=== PATIENT | female | born 2005 | race Caucasian/White ===

== ENCOUNTER 2023-04-29 09:56 | Outpatient (OUT) | payer OTHER, SELFPAY ==
[2023-04-29 10:33] LABS: Basophils Percent Auto 0.4 % (0.2-2.0); Eosinophils Absolute Auto 0.2 10^3/uL (0.0-0.7); Eosinophils Percent Auto 2.9 % (0.9-7.0); Hematocrit 38.7 % (36.0-48.0); Hemoglobin 13.2 g/dL (12.0-16.0); Immature Granulocytes Abs Auto 0.03 10^3/uL (0.00-0.03); Immature Granulocytes Pct Auto 0.4 % (0.0-0.5); Lymphocytes Absolute Auto 2.4 10^3/uL (1.2-3.8); Lymphocytes Percent Auto 31.1 % (20.5-60.0); Mean Corpuscular HGB Conc 34.1 g/dL (29.9-35.2); Mean Corpuscular Hemoglobin 29.7 pg (26.7-34.0); Mean Corpuscular Volume 87.2 fL (81.0-99.0); Mean Platelet Volume 10.8 fL (9.5-13.5); Monocytes Absolute Auto 0.5 10^3/uL (0.3-0.8); Monocytes Percent Auto 6.9 % (1.7-12.0); Neutrophils Absolute Auto 4.5 10^3/uL (1.4-6.5); Neutrophils Percent Auto 58.3 % (43.0-75.0); Platelet Count 257 10^3/uL (150-450); Red Blood Count 4.44 10^6/uL (4.20-5.40); Red Cell Distribution Width 12.6 % (11.0-15.0); White Blood Count 7.6 10^3/uL (4.0-11.0)
[2023-04-29 10:44] LABS: Estimated Average Glucose 103 mg/dL; Glycohemoglobin A1C 5.2 % (4.5-6.2)
[2023-04-29 11:00] LABS: Alanine Aminotransferase 27 U/L (14-59); Aspartate Amino Transferase 18 U/L (15-37)
[2023-04-29 11:23] LABS: Free T4 0.67 ng/dL (0.78-1.34)
[2023-04-29 11:32] LABS: Alanine Aminotransferase 29 U/L (14-59); Albumin Globulin Ratio 0.9; Alkaline Phosphatase 106 U/L (46-116); Anion Gap 9.5; Aspartate Amino Transferase 20 U/L (15-37); BUN Creatinine Ratio 10.3; Bilirubin Total 0.4 mg/dL (0.2-1.0); Calcium 9.3 mg/dL (8.5-10.1); Carbon Dioxide 28.4 mmol/L (21.0-32.0); Chloride 101 mmol/L (98-107); Chol HDL Ratio 5.3; Cholesterol 269 mg/dL (104-227); Estimated GFR (African America >60 (>=60); Estimated GFR (Non-African Ame >60 (>=60); Free T3 2.95 pg/mL (2.91-4.70); Globulin 4.5 g/dL; Glucose 91 mg/dL (74-106); HDL Cholesterol 51 mg/dL (29-69); Potassium 3.9 mmol/L (3.5-5.1); Sodium 135 mmol/L (136-145); Thyroid Stimulating Hormone 1.358 uIU/mL (0.516-4.130); Total Protein 8.5 g/dL (6.4-8.2); Triglycerides 195 mg/dL (53-208)
== END 2023-04-29 09:57 | disposition home or self-care (01) ==
LOC: LAB 09:59
PROVIDERS: PCP Family Medicine
DX: R53.83 Other fatigue (principal); Z79.899 Other long term (current) drug therapy
CPT/HCPCS: 36415; 80053; 80061; 82306; 83036; 84439; 84443; 84450; 84460; 84481; 85025

== ENCOUNTER 2024-04-05 08:25 | Outpatient (OUT) | payer OTHER, SELFPAY ==
--- OUTSIDE RECORDS SUMMARY | 2024-04-05 08:34 | XMS_ITS | CCD ---
Author Organization [facility] Care Team Providers Care Editor Book Name Role Phone Luis Carlos DIOP Attending Unavailable FURLONG, DR JONATHAN Sanchez Primary Care Unavailable JAVON, CARLOS Attending Unavailable JAVON, CARLOS Admitting Unavailable JAVON, CARLOS Attending Unavailable JAVON, CARLOS Admitting Unavailable ZIEBER, DR RILEY Balderrama Consulting Unavailable FURLONG, DR JONATHAN Sanchez Primary Care Unavailable JAVON, CARLOS Consulting Unavailable FURLONG, DR JONATHAN Sanchez Primary Care Unavailable MISC, DR YEE Consulting Unavailable MISC, DR YEE Attending Unavailable MISC, DR YEE Admitting Unavailable MORGAN ZHANG Attending Unavailable HANG Soliman, MORGAN Admitting Unavailable FURLONG, DR JONATHAN Sanchez Primary Care Unavailable MORGAN ZHANG Consulting Unavailable Brooke Castelan Unavailable MOISE Castelan Attending Provider Brooke Castelan Attending Unavailable Brooke Castelan Admitting Unavailable Furlong, Jonathan Primary Care Unavailable Javon ADVERTISING INTERN-TOP CARRIER, Carlos L Primary Care Provider JAVON, CARLOS L Attending Unavailable JAVON, CARLOS L Referring Unavailable JAVON, CARLOS L Primary Care Unavailable RICK MATTHEWS Attending Unavailable JAVON, CARLOS L Referring Unavailable JAVON, CARLOS L Primary Care Unavailable JAVON, CARLOS L Referring Unavailable JAVON, CARLOS L Primary Care Unavailable RICK MATTHEWS Referring Unavailable JAVON, CARLOS L Primary Care Unavailable Medications Current Medications Medication Drug Class(es) Dates Sig (Normalized) Sig (Original) [id number] 200 actuat albuterol 0.09 mg/actuat metered dose inhaler (4 sources) beta2-Adrenergic Agonist Start: 07-18-2022 take 2 puff(s) by inhalation every six hours as needed for wheezing albuterol (PROVENTIL HFA;VENTOLIN HFA) 90 mcg/actuation inhaler Indications: Mild intermittent asthma without complication INHALE 2 PUFFS EVERY 6 HOURS NEEDED FOR WHEEZING 8.5 g 1 07/18/2022 Active ProAir HFA Activ e amphetamine aspartate 1.25 mg / amphetamine sulfate 1.25 mg / dextroamphetamine saccharate 1.25 mg / dextroamphetamine sulfate 1.25 mg oral tablet (2 sources) Central Nervous System Stimulant take 1 tablet by mouth every twelve hours Adderall 5 MG 1 tablet Orally Twice a day Active Budesonide / formoterol (2 sources) Corticosteroid, beta2-Adrenergic Agonist Symbicort Active busPIRone hydrochloride 15 mg oral tablet (5 sources) Start: take 1 tablet by mouth once daily busPIRone (BUSPAR) 15 mg tablet take 1 tablet by mouth once daily 0 05/24/2023 Active End: 06-18-2023 take 2 tablets by mouth once daily busPIRone (BUSPAR) 7.5 mg tablet Take 2 tablets (15 mg total) by mouth nightly. 0 06/18/2023 Discontinued (Therapy completed) [facility] busPIRone HCl 15 MG 1 tablet Orally Twice a day Active cariprazine 4.5 mg oral capsule (5 sources) Atypical Antipsychotic Start: 05-24-2023 take 1 capsule by mouth once daily VRAYLAR 4.5 mg capsule take 1 capsule by mouth once daily 0 05/24/2023 Active Start: 07-22-2022 End: 06-18-2023 take 1 capsule by mouth once daily VRAYLAR 3 mg capsule Take by mouth daily. 0 07/22/2022 06/18/2023 Discontinued (Therapy completed) take 1 capsule by mo [facility] every twenty-four hours Vraylar 1.5 MG 1 capsule Orally Once a day Active cholecalciferol 0.05 mg oral tablet (2 sources) Vitamin D take 1 tablet by mouth in the morning cholecalciferol, vitamin D3, 2,000 units tablet Take 1 tablet (2,000 Units total) by mouth in the morning. 0 Active hydrOXYzine hydrochloride 25 mg oral tablet (2 sources) Antihistamine Start: 023 take 4 tablets by mouth once daily as needed for anxiety hydrOXYzine (ATARAX) 25 mg tablet Take 4 tablets (100 mg total) by mouth nightly as needed for anxiety. 0 09/09/2022 Active ibuprofen 800 mg oral tablet (2 sources) Nonsteroidal Anti-inflammatory Drug Start: take 1 tablet by mouth every eight hours as needed for pain ibuprofen (MOTRIN) 800 mg tablet Take 1 tablet (800 mg total) by mouth every 8 (eight) hours as needed for pain. 30 tablet 0 02/18/2023 Active bx rating 24 hr methylphenidate hydrochloride 27 mg extended release oral tablet (2 sources) Central Nervous System Stimulant Start: take 1 tablet by mouth once daily in the morning methylphenidate HCl (CONCERTA) 27 mg CR tablet take 1 tablet by mouth every morning 0 05/24/2023 Active montelukast 10 mg oral tablet (6 sources) Leukotriene Receptor Antagonist Start: take 1 tablet by mouth once daily montelukast (SINGULAIR) 10 mg tablet Indications: Unspecified asthma, uncomplicated TAKE 1 TABLET BY MOUTH EVERY DAY 90 tablet 3 02/17/2023 Active Singulair Active ondansetron 4 mg disintegrating oral tablet (4 sources) Serotonin-3 Receptor Antagonist Start: 06-18-2023 take 1 tablet by mouth every eight hours as needed for nausea and vomiting ondansetron ODT (ZOFRAN ODT) 4 mg disintegrating tablet Dissolve 1 tablet (4 mg total) on tongue every 8 (eight) hours as needed for nausea or vomiting. 20 tablet 1 06/18/2023 Active Start: 05-12-2023 take 1 tablet by toney three times daily as needed for nausea Zofran 4 MG 1 tablet Orally tid prn ODT, prn nausea Apr, Active prazosin 1 mg oral capsule (2 sources) alpha-Adrenergic Joanna take 1 capsule by mouth once daily prazosin (MINIPRESS) 1 mg capsule Take 1 capsule (1 mg total) by mouth nightly. 0 Active propranolol hydrochloride 20 mg oral tablet (4 sources) beta-Adrenergic Joanna Start: 06-11-20 23 propranoloL (INDERAL) 20 mg tablet take 5 mL by mouth once daily Pr opranolol HCl 20 MG/5ML 5 mL Orally Once a day Active sertraline 25 mg oral tablet (5 sources) Serotonin Reuptake Inhibitor Start: 03-22-2023 End: 09-13-2023 take 1 tablet by mouth in the morning sertraline (ZOLOFT) 25 mg tablet TAKE 1 TABLET (25 MG TOTAL) BY MOUTH IN THE MORNING 90 tablet 1 09/13/2023 Active sulfamethoxazole 800 mg / trimethoprim 160 mg oral tablet (2 sources) Dihydrofolate Reductase Inhibitor Antibacterial, Sulfonamide Antimicrobial Start: 05-12-2023 take 1 tablet by mouth every twelve hours Bactrim DS 800-160 MG 1 tablet Orally Twice a day for 5 days Apr, Active traZODone hydrochloride 50 mg oral tablet (4 sources) Serotonin Reuptake Inhibitor Start: 05-21-2023 take 1-3 tablets by mouth at bedtime traZODone (DESYREL) 50 mg tablet take 1 to 3 tablets by mouth at bedtime if needed 0 05/21/2023 Active take 1 tablet by mouth once ravindra y traZODone (DESYREL) 100 mg tablet Take 1 tablet (100 mg total) by mouth nightly. 0 Active Problems Active Problems Problem Classification Problem Date Documented Date Episodic/Chronic Allergic reactions (1 source) Allergic contact dermatitis due to plants, except food; Translations: [Allergic contact dermatitis due to plants, except food] Onset: 11-25-2023 Episodic Anxiety disorders (2 sources) Anxiety; Translations: [Anxiety disorder, unspecified] Onset: 05-28-2022 05-28-2022 Chronic Asthma (2 sources) Mild intermittent asthma; Translations: [Mild intermittent asthma, uncomplicated] Onset: 05-28-2022 05-28-2022 Chronic Attention-deficit, conduct, and disruptive behavior disorders (2 sources) Attention deficit hyperactivity disorder; Translations: [Attention-deficit hyperactivity disorder, unspecified type] Onset: 02-18-2023 02-18-2023 Chronic Deficiency and other anemia (2 sources) Iron deficiency anemia due to blood loss; Translations: [Iron deficiency anemia secondary to blood loss (chronic)] Onset: 05-28-2022 05-28-2022 Chronic Genitourinary symptoms and ill-defined conditions (3 sources) Dysuria; Translations: [Dysuria] Onset: 05-12-2023 Episodic Malaise and fatigue (4 sources) Other fatigue; Translations: [OTHER FATIGUE] Onset: 08-25-2022 Episodic Mood disorders (6 sources) Recurrent major depressive episodes; Translations: [Major depressive disorder, recurrent, unspecified] Onset: 05-28-2022 05-28-2022 Chronic Nonmalignant breast conditions (1 source) Galactorrhea not associated with childbirth; Translations: [Galactorrhea not associated with childbirth] Onset: 11-25-2023 Episodic Nutritional deficiencies (2 sources) Vitamin D deficiency; Translations: [Vitamin D deficiency, unspecified] Onset: 05-28-2022 05-28-2022 Chronic Personality disorders (2 sources) Borderline personality disorder; Translations: [Borderline personality disorder] Onset: 02-18-2023 02-18-2023 Chronic Residual codes; unclassified (1 source) High risk heterosexual behavior; Translations: [High risk heterosexual behavior] 06-18-2023 Episodic Unclassified (1 source) Galactorrhea Onset: 11-25-2023 Urinary tract infections (2 sources) Acute cystitis with hematuria Episodic Past or Other Problems Problem Classification Problem Date Documented Da te Episodic/Chronic Contraceptive and procreative management (3 sources) Patient encounter status; Translations: [Encounter for surveillance of implantable subdermal contraceptive] Onset: 05-28-2022 06-18-2023 Episodic E Codes: Cut/pierceb (1 source) Contact with knife, initial encounter; Translations: [CONTACT WITH KNIFE INITIAL ENC] Onset: 12-11-2021 Episodic Mood disorders (2 sources) Mood disorders Onset: 06-18-2023 06-18-2023 Nausea and vomiting (4 sources) Nausea with vomiting, unspecified; Translations: [Nausea and vomiting] Onset: 06-18-2023 Episodic Open wounds of extremities (4 sources) Laceration without foreign body of left thumb without damage to nail, initial encounter; Translations: [LAC NO FB LT THUMB NO DMG NAIL INIT] Onset: 12-10-2021 Episodic Other non-traumatic joint disorders (6 sources) Pain in right knee; Translations: [Pain in joint, lower leg] Onset: 10-08-2021 Episodic Other skin disorders (2 sources) Acne vulgaris; Translations: [Acne vulgaris] Onset: 05-28-2022 05-28-2022 Episodic Residual codes; unclassified (2 sources) High risk heterosexual behavior; Translations: [High risk heterosexual behavior] Onset: 06-18-2023 Episodic Unclassified (2 sources) Contact with and (suspected) exposure to covid-19 Z20.822 Results Test Name Value Interpretation Reference Range Facility BASIC METABOLIC PANLon 11-24 Anion gap [Moles/Vol] 8 mmol/L Normal 5-15 [facility] Comment on above: Performed By: #### B EARL THYR, 284-3 #### [facility] ([id number]) [address], [address] [place] [address] Calcium [Mass/Vol] 9.9 mg/dL Normal 8.5-10.5 [facility] Comment on above: Performed By: #### B EARL THYR, 284-3 #### [facility] ([id number]) [address], [address] [place] [address] Chloride [Moles/Vol] 104 mmol/L Normal 98-109 [facility] Comment on above: Performed By: #### B EARL THYR, 284-3 #### [facility] ([id number]) [address], [address] [place] [address] CO2 [Moles/Vol] 27 mmol/L Normal 22-32 [facility] Comment on above: Performed By: #### Demetri ELLIOTT THYR, 284-3 #### [facility] ([id number]) [address], [address] [place] [address] Creatinine [Mass/Vol] 0.75 mg/dL Normal 0.40-1.00 [facility] Comment on above: Result Comment: METH OD TRACEABLE TO IDMS STANDARD Performed By: #### B EARL THYR, 284-3 #### [facility] ([id number]) [address], [facility] [address] [place] [address] eGFR (CKD-EPI) NON-RACE DEPENDENT >90 Normal >59 [facility] Comment on above: Result Comment: Reported eGFR is based on the CKD-EPI 2020 equation that does not use a race coefficient. Performed By: #### B EARL THYR, 2842-3 #### [facility] ([id number]) [address], [address] [place] [address] Glucose [Mass/Vol] 95 mg/dL Normal 65-99 [facility] Comment on above: Performed By: #### B MP, THYR, 284-3 #### [facility] ([id number]) [address], [address] [place] [address] Potassium [Moles/Vol] 4.1 mmol/L Normal 3.5-5.0 [facility] Comment on above: Performed By: #### B EARL, THYR, 2841-3 #### [facility] ([id number]) [address], [address] [place] [address] Sodium [Moles/Vol] 139 mmol/L Normal 134-146 [facility] Comment on above: Performed By: #### B EARL, THYR, 2841-3 #### [facility] ([id number]) [address], [address] [place] [address] Urea nitrogen [Mass/Vol] 6 mg/dL Normal 5-23 [facility] Comment on above: Performed By: #### B EARL, THYR, 2841-3 #### [facility] ([id number]) [address], [address] [place] [address] Prolactin [Mass/Vol]on 11-24 PROLACTIN 25.4 ng/mL Normal 3.3-26.7 [facility] Comment on above: Performed By: #### B MP, THYR, 2841-3 #### [facility] ([id number]) [address], [address] [place] [address] THYROID PROFILEon 11-25-2023 Free T4 [Mass/Vol] 0.72 ng/dL Normal 0.61-1.60 [facility] Comment on above: Performed By: #### B EARL, THYR, 2841-3 #### [facility] ([id number]) [address], [address] [place] [address] TSH 1.37 uIU/mL Normal 0.49-4.67 [facility] Comment on above: Performed By: #### B MP, THYR, 2842-3 #### [facility] ([id number]) [address], [address] [place] [address] CHLAMYDIA/GC PCR, Uon 2022 CHLAMYDIA/GC PCR, U SPECIMEN SOURCE URINE CHLAMYDIA DNA(PCR) Negative (qualifier value) Chlamydia trachomatis not detected by nucleic acid amplification. This does not exclude the possibility of infection because results are dependent on adequate specimen collection. GONORRHOEAE DNA(PCR) Negative (qualifier value) Neisseria gonorrhoeae not detected by nucleic acid amplification. This does not exclude the possibility of infection because results are dependent on adequate specimen collection. Normal [facility] Comment on above: Performed By: #### C #### [facility] ([id number]) [address], [address] [place] [address] POCT , urineon 05-22 Beta HCG ( test) Ql (U) Negative [facility] Internal Card Room Manager Check Completed and Passed Yes [facility] Interpretation and review of laboratory results Normal [facility] TRICHOMONAS PCRon 06-18-2023 TRICHOMONAS PCR SPECIMEN SOURCE CLEAN CATCH MIDSTREAM URINE TRICHOMONAS PCR Not detected (qualifier value) Trichomonas vaginalis not detected NOTE Assay methodology is nucleic acid amplification by real-time PCR for detection of Trichomonas vaginalis DNA performed on [employer] GeneXpert Instrument System. Normal [facility] Comment on above: Performed By: #### T RKPCR #### [facility] ([id number]) [address], [address] [place] [address] COVID + FLU Quick Testingon 05-12-2023 SARS-CoV-2 (COVID-19) RNA CRISTAL+probe Ql (Unsp spec) Negative [employer] Other COVID + FLU Quick Testing Negative [employer] Other Urinalysis - AUTOMATEDon Appearance (U) cloudy [facility] Other Bilirubin Ql (U) Negative [employer] Other Color (U) dark yellow [employer] Other Glucose Ql (U) Negative [facility] Other Hemoglobin Ql (U) small [employer] Other Ketones Ql (U) Negative [facility] Other Leukocyte esterase Test strip Ql (U) trace [employer] Other Nitrite Ql (U) Negative [facility] Other pH (U) 6.5 [pH] [employer] Other Protein Ql (U) 100 [facility] Other Specific gravity (U) [Rel density] 1.030 [facility] Other Urobilinogen (U) [Mass/Vol] 1.0 mg/dL [employer] Other Urinalysis - AUTOMATED [facility] Other Urine Cultureon 05-12-2023 Bacteria identified Cx Nom (U) Reason for Exam Dysuria Urine ORGANISM: Escherichia coli (O:ESCCOL) [place] Count >100,000 Aerobic JACIEL Charge ([id number]) ------ SUSCEPTIBILITY ----- ORGANISM: O:ESCCOL ANTIBIOTIC INTERPRETATION JACIEL Amikacin S <16 Amoxacillin/K Clavulanate S <8 Ampicillin R >16 Ampicillin/Sulbacta m I 1616/8 Aztreonam S <4 Cefazolin S <2 Cefepime S <2 Ceftazidime S <1 Ceftazidime/Avibact am S <4 Ceftolozane/Tazobac escobar S <2 Ceftriaxone S <1 Cefuroxime S <4 Ciprofloxacin S <0.25 Ertapenem S <0.5 Gentamicin S <2 Levofloxacin S <0.5 Meropenem S <1 Meropenem/Vaborbact am S <2 Nitrofurantoin S <32 Piperacillin/Tazoba ctam S <8 Tetracycline S <4 Tigecycline S <2 Tobramycin S <2 Trimethoprim/Sulfam ethoxazole S <0.5 S = SUSCEPTIBLE I = INTERMEDIATE R = RESISTANT BLANK = DATA NOT AVAILABLE, OR DRUG NOT ADVISABLE OR TESTED R* = RESISTANCE DUE TO EXTENDED SPECTRUM BETA-LACTAMASES ESBL = EXTENDED SPECTRUM BETA-LACTAMASE TFG = THYMIDINE-DEPENDENT STRAIN MAURISIO = BETA-LACTAMASE POSITIVE IB = INDUCIBLE BETA-LACTAMASE. APPEARS IN PLACE OF 'S' WITH SPECIES KNOWN TO POSSESS INDUCIBLE BETA-LACTAMASES. POTENTIALLY THEY MAY BECOME RESISTANT TO ALL B-LACTAM DRUGS. PERFORMED BY: [place] [address] PATHOLOGIST BEHAVIORAL INSTRUCTOR MATTHEW CHAIDEZ M.D. [facility] Comment on above: Performed By: #### C UU #### [address] Urine Culture >100,000 [facility] Other Urine Culture <16 Susceptible [facility] Other Urine Culture <8/4 Susceptible [facility] Other Urine Culture >16 Resistant [facility] Other Urine Culture <4 Susceptible [facility] Other Urine Culture <2 Susceptible [facility] Other Urine Culture <1 Susceptible [facility] Other Urine Culture <0.25 Susceptible [facility] Other Urine Culture <0.5 Susceptible [facility] Other Urine Culture <32 Susceptible [facility] Other Urine Culture <0.5/9.5 Susceptible [facility] Other CBC AUTO DIFFon 08-25-2022 BASO # 0.0 103/ul Normal 0.0-0.1 [facility] Comment on above: Performed By: #### C BC #### [facility] [address] [place] [address] Dr. Oneal Capps Basophils/100 WBC (Bld) 0.4 % Normal 0.2-2.0 [facility] Comment on above: Performed By: #### C BC #### [facility] [address] [place] [address] Dr. Oneal Capps EO # 0.2 103/ul Normal 0.0-0.7 [facility] Comment on above: Performed By: #### C BC #### [facility] [address] [place] [address] Dr. Oneal Capps Eosinophils/100 WBC (Bld) 2.2 % Normal 0.9-7.0 [facility] Comment on above: Performed By: #### C BC #### [facility] [address] [place] [address] Dr. Oneal Capps Erythrocyte distribution width (RBC) [Ratio] 12.5 % Normal 11.0-15.0 [facility] Comment on above: Performed By: #### C BC #### [facility] [address] [place] [address] Dr. Oneal Capps Hematocrit (Bld) [Volume fraction] 37.1 % Normal 36.0-48.0 [facility] Comment on above: Performed By: #### C BC #### [facility] [address] [place] [address] Dr. Oneal Capps Hemoglobin (Bld) [Mass/Vol] 12.5 g/dL Normal 12.0-16.0 [facility] Comment on above: Performed By: #### C BC #### [facility] [address] [place] [address] Dr. Oneal Capps IG # 0.05 10e3/ul Critically high 0.00-0.[address] [facility] Comment on above: Performed By: #### C BC #### [facility] [address] [place] [address] Dr. Oneal Capps IG % 0.5 % Normal 0.0-0.5 [facility] Comment on above: Performed By: #### C BC #### [facility] [address] [place] [address] Dr. Oneal Capps LYMPH # 1.6 103/ul Normal 1.2-3.8 [facility] Comment on above: Performed By: #### C BC #### [facility] [address] [place] [address] Dr. Oneal Capps Lymphocytes/100 WBC (Bld) 16.9 % Critically low 20.5-60.0 [facility] Comment on above: Performed By: #### C BC #### [facility] [address] [place] [address] Dr. Oneal Capps MANUAL DIFF REQ NO Normal [facility] Comment on above: Performed By: #### C BC #### [facility] [address] [place] [address] Dr. Oneal Capps MCH (RBC) [Entitic mass] 29.8 pg Normal 26.7-34.0 [facility] Comment on above: Performed By: #### C BC #### [facility] [address] [place] [address] Dr. Oneal Capps MCHC (RBC) [Mass/Vol] 33.7 g/dL Normal 29.9-35.2 [facility] Comment on above: Performed By: #### C BC #### [facility] [address] [place] [address] Dr. Oneal Capps MCV (RBC) [Entitic vol] 88.5 fL Normal 81.0-99.0 [facility] Comment on above: Performed By: #### C BC #### [facility] [address] [place] [address] Dr. Oneal Capps MONO # 0.7 103/ul Normal 0.3-0.8 [facility] Comment on above: Performed By: #### C BC #### [facility] [address] [address] [address] Oneal Capps Monocytes/100 WBC (Bld) 6.9 % Normal 1.7-12.0 [facility] Comment on above: Performed By: #### C BC #### [facility] [address] [address] [address] Oneal Capps NEUT # 6.9 103/ul Critically high 1.4-6.5 [facility] Comment on above: Performed By: #### C BC #### [facility] [address] [address] [address] Oneal Capps Neutrophils/100 WBC (Bld) 73.1 % Normal 43.0-75.0 [facility] Comment on above: Performed By: #### C BC #### [facility] [address] [address] [address] Oneal Capps Platelet mean volume (Bld) [Entitic vol] 10.8 fL Normal 9.5-13.5 [facility] Comment on above: Performed By: #### C BC #### [facility] [address] [address] [address] Oneal Capps PLT 234 103/ul Normal 150-450 [facility] Comment on above: Performed By: #### C BC #### [facility] [address] [address] [address] Oneal Capps RBC 4.19 106/ul Critically low 4.20-5.40 [facility] Comment on above: Performed By: #### C BC #### [facility] [address] [address] [address] Oneal Capps WBC 9.4 103/ul Normal 4.0-11.[address] [facility] Comment on above: Performed By: #### C BC #### [facility] [address] [address] [address] Oneal Capps FERRITINon 08-25-2022 Ferritin [Mass/Vol] 62.0 ng/mL Normal 6.2-137.0 [facility] Comment on above: Performed By: #### V ITAD, FT4, FETIBC, FERR, VITB12 #### [facility] [address] [place] [address] Dr. Oneal Capps FREE T3on 08-25-2022 FREE T3 2.98 pg/mlL Normal 2.91-4.70 [facility] Comment on above: Performed By: #### V ITAD, FT4, FETIBC, FERR, VITB12 #### [facility] [address] [place] [address] Dr. Oneal Capps FREE T4on 08-25-2022 Free T4 [Mass/Vol] 0.63 ng/dL Critically low 0.78-1.34 [facility] Comment on above: Performed By: #### V ITAD, FT4, FETIBC, FERR, VITB12 #### [facility] [address] [place] [address] Dr. Oneal Capps GLYCOHEMOGLOBIN A1Con 2022 ADA RECOMMENDATION SEE BELOW Normal [facility] Comment on above: Result Comment: ADA RECOMMENDED LIMIT 4.0 - 6.0 ADA THERAPEUTIC TARGET < 7.0 ACTION SUGGESTED > 7.0 Performed By: #### A 1C #### [facility] [address] [place] [address] Dr. Oneal Capps Glucose [Mass/Vol] 111 mg/dL Normal [facility] Comment on above: Performed By: #### A 1C #### [facility] [address] [place] [address] Dr. Oneal Capps HbA1c (Bld) [Mass fraction] 5.5 % Normal 4.5-6.2 [facility] Comment on above: Performed By: #### A 1C #### [facility] [address] [place] [address] Dr. Oneal Capps IRON AND TIBCon 08-25-2022 % SATURATION 31.6 % Normal [facility] Comment on above: Performed By: #### V ITAD, FT4, FETIBC, FERR, VITB12 #### [facility] [address] [place] [address] Dr. Oneal Capps Iron [Mass/Vol] 109.0 ug/dL Normal 50.0-170.0 [facility] Comment on above: Performed By: #### V ITAD, FT4, FETIBC, FERR, VITB12 #### [facility] [address] [place] [address] Dr. Oneal Capps TIBC DIRECT 345.0 ug/dL Normal 250.0-450.0 [facility] Comment on above: Performed By: #### V ITAD, FT4, FETIBC, FERR, VITB12 #### [facility] [address] [place] [address] [address] Oneal Capps LIPID PROFILEon 08-25-2022 CHOL-HDL RATIO NORM SEE BELOW Normal [facility] Comment on above: Result Comment: 3.3 - 4.4 LOW RISK 4.4 - 7.1 AVERAGE RISK 7.1 - 11.0 MODERATE RISK >11.0 HIGH RISK Performed By: #### L IPID, TSH, FT3, CMP #### [facility] [address] [place] [address] [address] Oneal Capps Cholesterol [Mass/Vol] 251 mg/dL Critically high 104-227 [facility] Comment on above: Performed By: #### L IPID, TSH, FT3, CMP #### [facility] [address] [place] [address] [address] Oneal Capps Cholesterol in HDL [Mass/Vol] 64 mg/dL Normal 29-69 [facility] Comment on above: Performed By: #### L IPID, TSH, FT3, CMP #### [facility] [address] [place] [address] [address] Oneal Capps Cholesterol in LDL [Mass/Vol] 169.4 mg/dL Critically high 46.0-140.0 [facility] Comment on above: Performed By: #### L IPID, TSH, FT3, CMP #### [facility] [address] [place] [address] Dr. Oneal Capps Cholesterol.total/Ch olesterol in HDL [Mass ratio] 3.9 {ratio} Normal [facility] Comment on above: Performed By: #### L IPID, TSH, FT3, CMP #### [facility] [address] [place] [address] [address] Oneal Capps HDL NORMAL > or = 60 mg/dl - LOW CARDIOVASCULAR RISK <40 mg/dl - HIGH CARDIOVASCULAR RISK Normal [facility] Comment on above: Performed By: #### L IPID, TSH, FT3, CMP #### [facility] [address] [place] [address] [address] Oneal Capps LDL CALC NORMAL SEE BELOW Normal [facility] Comment on above: Result Comment: <100 mg/dl OPTIMAL 100 - 129 mg/dl NEAR OR ABOVE OPTIMAL 130 - 159 mg/dl BORDERLINE HIGH 160 - 189 mg/dl HIGH >190 mg/dl VERY HIGH Performed By: #### L IPID, TSH, FT3, CMP #### [facility] [address] [place] [address] [address] Oneal Capps Triglyceride [Mass/Vol] 88 mg/dL Normal 53-208 [facility] Comment on above: Performed By: #### L IPID, TSH, FT3, CMP #### [facility] [address] [place] [address] [address] Oneal Capps VLDL CALC 17.6 mg/dL Normal [facility] Comment on above: Performed By: #### L IPID, TSH, FT3, CMP #### [facility] [address] [place] [address] [address] Oneal Capps PROF 14(COMP METB)on 023 Albumin [Mass/Vol] 3.9 g/dL Normal 3.4-5.0 [facility] Comment on above: Performed By: #### L IPID, TSH, FT3, CMP #### [facility] [address] [place] [address] [address] Oneal Capps Albumin/Globulin [Mass ratio] 1.0 {ratio} Normal [facility] Comment on above: Performed By: #### L IPID, TSH, FT3, CMP #### [facility] [address] [place] [address] [address] Oneal Capps ALP [Catalytic activity/Vol] 96 U/L Normal 46-116 [facility] Comment on above: Performed By: #### L IPID, TSH, FT3, CMP #### [facility] [address] [place] [address] Dr. Oneal Capps ALT [Catalytic activity/Vol] 30 U/L Normal 14-59 [facility] Comment on above: Performed By: #### L IPID, TSH, FT3, CMP #### [facility] [address] [place] [address] Dr. Oneal Capps Anion gap [Moles/Vol] 11.2 mmol/L Normal [facility] Comment on above: Performed By: #### L IPID, TSH, FT3, CMP #### [facility] [address] [place] [address] Dr. Oneal Capps AST [Catalytic activity/Vol] 26 U/L Normal 15-37 [facility] Comment on above: Performed By: #### L IPID, TSH, FT3, CMP #### [facility] [address] [place] [address] Dr. Oneal Capps Bilirubin [Mass/Vol] 0.6 mg/dL Normal 0.2-1.0 [facility] Comment on above: Performed By: #### L IPID, TSH, FT3, CMP #### [facility] [address] [place] [address] Dr. Oneal Capps Calcium [Mass/Vol] 9.0 mg/dL Normal 8.5-10.1 [facility] Comment on above: Performed By: #### L IPID, TSH, FT3, CMP #### [facility] [address] [place] [address] Dr. Oneal Capps Chloride [Moles/Vol] 103 mmol/L Normal 98-107 [facility] Comment on above: Performed By: #### L IPID, TSH, FT3, CMP #### [facility] [address] [place] [address] Dr. Oneal Capps CO2 [Moles/Vol] 29.0 mmol/L Normal 21.0-32.0 [facility] Comment on above: Performed By: #### L IPID, TSH, FT3, CMP #### [facility] [address] [place] [address] [address] Onela Capps Creatinine [Mass/Vol] 0.56 mg/dL Normal 0.55-1.02 [facility] Comment on above: Performed By: #### L IPID, TSH, FT3, CMP #### [facility] [address] [place] [address] Dr. Oneal Capps EGFR-AF JORDANIAN >60 Normal >=60 [facility] Comment on above: Performed By: #### L IPID, TSH, FT3, CMP #### [facility] [address] [place] [address] Dr. Oneal Capps EGFR-NON AF JORDANIAN >60 Normal >=60 [facility] Comment on above: Performed By: #### L IPID, TSH, FT3, CMP #### [facility] [address] [place] [address] Dr. Oneal Capps Globulin (S) [Mass/Vol] 4.0 g/dL Normal [facility] Comment on above: Performed By: #### L IPID, TSH, FT3, CMP #### [facility] [address] [place] [address] Dr. Oneal Capps Glucose [Mass/Vol] 93 mg/dL Normal 74-106 [facility] Comment on above: Performed By: #### L IPID, TSH, FT3, CMP #### [facility] [address] [place] [address] Dr. Oneal Capps Potassium [Moles/Vol] 4.2 mmol/L Normal 3.5-5.[address] [facility] Comment on above: Performed By: #### L IPID, TSH, FT3, CMP #### [facility] [address] [place] [address] Dr. Oneal Capps Protein [Mass/Vol] 7.9 g/dL Normal 6.4-8.2 [facility] Comment on above: Performed By: #### L IPID, TSH, FT3, CMP #### [facility] [address] [place] [address] Dr. Oneal Capps Sodium [Moles/Vol] 139 mmol/L Normal 136-145 [facility] Comment on above: Performed By: #### L IPID, TSH, FT3, CMP #### [facility] [address] [place] [address] [address] Oneal Capps Urea nitrogen [Mass/Vol] 7.0 mg/dL Normal 6.4-19.3 [facility] Comment on above: Performed By: #### L IPID, TSH, FT3, CMP #### [facility] [address] [place] [address] Dr. Oneal Capps Urea nitrogen/Creatinine [Mass ratio] 12.5 mg/mg Normal [facility] Comment on above: Performed By: #### L IPID, TSH, FT3, CMP #### [facility] [address] [place] [address] Dr. Oneal Capps TSHon 08-25-2022 TSH 2.032 uIU/mL Normal 0.516-4.130 [facility] Comment on above: Performed By: #### V ITAD, FT4, FETIBC, FERR, VITB12 #### [facility] [address] [place] [address] Dr. Oneal Capps VITAMIN B12on 08-25-2022 Cobalamin (Vitamin B12) [Mass/Vol] 620.0 pg/mL Normal 193.0-986.0 [facility] Comment on above: Performed By: #### V ITAD, FT4, FETIBC, FERR, VITB12 #### [facility] [address] [place] [address] Dr. Oneal Capps VITAMIN D 25 OHon 08-25-2022 VIT D 25-OH 47.8 ng/mL Normal [facility] Comment on above: Performed By: #### V ITAD, FT4, FETIBC, FERR, VITB12 #### [facility] [address] [place] [address] Dr. Oneal Capps VIT D RANGES SEE BELOW Normal [facility] Comment on above: Result Comment: <20 ng/mL Vit D deficient 20 - <30 ng/mL Vit D insufficient 30 - 100 ng/mL Vit D sufficient >100 ng/mL Potential Toxicity Performed By: #### V ITAD, FT4, FETIBC, FERR, VITB12 #### [facility] [address] [place] [address] [address] Oneal Capps [place] 04-28-2022 Consent [id number]:127 Normal [facility] Registrationon 04-28-2022 Registration [id number]:127 Normal [facility] IRON, TIBC AND FERRITIN PANE Red 02-11-2022 % SATURATION 32 % (calc) Normal 15-45 [facility] Comment on above: Order Comment: FASTI NG:NO FASTING: NO Performed By: #### 5 [id number], [id number] #### [facility] [address], [address] [place] [address] Gate Supervisor: Alberto Davis MD Ferritin [Mass/Vol] 39 ng/mL Normal 6-67 [facility] Comment on above: Order Comment: FASTI NG:NO FASTING: NO Performed By: #### 5 616, [id number] #### [facility] [place] [address] Gate Supervisor: Alberto Davis MD IRON BINDING CAPACITY 346 mcg/dL (calc) Normal 271-448 [facility] Comment on above: Order Comment: FASTI NG:NO FASTING: NO Performed By: #### 5 616, [id number] #### [facility] [place] [address] Gate Supervisor: Alberto Davis MD IRON, TOTAL 112 mcg/dL Normal 27-164 [facility] Comment on above: Order Comment: FASTI NG:NO FASTING: NO Performed By: #### 5 616, [id number] #### [facility] [place] [address] Gate Supervisor: Alberto Davis MD VITAMIN D,25-OH,TOTAL,IAon 0 02-11-2022 VITAMIN D,25-OH,TOTAL,IA 42 ng/mL Normal 30-100 [facility] Comment on above: Result Comment: Ariadne min D Status 25-OH Vitamin D: Deficiency: <20 ng/mL Insufficiency: 20 - 29 ng/mL Optimal: > or = 30 ng/mL For 25-OH Vitamin D testing on patients on D2-supplementation and patients for whom quantitation of D2 and D3 fractions is required, the QuestAssureD(TM) 25-OH VIT D, (D2,D3), LC/MS/MS is recommended: order code 14022 (patients >2yrs). See Note 1 Note 1 For additional information, please refer to http://[email or web address]/[email or web address] (This link is being provided for informational/ educational purposes only.) Performed By: #### 5 616, [id number] #### [facility] [place] [address] Gate Supervisor: Alberto Davis MD IRON, TIBC AND FERRITIN [facility] 05-23-2021 % SATURATION 7 % (calc) Low 15-45 [facility] Comment on above: Performed By: #### 5 616 #### [facility] [place] [address] Gate Supervisor: Alberto Davis MD Ferritin [Mass/Vol] 5 ng/mL Low 6-67 [facility] Comment on above: Performed By: #### 5 616 #### [facility] [place] [address] Gate Supervisor: Alberto Davis MD IRON BINDING CAPACITY 501 mcg/dL (calc) High 271-448 [facility] Comment on above: Performed By: #### 5 616 #### [facility] [place] [address] Gate Supervisor: Alberto Davis MD IRON, TOTAL 36 mcg/dL Normal 27-164 [facility] Comment on above: Performed By: #### 5 616 #### [facility] [place] [address] Gate Supervisor: Alberto Davis MD Vital Signs Date Time Vital Sign Value Performing Clinician Facility 06-18-2023 12:03-0500 Body height 165.1 cm Carlos Alejandro APRN-TOP CARRIER Work Phone: [facility] 06-18-2023 12:03-0500 Body mass index (BMI) [Ratio] 29.95 kg/m2 Carlos Alejandro ADVERTISING INTERN-[employer] CAR[employer] Work Phone: [facility] 06-18-2023 12:03-0500 Body temperature 98.29 [degF] Carlos Alejandro ADVERTISING INTERN-TOP CARRIER [facility] 06-18-2023 12:03-0500 Body weight 81.65 kg Carlos Alejandro ADVERTISING INTERN-TOP CARRIER [facility] 06-18-2023 12:03-0500 Diastolic blood pressure 85 mm[Hg] Carlos Alejandro ADVERTISING INTERN-TOP CARRIER Work Phone: [facility] 06-18-2023 12:03-0500 Heart rate 72 /min Carlos Alejandro ADVERTISING INTERN-TOP CAR[employer]ER [facility] 06-18-2023 12:03-0500 SaO2% (BldA) [Mass fraction] 98 % Carlos Alejandro ADVERTISING INTERN-TOP CAR[employer]ER [facility] 06-18-2023 12:03-0500 Systolic blood pressure 121 mm[Hg] Carlos Alejandro ADVERTISING INTERN-TOP CARRIER Work Phone: [employer] 05-12-2023 15:30-0500 Body height 165.1 cm Brooke Castelan Other [facility] Other 05-12-2023 15:30-0500 Body mass index (BMI) [Ratio] 30.95 kg/m2 Brooke Castelan Other [facility] Other 05-12-2023 15:30-0500 Body temperature 98.3 [degF] Brooke Annelise Other [facility] Other 05-12-2023 15:30-0500 Body weight 84.37 kg Brooke Goelmond Other [facility] Other 05-12-2023 15:30-0500 Respiratory rate 19 /min Brooke Annelise Other [facility] Other 05-12-2023 15:30-0500 SaO2% (BldA) [Mass fraction] 98 % Brooke Annelise Other [facility] Other Encounters Encounter Date Encounter Type Care Provider Facility Start: 11-25-2023 End: 11-25-2023 ambulatory [facility] Start: 11-25-2023 End: 11-25-2023 ambulatory [facility] Start: 09-13-2023 Refill Carlos [facility] ADVERTISING INTERN-TOP CARRIER Work Phone: [facility] Start: 06-18-2023 End: 06-18-2023 ambulatory [facility] Start: 06-18-2023 End: 06-18-2023 Office outpatient visit 15 minutes Carlos Javon ADVERTISING INTERN-TOP CARRIER Work Phone: [facility] Comment on above: Non-intractable vomi ting with nausea (Primary Dx); High risk heterosexual behavior; Implantable subdermal contraceptive surveillance Start: 06-18-2023 End: 06-18-2023 ambulatory [facility] Start: 05-12-2023 End: 05-12-2023 Departed [employer] COORDINATOR-C Brooke Castelan Work Phone: [facility] [place] Work Phone: Start: 05-12-2023 End: 05-12-2023 ambulatory Brooke Castelan [facility] Work Phone: Start: 05-12-2023 Office outpatient ne w 20 minutes Brooke Annelise [facility] Start: 08-25-2022 End: 08-26-[address] JONATHAN CAMARGO Facility:[facility] Start: 04-28-2022 End: 04-29-2022 ambulatory Luis Carlos PETACA Facility:[facility] Start: 03-06-[address] JONATHAN CAMARGO Fac ility:[facility] Start: 12-10-2021 End: 12-10-2021 ambulatory MORGAN MAURICIO . Facility:[facility] Start: 10-08-2021 End: 10-09-2021 ambulatory CARLOS ALEJANDRO Facility: Procedures Date Procedure Procedure Detail Performing Clinician Start: 06-18-2023 Urine test visual color cmprsn meths Carlos Alejandro ADVERTISING INTERN-TOP CARRIER Work Phone: Start: 06-18-2023 Adult depression screening assessment Carlos Duganuch ADVERTISING INTERN-TOP CARRIER Work Phone: Start: 05-12-2023 Piperacillin/tazobactam Brooke Castelan Other Plan of Treatment Date Care Activity Detail Author Start: 02-04-2026 DTaP,Tdap and Td Vaccines (7 - Td or Tdap) DTaP,Tdap and Td Vaccines (7 - Td or Tdap) [facility] Start: 06-18-2024 Adult BMI Screening Adult BMI Screen ing [facility] Start: 06-18-2024 Depression Screening Depression Scre ening [facility] Start: 06-18-2024 Screening for Chlamy wander trachomatis Chlamydia Screening [facility] Start: 06-18-2024 Tobacco Screening Tobacco Screening [facility] Start: 02-20-2024 Adult BMI Follow Up Plan Adult BMI Follow Up Plan [facility] Comment on above: Postponed from 08/07 (Not Indicated) Start: 05-12-2023 Bacteria identified in Urine by Culture [facility] Start: 02-19-2023 Influenza vaccination Influenza Vacc ine [facility] Start: 02-17-2004 Screening for Chlamy wander trachomatis Chlamydia Screening [facility] End: 06-17-2024 Chlamydia/GC by PCR urine Chlamydia/GC by PCR urine Microbiology Routine High risk heterosexual behavior 1 Occurrences starting 06/18/2023 until 06/17/2024 [facility] Work Phone: Comment on above: 1 Occurrences starti ng 06/18/2023 until 06/17/2024 End: 06-17-2024 Trichomonas by PCR Trichomonas by PCR Microbiology Routine High risk heterosexual behavior 1 Occurrences starting 06/18/2023 until 06/17/2024 [facility] Comment on above: 1 Occurrences starti ng 06/18/2023 until 06/17/2024 Immunizations Immunization Date Immunization Notes Care Provider Cliff cervantes 06-01-2021 meningococcal oligosaccharide (groups A, C, Y and W-135) diphtheria toxoid conjugate vaccine (MCV4O) [facility] Work Phone: [facility] 01-25-2018 Human Papillomavirus 9-valent vaccine [facility] Work Phone: [facility] 10-22-2016 hepatitis A vaccine, pediatric/adolescent dosage, 2 dose schedule [facility] Work Phone: [facility] 10-22-2016 Human Papillomavirus 9-valent vaccine [facility] Work Phone: [facility] 02-05-2016 meningococcal oligosaccharide (groups A, C, Y and W-135) diphtheria toxoid conjugate vaccine (MCV4O) [facility] Work Phone: [facility] 02-05-2016 tetanus toxoid, redu lydia diphtheria toxoid, and acellular pertussis vaccine, adsorbed [facility] Work Phone: [facility] 01-13-2008 diphtheria, tetanus toxoids and acellular pertussis vaccine [facility] Work Phone: [facility] 01-13-2008 measles, mumps and rubella virus vaccine Carlos Alejandro [facility] Work Phone: [facility] 01-13-2008 poliovirus vaccine, inactivated Carlos Alejandro [facility] Work Phone: [facility] 01-13-2008 varicella virus vaccine Carlota Alejandro [facility] Work Phone: [facility] 03-18-2005 diphtheria, tetanus toxoids and acellular pertussis vaccine Carlos Alejandro [facility] Work Phone: [facility] 03-18-2005 pneumococcal conjuga te vaccine, 7 valent Carlos Alejandro [facility] Work Phone: [facility] 03-18-2005 varicella virus vaccine Carlota Alejandro [facility] Work Phone: [facility] 08-22-2004 haemophilus influenz ae type b vaccine, PRP-T conjugate Carlos Alejandro [facility] Work Phone: [facility] 08-22-2004 measles, mumps and rubella virus vaccine Carlos Alejandro [facility] Work Phone: [facility] 02-27-2004 DTaP-hepatitis B and poliovirus vaccine Carlos Alejandro [facility] Work Phone: [facility] 02-27-2004 haemophilus influenz ae type b vaccine, PRP-T conjugate Carlos Alejandro [facility] Work Phone: [facility] 02-27-2004 pneumococcal conjuga te vaccine, 7 valent Carlos Alejandro [facility] Work Phone: [facility] 2003 DTaP-hepatitis B and poliovirus vaccine Carlos Alejandro [facility] Work Phone: [facility] 2003 haemophilus influenz ae type b vaccine, PRP-T conjugate [facility] 2003 pneumococcal conjuga te vaccine, 7 valent Carlos Alejandro [employer]ISING [employer] Work Phone: [facility] 2003 DTaP-hepatitis B and poliovirus vaccine Carlos Alejandro ADVERTISING [employer] Work Phone: [facility] 2003 haemophilus influenz ae type b vaccine, PRP-T conjugate Carlos Javon ADVERTISING [employer] [facility] Work Phone: [facility] 2003 pneumococcal conjuga te vaccine, 7 valent Carlos Alejandro ADVERTISING [employer] [facility] Work Phone: [facility] 2003 hepatitis B vaccine, pediatric or pediatric/adolescent dosage Carlos Alejandro ADVERTISING [employer] [facility] Work Phone: [facility] Payers Date Payer Category Payer Unknown [employer] [facility] [id number] 2022-[facility] [phone] [address] [address] [place] [address] [id number] 2003 Unknown [id number] 2003 Unknown [id number] 2003 Unknown [id number] 2003 Unknown [id number] 2003 Unknown [id number] 2003 Unknown [id number] 1975 Unknown [id number] 1975 Unknown [id number] 1959 Self-pay 1959 Unknown [id number] 1959 Unknown [id number] Unknown [id number] Social History Date Type Detail Facility Unknown if ever smoked [facility] Work Phone: Start: 11-30-2018 End: 06-18-2023 Sex Assigned At [facility] [employer] Other Start: 2005 Sex Assigned At Female [facility] Start: 05-28-2022 Tobacco smoking status NHIS Never smoked tobacco [facility] Start: 05-28-2022 Tobacco use and exposure Smokeless tobacco non-user [facility] Start: 06-18-2023 Alcohol intake Lifetime non-drinker (finding) [facility] Start: 11-30-2018 End: 06-18-[address] [facility] Adolescent depressio n screening assessment 22 [facility] Start: 10-22-2022 Gender identity Identifies as female gender (finding) [facility] Start: 10-22-2022 Sexual orientation Heterosexual (finding) [facility] History of Present illness Narrative 06-18-2023 Carlos Alejandro APRN-TOP CARRIER - 06/18/2023 12:10 PM EST Note Date & Type Note Facility 06-18-2023 History of Present illness Narrative [address] [place] [id number] Patient: Mouna Manuel Date of : 2005 Encounter Date: 06/18/2023 History of Present Illness: The patient is a 17 y.o. female, an established patient, and is here for Chief Complaint Patient presents with Nausea In waves x3 weeks . HPI Patient was put on Concerta per her psychiatric provider in early May due to poor focus and ADHD symptoms. Patient states that the symptoms have improved but she has started to have some nausea daily after taking and if she does not take Zofran which she got 1 month ago at urgent Care, she will vomit. She is also using some sea bands which helped mildly with the symptoms as well. Her last menstrual period was June 07 which was very light as she is on Nexplanon and is not due for removal. She was last sexually active unprotected yesterday and the day before and most days this week and last week. She took a test 3 weeks ago which was negative at home. Problem List Items Addressed This Visit None Visit Diagnoses Non-intractable vomiting with nausea - Primary High risk heterosexual behavior Relevant Orders POCT , urine Chlamydia/GC by PCR urine Implantable subdermal contraceptive surveillance Past Medical, Family, and Social History Update: The following portions of the patient's history were reviewed and updated as appropriate: allergies, current medications, past family history, past medical history, past social history, past surgical history and problem list. Past Medical History: Diagnosis Date ADHD (attention deficit hyperactivity disorder) Anxiety Asthma Back pain Depression Eating disorder Migraine Recurrent UTI Past Surgical History: Procedure Laterality Date WISDOM TOOTH EXTRACTION Current Outpatient Medications Medication Sig Dispense Refill albuterol (PROVENTIL HFA;VENTOLIN HFA) 90 mcg/actuation inhaler INHALE 2 PUFFS EVERY 6 HOURS NEEDED FOR WHEEZING 8.5 g 1 busPIRone (BUSPAR) 15 mg tablet take 1 tablet by mouth once daily cholecalciferol, vitamin D3, 2,000 units tablet Take 1 tablet (2,000 Units total) by mouth in the morning. hydrOXYzine (ATARAX) 25 mg tablet Take 4 tablets (100 mg total) by mouth nightly as needed for anxiety. ibuprofen (MOTRIN) 800 mg tablet Take 1 tablet (800 mg total) by mouth every 8 (eight) hours as needed for pain. 30 tablet 0 methylphenidate HCl (CONCERTA) 27 mg CR tablet take 1 tablet by mouth every morning montelukast (SINGULAIR) 10 mg tablet TAKE 1 TABLET BY MOUTH EVERY DAY 90 tablet 3 prazosin (MINIPRESS) 1 mg capsule Take 1 capsule (1 mg total) by mouth nightly. propranoloL (INDERAL) 20 mg tablet sertraline (ZOLOFT) 25 mg tablet TAKE 1 TABLET (25 MG TOTAL) BY MOUTH IN THE MORNING 90 tablet 1 traZODone (DESYREL) 50 mg tablet take 1 to 3 tablets by mouth at bedtime if needed VRAYLAR 4.5 mg capsule take 1 capsule by mouth once daily ondansetron ODT (ZOFRAN ODT) 4 mg disintegrating tablet Dissolve 1 tablet (4 mg total) on tongue every 8 (eight) hours as needed for nausea or vomiting. 20 tablet 1 traZODone (DESYREL) 100 mg tablet Take 1 tablet (100 mg total) by mouth nightly. (Patient not taking: Reported on 06/18/2023) No current facility-administered medications for this visit. (All medications reviewed and updated by provider since last office visit or hospitalization) Allergies: Patient has no known allergies. Tobacco History: Social History Tobacco Use Smoking Status Never Smokeless Tobacco Never (If patient a smoker, smoking cessation counseling offered) Social History: Social History Substance and Sexual Activity Alcohol Use Never Review of Systems: Review of Systems Constitutional: Negative for fatigue, fever and unexpected weight change. Respiratory: Negative. Cardiovascular: Negative. Gastrointestinal: Positive for constipation, diarrhea, nausea and vomiting. Neurological: Negative. Psychiatric/Behavioral: Positive for decreased concentration and dysphoric mood. Negative for self-injury and sleep disturbance. The patient is nervous/anxious. Physical Exam: BP 121/85 (BP Site: Left Arm, BP Postition: Sitting) Pulse 72 Temp 36.8 C (98.3 F) (Oral) Ht 165.1 cm (5' 5 ) Wt 81.6 kg (180 lb) SpO2 98% BMI 29.95 kg/m Physical Exam Vitals reviewed. Constitutional: Appearance: Normal appearance. HENT: Head: Normocephalic and atraumatic. Mouth/Throat: Mouth: Mucous membranes are moist. Eyes: Pupils: Pupils are equal, round, and reactive to light. Cardiovascular: Rate and Rhythm: Normal rate and regular rhythm. Heart sounds: Normal heart sounds. Pulmonary: Effort: Pulmonary effort is normal. Breath sounds: Normal breath sounds. Abdominal: General: Bowel sounds are normal. Palpations: Abdomen is soft. Tenderness: There is no abdominal tenderness. Skin: General: Skin is warm. Capillary Refill: Capillary refill takes less than 2 seconds. Neurological: General: No focal deficit present. Mental Status: She is alert and oriented to person, place, and time. Psychiatric: Mood and Affect: Mood normal. Behavior: Behavior normal. Thought Content: Thought content normal. Judgment: Judgment normal. Assessment and Plan: Mouna was seen today for nausea. Diagnoses and all orders for this visit: Non-intractable vomiting with nausea High risk heterosexual behavior - POCT , urine - Chlamydia/GC by PCR urine; Future - Cancel: Trichomonas by PCR; Future Implantable subdermal contraceptive surveillance Other orders - ondansetron ODT (ZOFRAN ODT) 4 mg disintegrating tablet; Dissolve 1 tablet (4 mg total) on tongue every 8 (eight) hours as needed for nausea or vomiting. Follow-up: Nausea and vomiting are likely side effect of new medication she started Concerta. This is helping with her focus and concentration so she will speak to her psychiatric provider at next appointment next week to see if she can lower this dose or possibly change administration to help with the nausea symptoms. She is unlikely as she had her last menstrual period June 07 but she is having unprotected sex and despite implant will check urine hCG. She has not been screened for STIs since new sexual partner 1 year ago so will do this as well today. Unfortunately we are out of Trichomonas tubes in the office but we will get gonorrhea chlamydia. Her implant for contraception was palpated today in office. She should follow-up as stated with her psychiatric provider and with us for her wellness when it is due. MA attempted to to send the trich sample in urine cup. TI GONG APRN-CNP 06/18/23 1317 documented in this encounter [facility] Evaluation note 05-12-2023 Note Date & Type Note Facility 05-12-2023 Evaluation note Encounter Date Diagnosis Assessment Notes Apr, Contact with and (suspected) exposure to covid-19 (ICD-10 - Z20.822) Apr, Acute cystitis with hematuria (ICD-10 - N30.01) Acute cystitis home care material was printed Drink plenty fluids, get plenty of rest. Take the Bactrim as prescribed until gone. Follow-up with your family physician if no improvement in 2 to 3 days. Take Tylenol or Motrin as needed for aches pains or fevers Apr, Dysuria (ICD-10 - R30.0) Apr, Nausea and vomiting in adult (ICD-10 - R11.2) [facility] Other Clinical Note 10-08-2021 Note Date & Type Note Facility 10-08-2021 Note PROCEDURE: XR KNEE R T 3V HISTORY: Pain in right knee , chronic anterior knee pain COMPARISON: None. FINDINGS: BONES:No fracture, acute abnormality, or significant arthropathy. SOFT TISSUES:No visible soft tissue swelling. EFFUSION:None visible. OTHER: Negative. IMPRESSION: 1. Normal examination. Electronically authenticated by: RILEY SCHUSTER Date: 2021-10-08 16:[address] [facility] Evaluation note Note Date & Type Note Facility Evaluation note No assessment information [facility] Work Phone: Evaluation note Note Date & Type Note Facility Evaluation note Diagnosis Non-intractable vomiting with nausea- Primary High risk heterosexual behavior Implantable subdermal contraceptive surveillance Surveillance of previously prescribed implantable subdermal contraceptive documented in this encounter [facility] History general Narrative - Reported Note Date & Type Note Facility History general Narrative - Reported Type Medical History Uncomplicated asthma , unspecified asthma severity Medical History ADHD Medical History Depression Medical History Anxiety [facility] Other Instructions Attachments Note Date & Type Note Facility Instructions The following attachments cannot be sent through Care Everywhere.Nausea and Vomiting, Adult ED (Croatian)documented in this encounter [facility] Instructions Note Date & Type Note Facility Instructions Not on filedocumented in this en counter [facility] Summary Purpose Family History No Family History Records FoundNo Family History Records FoundNo Family History Records FoundNo Family History Records FoundNo Family History Records FoundNo Family History Records Found Advance Directives No Advanced Directives Records Found Advance Directive Response Recorded Date/ Time Advance Directives No July 28, 2018 3:28pm Chief Complaint and Reason for Visit Chief Complaint Dysuria Additional Source Comments INFORMATION SOURCE (unrecogn ized section and content) DATE CREATED AUTHOR 02/14/2022 [facility] DATE CREATED AUTHOR AUTHOR'S ORGANIZ ATION 04/29/2022 [facility] DATE CREATED AUTHOR AUTHOR'S ORGANIZ ATION 08/29/2022 [facility] DATE CREATED AUTHOR AUTHOR'S ORGANIZ ATION 05/17/2023 [facility] DATE CREATED AUTHOR AUTHOR'S ORGANIZ ATION 11/26/2023 [facility] DATE CREATED AUTHOR AUTHOR'S RAYSHAWN ALAN 11/27/2023 [facility] REASON FOR VISIT (unrecogniz ed section and content) Reason Comments Nausea In waves x3 weeks Reason Comments Med Refill Care Teams (unrecognized sec tion and content) Team Status: Inactive Member Role Status Dates Brooke Castelan , ENVIRONMENTAL SYSTEMS COORDINATOR-C Attending Provider Active Editor Book Relationship Specialty Start Date End Date Carlos Alejandro, ADVERTISING INTERN-TOP CARRIER [address] [place] [address] PCP - General Internal Medicine 02/18/23 Editor Book Relationship Specialty Start Date End Date Carlos Alejandro APRN-TOMASZ [address] [place] [address] PCP - General Internal Medicine 02/18/23 Goals (unrecognized section and content) Goals may be documented in a n alternate section FOR RECORDS PERTAINING TO PATIENTS WHO ARE OR HAVE BEEN ENROLLED IN A CHEMICAL DEPENDENCY/SUBSTANCEABUSE PROGRAM, SOME INFORMATION MAY BE OMITTED. This clinical summary was aggregated from multiple sources. Caution should be exercised in using it in the provision of clinical care. This summary normalizes information from multiple sources, and as a consequence, information in this document may materially change the coding, format and clinical context of patient data. In addition, data may be omitted in some cases. CLINICAL DECISIONS SHOULD BE BASED ON THE PRIMARY CLINICAL RECORDS. [facility] [employer] provides no warranty or guarantee of the accuracy or completeness of information in this document.
[2024-04-05 08:58] LABS: Basophils Percent Auto 0.5 % (0.2-2.0); Eosinophils Absolute Auto 0.2 10^3/uL (0.0-0.7); Eosinophils Percent Auto 2.3 % (0.9-7.0); Hematocrit 38.1 % (36.0-48.0); Hemoglobin 13.1 g/dL (12.0-16.0); Immature Granulocytes Abs Auto 0.05 10^3/uL (0.00-0.03); Immature Granulocytes Pct Auto 0.6 % (0.0-0.5); Lymphocytes Absolute Auto 2.2 10^3/uL (1.2-3.8); Lymphocytes Percent Auto 26.5 % (20.5-60.0); Mean Corpuscular HGB Conc 34.4 g/dL (29.9-35.2); Mean Corpuscular Hemoglobin 30.5 pg (26.7-34.0); Mean Corpuscular Volume 88.6 fL (81.0-99.0); Mean Platelet Volume 11.2 fL (9.5-13.5); Monocytes Absolute Auto 0.6 10^3/uL (0.3-0.8); Monocytes Percent Auto 6.8 % (1.7-12.0); Neutrophils Absolute Auto 5.2 10^3/uL (1.4-6.5); Neutrophils Percent Auto 63.3 % (43.0-75.0); Platelet Count 226 10^3/uL (150-450); Red Cell Distribution Width 12.3 % (11.0-15.0); White Blood Count 8.2 10^3/uL (4.0-11.0)
[2024-04-05 09:01] LABS: Estimated Average Glucose 105 mg/dL; Glycohemoglobin A1C 5.3 % (4.5-6.2)
[2024-04-05 09:33] LABS: Percent Iron Saturation 23.5 %
[2024-04-05 09:39] LABS: Alanine Aminotransferase 29 U/L (14-59); Anion Gap 14.6; Aspartate Amino Transferase 24 U/L (15-37); BUN Creatinine Ratio 4.9; Calcium 9.2 mg/dL (8.5-10.1); Carbon Dioxide 26.3 mmol/L (21.0-32.0); Chloride 103 mmol/L (98-107); Chol HDL Ratio 4.6; Cholesterol 229 mg/dL (<=200); Estimated GFR (African America >60 (>=60 mL/min/1.73m^2); Estimated GFR (Non-African Ame >60 (>=60 mL/min/1.73m^2); Glucose 102 mg/dL (74-106); HDL Cholesterol 50 mg/dL (40-60); Potassium 3.9 mmol/L (3.5-5.1); Sodium 140 mmol/L (136-145); Thyroid Stimulating Hormone 1.572 uIU/mL (0.358-3.740); Triglycerides 247 mg/dL (<=150); VLDL CHOLESTEROL 49.4 mg/dL
[2024-04-05 10:23] LABS: Free T4 0.67 ng/dL (0.76-1.46)
[2024-04-06 05:08] LABS: Vitamin B12 437 pg/mL (232-1245)
== END 2024-04-05 08:26 | disposition home or self-care (01) ==
PROVIDERS: PCP Family Medicine
DX: R53.83 Other fatigue (principal); Z79.899 Other long term (current) drug therapy
CPT/HCPCS: 36415; 80048; 80061; 82306; 82607; 82728; 83036; 83540; 83550; 84439; 84443; 84450; 84460; 85025

== ENCOUNTER 2024-04-26 09:44 | Outpatient (OUT) | payer OTHER, SELFPAY ==
[2024-04-26 10:01] LABS: Basophils Percent Auto 0.4 % (0.2-2.0); Eosinophils Absolute Auto 0.2 10^3/uL (0.0-0.7); Eosinophils Percent Auto 2.8 % (0.9-7.0); Hematocrit 37.6 % (36.0-48.0); Hemoglobin 12.8 g/dL (12.0-16.0); Immature Granulocytes Abs Auto 0.02 10^3/uL (0.00-0.03); Immature Granulocytes Pct Auto 0.3 % (0.0-0.5); Lymphocytes Absolute Auto 2.4 10^3/uL (1.2-3.8); Lymphocytes Percent Auto 32.9 % (20.5-60.0); Mean Corpuscular Hemoglobin 30.5 pg (26.7-34.0); Mean Corpuscular Volume 89.5 fL (81.0-99.0); Monocytes Absolute Auto 0.6 10^3/uL (0.3-0.8); Monocytes Percent Auto 8.5 % (1.7-12.0); Neutrophils Percent Auto 55.1 % (43.0-75.0); Platelet Count 239 10^3/uL (150-450); Red Cell Distribution Width 12.5 % (11.0-15.0); White Blood Count 7.2 10^3/uL (4.0-11.0)
[2024-04-27 08:15] LABS: Lithium (Eskalith(R)), Serum 0.2 mmol/L (0.5-1.2)
== END 2024-04-26 09:45 | disposition home or self-care (01) ==
LOC: LAB 09:45
PROVIDERS: PCP Family Medicine
DX: R53.83 Other fatigue (principal); Z79.899 Other long term (current) drug therapy
CPT/HCPCS: 36415; 80178; 85025

== ENCOUNTER 2024-04-26 13:28 | Emergency (ER) | payer OTHER, SELFPAY ==
[2024-04-26 13:33] VITALS: BP 127/82; PULSE 81; TEMP 36.6; O2SAT 98; BMI 28.3
--- NOTE | 2024-04-26 13:47 | CT_ITS ---
The [address] [address] Patient Name: ZEKE MANUEL MRN: [id number] date: 2005 Sex: F Assigned Patient Location: ER Current Patient Location: ER Accession/Order Number: [id number] Exam Date: 04/26/2024 14:08 Report Date: 04/26/2024 14:49 At the request of: THERESA RAINES Procedure: CT lumbar spine wo con PROCEDURE: CT lumbar spine wo con COMPARISON: None. HISTORY: low back pain, sciatica TECHNIQUE: Axial, Coronal, and Sagittal CT images obtained without IV contrast. Dose reduction techniques were achieved by using automated exposure control and/or adjustment of mA and/or kV according to patient size and/or use of iterative reconstruction technique. FINDINGS: PARASPINAL AREA: Normal with no visible mass. DISCS: Disc space narrowing with left lateral and foraminal disc herniation of the protrusion type measuring 2.2 cm at the base axial image 68 and extending posteriorly up to 4.7 mm, sagittal image #18. No central or foraminal stenosis BONES: Normal alignment with no acute fracture or spondylolisthesis. No significant degenerative change OTHER: Negative. CT/CT lumbar spine wo con IMPRESSION: Moderate sized disc herniation at L5-S1. Consider MRI for further characterization Electronically authenticated by: GIACOMO DUNCAN Date: 04/26/2024 14:49
--- NOTE | 2024-04-26 13:48 | ED_ITS ---
HPI HPI - Back Pain/Injury General Chief Complaint: Back Pain/Injury Stated Complaint: HIP PAIN Time Seen by Provider: 04/26/24 13:32 Source: patient Mode of arrival: walk-in Limitations: no limitations History of Present Illness HPI Narrative: Patient is a 18-year-old female who presents to the emergency department for pain in the right low back, right posterior hip radiating into the right leg. She states she has had similar symptoms in the past but they were never this severe. She states she had no pain last night when she went to bed and today on waking had significant pain. She states that she has occasional numbness and tingling to the right leg but is able to ambulate. She has no concern for . No medications taken prior to arrival. She denies any urinary symp toms. Related Data Previous Rx's ?Medication ?Instructions ?Recorded hydrocodone 5 mg-acetaminophen 325 1 tab PO Q6H PRN pain 3 days #12 04/26/24 mg tablet tabs methocarbamol 750 mg tablet 750 mg PO TID PRN pain #20 tabs 04/26/24 methylprednisolone 4 mg tablets in See Rx Instructions .Route 04/26/24 a dose pack (Medrol (Adolph)) .COMPLEX #21 ea Allergies Allergy/AdvReac Type Severity Reaction Status Date / Time No Known Drug Allergies Allergy Verified 04/26/24 13:39 Opioid HPI Opioid Management Most Recent Opioid Data: Last Pain Scale 4 04/26/24 14:01 04/26/24 Last MAR Pain Assessment 04/26/24 14:01 Review of Systems ROS Constitutional Denies: fever or chills Ears, nose, mouth, and throat Denies: throat pain or nasal congestion Respiratory Denies: shortness of breath Gastrointestinal Denies: nausea or vomiting Musculoskeletal Denies: back pain Integumentary/Breast Denies: rash Neurological Reports: numbness in extremities; Denies: weakness in extremities Hematologic/Lymphatic Denies: easy bruising or easy bleeding PFSH PFSH Social History Little interest or pleasure in doing things: not at all Feeling down, depressed, or hopeless: not at all Exam Narrative Exam Narrative: Gen.: Awake, alert, in no distress Head: Normocephalic, atraumatic ENT: Moist mucous membranes Respiratory: No respiratory distress Back: No bony point tenderness of the T-spine or L-spine with diffuse tenderness of the paraspinal muscles of the right lumbar spine and right posterior hip. No obvious deformity or step-off. Extremities: Moves extremities equally, no injuries noted; normal dorsiflexion and plantarflexion of the lower extremities with no decrease in sensation to the medial thighs. Normal hip flexion bilaterally Psych: Normal mood and affect Neuro: No focal neuro deficit Skin: Warm, dry, intact Constitutional Vital Signs, click to edit/add: Last Vital Signs Temp 98 F 04/26/24 13:33 Pulse 81 04/26/24 13:33 Resp 20 04/26/24 13:33 BP 127/82 04/26/24 13:33 Pulse Ox 98 04/26/24 13:33 O2 Del Method Room Air 04/26/24 13:33 Course Vital Signs Vital signs: Vital Signs Temperature 98 F 04/26/24 13:33 Pulse Rate 81 04/26/24 13:33 Respiratory Rate 20 04/26/24 13:33 Blood Pressure 127/82 04/26/24 13:33 Pulse Oximetry 98 04/26/24 13:33 Oxygen Delivery Method Room Air 04/26/24 13:33 Temperature 98 F 04/26/24 13:33 Pulse Rate 81 04/26/24 13:33 Respiratory Rate 20 04/26/24 13:33 Blood Pressure 127/82 04/26/24 13:33 Pulse Oximetry 98 04/26/24 13:33 Oxygen Delivery Method Room Air 04/26/24 13:33 MDM - Back Pain/Injury MDM Narrative Medical decision making narrative: Patient medicated for pain in the ER, CT of the lumbar spine shows an L5/S1 disc herniation. Patient referred to spinal surgery for MRI and further evaluation and treatment. She is stable at time of discharge with no focal neurodeficits. Short course of analgesics, muscle relaxants and NSAIDs given for home. Rest, ice, gentle stretching. Follow-up with PCP and return to the ER if symptoms change or worsen. SUPERVISED APC VISIT, PHYSICIAN ATTESTATION: Based on the medical record the care appears appropriate. ? Medical Records Attestation: I reviewed the patient's medical records. Imaging Data ct lumbar spine: Attestation: I have reviewed the pertinent imaging results. Radiologist's impression: ITS Impressions Lumbar Spine CT 04/26/24 13:47 IMPRESSION: Moderate sized disc herniation at L5-S1. Consider MRI for further characterization Electronically authenticated by: GIACOMO DUNCAN Date: 04/26/2024 14:49 Discharge Plan Discharge Stand Alone Forms: Portal Instructions Chief Complaint: Back Pain/Injury Clinical Impression: Lumbar radiculopathy, Sciatica, Lumbar disc herniation Patient Disposition: Home, Self-Care Time of Disposition Decision: 14:53 Condition: Good Prescriptions / Home Meds: New hydrocodone-acetaminophen 5-325 mg tablet 1 tab PO Q6H PRN (Reason: pain) 3 Days Qty: 12 0RF Rx Instructions: DX: M54.5 methylprednisolone [Medrol (Adolph)] 4 mg tablets,dose pack See Rx Instructions .ROUTE .COMPLEX Qty: 21 0RF Rx Instructions: Taper as directed methocarbamol 750 mg tablet 750 mg PO TID PRN (Reason: pain) Qty: 20 0RF Print Language: Estonian Instructions: Sciatica (ED) Referrals: BARB CAMARGO [Primary Care Provider] - 1 week Cherie Garcia MD [Physician] - As soon as possible
[2024-04-26] MEDS: HYDROCODONE/ACET 5-325 MG TABLET 1 TAB PO (14:01)
[2024-04-26] MEDS: KETOROLAC TROMETHAMINE 60 MG/2 ML VIAL IM (14:01)
[2024-04-26] MEDS: ORPHENADRINE 60 MG/ 2 ML VIAL IM (14:02)
== END 2024-04-26 15:14 | disposition home or self-care (01) ==
PROVIDERS: Emergency Provider Emergency Medicine; PCP Family Medicine
DX: R53.83 Other fatigue (principal); Z79.899 Other long term (current) drug therapy; M51.16 Intervertebral disc disorders with radiculopathy, lumbar region
CPT/HCPCS: 36415; 72131; 80178; 85025; 96372; 99285; J1885; J2360

== ENCOUNTER 2024-05-05 10:16 | Outpatient (OUT) | payer OTHER, SELFPAY ==
--- NOTE | 2024-05-05 | XR_ITS ---
The [address] [address] Patient Name: ZEKE MANUEL MRN: [id number] date: 2005 Sex: F Assigned Patient Location: Current Patient Location: Accession/Order Number: [id number] Exam Date: 05/05/2024 10:18 Report Date: 05/09/2024 11:46 At the request of: ELIAZAR ORELLANA Procedure: XR lumbar spine min 4V EXAMINATION: XR lumbar spine min 4V HISTORY: LUMBAR SPINE PAIN COMPARISON: No relevant comparison available. FINDINGS: BONES: Minimal left convex curvature of lumbar spine. No fracture, spondylolisthesis, bone lesion. No change in alignment during flexion and extension. No significant facet arthropathy. DISC SPACES: Minimal narrowing L5-S1. PARASPINOUS: Negative. No paraspinous abnormality is seen. OTHER: Negative. XR/XR lumbar spine min 4V IMPRESSION: 1. Suspect slight narrowing of the L5-S1 disc space; developmental versus degenerative. 2. Minimal levocurvature of lumbar spine; positioning versus muscle spasm. Electronically authenticated by: RILEY SCHUSTER Date: 05/09/2024 11:46
--- OUTSIDE RECORDS SUMMARY | 2024-05-05 10:40 | XMS_ITS | CCD ---
Author Organization [facility]iniSy[facility] Care Team Providers Care Lump Roller Name Role Phone Luis Carlos DIOP Attending [...] Primary Care Unavailable MORGAN ZHANG Consulting Unavailable Annelise, Brooke Unavailable MOISE Castelan Attending Provider [phone] Brooke Castelan Attending Unavailable Brooke Castelan Admitting Unavailable FurlongJonathan Primary Care Unavailable Javon SEMI TRUCK DRIVER-BAG LOADER MACHINE OPERATOR, Carlos L Primary Care Provider JAVON, CARLOS L Referring Unavailable JAVON, CARLOS L Primary Care Unavailable RICK MATTHEWS Referring Unavailable JAVON, CARLOS L Primary Care Unavailable JAVON, CARLOS L Attending Unavailable JAVON, CARLOS L Referring Unavailable JAVON, CARLOS L Primary Care Unavailable RICK MATTHEWS Attending Unavailable JAVON, CARLOS L Referring Unavailable JAVON, CARLOS L Primary Care Unavailable JAVON, CARLOS L Attending Unavailable JAVON, CARLOS L Referring Unavailable JAVON, CARLOS L Primary Care Unavailable Medications Current Medications Medication Drug Class(es) Dates Sig (Normalized) Sig (Original) [id number] 200 actuat albuterol 0.09 mg/actuat metered dose inhaler (6 sources) beta2-Adrenergic Agonist Start: 07-18-2022 take 2 [...] 1 tablet Orally Twice a day Active Apple Cider Vinegar (2 sources) take 450 mg by mouth in the morning APPLE CIDER VINEGAR ORAL Take 450 mg by mouth in the morning. Active Budesonide / formoterol (2 sources) Corticosteroid, beta2-Adrenergic Agonist Symbicort Active busPIRone hydrochloride 15 mg oral tablet (7 sources) Start: take 1 tablet by mouth at bedtime busPIRone (BUSPAR) 15 mg tablet Take 1 tablet (15 mg total) by mouth in the morning and at bedtime. 05/24/2023 Active End: 06-18-2023 take 2 tablets by mouth once daily busPIRone (BUSPAR) 7.5 mg tablet Take 2 tablets (15 mg total) by mouth nightly. 0 06/18/2023 Discontinued (Therapy completed) take 1 tablet by toney th every twelve hours busPIRone HCl 15 MG 1 tablet Orally Twice a day Active cholecalciferol 0.05 mg oral tablet (4 sources) Vitamin D take 1 tablet by mouth in the morning cholecalciferol, vitamin D3, 2,000 units tablet Take 1 tablet (2,000 Units total) by mouth in the morning. Active cranberry preparation 500 mg oral capsule (2 sources) Non-Standardized Food Allergenic Extract, Non-Standardized Plant Allergenic Extract take 1 capsule by mouth in the morning cranberry 500 mg capsule Take 500 mg by mouth in the morning. Active cyclobenzaprine hydrochloride 10 mg oral tablet (2 sources) Muscle Relaxant Start: take 1 tablet by mouth once daily as needed for muscle spasms cyclobenzaprine (FLEXERIL) 10 mg tablet Take 1 tablet (10 mg total) by mouth nightly as needed for muscle spasms. 30 tablet 1 04/28/2024 Active hydrOXYzine hydrochloride 25 mg oral tablet (4 sources) Antihistamine Start: hydrOXYzine (ATARAX) 25 mg tablet Take 4 tablets (100 mg total) by mouth as needed for anxiety. 09/09/2022 Active ibuprofen 800 mg oral tablet (4 sources) Nonsteroidal Anti-inflammatory Drug Start: 024 take 1 tablet by mouth every eight hours as needed for pain ibuprofen (MOTRIN) 800 mg tablet Take 1 tablet (800 mg total) by mouth every 8 (eight) hours as needed for pain. 60 tablet 1 04/28/2024 Active Start: 02-18-2023 take 1 tablet by toney th every eight hours as needed for pain ibuprofen (MOTRIN) 800 mg tablet Take 1 tablet (800 mg total) by mouth every 8 (eight) hours as needed for pain. 30 tablet 0 02/18/2023 Active lithium carbonate 300 mg oral capsule (2 sources) take 1 capsule by mouth in the morning lithium carbonate 300 mg capsule Take 1 capsule (300 mg total) by mouth in the morning. Active bx rating 24 hr methylphenidate hydrochloride 27 mg extended release oral tablet (4 sources) Central Nervous System Stimulant Start: 05-24-20 take 1 tablet by mouth once daily in the morning methylphenidate HCl (CONCERTA) 27 mg CR tablet take 1 tablet by mouth every morning 0 05/24/2023 Active take 1 capsule by mo uth once daily in the morning methylphenidate LA (RITALIN LA) 30 MG 24 hr capsule Take 1 capsule (30 mg total) by mouth every morning. Active montelukast 10 mg oral tablet (8 sources) Leukotriene Receptor Antagonist Start: 02-07-2024 take 1 tablet by mouth once daily montelukast (SINGULAIR) 10 mg tablet Indications: Unspecified asthma, uncomplicated take 1 tablet by mouth every day 90 tablet 3 02/07/2024 Active Start: 02-17-2023 take 1 tablet by toney th once daily montelukast (SINGULAIR) 10 mg tablet [...] Start: 05-12-2023 take 1 tablet by toney th three times daily as needed for nausea Zofran 4 MG 1 tablet Orally tid prn ODT, prn nausea Apr, Active prazosin 1 mg oral capsule (4 sources) alpha-Adrenergic Joanna take 2 capsules by mouth once daily prazosin (MINIPRESS) 1 mg capsule Take 2 capsules (2 mg total) by mouth nightly. Active take 1 capsule by mouth once amira ly prazosin (MINIPRESS) 1 mg capsule Take 1 capsule (1 mg total) by mouth nightly. 0 Active sertraline 25 mg oral tablet (7 sources) Serotonin Reuptake Inhibitor Start: 03-22-2023 End: [...] Active traZODone hydrochloride 50 mg oral tablet (6 sources) Serotonin Reuptake Inhibitor Start: 05-21-2023 take 1 tablet by mouth three times daily traZODone (DESYREL) 50 mg tablet Take 1 tablet (50 mg total) by mouth 3 (three) times a day. 05/21/2023 Active take 1 tablet by mouth once ravindra y traZODone (DESYREL) 100 mg tablet Take 1 tablet (100 mg total) by mouth nightly. 0 Active Completed/Discontinued Medications Medication Drug Class(es) Dates Sig (Normalized) Sig (Original) cariprazine 4.5 mg oral capsule (6 sources) Atypical Antipsychotic Start: 05-24-2023 End: 04-28-2024 take 1 capsule by mouth in the morning VRAYLAR 4.5 mg capsule Take 1 capsule (4.5 mg total) by mouth in the morning. 05/24/2023 04/28/2024 Discontinued (Therapy completed) Start: 07-22-2022 End: 06-18-2023 take 1 capsule by mouth once daily VRAYLAR 3 mg capsule Take by mouth daily. 0 07/22/2022 06/18/2023 Discontinued (Therapy completed) take 1 capsule by [facility] every twenty-four hours Vraylar 1.5 MG 1 capsule Orally Once a day Active propranolol hydrochloride 20 mg oral tablet (5 sources) beta-Adrenergic Joanna Start: 06-11-2023 End: 04-28-2024 take 1 tablet by mouth at bedtime propranoloL (INDERAL) 20 mg tablet Take 1 tablet (20 mg total) by mouth in the morning and at bedtime. 06/11/2023 04/28/2024 Discontinued (Therapy completed) take 5 mL by mouth once daily Pr opranolol HCl 20 MG/5ML 5 mL Orally Once a day Active Problems Active Problems Problem Classification Problem Date Documented Date Episodic/Chronic Anxiety disorders (4 sources) Anxiety; Translations: [Anxiety disorder, unspecified] Onset: 05-28-2022 05-28-2022 Chronic Asthma (4 sources) Mild intermittent asthma; Translations: [Mild intermittent asthma, uncomplicated] Onset: 05-28-2022 05-28-2022 Chronic Attention-deficit, conduct, and disruptive behavior disorders (4 sources) Attention deficit hyperactivity disorder; Translations: [Attention-deficit hyperactivity disorder, unspecified type] Onset: 02-18-2023 02-18-2023 Chronic Deficiency and other anemia (4 sources) Iron deficiency anemia due to blood loss; Translations: [Iron deficiency anemia secondary to blood loss (chronic)] Onset: 05-28-2022 05-28-2022 Chronic Genitourinary symptoms and ill-defined conditions (3 sources) Dysuria; Translations: [Dysuria] Onset: 05-12-2023 Episodic Malaise and fatigue (4 sources) Other fatigue; Translations: [OTHER FATIGUE] Onset: 08-25-2022 Episodic Mood disorders (10 sources) Recurrent major depressive episodes; Translations: [Major depressive disorder, recurrent, unspecified] Onset: 05-28-2022 05-28-2022 Chronic Nutritional deficiencies (4 sources) Vitamin D deficiency; Translations: [Vitamin D deficiency, unspecified] Onset: 05-28-2022 05-28-2022 Chronic Personality disorders (4 sources) Borderline personality disorder; Translations: [Borderline personality disorder] Onset: 02-18-2023 02-18-2023 Chronic Residual codes; unclassified (1 source) High risk heterosexual behavior; Translations: [High risk heterosexual behavior] 06-18-2023 Episodic Spondylosis; intervertebral disc disorders; other back problems (3 sources) Other intervertebral disc displacement, lumbosacral region; Translations: [Displacement of lumbar intervertebral disc without myelopathy] Onset: 04-28-2024 05-01-2024 Chronic Unclassified (1 source) Galactorrhea Onset: 11-25-2023 Unclassified (1 source) Herniation of intervertebral disc between L5 and S1 05-01-2024 Urinary tract infections (2 sources) Acute cystitis with hematuria Episodic Past or Other Problems Problem Classification Problem Date Documented Da te Episodic/Chronic Allergic reactions (1 source) Allergic contact dermatitis due to plants, except food; Translations: [Allergic contact dermatitis due to plants, except food] Onset: 11-25-2023 Episodic Contraceptive and procreative management (5 sources) Patient encounter status; Translations: [Encounter for surveillance of implantable subdermal contraceptive] Onset: 05-28-2022 06-18-2023 Episodic E Codes: Cut/pierceb (1 source) Contact with knife, initial encounter; Translations: [CONTACT WITH KNIFE INITIAL ENC] Onset: 12-11-2021 Episodic Mood disorders (4 sources) Mood disorders Onset: 06-18-2023 Resolved: 04-28-2024 06-18-2023 Nausea and vomiting (4 sources) Nausea with vomiting, unspecified; Translations: [Nausea and vomiting] Onset: 06-18-2023 Episodic Nonmalignant breast conditions (1 source) Galactorrhea not associated with childbirth; Translations: [Galactorrhea not associated with childbirth] Onset: 11-25-2023 Episodic Open wounds of extremities (4 sources) Laceration without foreign body of left thumb without damage to nail, initial encounter; Translations: [LAC NO FB LT THUMB NO DMG NAIL INIT] Onset: 12-10-2021 Episodic Other non-traumatic joint disorders (8 sources) Pain in right knee; Translations: [Pain in joint, lower leg] Onset: 10-08-2021 Episodic Other skin disorders (4 sources) Acne vulgaris; Translations: [Acne vulgaris] Onset: 05-28-2022 05-28-2022 Episodic Residual codes; unclassified (2 sources) High risk heterosexual behavior; Translations: [High risk heterosexual behavior] Onset: 06-18-2023 Episodic Unclassified (2 sources) Contact with and (suspected) exposure to covid-19 Z20.822 Results Test Name Value Interpretation Reference Range Facility BASIC METABOLIC PANLon 11-24 Anion gap [Moles/Vol] 8 mmol/L Normal 5-15 [facility] Comment on above: Performed By: #### B EARL, THYR, 2842-3 #### [facility] ([id number]) [address], [address] [place] [address] Calcium [Mass/Vol] 9.9 mg/dL Normal 8.5-10.5 [facility] Comment on above: Performed By: #### Demetri MP, THYR, 2842-3 #### [facility] ([id number]) [address], [address] [place] [address] Chloride [Moles/Vol] 104 mmol/L Normal 98-109 [facility] Comment on above: Performed By: #### B MP, THYR, 2842-3 #### [facility] ([id number]) [address], [address] [place] [address] CO2 [Moles/Vol] 27 mmol/L Normal 22-32 [facility] Comment on above: Performed By: #### B MP, THYR, 2842-3 #### [facility] ([id number]) [address], [address] [place] [address] Creatinine [Mass/Vol] 0.75 mg/dL Normal 0.40-1.00 [facility] Comment on above: Result Comment: METH OD TRACEABLE TO IDMS STANDARD Performed By: #### B EARL, THYR, 2842-3 #### [facility] ([id number]) [address], [address] [place] [address] eGFR (CKD-EPI) NON-RACE DEPENDENT >90 Normal >[address] [facility] Comment on above: Result Comment: Reported eGFR is based on the CKD-EPI 2020 equation that does not use a race coefficient. Performed By: #### B EARL, THYR, 2842-3 #### [facility] ([id number]) [address], [address] [place] [address] Glucose [Mass/Vol] 95 mg/dL Normal 65-99 [facility] Comment on above: Performed By: #### B EARL, THYR, 2842-3 #### [facility] ([id number]) [address], [facility] [address] [place] [address] Potassium [Moles/Vol] 4.1 mmol/L Normal 3.5-5.0 [facility] Comment on above: Performed By: #### Demetri ELLIOTT, THYR, 284-3 #### [facility] ([id number]) [address], [facility] [address] [place] [address] Sodium [Moles/Vol] 139 mmol/L Normal 134-146 [facility] Comment on above: Performed By: #### Demetri ELLIOTT, THYR, 284-3 #### [facility] ([id number]) [address], [address] [place] [address] Urea nitrogen [Mass/Vol] 6 mg/dL Normal 5-23 [facility] Comment on above: Performed By: #### B MP, THYR, 2842-3 #### [facility] ([id number]) [address] [address] [place] [address] Prolactin [Mass/Vol]on 11-24 PROLACTIN 25.4 ng/mL Normal 3.3-26.7 [facility] Comment on above: Performed By: #### Demetri ELLIOTT, THYR, 2842-3 #### [facility] ([id number]) [address], [address] [place] [address] THYROID PROFILEon 11-25-2023 Free T4 [Mass/Vol] 0.72 ng/dL Normal 0.61-1.60 [facility] Comment on above: Performed By: #### B MP, THYR, 2842-3 #### [facility] ([id number]) [address], [address] [place] [address] TSH 1.37 uIU/mL Normal 0.49-4.[address] [facility] Comment on above: Performed By: #### B MP, THYR, 2842-3 #### [facility] ([id number]) [address], [address] [address] CHLAMYDIA/GC PCR, Uon 2022 CHLAMYDIA/GC PCR, U [...] are dependent on adequate specimen collection. Normal [facility] Comment on above: Performed By: #### C #### [facility] ([id number]) [address], [address] [address] POCT , urineon 05-22 Beta HCG ( test) Ql (U) Negative [facility] Internal Forging Press Lever Tender Check Completed and Passed Yes [facility] Interpretation and review of laboratory results Normal [facility] TRICHOMONAS PCRon 06-18-2023 TRICHOMONAS PCR SPECIMEN SOURCE CLEAN CATCH MIDSTREAM URINE TRICHOMONAS PCR Not detected (qualifier value) Trichomonas vaginalis not detected NOTE Assay methodology is nucleic acid amplification by real-time PCR for detection of Trichomonas vaginalis DNA performed on [employer] Instrument System. Normal [facility] Comment on above: Performed By: #### T RKPCR #### [facility] ([id number]) [address] [facility], [address] [place] [address] COVID + FLU Quick Testingon 05-12-2023 SARS-CoV-2 (COVID-19) RNA CRISTAL+probe Ql (Unsp spec) Negative [employer] Other COVID + FLU Quick Testing Negative [employer] Other Urinalysis - AUTOMATEDon Appearance (U) cloudy [employer] Other Bilirubin Ql (U) Negative [employer] Other Color (U) dark yellow [employer] Other Glucose Ql (U) Negative [employer] Other Hemoglobin Ql (U) small [employer] Other Ketones Ql (U) Negative [employer] Other Leukocyte esterase Test strip Ql (U) trace [employer] Other Nitrite Ql (U) Negative [employer] Other pH (U) 6.5 [pH] [employer] Other Protein Ql (U) 100 [employer] Other Specific gravity (U) [Rel density] 1.030 [employer] Other Urobilinogen (U) [Mass/Vol] 1.0 mg/dL [employer] Other Urinalysis - AUTOMATED [employer] Other Urine Cultureon 05-12-2023 Bacteria identified Cx Nom (U) Reason for Exam Dysuria Urine ORGANISM: Escherichia coli (O:ESCCOL) Nelson Count >100,000 Aerobic JACIEL Charge (NMIC56) ------ [...] RESISTANT TO ALL B-LACTAM DRUGS. PERFORMED BY: [place] [address] PATHOLOGIST INDUSTRIAL MAINTENANCE REPAIRER HELPER MATTHEW CHAIDEZ M.D. [facility] Comment on above: Performed By: #### C UU #### [address] Urine Culture >100,000 [employer] Other Urine Culture <16 Susceptible [employer] Other Urine Culture <8/4 Susceptible [employer] Other Urine Culture >16 Resistant [employer] Other Urine Culture <4 Susceptible [employer] Other Urine Culture <2 Susceptible [employer] Other Urine Culture <1 Susceptible [employer] Other Urine Culture <0.25 Susceptible [employer] Other Urine Culture <0.5 Susceptible [employer] Other Urine Culture <32 Susceptible [employer] Other Urine Culture <0.5/9.5 Susceptible [employer] Other CBC AUTO DIFFon 08-25-2022 BASO # 0.0 103/ul Normal 0.0-0.1 [facility] Comment on above: Performed By: #### C BC #### [facility] [address] [place] [address] Dr. Oneal Capps Basophils/100 WBC (Bld) 0.4 % Normal 0.2-2.0 [facility] Comment on above: Performed By: #### C BC #### [facility] [address] [place] [address] Dr. Oneal Capps EO # 0.2 103/ul Normal 0.0-0.7 [facility] Comment on above: Performed By: #### C BC #### [facility] [address] [place] [address] Dr. Oneal Capps Eosinophils/100 WBC (Bld) 2.2 % Normal 0.9-7.0 [facility] Comment on above: Performed By: #### C BC #### [facility] [address] [place] [address] Dr. Oneal Capps Erythrocyte distribution width (RBC) [Ratio] 12.5 % Normal 11.0-15.0 [facility] Comment on above: Performed By: #### C BC #### [facility] [address] [place] [address] Dr. Oneal Capps Hematocrit (Bld) [Volume fraction] 37.1 % Normal 36.0-48.0 [facility] Comment on above: Performed By: #### C BC #### [facility] [address] [place] [address] Dr. Oneal Capps Hemoglobin (Bld) [Mass/Vol] 12.5 g/dL Normal 12.0-16.0 [facility] Comment on above: Performed By: #### C BC #### [facility] [address] [place] [address] Dr. Oneal Capps IG # 0.05 10e3/ul Critically high 0.00-0.03 [facility] Comment on above: Performed By: #### C BC #### [facility] [address] [place] [address] Dr. Oneal Capps IG % 0.5 % Normal 0.0-0.5 [facility] Comment on above: Performed By: #### C BC #### [facility] [address] [place] [address] Dr. Oneal Capps LYMPH # 1.6 103/ul Normal 1.2-3.8 [facility] Comment on above: Performed By: #### C BC #### [facility] [address] [place] [address] Dr. Oneal Capps Lymphocytes/100 WBC (Bld) 16.9 % Critically low 20.5-60.0 [facility] Comment on above: Performed By: #### C BC #### [facility] [address] [place] [address] Dr. Oneal Capps MANUAL DIFF REQ NO Normal [facility] Comment on above: Performed By: #### C BC #### [facility] [address] [place] [address] Dr. Oneal Capps MCH (RBC) [Entitic mass] 29.8 pg Normal 26.7-34.0 [facility] Comment on above: Performed By: #### C BC #### [facility] [address] [place] [address] Dr. Oneal Capps MCHC (RBC) [Mass/Vol] 33.7 g/dL Normal 29.9-35.2 [facility] Comment on above: Performed By: #### C BC #### [facility] [address] [place] [address] Dr. Oneal Capps MCV (RBC) [Entitic vol] 88.5 fL Normal 81.0-99.0 [facility] Comment on above: Performed By: #### C BC #### [facility] [address] [place] [address] Dr. Oneal Capps MONO # 0.7 103/ul Normal 0.3-0.8 [facility] Comment on above: Performed By: #### C BC #### [facility] [address] [place] [address] Dr. Oneal Capps Monocytes/100 WBC (Bld) 6.9 % Normal 1.7-12.0 [facility] Comment on above: Performed By: #### C BC #### [facility] [address] [place] [address] Dr. Oneal Capps NEUT # 6.9 103/ul Critically high 1.4-6.5 [facility] Comment on above: Performed By: #### C BC #### [facility] [address] [place] [address] Dr. Oneal Capps Neutrophils/100 WBC (Bld) 73.1 % Normal 43.0-75.0 [facility] Comment on above: Performed By: #### C BC #### [facility] [address] [place] [address] Dr. Oneal Capps Platelet mean volume (Bld) [Entitic vol] 10.8 fL Normal 9.5-13.5 [facility] Comment on above: Performed By: #### C BC #### [facility] [address] [place] [address] Dr. Oneal Capps PLT 234 103/ul Normal 150-450 [facility] Comment on above: Performed By: #### C BC #### [facility] [address] [place] [address] Dr. Oneal Capps RBC 4.19 106/ul Critically low 4.20-5.40 [facility] Comment on above: Performed By: #### C BC #### [facility] [address] [place] [address] Dr. Oneal Capps WBC 9.4 103/ul Normal 4.0-11.0 [facility] Comment on above: Performed By: #### C BC #### [facility] [address] [place] [address] Dr. Oneal Capps FERRITINon 08-25-2022 Ferritin [Mass/Vol] 62.0 ng/mL Normal 6.2-137.0 [facility] Comment on above: Performed By: #### V ITAD, FT4, FETIBC, FERR, VITB12 #### [facility] [address] [place] [address] Dr. Oneal Capps FREE T3on 08-25-2022 FREE T3 2.98 pg/mlL Normal 2.91-4.70 [facility] Comment on above: Performed By: #### V ITAD, FT4, FETIBC, FERR, VITB12 #### [facility] [address] [place] [address] Dr. Oneal Capps FREE T4on 08-25-2022 Free T4 [Mass/Vol] 0.63 ng/dL Critically low 0.78-1.34 [facility] Comment on above: Performed By: #### V ITAD, FT4, FETIBC, FERR, VITB12 #### [facility] [address] [place] [address] Dr. Oneal Capps GLYCOHEMOGLOBIN A1Con 2022 ADA RECOMMENDATION SEE BELOW Normal [facility] Comment on above: Result Comment: ADA RECOMMENDED LIMIT 4.0 - 6.0 ADA THERAPEUTIC TARGET < 7.0 ACTION SUGGESTED > 7.0 Performed By: #### A 1C #### [facility] [address] [place] [address] Dr. Oneal Capps Glucose [Mass/Vol] 111 mg/dL Normal [facility] Comment on above: Performed By: #### A 1C #### [facility] [address] [place] [address] Dr. Oneal Capps HbA1c (Bld) [Mass fraction] 5.5 % Normal 4.5-6.2 [facility] Comment on above: Performed By: #### A 1C #### [facility] [address] [address] [address] Oneal Capps IRON AND TIBCon 08-25-2022 % SATURATION 31.6 % Normal [facility] Comment on above: Performed By: #### V ITAD, FT4, FETIBC, FERR, VITB12 #### [facility] [address] [address] [address] Oneal Capps Iron [Mass/Vol] 109.0 ug/dL Normal 50.0-170.0 [facility] Comment on above: Performed By: #### V ITAD, FT4, FETIBC, FERR, VITB12 #### [facility] [address] [address] [address] Oneal Capps TIBC DIRECT 345.0 ug/dL Normal 250.0-450.0 [facility] Comment on above: Performed By: #### V ITAD, FT4, FETIBC, FERR, VITB12 #### [facility] [address] [address] [address] Oneal Capps LIPID PROFILEon 08-25-2022 CHOL-HDL RATIO NORM SEE BELOW Normal [facility] Comment on above: Result Comment: 3.3 - 4.4 LOW RISK 4.4 - 7.1 AVERAGE RISK 7.1 - 11.0 MODERATE RISK >11.0 HIGH RISK Performed By: #### L IPID, TSH, FT3, CMP #### [facility] [address] [address] [address] Oneal Capps Cholesterol [Mass/Vol] 251 mg/dL Critically high 104-227 [facility] Comment on above: Performed By: #### L IPID, TSH, FT3, CMP #### [facility] [address] [address] [address] Oneal Capps Cholesterol in HDL [Mass/Vol] 64 mg/dL Normal 29-69 [facility] Comment on above: Performed By: #### L IPID, TSH, FT3, CMP #### [facility] [address] [address] [address] Oneal Capps Cholesterol in LDL [Mass/Vol] 169.4 mg/dL Critically high 46.0-140.0 [facility] Comment on above: Performed By: #### L IPID, TSH, FT3, CMP #### [facility] [address] [place] [address] Dr. Oneal Capps Cholesterol.total/Ch olesterol in HDL [Mass ratio] 3.9 {ratio} Normal [facility] Comment on above: Performed By: #### L IPID, TSH, FT3, CMP #### [facility] [address] [address] [address] Oneal Capps HDL NORMAL > or = 60 mg/dl - LOW CARDIOVASCULAR RISK <40 mg/dl - HIGH CARDIOVASCULAR RISK Normal [facility] Comment on above: Performed By: #### L IPID, TSH, FT3, CMP #### [facility] [address] [place] [address] Dr. Oneal Capps LDL CALC NORMAL SEE BELOW Normal [facility] Comment on above: Result Comment: <100 mg/dl OPTIMAL 100 - 129 mg/dl NEAR OR ABOVE OPTIMAL 130 - 159 mg/dl BORDERLINE HIGH 160 - 189 mg/dl HIGH >190 mg/dl VERY HIGH Performed By: #### L IPID, TSH, FT3, CMP #### [facility] [address] [place] [address] Dr. Oneal Capps Triglyceride [Mass/Vol] 88 mg/dL Normal 53-208 [facility] Comment on above: Performed By: #### L IPID, TSH, FT3, CMP #### [facility] [address] [place] [address] Dr. Oneal Capps VLDL CALC 17.6 mg/dL Normal [facility] Comment on above: Performed By: #### L IPID, TSH, FT3, CMP #### [facility] [address] [address] [address] Oneal Capps PROF 14(COMP METB)on 023 Albumin [Mass/Vol] 3.9 g/dL Normal 3.4-5.0 [facility] Comment on above: Performed By: #### L IPID, TSH, FT3, CMP #### [facility] [address] [place], [place] [id number] Dr. Oneal Capps Albumin/Globulin [Mass ratio] 1.0 {ratio} Normal [facility] Comment on above: Performed By: #### L IPID, TSH, FT3, CMP #### [facility] [address] [place] [address] Dr. Oneal Capps ALP [Catalytic activity/Vol] 96 U/L Normal 46-116 [facility] Comment on above: Performed By: #### L IPID, TSH, FT3, CMP #### [facility] [address] [place] [address] Dr. Oneal Capps ALT [Catalytic activity/Vol] 30 U/L Normal 14-59 [facility] Comment on above: Performed By: #### L IPID, TSH, FT3, CMP #### [facility] [address] [place] [address] Dr. Oneal Capps Anion gap [Moles/Vol] 11.2 mmol/L Normal [facility] Comment on above: Performed By: #### L IPID, TSH, FT3, CMP #### [facility] [address] [place] [address] Dr. Oneal Capps AST [Catalytic activity/Vol] 26 U/L Normal 15-37 [facility] Comment on above: Performed By: #### L IPID, TSH, FT3, CMP #### [facility] [address] [place] [address] Dr. Oneal Capps Bilirubin [Mass/Vol] 0.6 mg/dL Normal 0.2-1.0 [facility] Comment on above: Performed By: #### L IPID, TSH, FT3, CMP #### [facility] [address] [place] [address] Dr. Oneal Capps Calcium [Mass/Vol] 9.0 mg/dL Normal 8.5-10.1 [facility] Comment on above: Performed By: #### L IPID, TSH, FT3, CMP #### [facility] [address] [place] [address] Dr. Oneal Capps Chloride [Moles/Vol] 103 mmol/L Normal 98-107 [facility] Comment on above: Performed By: #### L IPID, TSH, FT3, CMP #### [facility] [address] [address] [address] Oneal Capps CO2 [Moles/Vol] 29.0 mmol/L Normal 21.0-32.0 [facility] Comment on above: Performed By: #### L IPID, TSH, FT3, CMP #### [facility] [address] [place] [address] Dr. Oneal Capps Creatinine [Mass/Vol] 0.56 mg/dL Normal 0.55-1.02 [facility] Comment on above: Performed By: #### L IPID, TSH, FT3, CMP #### [facility] [address] [place] [address] Dr. Oneal Capps EGFR-AF SLOVAK >60 Normal >=60 [facility] Comment on above: Performed By: #### L IPID, TSH, FT3, CMP #### [facility] [address] [place] [address] Dr. Oneal Capps EGFR-NON AF [place]OVAK >60 Normal >=60 [facility] Comment on above: Performed By: #### L IPID, TSH, FT3, CMP #### [facility] [address] [place] [address] Dr. Oneal Capps Globulin (S) [Mass/Vol] 4.0 g/dL Normal [facility] Comment on above: Performed By: #### L IPID, TSH, FT3, CMP #### [facility] [address] [place] [address] Dr. Oneal Capps Glucose [Mass/Vol] 93 mg/dL Normal 74-106 [facility] Comment on above: Performed By: #### L IPID, TSH, FT3, CMP #### [facility] [address] [place] [address] Dr. Oneal Capps Potassium [Moles/Vol] 4.2 mmol/L Normal 3.5-5.1 [facility] Comment on above: Performed By: #### L IPID, TSH, FT3, CMP #### [facility] [address] [place] [address] Dr. Oneal Capps Protein [Mass/Vol] 7.9 g/dL Normal 6.4-8.2 [facility] Comment on above: Performed By: #### L IPID, TSH, FT3, CMP #### [facility] [address] [place] [address] Dr. Oneal Capps Sodium [Moles/Vol] 139 mmol/L Normal 136-145 [facility] Comment on above: Performed By: #### L IPID, TSH, FT3, CMP #### [facility] [address] [place] [address] Dr. Oneal Capps Urea nitrogen [Mass/Vol] 7.0 mg/dL Normal 6.4-19.3 [facility] Comment on above: Performed By: #### L IPID, TSH, FT3, CMP #### [facility] [address] [place] [address] Dr. Oneal Capps Urea nitrogen/Creatinine [Mass ratio] 12.5 mg/mg Normal [facility] Comment on above: Performed By: #### L IPID, TSH, FT3, CMP #### [facility] [address] [place] [address] Dr. Oneal Capps TSHon 08-25-2022 TSH 2.032 uIU/mL Normal 0.516-4.130 [facility] Comment on above: Performed By: #### V ITAD, FT4, FETIBC, FERR, VITB12 #### [facility] [address] [place] [address] Dr. Oneal Capps VITAMIN B12on 08-25-2022 Cobalamin (Vitamin B12) [Mass/Vol] 620.0 pg/mL Normal 193.0-986.0 [facility] Comment on above: Performed By: #### V ITAD, FT4, FETIBC, FERR, VITB12 #### [facility] [address] [place] [address] Dr. Oneal Capps VITAMIN D 25 OHon 08-25-2022 VIT D 25-OH 47.8 ng/mL Normal [facility] Comment on above: Performed By: #### V ITAD, FT4, FETIBC, FERR, VITB12 #### [facility] [address] [place], [place] [address] Dr. Oneal Capps VIT D RANGES SEE BELOW Normal [facility] Comment on above: Result Comment: <20 ng/mL Vit D deficient 20 - <30 ng/mL Vit D insufficient 30 - 100 ng/mL Vit D sufficient >100 ng/mL Potential Toxicity Performed By: #### V ITAD, FT4, FETIBC, FERR, VITB12 #### [facility] [address] [place], [place] [address] Dr. Oenal Capps [place] 04-28-2022 Consent [id number]:127 Normal [facility] Registrationon 04-28-2022 Registration [id number]:127 Normal [facility] IRON, TIBC AND FERRITIN PANE [facility] 02-11-2022 % SATURATION 32 % (calc) Normal 15-45 [facility] Comment on above: Order Comment: FASTI NG:NO FASTING: NO Performed By: #### 5 [id number], [id number] #### [facility] [address], [address] [place] [address] Laser/Electro Optics Technician: Alberto Davis MD Ferritin [Mass/Vol] 39 ng/mL Normal 6-67 [facility] Comment on above: Order Comment: FASTI NG:NO FASTING: NO Performed By: #### 5 336, [id number] #### [facility] [address], [address] [place], [place] [id number] Laser/Electro Optics Technician: Alberto Davis MD IRON BINDING CAPACITY 346 mcg/dL (calc) Normal 271-448 [facility] Comment on above: Order Comment: FASTI NG:NO FASTING: NO Performed By: #### 5 116, [id number] #### [facility] [address], [address] [place] [id number] Laser/Electro Optics Technician: Alberto Davis MD IRON, TOTAL 112 mcg/dL Normal 27-164 [facility] Comment on above: Order Comment: FASTI NG:NO FASTING: NO Performed By: #### 5 616, 84735 #### [facility] [address] [address] Laser/Electro Optics Technician: Alberto Davis MD VITAMIN D,25-OH,TOTAL,IAon 0 8 VITAMIN D,25-OH,TOTAL,IA 42 ng/mL Normal 30-100 [facility] [...] D, (D2,D3), LC/MS/MS is recommended: order code [id number] (patients >2yrs). See Note 1 Note 1 For additional information, please refer to [email or web address].[email or web address] [email or web address]/BEV641 (This link is being provided for informational/ educational purposes only.) Performed By: #### 5 616, [id number] #### [facility] [address] [address] Laser/Electro Optics Technician: Alberto Davis MD IRON, TIBC AND FERRITIN MADIHA [facility] 05-23-2021 % SATURATION 7 % (calc) Low 15-45 [facility] Comment on above: Performed By: #### 5 616 #### [facility] [address] [address] Laser/Electro Optics Technician: Alberto Davis MD Ferritin [Mass/Vol] 5 ng/mL Low 6-67 [facility] Comment on above: Performed By: #### 5 616 #### [facility] [address] [address] Laser/Electro Optics Technician: Alberto Davis MD IRON BINDING CAPACITY 501 mcg/dL (calc) High 271-448 [facility] Comment on above: Performed By: #### 5 616 #### [facility] [address] [place] [address] Rd, [address] [place] [address] Laser/Electro Optics Technician: Alberto Davis MD IRON, TOTAL 36 mcg/dL Normal 27-164 [facility] Comment on above: Performed By: #### 5 616 #### [facility] [address] [place] [address], [address] [place] [address] Laser/Electro Optics Technician: Alberto Davis MD Vital Signs Date Time Vital Sign Value Performing Clinician Facility 04-28-2024 12:02-0500 Body mass index (BMI) [Ratio] 31.42 kg/m2 Carlos Alejandro SEMI TRUCK DRIVER-BAG LOADER MACHINE OPERATOR Work Phone: [facility] 04-28-2024 12:02-0500 Body temperature 98.1 [degF] Carlos Javon SEMI TRUCK DRIVER-BAG LOADER MACHINE OPERATOR Work Phone: [facility] 04-28-2024 12:02-0500 Body weight 85.64 kg Carlos Alejandro SEMI TRUCK DRIVER-BAG LOADER MACHINE OPERATOR Work Phone: [facility] 04-28-2024 12:02-0500 Diastolic blood pressure 72 mm[Hg] Carlos Javon SEMI TRUCK DRIVER-BAG LOADER MACHINE OPERATOR Work Phone: [facility] 04-28-2024 12:02-0500 Heart rate 86 /min Carlos Javon SEMI TRUCK DRIVER-BAG LOADER MACHINE OPERATOR Work Phone: [facility] 04-28-2024 12:02-0500 SaO2% (BldA) [Mass fraction] 97 % Carlos Alejandro SEMI TRUCK DRIVER-BAG LOADER MACHINE OPERATOR Work Phone: [facility] 04-28-2024 12:02-0500 Systolic blood pressure 112 mm[Hg] Carlos Javon SEMI TRUCK DRIVER-BAG LOADER MACHINE OPERATOR Work Phone: [facility] 06-18-2023 12:03-0500 Body height 165.1 cm Carlos Alejandro SEMI TRUCK DRIVER-BAG LOADER MACHINE OPERATOR Work Phone: [facility] 06-18-2023 12:03-0500 Body mass index (BMI) [Ratio] 29.95 kg/m2 Carlosghulam Alejandro SEMI TRUCK DRIVER-BAG LOADER MACHINE OPERATOR Work Phone: [employer] 06-18-2023 12:03-0500 Body temperature 98.29 [degF] Carlos Alejandro APRN-BAG LOADER MACHINE OPERATOR Work Phone: [employer] 06-18-2023 12:03-0500 Body weight 81.65 kg Carlos Alejandro APRN-BAG LOADER MACHINE OPERATOR Work Phone: [facility] 06-18-2023 12:03-0500 Diastolic blood pressure 85 mm[Hg] Carlos Alejandro APRN-BAG LOADER MACHINE OPERATOR Work Phone: [facility] 06-18-2023 12:03-0500 Heart rate 72 /min Carlos Alejandro APRN-BAG LOADER MACHINE OPERATOR Work Phone: [facility] 06-18-2023 12:03-0500 SaO2% (BldA) [Mass fraction] 98 % Carlos Alejandro APRN-BAG LOADER MACHINE OPERATOR Work Phone: [facility] 06-18-2023 12:03-0500 Systolic blood pressure 121 mm[Hg] Carlos Alejandro APRN-BAG LOADER MACHINE OPERATOR Work Phone: [facility] 05-12-2023 15:30-0500 Body height 165.1 cm Brooke Castelan Other [employer] Other 05-12-2023 15:30-0500 Body mass index (BMI) [Ratio] 30.95 kg/m2 Brooke Castelan Other [employer] Other 05-12-2023 15:30-0500 Body temperature 98.3 [degF] Brooke Castelan Other [employer] Other 05-12-2023 15:30-0500 Body weight 84.37 kg Brooke Castelan Other [employer] Other 05-12-2023 15:30-0500 Respiratory rate 19 /min Brooke Castelan Other [employer] Other 05-12-2023 15:30-0500 SaO2% (BldA) [Mass fraction] 98 % Brooke Castelan Other [employer] Other Encounters Encounter Date Encounter Type Care Provider Facility Start: 05-01-2024 End: 05-01-2024 Orders Only Carlos L Javon SEMI TRUCK DRIVER-BAG LOADER MACHINE OPERATOR [facility] Comment on above: 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) Start: 04-28-2024 End: 04-28-2024 Office outpatient visit 15 minutes Carlos L Javon SEMI TRUCK DRIVER-BAG LOADER MACHINE OPERATOR Work Phone: [facility] Comment on above: 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) Start: 04-28-2024 End: 04-28-2024 ambulatory [facility] acute hospital [facility] Start: 11-25-2023 End: 11-25-2023 ambulatory [facility] Start: 11-25-2023 End: 11-25-2023 ambulatory [facility] Start: 09-13-2023 Refill Carlos L Javon SEMI TRUCK DRIVER-BAG LOADER MACHINE OPERATOR Work Phone: [facility] Start: 06-18-2023 End: 06-18-2023 ambulatory [facility] Start: 06-18-2023 End: 06-18-2023 Office outpatient visit 15 minutes Carlos L Javon SEMI TRUCK DRIVER-BAG LOADER MACHINE OPERATOR Work Phone: [facility] Comment on above: Non-intractable vomi ting with nausea (Primary Dx); High risk heterosexual behavior; Implantable subdermal contraceptive surveillance Start: 06-18-2023 End: 06-18-2023 ambulatory General acute hospital [facility] Start: 05-12-2023 End: 05-12-2023 Departed Referred PRESS TENDER-C Brooke Castelan Work Phone: [facility] [place] Work Phone: Start: 05-12-2023 End: 05-12-2023 ambulatory Brooke Castelan [facility] Work Phone: Start: 05-12-2023 Office outpatient ne w 20 minutes Brooke Castelan [facility] Start: 08-25-2022 End: 08-26-[address] JONATHAN CAMARGO Facility:[facility] Start: 04-28-2022 End: 04-29-2022 ambulatory Luis Carlos PONY Facility:[facility] Start: 03-06-[address] JONATHAN CAMARGO Fac ility:[facility] Start: 12-10-2021 End: 12-10-2021 ambulatory MORGAN MAURICIO . Facility:[facility] Start: 10-08-2021 End: 10-09-2021 ambulatory CARLOS ALEJANDRO Facility: Procedures Date Procedure Procedure Detail Performing Clinician Start: 04-28-2024 Follow-up visit Follow-up CARLOS ALEJANDRO Start: 04-28-2024 Adult depression screening assessment Carlos Alejandro SEMI TRUCK DRIVER-BAG LOADER MACHINE OPERATOR Work Phone: Start: 06-18-2023 Urine test visual color cmprsn meths Carlos Alejandro SEMI TRUCK DRIVER-BAG LOADER MACHINE OPERATOR Work Phone: Start: 06-18-2023 Adult depression screening assessment Carlos Alejandro SEMI TRUCK DRIVER-BAG LOADER MACHINE OPERATOR Work Phone: Start: 05-12-2023 Piperacillin/tazobactam Brooke Castelan Other Plan of Treatment Date Care Activity Detail Author Start: 02-04-2026 DTaP,Tdap and Td Vaccines (7 - Td or Tdap) DTaP,Tdap and Td Vaccines (7 - Td or Tdap) [facility] Start: 04-28-2025 Adult BMI Screening Adult BMI Screen ing [facility] Start: 04-28-2025 Depression Screening Depression Scre ening [facility] Start: 11-24-2024 Tobacco Screening Tobacco Screening [facility] Start: 06-18-2024 Adult BMI Screening Adult BMI Screen ing [facility] Start: 06-18-2024 Depression Screening Depression Scre ing [facility] Start: 06-18-2024 Screening for Chlamy wander trachomatis Chlamydia Screening [facility] Start: 06-18-2024 Tobacco Screening Tobacco Screening [facility] Start: 02-20-2024 Adult BMI Follow Up Plan Adult BMI Follow Up Plan [facility] Comment on above: Postponed from 08/07 (Not Indicated) Start: 02-20-2024 Influenza vaccination Influenza Vacc [facility] Start: 05-12-2023 Bacteria identified in Urine by Culture [facility] Start: 02-19-2023 Influenza vaccination Influenza Vacc ine [facility] Start: 2021 Adult BMI Follow Up Plan Adult BMI Follow Up Plan [facility] Start: 2003 Screening for Chlamy wander trachomatis Chlamydia Screening [facility] End: 06-17-2024 Chlamydia/GC by PCR urine Chlamydia/GC by PCR urine Microbiology Routine High risk heterosexual behavior 1 Occurrences starting 06/18/2023 until 06/17/2024 [facility] Work Phone: Comment on above: 1 Occurrences starti ng 06/18/2023 until 06/17/2024 End: 06-17-2024 Trichomonas by PCR Trichomonas by PCR Microbiology Routine High risk heterosexual behavior 1 Occurrences starting 06/18/2023 until 06/17/2024 [facility] Comment on above: 1 Occurrences starti ng 06/18/2023 until 06/17/2024 Immunizations Immunization Date Immunization Notes Care Provider Fa [facility] 06-01-2021 meningococcal oligosaccharide (groups A, C, Y and W-135) diphtheria toxoid conjugate vaccine (MCV4O) Carlos Alejandro APRN-BAG LOADER MACHINE OPERATOR Work Phone: [facility] 01-25-2018 Human Papillomavirus 9-valent vaccine Carlos Alejandro APRN-BAG LOADER MACHINE OPERATOR Work Phone: [facility] 10-22-2016 hepatitis A vaccine, pediatric/adolescent dosage, 2 dose schedule Carlos Javon [facility] Work Phone: [facility] 10-22-2016 Human Papillomavirus 9-valent vaccine Carlos Alejandro [facility] Work Phone: [facility] 02-05-2016 meningococcal oligosaccharide (groups A, C, Y and W-135) diphtheria toxoid conjugate vaccine (MCV4O) Carlos Alejandro [facility] Work Phone: [facility] 02-05-2016 tetanus toxoid, redu lydia diphtheria toxoid, and acellular pertussis vaccine, adsorbed [facility] Work [facility]: [facility] 01-13-2008 diphtheria, tetanus toxoids and acellular pertussis vaccine Carlos Javon [facility] Work Phone: [facility] 01-13-2008 measles, mumps and rubella virus vaccine [facility] Work Phone: [facility] 01-13-2008 poliovirus vaccine, inactivated [facility] Work Phone: [facility] 01-13-2008 varicella virus vaccine Carlota Alejandro [facility] Work Phone: [facility] 03-18-2005 diphtheria, tetanus toxoids and acellular pertussis vaccine [facility] Work Phone: [facility] 03-18-2005 pneumococcal conjuga te vaccine, 7 valent [facility] Work [facility]: [facility] 03-18-2005 varicella virus vaccine Carolta Alejandro [facility] Work Phone: [facility] 08-22-2004 haemophilus influenz ae type b vaccine, PRP-T conjugate Carlos Alejandro [facility] Work Phone: [facility] 08-22-2004 measles, mumps and rubella virus vaccine [facility] Work Phone: [facility] 02-27-2004 DTaP-hepatitis B and poliovirus vaccine Carlos Alejandro [employer] Work Phone: [facility] 02-27-2004 haemophilus influenz ae type b vaccine, PRP-T conjugate Carlos Alejandro [facility] Work Phone: [facility] 02-27-2004 pneumococcal conjuga te vaccine, 7 valent Carlos Alejandro [employer] Work Phone: [facility] 2003 DTaP-hepatitis B and poliovirus vaccine Carlos Alejandro [facility] Work Phone: [facility] 2003 haemophilus influenz ae type b vaccine, PRP-T conjugate Carlos Alejandro [facility] Work Phone: [facility] 2003 pneumococcal conjuga te vaccine, 7 valent Carlos Alejandro [facility] Work Phone[facility] 2003 DTaP-hepatitis B and poliovirus vaccine Carlos Alejandro [facility] Work Phone: [facility] 2003 haemophilus influenz ae type b vaccine, PRP-T conjugate Carlos Alejandro [facility] Work Phone: [facility] 2003 pneumococcal conjuga te vaccine, 7 valent Carlos Alejandro [facility] Work Phone: [facility] 2003 hepatitis B vaccine, pediatric or pediatric/adolescent dosage Carlos Alejandro [facility] Work Phone: [facility] Payers Date Payer Category Payer Managed Care Other (unspecified) [employer] [id number] 2022 Unknown [employer] [facility] [id number] 2022-Present [phone] [address] [address] [place] [address] [id number] 2003 Unknown [id number]. 593 2003 Unknown [id number] [id number]. 593 2003 Unknown [id number] [id number]. 1286 2003 Unknown [id number] [id number]. 1286 2003 Unknown [id number] [id number]. 1286 2003 Unknown [id number] [id number]. 1286 2003 Unknown [id number] [id number]. 1286 1975 Unknown [id number] [id number]. 593 1975 Unknown [id number] [id number]. 593 1959 Self-pay 1959 Unknown [id number] 1961 Unknown [id number] Unknown [id number] Social History Date Type Detail Facility Unknown if ever smoked [facility] Work Phone: Start: 06-18-2023 End: 04-28-2024 Sex Assigned At [facility] [employer] Other Start: 2005 Sex Assigned At Female [facility] Start: 05-28-2022 Tobacco smoking status NHIS Never smoked tobacco [facility] Start: 05-28-2022 Tobacco use and exposure Smokeless tobacco non-user [facility] Start: 06-18-2023 End: 11-25-2023 Alcohol intake Lifetime non-drinker (finding) [facility] Start: 06-18-2023 End: 04-28-2024 History of Social function [facility] Adolescent depressio n screening assessment 22 [facility] Start: 10-22-2022 Gender identity Identifies as female gender (finding) [facility] Start: 10-22-2022 Sexual orientation Heterosexual (finding) [facility] How hard is it for y ou to pay for the very basics like food, housing, medical care, and heating Hard [facility] Start: 01-24-2015 Sex Female (finding) [facility] Clinical Notes 10-08-2021 to 04-28-2024 TI Gong - 04/28/2024 11:40 AM TI Montes De Oca - 06/18/2023 12:10 PM EST Note Date & Type Note Facility 04-28-2024 History of Present illness Narrative [address] [place] [address] Patient: Mouna Castillo Date of : 2005 Encounter Date: 04/28/2024 History of Present Illness: The patient is a 18 y.o. female, an established patient, and is here for Chief Complaint Patient presents with Follow-up . HPI Patient is here for an ER follow-up. She was in the ER at the [facility] on April 26, 2024 for lower back pain as she woke up that morning with right-sided low back pain that radiated to her right buttocks and right lateral leg. A CT of her lumbar was done in the ER that showed L5/S1 disc herniation and patient was given muscle relaxants, NSAIDs, RI CE, steroids and a referral to a spine security management specialist in [place]. Today patient states the pain is much improved and she has not finished her steroid pack at in the muscle relaxant does help improve her pain. Currently she is working multiple jobs at [employer], a [employer] and she has to dog walking jobs. She denies any trauma at these jobs that would have caused this pain and she can not identify a single episode or lifting or fall that would have led to this pain in her back. She has had back pain in the past but this is a more severe episode. She denies any weakness or numbness or tingling to the extremity. She denies loss of bladder or bowel control. Problem List Items Addressed This Visit None Visit Diagnoses Herniation of intervertebral disc between L5 and S1 - Primary Past Medical, Family, and Social History Update: [...] HOURS NEEDED FOR WHEEZING 8.5 g 1 APPLE CIDER VINEGAR ORAL Take 450 mg by mouth in the morning. busPIRone (BUSPAR) 15 mg tablet Take 1 tablet (15 mg total) by mouth in the morning and at bedtime. cholecalciferol, vitamin D3, 2,000 units tablet Take 1 tablet (2,000 Units total) by mouth in the morning. cranberry 500 mg capsule Take 500 mg by mouth in the morning. hydrOXYzine (ATARAX) 25 mg tablet Take 4 tablets (100 mg total) by mouth as needed for anxiety. methylphenidate LA (RITALIN LA) 30 MG 24 hr capsule Take 1 capsule (30 mg total) by mouth every morning. montelukast (SINGULAIR) 10 mg tablet take 1 tablet by mouth every day 90 tablet 3 prazosin (MINIPRESS) 1 mg capsule Take 2 capsules (2 mg total) by mouth nightly. sertraline (ZOLOFT) 25 mg tablet TAKE 1 TABLET (25 MG TOTAL) BY MOUTH IN THE MORNING 90 tablet 1 traZODone (DESYREL) 50 mg tablet Take 1 tablet (50 mg total) by mouth 3 (three) times a day. cyclobenzaprine (FLEXERIL) 10 mg tablet Take 1 tablet (10 mg total) by mouth nightly as needed for muscle spasms. 30 tablet 1 ibuprofen (MOTRIN) 800 mg tablet Take 1 tablet (800 mg total) by mouth every 8 (eight) hours as needed for pain. 60 tablet 1 lithium carbonate 300 mg capsule Take 1 capsule (300 mg total) by mouth in the morning. No current facility-administered medications for this visit. [...] Review of Systems: Review of Systems Constitutional: Negative. Respiratory: Negative. Cardiovascular: Negative. Gastrointestinal: Negative. Genitourinary: Negative. Musculoskeletal: Positive for back pain, gait problem and myalgias. Negative for arthralgias, joint swelling, neck pain and neck stiffness. Psychiatric/Behavioral: Positive for agitation, decreased concentration and dysphoric mood. Negative for self-injury, sleep disturbance and suicidal ideas. The patient is nervous/anxious. Physical Exam: BP 112/72 (BP Site: Right Arm, BP Postition: Sitting, BP CUFF SIZE: M (9-13 inches)) Pulse 86 Temp 36.7 C (98.1 F) (Oral) Wt 85.6 kg (188 lb 12.8 oz) SpO2 97% BMI 31.42 kg/m Physical Exam Vitals reviewed. Constitutional: Appearance: She is obese. HENT: Head: Normocephalic and atraumatic. Musculoskeletal: Lumbar back: Tenderness (L5/S1 transverse spine and right gluteus medius) present. No bony tenderness. Decreased range of motion (Flexion causes pain). Positive right straight leg raise test. Negative left straight leg raise test. Right lower leg: No edema. Left lower leg: No edema. Skin: General: Skin is warm. Capillary Refill: Capillary refill takes less than 2 seconds. Neurological: General: No focal deficit present. Mental Status: She is alert and oriented to person, place, and time. Sensory: Sensory deficit (Right lateral lower extremity pinprick sensation is dulled versus left) present. Motor: No weakness. Gait: Gait abnormal (Stiff, slow antalgic gait). Deep Tendon Reflexes: Reflex Scores: Patellar reflexes are 0 on the right side and 2+ on the left side. Achilles reflexes are 0 on the right side and 2+ on the left side. Psychiatric: Mood and Affect: Mood normal. Behavior: Behavior normal. Assessment and Plan: Mouna was seen today for follow-up. Diagnoses and all orders for this visit: Herniation of intervertebral disc between L5 and S1 Other orders - cyclobenzaprine (FLEXERIL) 10 mg tablet; Take 1 tablet (10 mg total) by mouth nightly as needed for muscle spasms. - ibuprofen (MOTRIN) 800 mg tablet; Take 1 tablet (800 mg total) by mouth every 8 (eight) hours as needed for pain. Follow-up: Continue with muscle relaxant, finished steroids from ER, and continue NSAIDs as above with food. She may also obtain lidocaine patches from the pharmacy and use heat. Patient should avoid lifting more than 10 lb and it was recommended that she do no intense pulling or pushing activity or high impact activity at least until she sees the orthopedic talent specialist. She was offered physical therapy and pain management to help control the pain as well but she defer these. Surgeon may want MRI but as patient has not undergone physical therapy would be best ordered by specialist. Patient should return for wellness when due. TI GONG APRN-CNP 05/01/24 1500 documented in this encounter [facility] 06-18-2023 History of Present illness Narrative [address] [place] [address] Patient: Mouna Castillo Date of : 2005 Encounter Date: 06/18/2023 [...] APRN-CNP 06/18/23 1317 documented in this encounter [facility] [employer] 05-12-2023 Evaluation note Encounter Date Diagnosis Assessment [...] and vomiting in adult (ICD-10 - R11.2) [employer] Other 04-20-2022 NotePROCEDURE: XR KNEE RT 3V HISTORY: Pain in right knee , chronic anterior knee pain COMPARISON: None. FINDINGS: BONES:No fracture, acute abnormality, or significant arthropathy. SOFT TISSUES:No visible soft tissue swelling. EFFUSION:None visible. OTHER: Negative. IMPRESSION: 1. Normal examination. Electronically authenticated by: RILEY SCHUSTER Date: 2021-10-08 16:51[facility] noteNo assessment information availableL[facility] Work Phone: Evaluation note* Diagnosis Non-intractable vomiting with nausea- Primary High risk heterosexual behavior Implantable subdermal contraceptive surveillance Surveillance of previously prescribed implantable subdermal contraceptive [facility] Diagnosis Herniation of intervertebral disc between L5 and S1- Primary [facility] Diagnosis Herniation of intervertebral disc between L5 and S1- Primary [facility] SystemHistory general Narrative - Reported* Type Description Date Medical History Uncomplicated asthma, unspecifie d asthma severity Medical History ADHD Medical History Depression Medical History Anxiety [employer] Other Instructions* Attachments The following attachments cannot be sent through Care Everywhere. * Nausea and Vomiting, Adult ED (Belarusian) documented in this encounterProU[facility] [employer] SystemInstructionsNot on file documented in this encounterProFirelands Regional Medical CenterGame Blisters SystemInstructionsNot on file documented in this encounterProFirelands Regional Medical CenterGame Blisters SystemInstructionsNot on file documented in this encounterProFirelands Regional Medical CenterGame Blisters System Summary Purpose Family History No Family History Records FoundNo Family History Records FoundNo Family History Records FoundNo Family History Records FoundNo Family History Records FoundNo Family History Records Found Advance Directives Advance Directive Response Recorded Date/ Time Advance Directives No July 28, 2018 3:28pm Chief Complaint and Reason for Visit Chief Complaint Dysuria Additional Source Comments INFORMATION SOURCE (unrecogn ized section and content) DATE CREATED AUTHOR 02/14/2022 [facility] DATE CREATED AUTHOR AUTHOR'S ORGANIZ ATION 04/29/2022 Wong Hart [facility] DATE CREATED AUTHOR AUTHOR'S ORGANIZ ATION 08/29/2022 [facility] DATE CREATED AUTHOR AUTHOR'S ORGANIZ ATION 05/17/2023 [facility] DATE CREATED AUTHOR AUTHOR'S ORGANIZ ATION 11/27/2023 [facility] DATE CREATED AUTHOR AUTHOR'S ORGANIZ ATION 04/30/2024 [facility] REASON FOR VISIT (unrecogniz ed section and content) Reason Comments Nausea In waves x3 weeks Reason Comments Med Refill Reason Comments Follow-up Care Teams (unrecognized sec tion and content) Team Status: Inactive Member Role Status Dates Brooke Castelan PRESS TENDER-C Attending Provider Active Lump Roller Relationship Specialty Start Date End Date Carlos Alejandro SEMI TRUCK DRIVER-BAG LOADER MACHINE OPERATOR [address] [place] [address] PCP - General Internal Medicine 02/18/23 Lump Roller Relationship Specialty Start Date End Date Carlos Alejandro SEMI TRUCK DRIVER-BAG LOADER MACHINE OPERATOR [address] [place] [address] PCP - General Internal Medicine 02/18/23 Lump Roller Relationship Specialty Start Date End Date Carlos Alejandro SEMI TRUCK DRIVER-BAG LOADER MACHINE OPERATOR [address] [place] [address] PCP - General Internal Medicine 02/18/23 Lump Roller Relationship Specialty Start Date End Date Carlos Alejandro SEMI TRUCK DRIVER-BAG LOADER MACHINE OPERATOR [address] [place] [address] PCP - General Internal Medicine 02/18/23 Goals [...] BE BASED ON THE PRIMARY CLINICAL RECORDS. [facility] CenterMusicplayr [facility]. provides no warranty or guarantee of the accuracy or completeness of information in this document.
== END 2024-05-05 10:17 | disposition home or self-care (01) ==
LOC: EC 10:16
PROVIDERS: PCP Family Medicine; Visit Provider Orthopaedic Surgery Orthopaedic Surgery of the Spine
DX: M54.50 Low back pain, unspecified (principal)
CPT/HCPCS: 72110

== ENCOUNTER 2024-05-09 13:37 | Outpatient (OUT) | payer OTHER, SELFPAY ==
--- NOTE | 2024-05-09 | CONS_ITS ---
CONSULTATION DATE: 05/09/2024 TO: [facility] CHIEF COMPLAINT: Includes severe bilateral lower back pain, right leg pain. HISTORY OF PRESENT ILLNESS: Review of systems, past medical/surgical history were obtained and documented on the health questionnaire and is available upon request. She is a 18-year-old female, reports having had two day history of having lower back pain. It occurred gradually, increased progressively to its current state, where she is now complaining of 3-7/10 pain in her lower back, right lower extremity. She had a severe flare approximately on April 26, prompting her to go to the emergency room for evaluation, where a CAT scan was performed and revealed an L5-S1 disc protrusion, more off to the left side. Nevertheless, she describes the pain as severe, aching in character, increased with activities such as prolonged standing, prolonged sitting. She feels most comfortable in the semi-recumbent position, as well as with application of ice. She denies any change in bowel and bladder habits and reports she has been having some tingling and numbness as well as weakness of the lower extremity on the right side. CURRENT MEDICATION: Include Argyle which she was given 12 pills in the emergency room. She is also on methylphenidate for ADHD, Zoloft, Robaxin which she reports is helping her. She takes 75 mg daily and was given a Medrol Dosepak on 04/26/2024, which offered only marginal relief. Her JOSSELINE on today?s visit is 28%. EXAMINATION: Notable for patient having mild hypoesthesia along the right L5-S1 dermatome, very mildly to the right EHL. Straight leg raise is positive at approximately 45 degrees. She had no signs consistent with myelopathy. She had significant myofascial spasm and dysfunction with myalgia of the erector spinae muscle, occurring bilaterally. IMPRESSION: Our impression is patient has pain secondary to L5-S1 displaced disc, resulting in a right L5, possible S1 radiculopathy. RECOMMENDATIONS: I recommend she consider changing Robaxin to 750 mg b.i.d. I have started her on Zonegran 50 mg, 1-2 pills at h.s. Will titrate this according. I have her to consider aquatic therapy, and a bilateral L5-S1 transforaminal epidural steroid injection, and we have also given her a script for Narcan to be available. I have gone over the details of the procedure with the patient. All her questions were answered. She agrees to proceed with the outlined plan. As part of providing excellent, safe, comprehensive care, the following was completed at our patient's visit: 1. A medication reconciliation and review to ensure accurate knowledge of current/active medications, including asking our patients to inform us about any [id number] medications or herbal remedies/nutritional supplements/alternative remedies. 2. A review to specifically ensure our patients have had annual screening for: elevated body mass index (BMI, see intake chart for exact total), tobacco use, screening for depression, and screening for unhealthy alcohol use. When screening is concerning, patients are provided with education and the specific recommendation to discuss the concerning health issue and treatment options with their primary care provider. CORNELIO
== END 2024-05-09 13:38 | disposition home or self-care (01) ==
LOC: PM 13:37
PROVIDERS: PCP Family Medicine; Visit Provider Anesthesiology Pain Medicine
DX: M51.17 Intervertebral disc disorders with radiculopathy, lumbosacral region (principal)
CPT/HCPCS: G0463

== ENCOUNTER 2024-05-10 12:33 | Outpatient (RCR) | payer OTHER, SELFPAY | END 2024-06-07 07:35 | disposition home or self-care (01) | LOC: PT 12:33 | PROVIDERS: PCP Family Medicine; Visit Provider Anesthesiology Pain Medicine | DX: M51.26 Other intervertebral disc displacement, lumbar region (principal) | CPT/HCPCS: 97110; 97113; 97161 ==

== ENCOUNTER 2024-05-22 07:02 | Day surgery (SDC) | payer OTHER, SELFPAY ==
--- OUTSIDE RECORDS SUMMARY | 2024-05-22 07:05 | XMS_ITS | CCD ---
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 [facility] [place] [address] Print And Pattern Designer: Alberto Davis MD Ferritin [Mass/Vol] 5 ng/mL Low 6-67 [facility] Comment on above: Performed By: #### 5 616 #### [facility] [place] [address] Print And Pattern Designer: Alberto Davis MD IRON BINDING CAPACITY 501 mcg/dL (calc) High 271-448 [facility] Comment on above: Performed By: #### 5 616 #### [facility] [place] [address] [place] [address] Rd, [address] [place] [address] Print And Pattern Designer: Alberto Davis MD IRON, TOTAL 36 mcg/dL Normal 27-164 [facility] Comment on above: Performed By: #### 5 616 #### [facility] [address] [place] [address], [address] [place] [address] Print And Pattern Designer: Alberto Davis MD Vital Signs Date Time Vital Sign Value Performing Clinician Facility 04-28-2024 12:02-0500 Body mass index (BMI) [Ratio] 31.42 kg/m2 Carlos Alejandro AIR SEALING TECHNICIAN-BILINGUAL STUDENT TUTOR Work Phone: [facility] 04-28-2024 12:02-0500 Body temperature 98.1 [degF] Carlos Javon AIR SEALING TECHNICIAN-BILINGUAL STUDENT TUTOR Work Phone: [facility] 04-28-2024 12:02-0500 Body weight 85.64 kg Carlos Alejandro AIR SEALING TECHNICIAN-BILINGUAL STUDENT TUTOR Work Phone: [facility] 04-28-2024 12:02-0500 Diastolic blood pressure 72 mm[Hg] Carlos Javon AIR SEALING TECHNICIAN-BILINGUAL STUDENT TUTOR Work Phone: [facility] 04-28-2024 12:02-0500 Heart rate 86 /min Carlos Javon AIR SEALING TECHNICIAN-BILINGUAL STUDENT TUTOR Work Phone: [facility] 04-28-2024 12:02-0500 SaO2% (BldA) [Mass fraction] 97 % Carlos Alejandro AIR SEALING TECHNICIAN-BILINGUAL STUDENT TUTOR Work Phone: [facility] 04-28-2024 12:02-0500 Systolic blood pressure 112 mm[Hg] Carlos Javon AIR SEALING TECHNICIAN-BILINGUAL STUDENT TUTOR Work Phone: [facility] 06-18-2023 12:03-0500 Body height 165.1 cm Carlos Alejandro AIR SEALING TECHNICIAN-BILINGUAL STUDENT TUTOR Work Phone: [facility] 06-18-2023 12:03-0500 Body mass index (BMI) [Ratio] 29.95 kg/m2 Carlosghulam Alejandro AIR SEALING TECHNICIAN-BILINGUAL STUDENT TUTOR Work Phone: [employer] 06-18-2023 12:03-0500 Body temperature 98.29 [degF] Carlos Alejandro APRN-BILINGUAL STUDENT TUTOR Work Phone: [facility] 06-18-2023 12:03-0500 Body weight 81.65 kg Carlos Alejandro APRN-BILINGUAL STUDENT TUTOR Work Phone: [facility] 06-18-2023 12:03-0500 Diastolic blood pressure 85 mm[Hg] Carlos Alejandro APRN-BILINGUAL STUDENT TUTOR Work Phone: [facility] 06-18-2023 12:03-0500 Heart rate 72 /min Carlos Alejandro APRN-BILINGUAL STUDENT TUTOR Work Phone: [facility] 06-18-2023 12:03-0500 SaO2% (BldA) [Mass fraction] 98 % Carlos Alejandro APRN-BILINGUAL STUDENT TUTOR Work Phone: [facility] 06-18-2023 12:03-0500 Systolic blood pressure 121 mm[Hg] Carlos Alejandro APRN-BILINGUAL STUDENT TUTOR Work Phone: [facility] 05-12-2023 15:30-0500 Body height 165.1 cm Brooke Castelan Other [employer] Other 05-12-2023 15:30-0500 Body mass index (BMI) [Ratio] 30.95 kg/m2 Brooke Castelan Other [employer] Other 05-12-2023 15:30-0500 Body temperature 98.3 [degF] Brooke Castelan Other [employer] Other 05-12-2023 15:30-0500 Body weight 84.37 kg Brooke Castelan Other [employer] Other 05-12-2023 15:30-0500 Respiratory rate 19 /min Brooke Castelan Other [employer] Other 05-12-2023 15:30-0500 SaO2% (BldA) [Mass fraction] 98 % Brooke Castelan Other [employer] Other Encounters Encounter Date Encounter Type Care Provider Facility Start: 05-12-2024 End: 05-12-2024 Orders Only Carlos L Javon AIR SEALING TECHNICIAN-BILINGUAL STUDENT TUTOR Work Phone: [facility] Start: 05-01-2024 End: 05-01-2024 Orders Only Carlos L Javon AIR SEALING TECHNICIAN-BILINGUAL STUDENT TUTOR Work Phone: [facility] Comment on above: 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) Start: 04-28-2024 End: 04-28-2024 Office outpatient visit 15 minutes Carlos L Javon AIR SEALING TECHNICIAN-BILINGUAL STUDENT TUTOR Work Phone: [facility] Comment on above: 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) Start: 04-28-2024 End: 04-28-2024 ambulatory [facility] Start: 11-25-2023 End: 11-25-2023 ambulatory [facility] Start: 11-25-2023 End: 11-25-[address] [facility] Start: 09-13-2023 Refill Carlos L Javon AIR SEALING TECHNICIAN-BILINGUAL STUDENT TUTOR Work Phone: [facility] Start: 06-18-2023 End: 06-18-2023 ambulatory [facility] Start: 06-18-2023 End: 06-18-2023 Office outpatient visit 15 minutes Carlos L Javon AIR SEALING TECHNICIAN-BILINGUAL STUDENT TUTOR Work Phone: [facility] Comment on above: Non-intractable vomi ting with nausea (Primary Dx); High risk heterosexual behavior; Implantable subdermal contraceptive surveillance Start: 06-18-2023 End: 06-18-2023 ambulatory CARLOS ALEJANDRO [facility] Start: 05-12-2023 End: 05-12-2023 Departed Referred MOISE Castelan Work Phone: [facility] [place] Work Phone: Start: 05-12-2023 End: 05-12-2023 ambulatory Brooke Castelan [facility] Work Phone: Start: 05-12-2023 Office outpatient ne w 20 minutes Brooke Castelan [facility] [place] Start: 08-25-2022 End: 08-26-[address] JONATHAN CAMARGO Facility: Start: 04-28-2022 End: 04-29-2022 ambulatory [facility] Facility:[facility] Start: 03-06-[address] JONATHAN CAMARGO Fac ility:[facility] Start: 12-10-2021 End: 12-10-2021 ambulatory MORGAN MAURICIO . Facility: Start: 10-08-2021 End: 10-09-2021 ambulatory CARLOS ALEJANDRO Facility: Procedures Date Procedure Procedure Detail Performing Clinician Start: 04-28-2024 Follow-up visit Follow-up CARLOS ALEJANDRO Start: 04-28-2024 Adult depression screening assessment Carlos Alejandro AIR SEALING TECHNICIAN-BILINGUAL STUDENT TUTOR Work Phone: Start: 06-18-2023 Urine test visual color cmprsn meths Carlosghulam Alejandro AIR SEALING TECHNICIAN-BILINGUAL STUDENT TUTOR Work Phone: Start: 06-18-2023 Adult depression screening assessment Carlos Javon AIR SEALING TECHNICIAN-BILINGUAL STUDENT TUTOR Work Phone: Start: 05-12-2023 Piperacillin/tazobactam Brooke Castelan Other Plan of Treatment Date Care Activity Detail Author Start: 02-04-2026 DTaP,Tdap and Td Vaccines (7 - Td or Tdap) DTaP,Tdap and Td Vaccines (7 - Td or Tdap) [facility] Start: 04-28-2025 Adult BMI Screening Adult BMI Screen ing [facility] Start: 04-28-2025 Depression Screening Depression Scre ening [facility] Start: 11-24-2024 Tobacco Screening Tobacco Screening [facility] Start: 06-18-2024 Adult BMI Screening Adult BMI Screen ing [facility] Start: 06-18-2024 Depression Screening Depression Scre ening [facility] Start: 06-18-2024 Screening for Chlamy wander trachomatis Chlamydia Screening [facility] Start: 06-18-2024 Tobacco Screening Tobacco Screening [facility] Start: 02-20-2024 Adult BMI Follow Up Plan Adult BMI Follow Up Plan [facility] Comment on above: Postponed from 08/07 (Not Indicated) Start: 02-20-2024 Influenza vaccination Influenza Vacc ine [facility] Start: 05-12-2023 Bacteria identified in Urine by Culture [facility] Start: 02-19-2023 Influenza vaccination Influenza Vacc ine [facility] Start: 2021 Adult BMI Follow Up Plan Adult BMI Follow Up Plan [facility] Start: 2003 Screening for Chlamy wander trachomatis Chlamydia Screening [facility] End: 06-17-2024 Chlamydia/GC by PCR urine Chlamydia/GC by PCR urine Microbiology Routine High risk heterosexual behavior 1 Occurrences starting 06/18/2023 until 06/17/2024 [facility] Work Phone: Comment on above: 1 Occurrences starti ng 06/18/2023 until 06/17/2024 End: 06-17-2024 Trichomonas by PCR Trichomonas by PCR Microbiology Routine High risk heterosexual behavior 1 Occurrences starting 06/18/2023 until 06/17/2024 [facility] Comment on above: 1 Occurrences starti ng 06/18/2023 until 06/17/2024 Immunizations Immunization Date Immunization Notes Care Provider Cliff cervantes 06-01-2021 meningococcal oligosaccharide (groups A, C, Y and W-135) diphtheria toxoid conjugate vaccine (MCV4O) Carlos LUKE Work Phone: [facility] 01-25-2018 Human Papillomavirus 9-valent vaccine Carlos [facility] Work Phone: [facility] 10-22-2016 hepatitis A vaccine, pediatric/adolescent dosage, 2 dose schedule Carlosghulam Alejandro [facility] Work Phone: [facility] 10-22-2016 Human Papillomavirus 9-valent vaccine [facility] Work Phone: [facility] 02-05-2016 meningococcal oligosaccharide (groups A, C, Y and W-135) diphtheria toxoid conjugate vaccine (MCV4O) [facility] Work Phone: [facility] 02-05-2016 tetanus toxoid, redu lydia diphtheria toxoid, and acellular pertussis vaccine, adsorbed [facility] 01-13-2008 diphtheria, tetanus toxoids and acellular pertussis vaccine [facility] Work Phone: [facility] 01-13-2008 measles, mumps and rubella virus vaccine [facility] Work Phone: [facility] 01-13-2008 poliovirus vaccine, inactivated [facility] Work Phone: [facility] 01-13-2008 varicella virus vaccine Carlota friedman [facility] Work Phone: [facility] 03-18-2005 diphtheria, tetanus toxoids and acellular pertussis vaccine Carlos [facility] Work Phone: [facility] 03-18-2005 pneumococcal conjuga te vaccine, 7 valent [facility] Work Phone: [facility] 03-18-2005 varicella virus vaccine Carlota friedman [facility] Work Phone: [facility] 08-22-2004 haemophilus influenz ae type b vaccine, PRP-T conjugate Carlos Alejandro [facility] Work Phone: [facility] 08-22-2004 measles, mumps and rubella virus vaccine Carlos Alejandro [facility] Work Phone: [facility] 02-27-2004 DTaP-hepatitis B and poliovirus vaccine Carlos Alejandro [facility] Work Phone: [facility] 02-27-2004 haemophilus influenz ae type b vaccine, PRP-T conjugate Carlos Alejandro [facility] Work Phone: [facility] 02-27-2004 pneumococcal conjuga te vaccine, 7 valent Carlos Alejandro [facility] Work Phone: [facility] 2003 DTaP-hepatitis B and poliovirus vaccine Carlosghulam Alejandro [facility] Work Phone: [facility] 2003 haemophilus influenz ae type b vaccine, PRP-T conjugate Carlos Alejandro [facility] Work Phone: [facility] 2003 pneumococcal conjuga te vaccine, 7 valent Carlos Alejandro [facility] Work Phone: [facility] 2003 DTaP-hepatitis B and poliovirus vaccine Carlos Alejandro [facility] Work Phone: [facility] 2003 haemophilus influenz ae type b vaccine, PRP-T conjugate Carlos Alejandro [facility] Work Phone: [facility] 2003 pneumococcal conjuga te vaccine, 7 valent Carlos Alejandro [facility] Work Phone: [facility] 2003 hepatitis B vaccine, pediatric or pediatric/adolescent dosage Carlos Alejandro [facility] Work Phone: [facility] Payers Date Payer Category Payer Managed Care Other (unspecified) [employer] [place] [id number] 2022 Unknown [employer] [facility] [id number] 2022-Present [phone] [address] [address] [place] [id number] 2003 Unknown [id number] 2003 Unknown [id number] 593 2003 Unknown [id number] 1286 2003 Unknown [id number] 1286 2003 Unknown [id number] 128 2003 Unknown [id number] 1286 2003 Unknown [id number] 1286 1975 Unknown [id number]. 593 1975 Unknown [id number] 593 1959 Self-pay 1959 Unknown [id number] 1959 Unknown [id number] Unknown [id number] Social History Date Type Detail Facility Unknown if ever smoked [facility] Work Phone: Start: 06-18-2023 End: 04-28-2024 Sex Assigned At [facility] [employer] Other Start: 2005 Sex Assigned At Female [facility] Start: 05-28-2022 Tobacco smoking status NHIS Never smoked tobacco [facility] Start: 05-28-2022 Tobacco use and exposure Smokeless tobacco non-user [facility] Start: 06-18-2023 End: 11-25-2023 Alcohol intake Lifetime non-drinker (finding) [facility] Start: 06-18-2023 End: 04-28-2024 History of Social function [facility] Adolescent depressio n screening assessment 22 [facility] Start: 10-22-2022 Gender identity Identifies as female gender (finding) [facility] Start: 10-22-2022 Sexual orientation Heterosexual (finding) [facility] How hard is it for y ou to pay for the very basics like food, housing, medical care, and heating Hard [facility] Start: 01-24-2015 Sex Female (finding) [facility] tem Clinical Notes 10-08-2021 to 04-28-2024 TI Gong - 04/28/2024 11:40 AM TI Montes De Oca - 06/18/2023 12:10 PM EST Note Date & Type Note Facility 04-28-2024 History of Present [place] [address] Patient: Mouna Castillo Date of : 2005 Encounter Date: 04/28/2024 History of Present Illness: The patient is a 18 y.o. female, an established patient, and is here for Chief Complaint Patient presents with Follow-up . HPI Patient is here for an ER follow-up. She was in the ER at the [facility] on April 26, 2024 for lower back pain as she woke up that morning with right-sided low back pain that radiated to her right buttocks and right lateral leg. A CT of her lumbar was done in the ER that showed L5/S1 disc herniation and patient was given muscle relaxants, NSAIDs, RI CE, steroids and a referral to a spine orthopedic technician in [place]. Today patient states the pain is much improved and she has not finished her steroid pack at in the muscle relaxant does help improve her pain. 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 [...] at least until she sees the orthopedic development specialist. She was offered physical therapy and pain management to help control the pain as well but she defer these. Surgeon may want MRI but as patient has not undergone physical therapy would be best ordered by specialist. Patient should return for wellness when due. TI GONG APRN-CNP 05/01/24 1500 documented in this encounter [facility] 06-18-2023 History of Present illness Narrative [address] [facility] [address] Patient: Mouna Castillo Date of : 2005 [...] for her wellness when it is due. CHELA attempted to to send the trich sample in urine cup. TI GONG APRN-CNP 06/18/23 1317 documented in this encounter [facility] 05-12-2023 Evaluation note Encounter Date Diagnosis Assessment [...] and vomiting in adult (ICD-10 - R11.2) [employer] Other 04-20-2022 NotePROCEDURE: XR KNEE RT 3V HISTORY: Pain in right knee , chronic anterior knee pain COMPARISON: None. FINDINGS: BONES:No fracture, acute abnormality, or significant arthropathy. SOFT TISSUES:No visible soft tissue swelling. EFFUSION:None visible. OTHER: Negative. IMPRESSION: 1. Normal examination. Electronically authenticated by: RILEY SCHUSTER Date: 2021-10-08 16:51Evaluation noteNo assessment information availableCleveland Clinic Foundation Work Phone: Evaluation note* Diagnosis Non-intractable vomiting with nausea- Primary High risk heterosexual behavior Implantable subdermal contraceptive surveillance Surveillance of previously prescribed implantable subdermal contraceptive documented in this encounter [facility]* Diagnosis Herniation of intervertebral disc between L5 and S1- Primary documented in this encounter [facility]* Diagnosis Herniation of intervertebral disc between L5 and S1- Primary documented in this encounter [facility] SystemHistory general Narrative - Reported* Type Description Date Medical History Uncomplicated asthma, unspecifie d asthma severity Medical History ADHD Medical History Depression Medical History Anxiety [employer] Other Instructions* Attachments The following attachments cannot be sent through Care Everywhere. * Nausea and Vomiting, Adult ED (Swedish) documented in this encounterProC[facility] HospitalPursuit [facility] SystemInstructionsNot on file documented in this encounterProCleveland Clinic Mary[facility] HospitalNexSteppe SystemInstructionsNot on file documented in this encounterProCleveland Clinic Marymount HospitalNexSteppe SystemInstructionsNot on file documented in this encounterProCleveland Clinic Mary[facility] HospitalNexSteppe SystemInstructionsNot on file documented in this encounterProCleveland Clinic Mary[facility] HospitalNexSteppe System Summary Purpose Family History No Family [...] CREATED AUTHOR AUTHOR'S ORGANIZ ATION 04/29/2022 Wong Jamarcus [facility] DATE CREATED AUTHOR AUTHOR'S ORGANIZ ATION 08/29/2022 [facility] [place] [facility] DATE CREATED AUTHOR AUTHOR'S ORGANIZ ATION 05/17/2023 [facility] DATE CREATED AUTHOR AUTHOR'S ORGANIZ ATION 11/27/2023 [facility] DATE CREATED AUTHOR AUTHOR'S ORGANIZ ATION 04/30/2024 [facility] REASON FOR VISIT (unrecogniz ed section and content) Reason Comments Nausea In waves x3 weeks Reason Comments Med Refill Reason Comments Follow-up Care Teams (unrecognized sec tion and content) Team Status: Inactive Member Role Status Dates Brooke Castelan , MANAGER WINTER-C Attending Provider Active Senior Support Analyst Relationship Specialty Start Date End Date Carlos Alejandro AIR SEALING TECHNICIAN-BILINGUAL STUDENT TUTOR [address] [place] [address] PCP - General Internal Medicine 02/18/23 Senior Support Analyst Relationship Specialty Start Date End Date Carlos Alejandro AIR SEALING TECHNICIAN-BILINGUAL STUDENT TUTOR [address] [place] [address] PCP - General Internal Medicine 02/18/23 Senior Support Analyst Relationship Specialty Start Date End Date Carlos Alejandro AIR SEALING TECHNICIAN-BILINGUAL STUDENT TUTOR [address] [place] [address] PCP - General Internal Medicine 02/18/23 Senior Support Analyst Relationship Specialty Start Date End Date Carlos Alejandro AIR SEALING TECHNICIAN-BILINGUAL STUDENT TUTOR [address] [place] [address] PCP - General Internal Medicine 02/18/23 Senior Support Analyst Relationship Specialty Start Date End Date Carlos Alejandro APRN-TOMASZ [address] [place] [address] PCP - General Internal Medicine 02/18/23 Goals [...] BE BASED ON THE PRIMARY CLINICAL RECORDS. [employer] provides no warranty or guarantee of the accuracy or completeness of information in this document.
[2024-05-22 07:29] LABS: HCG Qualitative NEGATIVE (NEGATIVE); Internal Control Within Normal Limits
[2024-05-22 08:08] VITALS: BP 123/80; PULSE 78; TEMP 36.7; O2SAT 100
[2024-05-22 08:29] VITALS: BP 112/70; PULSE 70; O2SAT 99
[2024-05-22] MEDS: 0.9 % SODIUM CHLORIDE 10 ML SYRINGE - SALINE FLUSH INJ (08:29)
[2024-05-22] MEDS: TRIAMCINOLONE ACETONIDE 40 MG/ML VIAL 80 MG INJ (08:30)
[2024-05-22] MEDS: BUPIVACAINE HCL 0.25% PF 25 MG/10 ML VIAL INJ (08:30)
[2024-05-22] MEDS: IOHEXOL 240 MG/ML - 10 ML VIAL 24 MG INJ (08:30)
[2024-05-22] MEDS: LIDOCAINE HCL 2% 400 MG/20 ML MDV 3 ML INJ (08:30)
[2024-05-22 08:31] VITALS: BP 114/68; PULSE 73; O2SAT 98
--- NOTE | 2024-05-22 08:32 | W.PM.PROCNOT ---
Date of procedure: 05/22/24 Pre-op diagnosis: Pain due to lumbar stenosis with neurogenic claudication Post-op diagnosis: same as pre-op Procedure: Procedure: Bilateral L5-S1 transforaminal epidural steroid injection Medications: Bupivacaine 0.25% 2cc, lidocaine 2% 1cc, kenalog 80mg The patient was seen and examined in the preoperative holding area.? Informed consent was obtained and placed on the chart.? Patient was brought to the medical procedure unit and placed in the prone position where a timeout was completed verifying the correct patient, procedure site, position, and planned special equipment using sterile aseptic technique.? Under direct fluoroscopic visualization a 25-gauge Quincke tipped spinal needle was advanced at level left L5-S1 to the designated neural foramen where contrast dye was injected to show adequate spread.? There was no evidence of vascular or adverse uptake.? Epidural spread was appreciated.? The above-mentioned injectate was then placed in a 1.5 mL aliquot preceded by negative aspiration.? The needle was removed. The same procedure, at the same level, was completed on the opposite side. ? Patient was taken to the postprocedural recovery area and monitored for an appropriate length of time before found suitable for discharge in the accompaniment of a responsible adult. Anesthesia: Local Surgeon: Ava Dinero Pathology: none sent Condition: stable Disposition: no change
== END 2024-05-22 08:36 | disposition home or self-care (01) ==
LOC: SURGOUT 07:02
PROVIDERS: PCP Family Medicine; Visit Provider Anesthesiology
DX: M48.062 Spinal stenosis, lumbar region with neurogenic claudication (principal)
CPT/HCPCS: 36415; 64483; 84703; J0665; J3301; Q9966

== ENCOUNTER 2024-05-24 08:42 | Outpatient (OUT) | payer OTHER, SELFPAY ==
--- NOTE | 2024-05-24 08:45 | MR_ITS ---
[address] [address] Patient Name: ZEKE MANUEL MRN: [id number] date: 2005 Sex: F Assigned Patient Location: MRI Current Patient Location: MRI Accession/Order Number: [id number] Exam Date: 05/24/2024 08:50 Report Date: 05/24/2024 13:28 At the request of: ELIAZAR ORELLANA Procedure: MR lumbar spine wo con EXAMINATION: MR lumbar spine wo con HISTORY: Lumbar Pain COMPARISON: No relevant comparison available. TECHNIQUE: A variety of imaging planes and parameters were utilized for visualization of suspected pathology. FINDINGS: For the purposes of numbering, sagittal T2 image # 9 extends from the T11 vertebral body superiorly to the S2 level inferiorly. PARASPINAL AREA: Normal with no visible mass. BONES: Normal alignment of the lumbar vertebral bodies with no acute fracture or spondylolisthesis. No bone edema CORD/CAUDA EQUINA: Normal caliber, contour, and signal intensity. DISC LEVELS: 12-L1: No significant disc/facet abnormality, spinal stenosis, or foraminal stenosis. L1-L2: No significant disc/facet abnormality, spinal stenosis, or foraminal stenosis. L2-L3: No significant disc/facet abnormality, spinal stenosis, or foraminal stenosis. L3-L4: No significant disc/facet abnormality, spinal stenosis, or foraminal stenosis. L4-L5: No significant disc/facet abnormality, spinal stenosis, or foraminal stenosis. L5-S1: Disc desiccation. Left paracentral and preforaminal disc herniation of the protrusion type extending posteriorly up to 5 mm partially effacing the nerve. No central canal or foraminal stenosis MR/MR lumbar spine wo con IMPRESSION: Left paracentral and preforaminal foraminal L5-S1 disc herniation partially effacing the nerve Electronically authenticated by: GIACOMO DUNCAN Date: 05/24/2024 13:28
== END 2024-05-24 08:43 | disposition home or self-care (01) ==
LOC: MRI 08:42
PROVIDERS: PCP Family Medicine; Visit Provider Orthopaedic Surgery Orthopaedic Surgery of the Spine
DX: M54.50 Low back pain, unspecified (principal); M51.27 Other intervertebral disc displacement, lumbosacral region
CPT/HCPCS: 72148

== ENCOUNTER 2024-05-31 08:53 | Outpatient (OUT) | payer OTHER, SELFPAY ==
--- OUTSIDE RECORDS SUMMARY | 2024-05-31 08:59 | XMS_ITS | CCD ---
Author Organization [facility] Providers Care Clock And Watch Hands Painter Name Role Phone Luis Carlos DIOP Attending [...] Annelise, Brooke Unavailable MOISE Castelan Attending Provider [phone] Brooke Castelan Attending Unavailable Brooke Castelan Admitting Unavailable Furlong, Jonathan Primary Care Unavailable Javon CAN STRIPER-RESIDENT ASSISTANT, Carlos L Primary Care Provider JAVON, CARLOS [...] Unavailable JAVON, CARLOS L Primary Care Unavailable Bar OBRIEN, Ava Thurman Attending Unavailable Medications Current Medications Medication Drug Class(es) Dates Sig (Normalized) Sig (Original) [id number] 200 actuat albuterol 0.09 mg/actuat metered dose [...] 15 mg oral tablet (8 sources) Start: 3 take 1 tablet by mouth at bedtime [...] mg oral tablet (5 sources) Antihistamine Start: 023 hydrOXYzine (ATARAX) 25 mg tablet Take 4 [...] 05/24/2023 Active take 1 capsule by [facility] once daily in the morning methylphenidate [place] [...] Discontinued (Therapy completed) take 1 capsule by [facility] every twenty-four hours Vraylar 1.5 MG 1 [...] Anion gap [Moles/Vol] 8 mmol/L Normal 5-15 [facility] Comment on above: Performed By: #### B EARL THYR, 2842-3 #### [facility] ([id number]) [address], [address] [place] [address] Calcium [Mass/Vol] 9.9 mg/dL Normal 8.5-10.5 [facility] Comment on above: Performed By: #### Demetri ELLIOTT, THYR, 2842-3 #### [facility] ([id number]) [address], [address] [place] [address] Chloride [Moles/Vol] 104 mmol/L Normal 98-109 [facility] Comment on above: Performed By: #### Demetri ELLIOTT, THYR, 2842-3 #### [facility] ([id number]) [address], [address] [place] [address] CO2 [Moles/Vol] 27 mmol/L Normal 22-32 [facility] Comment on above: Performed By: #### Demetri ELLIOTT, THYR, 2842-3 #### [facility] ([id number]) [address], [address] [place] [address] Creatinine [Mass/Vol] 0.75 mg/dL Normal 0.40-1.00 [facility] Comment on above: Result Comment: METH OD TRACEABLE TO IDMS STANDARD Performed By: #### Demetri ELLIOTT, THYR, 2842-3 #### [facility] ([id number]) [address] [place] [address] eGFR (CKD-EPI) NON-RACE DEPENDENT >90 Normal >59 [facility] Comment on above: Result Comment: Reported eGFR is based on the CKD-EPI 2020 equation that does not use a race coefficient. Performed By: #### B EARL, THYR, 2842-3 #### [facility] ([id number]) [address], [address] [place] [address] Glucose [Mass/Vol] 95 mg/dL Normal 65-99 [facility] Comment on above: Performed By: #### B EARL, THYR, 284-3 #### [facility] ([id number]) [address], [address] [place] [address] Potassium [Moles/Vol] 4.1 mmol/L Normal 3.5-5.0 [facility] Comment on above: Performed By: #### B MP, THYR, 284-3 #### [facility] ([id number]) [address], [address] [place] [address] Sodium [Moles/Vol] 139 mmol/L Normal 134-146 [facility] Comment on above: Performed By: #### B EARL, THYR, 284-3 #### [facility] ([id number]) [address], [address] [place] [address] Urea nitrogen [Mass/Vol] 6 mg/dL Normal 5-23 [facility] Comment on above: Performed By: #### B MP, THYR, 284-3 #### [facility] ([id number]) [address], [address] [place] [address] Prolactin [Mass/Vol]on 11-24 PROLACTIN 25.4 ng/mL Normal 3.3-26.7 [facility] Comment on above: Performed By: #### B MP, THYR, 284-3 #### [facility] ([id number]) [address], [address] [place] [address] THYROID PROFILEon 11-25-2023 Free T4 [Mass/Vol] 0.72 ng/dL Normal 0.61-1.60 [facility] Comment on above: Performed By: #### B MP, THYR, 2842-3 #### [facility] ([id number]) [address] [place] [address] TSH 1.37 uIU/mL Normal 0.49-4.67 [facility] Comment on above: Performed By: #### B MP, THYR, 2842-3 #### [facility] ([id number]) [address], [address] [address] CHLAMYDIA/GC PCR, Uon 2022 CHLAMYDIA/GC PCR, U [...] are dependent on adequate specimen collection. Normal [facility] Comment on above: Performed By: #### C #### [facility] ([id number]) [address], [address] [place] [address] POCT , urineon - Beta HCG ( test) Ql (U) Negative [facility] Internal Polymerization Oven Operator Check Completed and Passed Yes [facility] System Interpretation and review of laboratory results Normal [facility] TRICHOMONAS PCRon 06-18-2023 TRICHOMONAS PCR SPECIMEN SOURCE CLEAN CATCH MIDSTREAM URINE TRICHOMONAS PCR Not detected (qualifier value) Trichomonas vaginalis not detected NOTE Assay methodology is nucleic acid amplification by real-time PCR for detection of Trichomonas vaginalis DNA performed on [employer] System. Normal [facility] Comment on above: Performed By: #### T RKPCR #### [facility] ([id number]) [address], [address] [place] [address] COVID + FLU Quick Testingon 05-12-2023 SARS-CoV-2 (COVID-19) RNA CRISTAL+probe Ql (Unsp spec) Negative [facility] Other COVID + FLU Quick Testing Negative [facility] Other Urinalysis - AUTOMATEDon Appearance (U) cloudy [facility] Other Bilirubin Ql (U) Negative [facility] Other Color (U) dark yellow [facility] Other Glucose Ql (U) Negative [facility] Other Hemoglobin Ql (U) small [employer] Other Ketones Ql (U) Negative [facility] Other Leukocyte esterase Test strip Ql (U) trace [facility] Other Nitrite Ql (U) Negative [facility] Other pH (U) 6.5 [pH] [facility] Other Protein Ql (U) 100 [facility] Other Specific gravity (U) [Rel density] 1.030 [facility] Other Urobilinogen (U) [Mass/Vol] 1.0 mg/dL [facility] Other Urinalysis - AUTOMATED [facility] Other Urine Cultureon 05-12-2023 Bacteria identified Cx Nom (U) Reason for Exam Dysuria Urine ORGANISM: Escherichia coli (O:ESCCOL) [place] Count >100,000 Aerobic JACIEL Charge (NMIC56) ------ [...] RESISTANT TO ALL B-LACTAM DRUGS. PERFORMED BY: [place] [address] PATHOLOGIST ANAESTHESIOLOGIST MATTHEW CHAIDEZ M.D. [facility] Comment on above: Performed By: #### C UU #### [facility] [address] [place] [address] Urine Culture >100,000 [facility] Other Urine Culture <16 Susceptible [facility] Other Urine Culture <8/4 Susceptible [facility] Other Urine Culture >16 Resistant [facility] Other Urine Culture <4 Susceptible [facility] Other Urine Culture <2 Susceptible [facility] Other Urine Culture <1 Susceptible [facility] Other Urine Culture <0.25 Susceptible [facility] Other Urine Culture <0.5 Susceptible [facility] Other Urine Culture <32 Susceptible [employer] Other Urine Culture <0.5/9.5 Susceptible [facility] Other CBC AUTO DIFFon 08-25-2022 BASO # 0.0 103/ul Normal 0.0-0.1 [facility] Comment on above: Performed By: #### C BC #### [facility] [address] [place] [address] Dr. Oneal Capps Basophils/100 WBC (Bld) 0.4 % Normal 0.2-2.0 [facility] Comment on above: Performed By: #### C BC #### [facility] [address] [place] [address] Dr. Oneal Capps EO # 0.2 103/ul Normal 0.0-0.7 [facility] Comment on above: Performed By: #### C BC #### [facility] [address] [place] [address] Dr. Oneal Capps Eosinophils/100 WBC (Bld) 2.2 % Normal 0.9-7.0 [facility] Comment on above: Performed By: #### C BC #### [facility] [address] [place] [address] Dr. Oneal Capps Erythrocyte distribution width (RBC) [Ratio] 12.5 % Normal 11.0-15.0 [facility] Comment on above: Performed By: #### C BC #### [facility] [address] [place] [address] Dr. Oneal Capps Hematocrit (Bld) [Volume fraction] 37.1 % Normal 36.0-48.0 [facility] Comment on above: Performed By: #### C BC #### [facility] [address] [address] [address] Oneal Capps Hemoglobin (Bld) [Mass/Vol] 12.5 g/dL Normal 12.0-16.0 [facility] Comment on above: Performed By: #### C BC #### [facility] [address] [address] [address] Oneal Capps IG # 0.05 10e3/ul Critically high 0.00-0.03 [facility] Comment on above: Performed By: #### C BC #### [facility] [address] [address] [address] Oneal Capps IG % 0.5 % Normal 0.0-0.5 [facility] Comment on above: Performed By: #### C BC #### [facility] [address] [place] [address] Dr. Oneal Capps LYMPH # 1.6 103/ul Normal 1.2-3.8 [facility] Comment on above: Performed By: #### C BC #### [facility] [address] [place] [address] Dr. Oneal Capps Lymphocytes/100 WBC (Bld) 16.9 % Critically low 20.5-60.0 [facility] Comment on above: Performed By: #### C BC #### [facility] [address] [place] [address] Dr. Oneal Capps MANUAL DIFF REQ NO Normal [facility] Comment on above: Performed By: #### C BC #### [facility] [address] [place] [address] Dr. Oneal Capps MCH (RBC) [Entitic mass] 29.8 pg Normal 26.7-34.0 [facility] Comment on above: Performed By: #### C BC #### [facility] [address] [place] [address] Dr. Oneal Capps MCHC (RBC) [Mass/Vol] 33.7 g/dL Normal 29.9-35.2 [facility] Comment on above: Performed By: #### C BC #### [facility] [address] [address] [address] Oneal Capps MCV (RBC) [Entitic vol] 88.5 fL Normal 81.0-99.0 [facility] Comment on above: Performed By: #### C BC #### [facility] [address] [address] [address] Oneal Capps MONO # 0.7 103/ul Normal 0.3-0.8 [facility] Comment on above: Performed By: #### C BC #### [facility] [address] [place] [address] Dr. Oneal Capps Monocytes/100 WBC (Bld) 6.9 % Normal 1.7-12.0 [facility] Comment on above: Performed By: #### C BC #### [facility] [address] [place] [address] Dr. Oneal Capps NEUT # 6.9 103/ul Critically high 1.4-6.5 [facility] Comment on above: Performed By: #### C BC #### [facility] [address] [place] [address] Dr. Oneal Capps Neutrophils/100 WBC (Bld) 73.1 % Normal 43.0-75.0 [facility] Comment on above: Performed By: #### C BC #### [facility] [address] [place] [address] Dr. Oneal Capps Platelet mean volume (Bld) [Entitic vol] 10.8 fL Normal 9.5-13.5 [facility] Comment on above: Performed By: #### C BC #### [facility] [address] [place] [address] Dr. Oneal Capps PLT 234 103/ul Normal 150-450 [facility] Comment on above: Performed By: #### C BC #### [facility] [address] [place] [address] Dr. Oneal Capps RBC 4.19 106/ul Critically low 4.20-5.40 [facility] Comment on above: Performed By: #### C BC #### [facility] [address] [place] [address] Dr. Oneal Capps WBC 9.4 103/ul Normal 4.0-11.0 [facility] Comment on above: Performed By: #### C BC #### [facility] [address] [place] [address] Dr. Oneal Capps FERRITINon 08-25-2022 Ferritin [Mass/Vol] 62.0 ng/mL Normal 6.2-137.0 [facility] Comment on above: Performed By: #### V ITAD, FT4, FETIBC, FERR, VITB12 #### [facility] [address] [place] [address] Dr. Oneal Capps FREE T3on 08-25-2022 FREE T3 2.98 pg/mlL Normal 2.91-4.70 [facility] Comment on above: Performed By: #### V ITAD, FT4, FETIBC, FERR, VITB12 #### [facility] [address] [place] [address] Dr. Oneal Capps FREE T4on 08-25-2022 Free T4 [Mass/Vol] 0.63 ng/dL Critically low 0.78-1.34 [facility] Comment on above: Performed By: #### V ITAD, FT4, FETIBC, FERR, VITB12 #### [facility] [address] [place] [address] Dr. Oneal Capps GLYCOHEMOGLOBIN A1Con 2022 ADA RECOMMENDATION SEE BELOW Normal [facility] Comment on above: Result Comment: ADA RECOMMENDED LIMIT 4.0 - 6.0 ADA THERAPEUTIC TARGET < 7.0 ACTION SUGGESTED > 7.0 Performed By: #### A 1C #### [facility] [address] [place] [address] Dr. Oneal Capps Glucose [Mass/Vol] 111 mg/dL Normal [facility] Comment on above: Performed By: #### A 1C #### [facility] [address] [place] [address] Dr. Oneal Capps HbA1c (Bld) [Mass fraction] 5.5 % Normal 4.5-6.2 [facility] Comment on above: Performed By: #### A 1C #### [facility] [address] [address] [address] Oneal Capps IRON AND TIBCon 08-25-2022 % SATURATION 31.6 % Normal [facility] Comment on above: Performed By: #### V ITAD, FT4, FETIBC, FERR, VITB12 #### [facility] [address] [address] [address] Oneal Capps Iron [Mass/Vol] 109.0 ug/dL Normal 50.0-170.0 [facility] Comment on above: Performed By: #### V ITAD, FT4, FETIBC, FERR, VITB12 #### [facility] [address] [address] [address] Oneal Capps TIBC DIRECT 345.0 ug/dL Normal 250.0-450.0 [facility] Comment on above: Performed By: #### V ITAD, FT4, FETIBC, FERR, VITB12 #### [facility] [address] [address] [address] Oneal Capps LIPID PROFILEon 08-25-2022 CHOL-HDL RATIO NORM SEE BELOW Normal [facility] Comment on above: Result Comment: 3.3 - 4.4 LOW RISK 4.4 - 7.1 AVERAGE RISK 7.1 - 11.0 MODERATE RISK >11.0 HIGH RISK Performed By: #### L IPID, TSH, FT3, CMP #### [facility] [address] [address] [address] Oneal Capps Cholesterol [Mass/Vol] 251 mg/dL Critically high 104-227 [facility] Comment on above: Performed By: #### L IPID, TSH, FT3, CMP #### [facility] [address] [address] [address] Oneal Capps Cholesterol in HDL [Mass/Vol] 64 mg/dL Normal 29-69 [facility] Comment on above: Performed By: #### L IPID, TSH, FT3, CMP #### [facility] [address] [address] [address] Oneal Capps Cholesterol in LDL [Mass/Vol] 169.4 mg/dL Critically high 46.0-140.0 [facility] Comment on above: Performed By: #### L IPID, TSH, FT3, CMP #### [facility] [address] [address] [address] Oneal Capps Cholesterol.total/Ch olesterol in HDL [Mass ratio] 3.9 {ratio} Normal [facility] Comment on above: Performed By: #### L IPID, TSH, FT3, CMP #### [facility] [address] [address] [address] Oneal Capps HDL NORMAL > or = 60 mg/dl - LOW CARDIOVASCULAR RISK <40 mg/dl - HIGH CARDIOVASCULAR RISK Normal [facility] Comment on above: Performed By: #### L IPID, TSH, FT3, CMP #### [facility] [address] [address] [address] Oneal Capps LDL CALC NORMAL SEE BELOW Normal [facility] Comment on above: Result Comment: <100 mg/dl OPTIMAL 100 - 129 mg/dl NEAR OR ABOVE OPTIMAL 130 - 159 mg/dl BORDERLINE HIGH 160 - 189 mg/dl HIGH >190 mg/dl VERY HIGH Performed By: #### L IPID, TSH, FT3, CMP #### [facility] [address] [address] [address] Oneal Capps Triglyceride [Mass/Vol] 88 mg/dL Normal 53-208 [facility] Comment on above: Performed By: #### L IPID, TSH, FT3, CMP #### [facility] [address] [address] [address] Oneal Capps VLDL CALC 17.6 mg/dL Normal [facility] Comment on above: Performed By: #### L IPID, TSH, FT3, CMP #### [facility] [address] [address] [address] Oneal Capps PROF 14(COMP METB)on 023 Albumin [Mass/Vol] 3.9 g/dL Normal 3.4-5.0 [facility] Comment on above: Performed By: #### L IPID, TSH, FT3, CMP #### [facility] [address] [place] [address] Dr. Oneal Capps Albumin/Globulin [Mass ratio] 1.0 {ratio} Normal [facility] Comment on above: Performed By: #### L IPID, TSH, FT3, CMP #### [facility] [address] [address] [address] Oneal Capps ALP [Catalytic activity/Vol] 96 U/L Normal 46-116 [facility] Comment on above: Performed By: #### L IPID, TSH, FT3, CMP #### [facility] [address] [address] [address] Oneal Capps ALT [Catalytic activity/Vol] 30 U/L Normal 14-59 [facility] Comment on above: Performed By: #### L IPID, TSH, FT3, CMP #### [facility] [address] [place] [address] Dr. Oneal Capps Anion gap [Moles/Vol] 11.2 mmol/L Normal [facility] Comment on above: Performed By: #### L IPID, TSH, FT3, CMP #### [facility] [address] [place] [address] Dr. Oneal Capps AST [Catalytic activity/Vol] 26 U/L Normal 15-37 [facility] Comment on above: Performed By: #### L IPID, TSH, FT3, CMP #### [facility] [address] [place] [address] Dr. Oneal Capps Bilirubin [Mass/Vol] 0.6 mg/dL Normal 0.2-1.0 [facility] Comment on above: Performed By: #### L IPID, TSH, FT3, CMP #### [facility] [address] [place] [address] Dr. Oneal Capps Calcium [Mass/Vol] 9.0 mg/dL Normal 8.5-10.1 [facility] Comment on above: Performed By: #### L IPID, TSH, FT3, CMP #### [facility] [address] [place] [address] Dr. Oneal Capps Chloride [Moles/Vol] 103 mmol/L Normal 98-107 [facility] Comment on above: Performed By: #### L IPID, TSH, FT3, CMP #### [facility] [address] [address] [address] Oneal Capps CO2 [Moles/Vol] 29.0 mmol/L Normal 21.0-32.0 [facility] Comment on above: Performed By: #### L IPID, TSH, FT3, CMP #### [facility] [address] [address] [address] Oneal Capps Creatinine [Mass/Vol] 0.56 mg/dL Normal 0.55-1.02 [facility] Comment on above: Performed By: #### L IPID, TSH, FT3, CMP #### [facility] [address] [place] [address] Dr. Oneal Capps EGFR-AF QATARI >60 Normal >=60 [facility] Comment on above: Performed By: #### L IPID, TSH, FT3, CMP #### [facility] [address] [place] [address] Dr. Oneal Capps EGFR-NON AF QATARI >60 Normal >=60 [facility] Comment on above: Performed By: #### L IPID, TSH, FT3, CMP #### [facility] [address] [place] [address] Dr. Oneal Capps Globulin (S) [Mass/Vol] 4.0 g/dL Normal [facility] Comment on above: Performed By: #### L IPID, TSH, FT3, CMP #### [facility] [address] [place] [address] Dr. Oneal Capps Glucose [Mass/Vol] 93 mg/dL Normal 74-106 [facility] Comment on above: Performed By: #### L IPID, TSH, FT3, CMP #### [facility] [address] [place] [address] Dr. Oneal Capps Potassium [Moles/Vol] 4.2 mmol/L Normal 3.5-5.1 [facility] Comment on above: Performed By: #### L IPID, TSH, FT3, CMP #### [facility] [address] [place] [address] Dr. Oneal Capps Protein [Mass/Vol] 7.9 g/dL Normal 6.4-8.2 [facility] Comment on above: Performed By: #### L IPID, TSH, FT3, CMP #### [facility] [address] [place] [address] Dr. Oneal Capps Sodium [Moles/Vol] 139 mmol/L Normal 136-145 [facility] Comment on above: Performed By: #### L IPID, TSH, FT3, CMP #### [facility] [address] [place] [address] Dr. Oneal Capps Urea nitrogen [Mass/Vol] 7.0 mg/dL Normal 6.4-19.3 [facility] Comment on above: Performed By: #### L IPID, TSH, FT3, CMP #### [facility] [address] [place] [address] Dr. Oneal Capps Urea nitrogen/Creatinine [Mass ratio] 12.5 mg/mg Normal [facility] Comment on above: Performed By: #### L IPID, TSH, FT3, CMP #### [facility] [address] [place] [address] Dr. Oneal Capps TSHon 08-25-2022 TSH 2.032 uIU/mL Normal 0.516-4.130 The [facility] Comment on above: Performed By: #### V ITAD, FT4, FETIBC, FERR, VITB12 #### [facility] [address] [place] [address] Dr. Oneal Capps VITAMIN B12on 08-25-2022 Cobalamin (Vitamin B12) [Mass/Vol] 620.0 pg/mL Normal 193.0-986.0 [facility] Comment on above: Performed By: #### V ITAD, FT4, FETIBC, FERR, VITB12 #### [facility] [address] [place] [address] Dr. Oneal Capps VITAMIN D 25 OHon 08-25-2022 VIT D 25-OH 47.8 ng/mL Normal [facility] Comment on above: Performed By: #### V ITAD, FT4, FETIBC, FERR, VITB12 #### [facility] [address] [place] [address] [address] Oneal Capps VIT D RANGES SEE BELOW Normal [facility] Comment on above: Result Comment: <20 ng/mL Vit D deficient 20 - <30 ng/mL Vit D insufficient 30 - 100 ng/mL Vit D sufficient >100 ng/mL Potential Toxicity Performed By: #### V ITAD, FT4, FETIBC, FERR, VITB12 #### [facility] [address] [place], [place] [address] Dr. Oneal Capps Consenton 04-28-2022 Consent [id number]#1.00CD:[address] [facility] Registrationon 04-28-2022 Registration [id number]#1.00CD:[address] [facility] IRON, TIBC AND FERRITIN PANE Red 02-11-2022 % SATURATION 32 % (calc) Normal 15-45 [facility] Comment on above: Order Comment: FASTI NG:NO FASTING: NO Performed By: #### 5 196, [address] #### [facility] [address], [address] [place] [address] [employer] Director: Alberto Davis MD Ferritin [Mass/Vol] 39 ng/mL Normal 6-67 [facility] Diagnostics Comment on above: Order Comment: FASTI NG:NO FASTING: NO Performed By: #### [id number], [id number] #### [facility] [address] [place] [address], [address] [place] [address] Community Service Organization Director: Alberto Davis MD IRON BINDING CAPACITY 346 mcg/dL (calc) Normal 271-448 [facility] Comment on above: Order Comment: FASTI NG:NO FASTING: NO Performed By: #### 5 [id number], [id number] #### [facility] [address], [address] [place] [address] Community Service Organization Director: Alberto Davis MD IRON, TOTAL 112 mcg/dL Normal 27-164 [facility] Comment on above: Order Comment: FASTI NG:NO FASTING: NO Performed By: #### 5 [id number], [id number] #### [facility] [place] [address] Community Service Organization Director: Alberto Davis MD VITAMIN D,25-OH,TOTAL,IAon 0 8- VITAMIN D,25-OH,TOTAL,IA 42 ng/mL Normal 30-100 [facility] [...] D, (D2,D3), LC/MS/MS is recommended: order code 53629 (patients >2yrs). See Note 1 Note 1 For additional information, please refer to [email or web address]/faq/XFO511 (This link is being provided for informational/ educational purposes only.) Performed By: #### 5 [id number], [id number] #### [facility] [place] [address] Community Service Organization Director: Alberto Davis MD IRON, TIBC AND [facility]ERRITIN [facility] % SATURATION 7 % (calc) Low 15-45 [facility] Comment on above: Performed By: #### 5 616 #### [facility] [place] [address] Community Service Organization Director: Alberto Davis MD Ferritin [Mass/Vol] 5 ng/mL Low 6-67 [facility] Comment on above: Performed By: #### 5 616 #### [facility] [place] [address] Community Service Organization Director: Alberto Davis MD IRON BINDING CAPACITY 501 mcg/dL (calc) High 271-448 [facility] Comment on above: Performed By: #### 5 616 #### [facility] [address] [facility], [address] [place] [address] Community Service Organization Director: Alberto Davis MD IRON, TOTAL 36 mcg/dL Normal 27-164 [facility] Comment on above: Performed By: #### 5 616 #### [facility] [address] [facility], [address] [place] [address] Community Service Organization Director: Alberto Davis MD Vital Signs Date Time Vital Sign Value Performing Clinician Facility 04-28-2024 12:02-0500 Body mass index (BMI) [Ratio] 31.42 kg/m2 Carlosnguyễn Alejandro CAN STRIPER-RESIDENT ASSISTANT Work Phone: [facility] [employer] [facility] 04-28-2024 12:02-0500 Body temperature 98.1 [degF] Carlos Javon CAN STRIPER-RESIDENT ASSISTANT Work Phone: [facility] 04-28-2024 12:02-0500 Body weight 85.64 kg Carlos Alejandro CAN STRIPER-RESIDENT ASSISTANT Work Phone: [facility] 04-28-2024 12:02-0500 Diastolic blood pressure 72 mm[Hg] Carlos Alejandro CAN STRIPER-RESIDENT ASSISTANT Work Phone: [facility] 04-28-2024 12:02-0500 Heart rate 86 /min Carlos Javon CAN STRIPER-RESIDENT ASSISTANT Work Phone: [facility] 04-28-2024 12:02-0500 SaO2% (BldA) [Mass fraction] 97 % Carlosnguyễn Alejandro CAN STRIPER-RESIDENT ASSISTANT Work Phone: [facility] 04-28-2024 12:02-0500 Systolic blood pressure 112 mm[Hg] Carlosnguyễn Alejandro CAN STRIPER-RESIDENT ASSISTANT Work Phone: [facility] 06-18-2023 12:03-0500 Body height 165.1 cm Carlosnguyễn Alejandro CAN STRIPER-RESIDENT ASSISTANT Work Phone: [facility] [employer] [facility] 06-18-2023 12:03-0500 Body mass index (BMI) [Ratio] 29.95 kg/m2 Carlos LUKE Work Phone: [employer] 06-18-2023 12:03-0500 Body temperature 98.29 [degF] Carlos Alejandro APRN-RESIDENT ASSISTANT Work Phone: [facility] 06-18-2023 12:03-0500 Body weight 81.65 kg Carlos Alejandro APRN-RESIDENT ASSISTANT Work Phone: [facility] 06-18-2023 12:03-0500 Diastolic blood pressure 85 mm[Hg] Carlos Alejandro APRN-RESIDENT ASSISTANT Work Phone: [facility] 06-18-2023 12:03-0500 Heart rate 72 /min Carlos Alejandro APRN-RESIDENT ASSISTANT Work Phone: [facility] 06-18-2023 12:03-0500 SaO2% (BldA) [Mass fraction] 98 % Carlos Alejandro APRN-RESIDENT ASSISTANT Work Phone: [facility] 06-18-2023 12:03-0500 Systolic blood pressure 121 mm[Hg] Carlos Alejandro APRN-TOMASZ Work Phone: [employer] 05-12-2023 15:30-0500 Body height 165.1 cm Brooke Castelan Other [facility] Other 05-12-2023 15:30-0500 Body mass index (BMI) [Ratio] 30.95 kg/m2 Brooke Castelan Other [facility] Other 05-12-2023 15:30-0500 Body temperature 98.3 [degF] Brooke Annelise Other [facility] Other 05-12-2023 15:30-0500 Body weight 84.37 kg Brooke Castelan Other [facility] Other 05-12-2023 15:30-0500 Respiratory rate 19 /min Brooke Goelmond Other [facility] Other 05-12-2023 15:30-0500 SaO2% (BldA) [Mass fraction] 98 % Brooke Castelan Other [facility] Other Encounters Encounter Date Encounter Type Care Provider Facility Start: 05-22-2024 End: 05-22-2024 ambulatory Ava Dinero MD Facility:[facility] Start: 05-12-2024 End: 05-12-2024 Orders Only Carlos L Javon CAN STRIPER-RESIDENT ASSISTANT Work Phone: [facility] Start: 05-01-2024 End: 05-01-2024 Orders Only Carlos L Javon CAN STRIPER-RESIDENT ASSISTANT Work Phone: [facility] Comment on above: 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) Start: 04-28-2024 End: 04-28-2024 Office outpatient visit 15 minutes Carlos L Javon CAN STRIPER-RESIDENT ASSISTANT Work Phone: [facility] Comment on above: 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) Start: 04-28-2024 End: 04-28-2024 ambulatory [facility] Start: 11-25-2023 End: 11-25-2023 ambulatory [facility] Start: 11-25-2023 End: 11-25-2023 ambulatory [facility] Start: 09-13-2023 Refill Carlos L Javon CAN STRIPER-RESIDENT ASSISTANT [facility] Start: 06-18-2023 End: 06-18-2023 ambulatory [facility] Start: 06-18-2023 End: 06-18-2023 Office outpatient visit 15 minutes Carlos Alejandro CAN STRIPER-RESIDENT ASSISTANT Work Phone: [facility] Comment on above: Non-intractable vomi ting with nausea (Primary Dx); High risk heterosexual behavior; Implantable subdermal contraceptive surveillance Start: 06-18-2023 End: 06-18-2023 ambulatory CARLOS ALEJANDRO [facility] Start: 05-12-2023 End: 05-12-[address] CONDUCTOR-C Brooke Castelan Work Phone: [facility] [place] Work Phone: Start: 05-12-2023 End: 05-12-2023 ambulatory Brooke Castelan [facility] Work Phone: Start: 05-12-2023 Office outpatient ne w 20 minutes Brooke Castelan [facility] Start: 08-25-2022 End: 08-26-[address] JONATHAN CAMARGO Facility:[facility] Start: 04-28-2022 End: 04-29-2022 ambulatory [facility] Facility:[facility] Start: 03-06-[address] JONATHAN CAMARGO Fac ility:[facility] Start: 12-10-2021 End: 12-10-2021 ambulatory MORGAN MAURICIO . Facility:[facility] Start: 10-08-2021 End: 10-09-2021 ambulatory CARLOSNGUYỄN ALEJANDRO Facility: Procedures Date Procedure Procedure Detail Performing Clinician Start: 04-28-2024 Follow-up visit Follow-up CARLOS ALEJANDRO Start: 04-28-2024 Adult depression screening assessment Carlos Alejandro CAN STRIPER-RESIDENT ASSISTANT Work Phone: Start: 06-18-2023 Urine test visual color cmprsn meths Carlos Alejandro CAN STRIPER-RESIDENT ASSISTANT Work Phone: Start: 06-18-2023 Adult depression screening assessment Carlos Alejandro CAN STRIPER-RESIDENT ASSISTANT Work Phone: Start: 05-12-2023 Piperacillin/tazobactam Brooke Castelan Other Plan of Treatment Date Care Activity Detail Author Start: 02-04-2026 DTaP,Tdap and Td Vaccines (7 - Td or Tdap) DTaP,Tdap and Td Vaccines (7 - Td or Tdap) [facility] Start: 04-28-2025 Adult BMI Screening Adult BMI Screen ing [facility] Start: 04-28-2025 Depression Screening Depression Scre [facility] Start: 11-24-2024 Tobacco Screening Tobacco Screening [facility] Start: 06-18-2024 Adult BMI Screening Adult BMI Screen ing [facility] Start: 06-18-2024 Depression Screening Depression Scre [facility] Start: 06-18-2024 Screening for Chlamy wander trachomatis Chlamydia Screening [facility] Start: 06-18-2024 Tobacco Screening Tobacco Screening [facility] Start: 02-20-2024 Adult BMI Follow Up Plan Adult BMI Follow Up Plan [facility] Comment on above: Postponed from 08/07 (Not Indicated) Start: 02-20-2024 Influenza vaccination Influenza Vacc [facility] Start: 05-12-2023 Bacteria identified in Urine by Culture [facility] Start: 02-19-2023 Influenza vaccination Influenza Vacc [facility] Start: 2021 Adult BMI Follow Up Plan Adult BMI Follow Up Plan [facility] Start: 2003 Screening for Chlamy wander trachomatis Chlamydia Screening [facility] End: 06-17-2024 Chlamydia/GC by PCR urine Chlamydia/GC by PCR urine Microbiology Routine High risk heterosexual behavior 1 Occurrences starting 06/18/2023 until 06/17/2024 [facility] [employer] Work Phone: Comment on above: 1 Occurrences starti ng 06/18/2023 until 06/17/2024 End: 06-17-2024 Trichomonas by PCR Trichomonas by PCR Microbiology Routine High risk heterosexual behavior 1 Occurrences starting 06/18/2023 until 06/17/2024 [facility] Comment on above: 1 Occurrences starti ng 06/18/2023 until 06/17/2024 Immunizations Immunization Date Immunization Notes Care Provider Cliff cervantes 06-01-2021 meningococcal oligosaccharide (groups A, C, Y and W-135) diphtheria toxoid conjugate vaccine (MCV4O) [facility]: [facility] 01-25-2018 Human Papillomavirus 9-valent vaccine Carlos Alejandro [facility] Work Phone: [facility] 10-22-2016 hepatitis A vaccine, pediatric/adolescent dosage, 2 dose schedule Carlos Alejandro [facility] Work Phone: [facility] 10-22-2016 Human Papillomavirus 9-valent vaccine Carlos [facility] Work Phone: [facility] 02-05-2016 meningococcal oligosaccharide (groups A, C, Y and W-135) diphtheria toxoid conjugate vaccine (MCV4O) Carlos [facility] Work Phone: [facility] 02-05-2016 tetanus toxoid, redu lydia diphtheria toxoid, and acellular pertussis vaccine, adsorbed Carlos [facility] Work Phone: [facility] 01-13-2008 diphtheria, tetanus toxoids and acellular pertussis vaccine [facility] Work Phone: [facility] 01-13-2008 measles, mumps and rubella virus vaccine Carlos [facility] Work Phone: [facility] 01-13-2008 poliovirus vaccine, inactivated Carlos [facility] Work Phone: [facility] 01-13-2008 varicella virus vaccine Carlota Alejandro [facility] Work Phone: [facility] 03-18-2005 diphtheria, tetanus toxoids and acellular pertussis vaccine Carlos Alejandro [facility] Work Phone: [facility] 03-18-2005 pneumococcal conjuga te vaccine, 7 valent Carlos [facility] Work Phone: [facility] 03-18-2005 varicella virus vaccine Carlota Alejandro [facility] Work Phone: [facility] 08-22-2004 haemophilus influenz ae type b vaccine, PRP-T conjugate Carlos Alejandro [facility] Work Phone: [facility] 08-22-2004 measles, mumps and rubella virus vaccine Carlos Alejandro [facility] Work Phone: [facility] 02-27-2004 DTaP-hepatitis B and poliovirus vaccine Carlos Alejandro [facility] Work Phone: [facility] 02-27-2004 haemophilus influenz ae type b vaccine, PRP-T conjugate Carlos Alejandro [facility] Work Phone: [facility] 02-27-2004 pneumococcal conjuga te vaccine, 7 valent Carlos Alejandro [facility] Work Phone: [facility] 2003 DTaP-hepatitis B and poliovirus vaccine Carlos Alejandro [facility] Work Phone: [facility] 2003 haemophilus influenz ae type b vaccine, PRP-T conjugate Carlos Alejandro [facility] Work Phone: [facility] 2003 pneumococcal conjuga te vaccine, 7 valent Carlos Alejandro [facility] Work Phone: [facility] 2003 DTaP-hepatitis B and poliovirus vaccine Carlos Alejandro [facility] Work Phone: [facility] 2003 haemophilus influenz ae type b vaccine, PRP-T conjugate Carlos Alejandro [facility] Work Phone: [facility] 2003 pneumococcal conjuga te vaccine, 7 valent Carlos Alejandro [facility] Work Phone: [facility] 2003 hepatitis B vaccine, pediatric or pediatric/adolescent dosage Carlos Alejandro [facility] Work Phone: [facility] Payers Date Payer Category Payer Managed Care Other (unspecified) [employer] [id number] 2022 Unknown [id number] 2003 Unknown [id number] 593 2003 Unknown [id number]. 593 2003 Unknown [id number]. 1286 2003 Unknown [id number]. 1286 2003 Unknown [id number]. 1286 2003 Unknown [id number]. 1286 2003 Unknown [id number]. 1286 2003 Unknown [id number] [id number]. 196 1975 Unknown [id number] [id number]. 593 1975 Unknown [id number] [id number]. 593 1959 Self-pay 1959 Unknown [id number] 1959 Unknown [id number] Unknown [id number] 531 Social History Date Type Detail Facility Unknown if ever smoked [facility] Work Phone: Start: 06-18-2023 End: 04-28-2024 Sex Assigned At [facility] Other Start: 2005 Sex Assigned At Female [facility] Start: 05-28-2022 Tobacco smoking status NHIS Never smoked tobacco [facility] Start: 05-28-2022 Tobacco use and exposure Smokeless tobacco non-user [facility] Start: 06-18-2023 End: 11-25-2023 Alcohol intake Lifetime non-drinker (finding) [facility] Start: 06-18-2023 End: 04-28-2024 History of Social function [facility] Adolescent depressio n screening assessment 22 [facility] Start: 10-22-2022 Gender identity Identifies as female gender (finding) [facility] Start: 10-22-2022 Sexual orientation Heterosexual (finding) [facility] How hard is it for y ou to pay for the very basics like food, housing, medical care, and heating Hard [facility] Start: 01-24-2015 Sex Female (finding) [facility] Clinical Notes 10-08-2021 to 04-28-2024 TI Gong - 04/28/2024 11:40 AM TI Montes De Oca - 06/18/2023 12:10 PM EST Note Date & Type Note Facility 04-28-2024 History of Present illness Narrative [address] [place] [address] Patient: Mouna Castillo Date of : 2005 Encounter Date: 04/28/2024 History of Present Illness: The patient is a 18 y.o. female, an established patient, and is here for Chief Complaint Patient presents with Follow-up . HPI Patient is here for an ER follow-up. She was in the ER at the [facility] on April 26, 2024 for lower back pain as she woke up that morning with right-sided low back pain that radiated to her right buttocks and right lateral leg. A CT of her lumbar was done in the ER that showed L5/S1 disc herniation and patient was given muscle relaxants, NSAIDs, RI CE, steroids and a referral to a spine online merchandising specialist in [place]. Today patient states the pain is much improved and she has not finished her steroid pack at in the muscle relaxant does help improve her pain. Currently she is working multiple jobs at [employer], a [employer] and she has to dog walking jobs. [...] at least until she sees the orthopedic assistive technology specialist. She was offered physical therapy and pain management to help control the pain as well but she defer these. Surgeon may want MRI but as patient has not undergone physical therapy would be best ordered by specialist. Patient should return for wellness when due. TI GONG APRN-CNP 05/01/24 1500 documented in this encounter [facility] 06-18-2023 History of Present illness Narrative [address] [place] [id number] Patient: Mouna Castillo Date of : 2005 [...] APRN-CNP 06/18/23 1317 documented in this encounter [facility] 05-12-2023 Evaluation note Encounter Date Diagnosis Assessment [...] and vomiting in adult (ICD-10 - R11.2) [facility] Other 04-20-2022 NotePROCEDURE: XR KNEE RT 3V HISTORY: Pain in right knee , chronic anterior knee pain COMPARISON: None. FINDINGS: BONES:No fracture, acute abnormality, or significant arthropathy. SOFT TISSUES:No visible soft tissue swelling. EFFUSION:None visible. OTHER: Negative. IMPRESSION: 1. Normal examination. Electronically authenticated by: RILEY SCHUSTER Date: 2021-10-08 16:51[facility] noteNo assessment information available[facility] Work Phone: Evaluation note* Diagnosis Non-intractable vomiting with nausea- Primary High risk heterosexual behavior Implantable subdermal contraceptive surveillance Surveillance of previously prescribed implantable subdermal contraceptive documented in this encounter [facility] [employer] SystemEvaluation note* Diagnosis Herniation of intervertebral disc between L5 and S1- Primary documented in this encounter [facility] [employer] SystemEvaluation note* Diagnosis Herniation of intervertebral disc between L5 and S1- Primary [facility] in this [facility] System[facility] general Narrative - Reported* Type Description Date Medical History Uncomplicated asthma, unspecifie d asthma severity Medical History ADHD Medical History Depression Medical History Anxiety [facility] Other Instructions* Attachments The following attachments cannot be sent through Care Everywhere. * Nausea and Vomiting, Adult ED (Yemeni) documented in this encounterPro[facility] St[facility] [email or web address] SystemInstructionsNot on file documented in this encounterProMercy Health St. [facility] [email or web address] SystemInstructionsNot on file documented in this encounterProMercy Health St. Vincent Medical [email or web address] SystemInstructionsNot on file documented in this encounterProMercy Health St. Vincent Medical [email or web address] SystemInstructionsNot on file documented in this encounterProtestant [facility] System Summary Purpose Family History No Family [...] AUTHOR AUTHOR'S ORGANIZ ATION 04/29/2022 [facility] DATE CREATED AUTHOR AUTHOR'S ORGANIZ ATION 08/29/2022 [facility] DATE CREATED AUTHOR AUTHOR'S ORGANIZ ATION 05/17/2023 [facility] DATE CREATED AUTHOR AUTHOR'S ORGANIZ ATION 11/27/2023 [facility] DATE CREATED AUTHOR AUTHOR'S ORGANIZ ATION [facility]/30/2024 [facility] DATE CREATED AUTHOR AUTHOR'S ORGANIZ ATION 05/26/2024 [facility] REASON FOR VISIT (unrecogniz ed section and content) Reason Comments Nausea In waves x3 weeks Reason Comments Med Refill Reason Comments Follow-up Care Teams (unrecognized sec tion and content) Team Status: Inactive Member Role Status Dates Brooke Castelan NP-C Attending Provider Active Clock [employer] Watch Hands Painter Relationship Specialty Start Date End Date Carlos Alejandro CAN STRIPER-RESIDENT ASSISTANT [address] [place] [address] PCP - General Internal Medicine 02/18/23 [employer] Watch Hands Painter Relationship Specialty Start Date End Date Carlos Alejandro CAN STRIPER-RESIDENT ASSISTANT [address] [place] [address] PCP - General Internal Medicine 02/18/23 [employer] Watch Hands Painter Relationship Specialty Start Date End Date Carlos Alejandro CAN STRIPER-RESIDENT ASSISTANT [address] [place] [address] PCP - General Internal Medicine 02/18/23 [employer] And Watch Hands Painter Relationship Specialty Start Date End Date Carlos AlejandroKATALINARESIDENT ASSISTANT [address] [place] [address] PCP - General Internal Medicine 02/18/23 Clock And Watch Hands Painter Relationship Specialty Start Date End Date Carlos AlejandroKATALINATOMASZ [address] [place] [address] PCP - General Internal Medicine 02/18/23 Goals [...] BE BASED ON THE PRIMARY CLINICAL RECORDS. [employer] provides no warranty or guarantee of the accuracy or completeness of information in this document.
--- NOTE | 2024-05-31 09:11 | P.CN_ITS ---
Consult Note: HPI Data of Consult Patient: known to practice within the last 3 years Requesting Physician: Alona Win NP Primary Care Provider: BARB CAMARGO Consult Narrative Reason for consult: lumbar DDD Narrative: Yolanda Castillo a pleasant 18 year old female presents for evaluation and management of back pain secondary to disc displacement and DDD. Pain today 1/10 increasing to 5/10 with lying, activity, sleep and weather changes. Pain improved with standing and walking as well as heat and ADLs. patient underwent bilateral L5-S1 TFESI with significant reduction in radicular pain, continues to have moderate low back pain. Pt finds benefit to current medication regimen without side effects. 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 cc:: CC: Alona Win NP Review of Systems ROS Status of ROS 10 or more systems reviewed and unremark able except as noted in history and below Musculoskeletal Reports: back pain PFSH PFSH Medical History (Updated 05/31/24 @ 09:26 by Alona Win NP) Low back pain ?M54.50 - Low back pain, unspecified (ICD-10) Bipolar 1 disorder ?F31.9 - Bipolar disorder, unspecified (ICD-10) Heartburn ?R12 - Heartburn (ICD-10) Obesity ?E66.9 - Obesity, unspecified (ICD-10) ADHD ?F90.9 - Attention-deficit hyperactivity disorder, unspecified type (ICD-10) Anxiety ?F41.9 - Anxiety disorder, unspecified (ICD-10) Acid reflux ?K21.9 - Gastro-esophageal reflux disease without esophagitis (ICD-10) Asthma ?J45.909 - Unspecified asthma, uncomplicated (ICD-10) Social History Little interest or pleasure in doing things: not at all Feeling down, depressed, or hopeless: not at all Meds Home Medications and Allergies Home Medications ?Medication ?Instructions ?Recorded ?Confirmed ?Type hydrocodone 5 mg-acetaminophen 325 1 tab PO Q6H PRN pain 3 days #12 04/26/24 05/22/24 Rx mg tablet tabs buspirone 30 mg tablet 45 mg PO DAILY 05/10/24 05/22/24 History lithium carbonate 300 mg capsule 300 mg PO DAILY 05/10/24 05/22/24 History methocarbamol 750 mg tablet 750 mg PO BID PRN pain 05/10/24 05/22/24 History methylphenidate HCl 20 mg tablet 30 mg PO DAILY 05/10/24 05/22/24 History naloxone 4 mg/actuation nasal 4 mg intranasal Q2M 05/10/24 05/22/24 History spray (Narcan) sertraline 25 mg tablet (Zoloft) 25 mg PO DAILY 05/10/24 05/22/24 History zonisamide 50 mg capsule 50 mg PO BID 05/10/24 05/22/24 History Allergies Allergy/AdvReac Type Severity Reaction Status Date / Time No Known Drug Allergies Allergy Verified 05/22/24 08:10 Exam Constitutional Documenting provider has reviewed patient's vital signs: yes Common normals: no apparent distress, oriented x3, healthy appearing, alert and well nourished General appearance: cooperative [facility] Common normals: normocephalic, hearing grossly normal bilaterally and moist oral mucous membranes Head and scalp: normocephalic Eye Common normals: PERRL Pupil: PERRL Neck & C-Spine Common normals: full ROM General: normal visual inspection Chest Common normals: inspection of chest normal Respiratory Common normals: normal respiratory effort, no retractions and no use of accessory muscles Back & Pelvis Lumbar spine/lower back: normal to inspection, lumbar ROM normal and straight leg raise positive left; no pain with ROM, no lumbar spinal tenderness and no paraspinal muscle tenderness Sacroiliac joints: SI joint(s) abnormal Other: mildly positive left SLR positive left nicolas(patricks), gaenslens, thigh thrust, compression test Neuro Common normals: oriented x3, CN's II-XII intact bilaterally, moves all extremities, no focal motor deficits, no sensory deficits noted and deep tendon reflexes 2+ bilaterally Sensorium/orientation: alert Motor exam: strength 5/5 throughout and no movement abnormalities noted Psych Common normals: mental status grossly normal, thought process normal, cooperative, affect normal, speech normal and activity/motor behavior normal Speech: normal speech Thought process: normal thought process Assessment and Plan Assessment and Plan (1) Lumbar disc displacement without myelopathy: (2) Lumbar radiculopathy: (3) Sacroiliitis: (4) Myalgia, other site: Plan declining left SIJ injection, pain well controlled with current medications and recent TFESI per pt continue HEP, aquatherapy as tolerated continue current medications, finding benefit without side effects f/u 3 months, sooner if needed
== END 2024-05-31 08:54 | disposition home or self-care (01) ==
LOC: PM 08:54
PROVIDERS: PCP Family Medicine; Visit Provider Nurse Practitioner
DX: M51.16 Intervertebral disc disorders with radiculopathy, lumbar region (principal); M46.1 Sacroiliitis, not elsewhere classified; M79.18 Myalgia, other site
CPT/HCPCS: G0463

== ENCOUNTER 2024-07-30 01:21 | Emergency (ER) | payer OTHER, SELFPAY ==
[2024-07-30 01:25] VITALS: BP 132/98; PULSE 97; TEMP 36.7; O2SAT 99; BMI 31.8
--- OUTSIDE RECORDS SUMMARY | 2024-07-30 01:27 | XMS_ITS | CCD ---
Author Organization [facility] Care Team Providers Care Plumbing Mechanic Name Role Phone Luis Carlos DIOP Attending [...] Annelise, Brooke Unavailable MOISE Castelan Attending Provider [phone] Brooke Castelan Attending Unavailable Brooke Castelan Admitting Unavailable Furlong, Jonathan Primary Care Unavailable Javon MANAGER [employer] STRETCHER, Carlos L Primary Care Provider JAVON, CARLOS [...] Drug Class(es) Dates Sig (Normalized) Sig (Original) [id number] 200 actuat albuterol 0.09 mg/actuat metered dose inhaler (8 sources) beta2-Adrenergic Agonist Start: 07-18-2022 take 2 [...] Twice a day Active Apple Cider Vinegar (4 sources) take 450 mg by mouth in the morning APPLE CIDER VINEGAR ORAL Take 450 mg by mouth in the morning. Active Budesonide / formoterol (2 sources) Corticosteroid, beta2-Adrenergic Agonist Symbicort Active busPIRone hydrochloride 15 mg oral tablet (10 sources) Start: take 1 tablet by mouth twice daily Buspirone 15 mg tablet Active 15 MG PO Twice daily July 28, 2024 12:00am Start: 05-24-2023 take 1 tablet by toney th at bedtime busPIRone (BUSPAR) 15 mg tablet [...] day Active cholecalciferol 0.05 mg oral tablet (6 sources) Vitamin D take 1 tablet by mouth in the morning cholecalciferol, vitamin D3, 2,000 units tablet Take 1 tablet (2,000 Units total) by mouth in the morning. Active Ciprofloxacin-Dexametha sone 0.3-0.1 % drops,suspension (1 source) Start: 025 Ciprofloxacin-Dexametha sone 0.3-0.1 % drops,suspension Active 4 DROPS OTIC Twice daily 7.5 7 July 28, 2024 12:00am cranberry preparation 500 mg oral capsule (4 sources) Non-Standardized Food Allergenic Extract, Non-Standardized Plant Allergenic Extract take 1 capsule by mouth in the morning cranberry 500 mg capsule Take 500 mg by mouth in the morning. Active cyclobenzaprine hydrochloride 10 mg oral tablet (6 sources) Muscle Relaxant Start: take 1 tablet by mouth once daily Cyclobenzaprine 10 mg tablet Active 10 MG PO Daily July 28, 2024 12:00am Start: 06-27-2024 take 1 tablet by toney th once daily as needed for muscle spasms cyclobenzaprine (FLEXERIL) 10 mg tablet TAKE 1 TABLET BY MOUTH EVERY DAY NIGHTLY NEEDED FOR MUSCLE SPASMS 30 tablet 1 06/27/2024 Active Start: 04-28-2024 End: 06-27-2024 take 1 tablet by mouth once daily as needed for muscle spasms cyclobenzaprine (FLEXERIL) 10 mg tablet Take 1 tablet (10 mg total) by mouth nightly as needed for muscle spasms. 30 tablet 1 04/28/2024 06/27/2024 Discontinued hydrOXYzine hydrochloride 25 mg oral tablet (6 sources) Antihistamine Start: 09-09-2022 hydrOXYzine (ATARAX) 25 mg tablet Take 4 tablets (100 mg total) by mouth as needed for anxiety. 09/09/2022 Active ibuprofen 800 mg oral tablet (6 sources) Nonsteroidal Anti-inflammatory Drug Start: 04-28-2024 take 1 tablet by mouth every eight [...] 0 02/18/2023 Active lithium carbonate 300 mg extended release oral tablet (5 sources) Start: 07-28-2024 [facility] Carbon ate 300 mg tablet extended release Active MG PO July 28, 2024 12:00am take 1 capsule by mouth in the m orning lithium carbonate 300 mg capsule Take 1 capsule (300 mg total) by mouth in the morning. Active lurasidone hydrochloride 20 mg oral tablet (1 source) Atypical Antipsychotic Start: 07-28-2024 take 1 tablet by mouth once daily Lurasidone 20 mg tablet Active 20 MG PO Daily July 28, 2024 12:00am methocarbamol 750 mg oral tablet (1 source) Muscle Relaxant Start: 07-28-2024 take 1 tablet by mouth twice daily as needed Methocarbamol 750 mg tablet Active 750 MG PO Twice daily as needed July 28, 2024 12:00am bx rating 24 hr methylphenidate hydrochloride 27 mg extended release oral tablet (6 sources) Central Nervous System Stimulant Start: 05-24-2023 take 1 tablet by mouth once daily in the morning methylphenidate HCl (CONCERTA) 27 mg CR tablet take 1 tablet by mouth every morning 0 05/24/2023 Active take 1 capsule by mo [facility] once daily in the morning methylphenidate LA (RITALIN LA) 30 MG 24 hr capsule Take 1 capsule (30 mg total) by mouth every morning. Active Methylphenidate Hcl 30 mg capsule,ER biphasic 50-50 (1 source) Start: 07-28-2024 Methylphenidate Hcl 30 mg capsule,ER biphasic 50-50 Active MG PO July 28, 2024 12:00am montelukast 10 mg oral tablet (11 sources) Leukotriene Receptor Antagonist Start: 07-28-2024 take 1 tablet by mouth once daily Montelukast 10 mg tablet Active 10 MG PO Daily July 28, 2024 12:00am Start: 02-07-2024 take 1 tablet by toney once daily montelukast (SINGULAIR) 10 mg tablet Indications: Unspecified asthma, uncomplicated take 1 tablet by mouth every day 90 tablet 3 02/07/2024 Active Start: 02-17-2023 take 1 tablet by toney th once daily montelukast (SINGULAIR) 10 mg tablet Indications: Unspecified asthma, uncomplicated TAKE 1 TABLET BY MOUTH EVERY DAY 90 tablet 3 02/17/2023 Active Singulair Active Naloxone 4 mg/actuation spray,non-aerosol (1 source) Start: 07-28-2024 Naloxone 4 mg/actuation spray,non-aerosol Active INTRANASAL July 28, 2024 12:00am ondansetron 4 mg disintegrating oral tablet (4 [...] Apr, Active prazosin 1 mg oral capsule (6 sources) alpha-Adrenergic Joanna take 2 capsules by mouth once daily prazosin (MINIPRESS) 1 mg capsule Take 2 capsules (2 mg total) by mouth nightly. Active take 1 capsule by mouth once amira ly prazosin (MINIPRESS) 1 mg capsule Take 1 capsule (1 mg total) by mouth nightly. 0 Active sertraline 25 mg oral tablet (9 sources) Serotonin Reuptake Inhibitor Start: 03-22-2023 End: [...] Active traZODone hydrochloride 50 mg oral tablet (8 sources) Serotonin Reuptake Inhibitor Start: 05-21-2023 take 1 tablet by mouth three times daily traZODone (DESYREL) 50 mg tablet Take 1 tablet (50 mg total) by mouth 3 (three) times a day. 05/21/2023 Active take 1 tablet by mouth once rvaindra y traZODone (DESYREL) 100 mg tablet Take 1 tablet (100 mg total) by mouth nightly. 0 Active zonisamide 50 mg oral capsule (1 source) Anti-epileptic Agent Start: 07-28-2024 Zonisamid e 50 mg capsule Active MG PO July 28, 2024 12:00am Completed/Discontinued Medications Medication Drug Class(es) Dates Sig [...] (Therapy completed) take 1 capsule by mo uth every twenty-four hours Vraylar 1.5 MG 1 [...] Problem Date Documented Date Episodic/Chronic Anxiety disorders (7 sources) Anxiety; Translations: [Anxiety disorder, unspecified] Onset: 05-28-2022 05-28-2022 Chronic Asthma (7 sources) Mild intermittent asthma; Translations: [Mild intermittent asthma, uncomplicated] Onset: 05-28-2022 05-28-2022 Chronic Attention-deficit, conduct, and disruptive behavior disorders (7 sources) Attention deficit hyperactivity disorder; Translations: [Attention-deficit hyperactivity disorder, unspecified type] Onset: 02-18-2023 02-18-2023 Chronic Deficiency and other anemia (6 sources) Iron deficiency anemia due to blood loss; Translations: [Iron deficiency anemia secondary to blood loss (chronic)] Onset: 05-28-2022 05-28-2022 Chronic Genitourinary symptoms and ill-defined conditions (3 sources) Dysuria; Translations: [Dysuria] Onset: 05-12-2023 Episodic Malaise and fatigue (4 sources) Other fatigue; Translations: [OTHER FATIGUE] Onset: 08-25-2022 Episodic Mood disorders (15 sources) Recurrent major depressive episodes; Translations: [Major depressive disorder, recurrent, unspecified] Onset: 05-28-2022 05-28-2022 Chronic Nutritional deficiencies (6 sources) Vitamin D deficiency; Translations: [Vitamin D deficiency, unspecified] Onset: 05-28-2022 05-28-2022 Chronic Other ear and sense organ disorders (1 source) Acute actinic otitis externa; Translations: [Acute actinic otitis externa, left ear] 07-28-2024 Episodic Other ear and sense organ disorders (1 source) Acute otitis externa; Translations: [Unspecified acute noninfective otitis externa, unspecified ear] 07-28-2024 Episodic Personality disorders (6 sources) Borderline personality disorder; Translations: [Borderline personality [...] Onset: 11-25-2023 Episodic Contraceptive and procreative management (7 sources) Patient encounter status; Translations: [Encounter for surveillance of implantable subdermal contraceptive] Onset: 05-28-2022 06-18-2023 Episodic E Codes: Cut/pierceb (1 source) Contact with knife, initial encounter; Translations: [CONTACT WITH KNIFE INITIAL ENC] Onset: 12-11-2021 Episodic Mood disorders (6 sources) Mood disorders Onset: 06-18-2023 Resolved: 04-28-2024 [...] Onset: 12-10-2021 Episodic Other non-traumatic joint disorders (10 sources) Pain in right knee; Translations: [Pain in joint, lower leg] Onset: 10-08-2021 Episodic Other skin disorders (6 sources) Acne vulgaris; Translations: [Acne vulgaris] Onset: 05-28-2022 05-28-2022 Episodic Residual codes; unclassified (2 sources) High risk heterosexual behavior; Translations: [High risk heterosexual behavior] Onset: 06-18-2023 Episodic Unclassified (2 sources) Contact with and (suspected) exposure to covid-19 Z20.822 Results Test Name Value Interpretation Reference Range Facility BASIC METABOLIC PANLon 11-24 Anion gap [Moles/Vol] 8 mmol/L Normal 5-15 [facility] Comment on above: Performed By: #### B EARL THYR, 2842-3 #### [facility] ([id number]) [address], [address] [place] [address] Calcium [Mass/Vol] 9.9 mg/dL Normal 8.5-10.5 [facility] Comment on above: Performed By: #### B EARL THYR, 2842-3 #### [facility] ([id number]) [address] [address], [address] [place] [address] Chloride [Moles/Vol] 104 mmol/L Normal 98-109 [facility] Comment on above: Performed By: #### B EARL THYR, 2842-3 #### [facility] ([id number]) [address] [address], [address] [place] [address] CO2 [Moles/Vol] 27 mmol/L Normal 22-32 [facility] Comment on above: Performed By: #### B EARL THYR, 2842-3 #### [facility] ([id number]) [address], [address] [place] [address] Creatinine [Mass/Vol] 0.75 mg/dL Normal 0.40-1.00 [facility] Comment on above: Result Comment: METH OD TRACEABLE TO IDMS STANDARD Performed By: #### B EARL THYR, 284-3 #### [facility] ([id number]) [address], [address] [place] [address] eGFR (CKD-EPI) NON-RACE DEPENDENT >90 Normal >59 [facility] Comment on above: Result Comment: Reported eGFR is based on the CKD-EPI 2020 equation that does not use a race coefficient. Performed By: #### B EARL THYR, 284-3 #### [facility] ([id number]) [address], [address] [place] [address] Glucose [Mass/Vol] 95 mg/dL Normal 65-99 [facility] Comment on above: Performed By: #### B EARL THYR, 2841-3 #### [facility] ([id number]) [address], [address] [place] [address] Potassium [Moles/Vol] 4.1 mmol/L Normal 3.5-5.0 [facility] Comment on above: Performed By: #### B EARL THYR, 284-3 #### [facility] ([id number]) [address], [address] [place] [address] Sodium [Moles/Vol] 139 mmol/L Normal 134-146 [facility] Comment on above: Performed By: #### B EARL THYR, 284-3 #### [facility] ([id number]) [address], [address] [place] [address] Urea nitrogen [Mass/Vol] 6 mg/dL Normal 5-23 [facility] Comment on above: Performed By: #### B EARL THYR, 2842-3 #### [facility] ([id number]) [address], [address] [address] Prolactin [Mass/Vol]on 11-24 PROLACTIN 25.4 ng/mL Normal 3.3-26.7 [facility] Comment on above: Performed By: #### B MP, THYR, 2842-3 #### [facility] ([id number]) [address], [address] [address] THYROID PROFILEon 11-25-2023 Free T4 [Mass/Vol] 0.72 ng/dL Normal 0.61-1.60 [facility] Comment on above: Performed By: #### B MP, THYR, 2842-3 #### [facility] ([id number]) [address] [address] TSH 1.37 uIU/mL Normal 0.49-4.67 [facility] Comment on above: Performed By: #### B MP, THYR, 2842-3 #### [facility] ([id number]) [address] [address] CHLAMYDIA/GC PCR, Uon 2022 CHLAMYDIA/GC PCR, U [...] are dependent on adequate specimen collection. Normal [facility] Comment on above: Performed By: #### C #### [facility] ([id number]) [address], [address] [address] POCT , urineon 12- Beta HCG ( test) Ql (U) Negative [facility] Internal Towboat Operator Check Completed and Passed Yes [facility] Interpretation and review of laboratory results Normal [facility] TRICHOMONAS PCRon 06-18-2023 TRICHOMONAS PCR SPECIMEN SOURCE CLEAN CATCH MIDSTREAM URINE TRICHOMONAS PCR Not detected (qualifier value) Trichomonas vaginalis not detected NOTE Assay methodology is nucleic acid amplification by real-time PCR for detection of Trichomonas vaginalis DNA performed on [employer] Instrument System. Normal [facility] Comment on above: Performed By: #### T RKPCR #### [facility] ([id number]) [address] [place] [address], [address] [place] [address] COVID + FLU Quick Testingon 05-12-2023 SARS-CoV-2 (COVID-19) RNA CRISTAL+probe Ql (Unsp spec) Negative [employer] Other COVID + FLU Quick Testing Negative [employer] Other Urinalysis - AUTOMATEDon Appearance (U) cloudy [employer] Other Bilirubin Ql (U) Negative [employer] Other Color (U) dark yellow [employer] Other Glucose Ql (U) Negative [employer] Other Hemoglobin Ql (U) small [employer] Other Ketones Ql (U) Negative [employer] Other Leukocyte esterase Test strip Ql (U) trace [employer] Other Nitrite Ql (U) Negative [employer] Other pH (U) 6.5 [pH] [employer] Other Protein Ql (U) 100 [employer] Other Specific gravity (U) [Rel density] 1.030 [employer] Other Urobilinogen (U) [Mass/Vol] 1.0 mg/dL [employer] Other Urinalysis - AUTOMATED [employer] Other Urine Cultureon 05-12-2023 Bacteria identified Cx Nom (U) Reason for Exam Dysuria Urine ORGANISM: Escherichia coli (O:ESCCOL) [place] Count >100,000 Aerobic JACIEL Charge (NMIC56) ------ [...] RESISTANT TO ALL B-LACTAM DRUGS. PERFORMED BY: [place] [address] PATHOLOGIST MARINE INSULATOR MATTHEW CHAIDEZ M.D. Normal [facility] Comment on above: Performed By: #### C UU #### [address] Urine Culture >100,000 [employer] Other Urine Culture <16 Susceptible [employer] Other Urine Culture <8/4 Susceptible [employer] Other Urine Culture >16 Resistant [employer] Other Urine Culture <4 Susceptible [employer] Other Urine Culture <2 Susceptible [employer] Other Urine Culture <1 Susceptible [employer] Other Urine Culture <0.25 Susceptible [employer] Other Urine Culture <0.5 Susceptible [employer] Other Urine Culture <32 Susceptible [employer] Other Urine Culture <0.5/9.5 Susceptible [employer] Other CBC AUTO DIFFon 08-25-2022 BASO # 0.0 103/ul Normal 0.0-0.1 [facility] Comment on above: Performed By: #### C BC #### [facility] [address] [place] [address] Dr. Oneal Capps Basophils/100 WBC (Bld) 0.4 % Normal 0.2-2.0 [facility] Comment on above: Performed By: #### C BC #### [facility] [address] [place] [address] Dr. Oneal Capps EO # 0.2 103/ul Normal 0.0-0.7 [facility] Comment on above: Performed By: #### C BC #### [facility] [address] [place] [address] Dr. Oneal Capps Eosinophils/100 WBC (Bld) 2.2 % Normal 0.9-7.0 [facility] Comment on above: Performed By: #### C BC #### [facility] [address] [place] [address] Dr. Oenal Capps Erythrocyte distribution width (RBC) [Ratio] 12.5 % Normal 11.0-15.0 [facility] Comment on above: Performed By: #### C BC #### [facility] [address] [place] [address] Dr. Oneal Capps Hematocrit (Bld) [Volume fraction] 37.1 % Normal 36.0-48.0 [facility] Comment on above: Performed By: #### C BC #### [facility] [address] [place] [address] Dr. Oneal Capps Hemoglobin (Bld) [Mass/Vol] 12.5 g/dL Normal 12.0-16.0 [facility] Comment on above: Performed By: #### C BC #### [facility] [address] [place] [address] Dr. Oneal Capps IG # 0.05 10e3/ul Critically high 0.00-0.03 [facility] Comment on above: Performed By: #### C BC #### [facility] [address] [place] [address] Dr. Oneal Capps IG % 0.5 % Normal 0.0-0.5 [facility] Comment on above: Performed By: #### C BC #### [facility] [address] [place] [address] Dr. Oneal Capps LYMPH # 1.6 103/ul Normal 1.2-3.8 [facility] Comment on above: Performed By: #### C BC #### [facility] [address] [place] [address] Dr. Oneal Capps Lymphocytes/100 WBC (Bld) 16.9 % Critically low 20.5-60.0 [facility] Comment on above: Performed By: #### C BC #### [facility] [address] [place] [address] Dr. Oneal Capps MANUAL DIFF REQ NO Normal [facility] Comment on above: Performed By: #### C BC #### [facility] [address] [place] [address] Dr. Onela Capps MCH (RBC) [Entitic mass] 29.8 pg Normal 26.7-34.0 [facility] Comment on above: Performed By: #### C BC #### [facility] [address] [place] [address] Dr. Oneal Capps MCHC (RBC) [Mass/Vol] 33.7 g/dL Normal 29.9-35.2 [facility] Comment on above: Performed By: #### C BC #### [facility] [address] [place] [address] Dr. Oneal Capps MCV (RBC) [Entitic vol] 88.5 fL Normal 81.0-99.0 [facility] Comment on above: Performed By: #### C BC #### [facility] [address] [place] [address] Dr. Oneal Capps MONO # 0.7 103/ul Normal 0.3-0.8 [facility] Comment on above: Performed By: #### C BC #### [facility] [address] [place] [address] Dr. Oneal Capps Monocytes/100 WBC (Bld) 6.9 % Normal 1.7-12.0 [facility] Comment on above: Performed By: #### C BC #### [facility] [address] [place] [address] Dr. Oneal Capps NEUT # 6.9 103/ul Critically high 1.4-6.5 [facility] Comment on above: Performed By: #### C BC #### [facility] [address] [place] [address] Dr. Oneal Capps Neutrophils/100 WBC (Bld) 73.1 % Normal 43.0-75.0 [facility] Comment on above: Performed By: #### C BC #### [facility] [address] [place] [address] Dr. Oneal Capps Platelet mean volume (Bld) [Entitic vol] 10.8 fL Normal 9.5-13.5 [facility] Comment on above: Performed By: #### C BC #### [facility] [address] [place] [address] Dr. Oneal Capps PLT 234 103/ul Normal 150-450 [facility] Comment on above: Performed By: #### C BC #### [facility] [address] [address] [address] Oneal Capps RBC 4.19 106/ul Critically low 4.20-5.40 [facility] Comment on above: Performed By: #### C BC #### [facility] [address] [address] [address] Oneal Capps WBC 9.4 103/ul Normal 4.0-11.0 [facility] Comment on above: Performed By: #### C BC #### [facility] [address] [address] [address] Oneal Capps FERRITINon 08-25-2022 Ferritin [Mass/Vol] 62.0 ng/mL Normal 6.2-137.0 [facility] Comment on above: Performed By: #### V ITAD, FT4, FETIBC, FERR, VITB12 #### [facility] [address] [address] [address] Oneal Capps FREE T3on 08-25-2022 FREE T3 2.98 pg/mlL Normal 2.91-4.70 [facility] Comment on above: Performed By: #### V ITAD, FT4, FETIBC, FERR, VITB12 #### [facility] [address] [address] [address] Oneal Capps FREE T4on 08-25-2022 Free T4 [Mass/Vol] 0.63 ng/dL Critically low 0.78-1.34 [facility] Comment on above: Performed By: #### V ITAD, FT4, FETIBC, FERR, VITB12 #### [facility] [address] [place] [address] Dr. Oneal Capps GLYCOHEMOGLOBIN A1Con 2022 ADA RECOMMENDATION SEE BELOW Normal [facility] Comment on above: Result Comment: ADA RECOMMENDED LIMIT 4.0 - 6.0 ADA THERAPEUTIC TARGET < 7.0 ACTION SUGGESTED > 7.0 Performed By: #### A 1C #### [facility] [address] [place] [address] Dr. Oneal Capps Glucose [Mass/Vol] 111 mg/dL Normal [facility] Comment on above: Performed By: #### A 1C #### [facility] [address] [place] [address] Dr. Oneal Capps HbA1c (Bld) [Mass fraction] 5.5 % Normal 4.5-6.2 [facility] Comment on above: Performed By: #### A 1C #### [facility] [address] [place] [address] Dr. Oneal Capps IRON AND TIBCon 08-25-2022 % SATURATION 31.6 % Normal [facility] Comment on above: Performed By: #### V ITAD, FT4, FETIBC, FERR, VITB12 #### [facility] [address] [place] [address] Dr. Oneal Capsp Iron [Mass/Vol] 109.0 ug/dL Normal 50.0-170.0 [facility] Comment on above: Performed By: #### V ITAD, FT4, FETIBC, FERR, VITB12 #### [facility] [address] [place] [address] Dr. Oneal Capps TIBC DIRECT 345.0 ug/dL Normal 250.0-450.0 [facility] Comment on above: Performed By: #### V ITAD, FT4, FETIBC, FERR, VITB12 #### [facility] [address] [place] [address] Dr. Oneal Capps LIPID PROFILEon 08-25-2022 CHOL-HDL RATIO NORM SEE BELOW Normal [facility] Comment on above: Result Comment: 3.3 - 4.4 LOW RISK 4.4 - 7.1 AVERAGE RISK 7.1 - 11.0 MODERATE RISK >11.0 HIGH RISK Performed By: #### L IPID, TSH, FT3, CMP #### [facility] [address] [place] [address] Dr. Oneal Capps Cholesterol [Mass/Vol] 251 mg/dL Critically high 104-227 [facility] Comment on above: Performed By: #### L IPID, TSH, FT3, CMP #### [facility] [address] [address] [address] Oneal Capps Cholesterol in HDL [Mass/Vol] 64 mg/dL Normal 29-69 [facility] Comment on above: Performed By: #### L IPID, TSH, FT3, CMP #### [facility] [address] [address] [address] Oneal Capps Cholesterol in LDL [Mass/Vol] 169.4 mg/dL Critically high 46.0-140.0 [facility] Comment on above: Performed By: #### L IPID, TSH, FT3, CMP #### [facility] [address] [address] [address] Oneal Capps Cholesterol.total/Ch olesterol in HDL [Mass ratio] 3.9 {ratio} Normal [facility] Comment on above: Performed By: #### L IPID, TSH, FT3, CMP #### [facility] [address] [address] [address] Oneal Capps HDL NORMAL > or = 60 mg/dl - LOW CARDIOVASCULAR RISK <40 mg/dl - HIGH CARDIOVASCULAR RISK Normal [facility] Comment on above: Performed By: #### L IPID, TSH, FT3, CMP #### [facility] [address] [address] [address] Oneal Capps LDL CALC NORMAL SEE BELOW Normal [facility] Comment on above: Result Comment: <100 mg/dl OPTIMAL 100 - 129 mg/dl NEAR OR ABOVE OPTIMAL 130 - 159 mg/dl BORDERLINE HIGH 160 - 189 mg/dl HIGH >190 mg/dl VERY HIGH Performed By: #### L IPID, TSH, FT3, CMP #### [facility] [address] [address] [address] Oneal Capps Triglyceride [Mass/Vol] 88 mg/dL Normal 53-208 [facility] Comment on above: Performed By: #### L IPID, TSH, FT3, CMP #### [facility] [address] [address] [address] Oneal Capps VLDL CALC 17.6 mg/dL Normal [facility] Comment on above: Performed By: #### L IPID, TSH, FT3, CMP #### [facility] [address] [place] [address] Dr. Oneal Capps PROF 14(COMP METB)on 023 Albumin [Mass/Vol] 3.9 g/dL Normal 3.4-5.0 [facility] Comment on above: Performed By: #### L IPID, TSH, FT3, CMP #### [facility] [address] [place] [address] Dr. Oneal Capps Albumin/Globulin [Mass ratio] 1.0 {ratio} Normal [facility] Comment on above: Performed By: #### L IPID, TSH, FT3, CMP #### [facility] [address] [place] [address] Dr. Oneal Capps ALP [Catalytic activity/Vol] 96 U/L Normal 46-116 [facility] Comment on above: Performed By: #### L IPID, TSH, FT3, CMP #### [facility] [address] [place] [address] Dr. nOeal Capps ALT [Catalytic activity/Vol] 30 U/L Normal 14-59 [facility] Comment on above: Performed By: #### L IPID, TSH, FT3, CMP #### [facility] [address] [place] [address] Dr. Oneal Capps Anion gap [Moles/Vol] 11.2 mmol/L Normal [facility] Comment on above: Performed By: #### L IPID, TSH, FT3, CMP #### [facility] [address] [place] [address] Dr. Oneal Capps AST [Catalytic activity/Vol] 26 U/L Normal 15-37 [facility] Comment on above: Performed By: #### L IPID, TSH, FT3, CMP #### [facility] [address] [place] [address] Dr. Oneal Capps Bilirubin [Mass/Vol] 0.6 mg/dL Normal 0.2-1.0 [facility] Comment on above: Performed By: #### L IPID, TSH, FT3, CMP #### [facility] [address] [address] [address] Oneal Capps Calcium [Mass/Vol] 9.0 mg/dL Normal 8.5-10.1 [facility] Comment on above: Performed By: #### L IPID, TSH, FT3, CMP #### [facility] [address] [place] [address] Dr. Oneal Capps Chloride [Moles/Vol] 103 mmol/L Normal 98-107 [facility] Comment on above: Performed By: #### L IPID, TSH, FT3, CMP #### [facility] [address] [place] [address] Dr. Oneal Capps CO2 [Moles/Vol] 29.0 mmol/L Normal 21.0-32.0 [facility] Comment on above: Performed By: #### L IPID, TSH, FT3, CMP #### [facility] [address] [place] [address] Dr. Oneal Capps Creatinine [Mass/Vol] 0.56 mg/dL Normal 0.55-1.02 [facility] Comment on above: Performed By: #### L IPID, TSH, FT3, CMP #### [facility] [address] [place] [address] Dr. Oneal Capps EGFR-AF CITIZEN OF [place] >60 Normal >=60 [facility] Comment on above: Performed By: #### L IPID, TSH, FT3, CMP #### [facility] [address] [place] [address] Dr. Oneal Capps EGFR-NON AF CITIZEN OF [place] >60 Normal >=60 [facility] Comment on above: Performed By: #### L IPID, TSH, FT3, CMP #### [facility] [address] [place] [address] Dr. Oneal Capps Globulin (S) [Mass/Vol] 4.0 g/dL Normal [facility] Comment on above: Performed By: #### L IPID, TSH, FT3, CMP #### [facility] [address] [place] [address] Dr. Oneal Capps Glucose [Mass/Vol] 93 mg/dL Normal 74-106 [facility] Comment on above: Performed By: #### L IPID, TSH, FT3, CMP #### [facility] [address] [place] [address] Dr. Oneal Capps Potassium [Moles/Vol] 4.2 mmol/L Normal 3.5-5.1 [facility] Comment on above: Performed By: #### L IPID, TSH, FT3, CMP #### [facility] [address] [place] [address] Dr. Oneal Capps Protein [Mass/Vol] 7.9 g/dL Normal 6.4-8.2 [facility] Comment on above: Performed By: #### L IPID, TSH, FT3, CMP #### [facility] [address] [place] [address] Dr. Oneal Capps Sodium [Moles/Vol] 139 mmol/L Normal 136-145 [facility] Comment on above: Performed By: #### L IPID, TSH, FT3, CMP #### [facility] [address] [place] [address] Dr. Oneal Capps Urea nitrogen [Mass/Vol] 7.0 mg/dL Normal 6.4-19.3 [facility] Comment on above: Performed By: #### L IPID, TSH, FT3, CMP #### [facility] [address] [place] [address] Dr. Oneal Capps Urea nitrogen/Creatinine [Mass ratio] 12.5 mg/mg Normal [facility] Comment on above: Performed By: #### L IPID, TSH, FT3, CMP #### [facility] [address] [place] [address] Dr. Oneal Capps TSHon 08-25-2022 TSH 2.032 uIU/mL Normal 0.516-4.130 [facility] Comment on above: Performed By: #### V ITAD, FT4, FETIBC, FERR, VITB12 #### [facility] [address] [place] [address] Dr. Oneal Capps VITAMIN B12on 08-25-2022 Cobalamin (Vitamin B12) [Mass/Vol] 620.0 pg/mL Normal 193.0-986.0 [facility] Comment on above: Performed By: #### V ITAD, FT4, FETIBC, FERR, VITB12 #### [facility] [address] [address] [address] Oneal Capps VITAMIN D 25 OHon 08-25-2022 VIT D 25-OH 47.8 ng/mL Normal [facility] Comment on above: Performed By: #### V ITAD, FT4, FETIBC, FERR, VITB12 #### [facility] [address] [address] [address] Oneal Capps VIT D RANGES SEE BELOW Normal [facility] Comment on above: Result Comment: <20 ng/mL Vit D deficient 20 - <30 ng/mL Vit D insufficient 30 - 100 ng/mL Vit D sufficient >100 ng/mL Potential Toxicity Performed By: #### V ITAD, FT4, FETIBC, FERR, VITB12 #### [facility] [address] [address] [address] Oneal Capps Consenton 04-28-2022 Consent [id number]:127 Normal [facility] Registrationon 04-28-2022 Registration [id number]:127 Normal [facility] IRON, TIBC AND FERRITIN PANE Red 02-11-2022 % SATURATION 32 % (calc) Normal 15-45 [facility] Comment on above: Order Comment: FASTI NG:NO FASTING: NO Performed By: #### 5 096, [id number] #### [facility] [address] [address] Finish Filer: Alberto Davis MD Ferritin [Mass/Vol] 39 ng/mL Normal 6-67 [facility] Comment on above: Order Comment: FASTI NG:NO FASTING: NO Performed By: #### 5 036, [id number] #### [facility] [address], [address] [address] Finish Filer: Alberto Davis MD IRON BINDING CAPACITY 346 mcg/dL (calc) Normal 271-448 [facility] Comment on above: Order Comment: FASTI NG:NO FASTING: NO Performed By: #### 5 616, [id number] #### [facility] [address], [address] [place] [address] Finish Filer: Alberto Davis MD IRON, TOTAL 112 mcg/dL Normal 27-164 [facility] Comment on above: Order Comment: FASTI NG:NO FASTING: NO Performed By: #### 5 616, [id number] #### [facility] [address], [address] [place] [address] Finish Filer: Alberto Davis MD VITAMIN D,25-OH,TOTAL,IAon 0 8- [...] D, (D2,D3), LC/MS/MS is recommended: order code [id number] (patients >2yrs). See Note 1 Note 1 For additional information, please refer to [email or web address]/faq/[email or web address] (This link is being provided for informational/ educational purposes only.) Performed By: #### 5 616, [id number] #### [facility] [address], [address] [place] [address] Finish Filer: Alberto Davis MD IRON, TIBC AND FERRITIN MADIHA [facility] 05-23-2021 % SATURATION 7 % (calc) Low 15-45 [facility] Comment on above: Performed By: #### 5 616 #### [facility] [address], [address] [place] [address] Finish Filer: Alberto Davis MD Ferritin [Mass/Vol] 5 ng/mL Low 6-67 [facility] Comment on above: Performed By: #### 5 616 #### [facility] [address] [address] Finish Filer: Alberto Davis MD IRON BINDING CAPACITY 501 mcg/dL (calc) High 271-448 [facility] Comment on above: Performed By: #### 5 616 #### [facility] [address] [address] Finish Filer: Alberto Davis MD IRON, TOTAL 36 mcg/dL Normal 27-164 [facility] Comment on above: Performed By: #### 5 616 #### [facility] [address] [address] Finish Filer: Alberto Davis MD Vital Signs Date Time Vital Sign Value Performing Clinician Facility 07-28-2024 11:54-0500 Body height 165.1 cm [facility] 07-28-2024 11:54-0500 Body mass index (BMI) [Ratio] 31.6 kg/m2 [facility] 07-28-2024 11:54-0500 Body temperature 98 [degF] [facility] 07-28-2024 11:54-0500 Body weight 86.18 kg [facility] 07-28-2024 11:54-0500 Diastolic blood pressure 78 mm[Hg] [facility] 07-28-2024 11:54-0500 Heart rate 68 /min [facility] 07-28-2024 11:54-0500 Respiratory rate 18 /min [facility] 07-28-2024 11:54-0500 SaO2% (BldA) [Mass fraction] 98 % [facility] 07-28-2024 11:54-0500 Systolic blood pressure 124 mm[Hg] [facility] 04-28-2024 12:02-0500 Body mass index (BMI) [Ratio] 31.42 kg/m2 Carlos LUKE Work Phone: [employer] 04-28-2024 12:02-0500 Body temperature 98.1 [degF] Carlos Alejandro [employer] Work Phone: [facility] 04-28-2024 12:02-0500 Body weight 85.64 kg Carlos Alejandro [employer]GER [employer] Work Phone: [facility] 04-28-2024 12:02-0500 Diastolic blood pressure 72 mm[Hg] Cralos Alejandro [employer]GER [employer] Work Phone: [facility] 04-28-2024 12:02-0500 Heart rate 86 /min Carlos Alejandro [employer] Work Phone: [facility] 04-28-2024 12:02-0500 SaO2% (BldA) [Mass fraction] 97 % Carlos Alejandro [employer] Work Phone: [facility] 04-28-2024 12:02-0500 Systolic blood pressure 112 mm[Hg] Carlos Alejandro [employer]GER [employer] Work Phone: [facility] 06-18-2023 12:03-0500 Body height 165.1 cm Carlos Alejandro [employer]GER [employer] Work Phone: [facility] 06-18-2023 12:03-0500 Body mass index (BMI) [Ratio] 29.95 kg/m2 Carlos Alejandro [employer]GER [employer] Work Phone: [facility] 06-18-2023 12:03-0500 Body temperature 98.29 [degF] Carlos Alejandro [employer] Work Phone: [facility] 06-18-2023 12:03-0500 Body weight 81.65 kg Carlos Alejandro [employer] Work Phone: [facility] 06-18-2023 12:03-0500 Diastolic blood pressure 85 mm[Hg] Carlos Alejandro [employer]GER [employer] Work Phone: [employer] 06-18-2023 12:03-0500 Heart rate 72 /min Carlos Alejandro APRNDIANE Work Phone: [employer] 06-18-2023 12:03-0500 SaO2% (BldA) [Mass fraction] 98 % Carlos Alejandro APRN[employer] Work Phone: [employer] 06-18-2023 12:03-0500 Systolic blood pressure 121 mm[Hg] Carlos Alejandro APRN[employer] Work Phone: [employer] 05-12-2023 15:30-0500 Body height 165.1 cm Brooke Annelise Other [employer] Other 05-12-2023 15:30-0500 Body mass index (BMI) [Ratio] 30.95 kg/m2 Brooke Annelise Other [employer] Other 05-12-2023 15:30-0500 Body temperature 98.3 [degF] Brooke Annelise Other [employer] Other 05-12-2023 15:30-0500 Body weight 84.37 kg Brooke Goelmond Other [employer] Other 05-12-2023 15:30-0500 Respiratory rate 19 /min Brooke Annelise Other [employer] Other 05-12-2023 15:30-0500 SaO2% (BldA) [Mass fraction] 98 % Brooke Annelise Other [employer] Other Encounters Encounter Date Encounter Type Care Provider Facility Start: 07-28-2024 End: 07-28-2024 [facility] Work Phone: Start: 07-28-2024 End: 07-28-2024 Patient encounter procedure [facility] Work Phone: Start: 06-27-2024 End: 06-27-2024 Refill Carlos L Javon [employer]GER [employer] Work Phone: [facility] Start: 05-22-2024 End: 05-22-2024 ambulatory Ava Dinero MD Facility:[facility] Start: 05-12-2024 End: 05-12-2024 Orders Only Carlos L Javon [employer] Work Phone: [facility] Start: 05-01-2024 End: 05-01-2024 Orders Only Carlos L Javon [employer] Work Phone: [facility] Comment on above: 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) Start: 04-28-2024 End: 04-28-2024 Office outpatient visit 15 minutes Carlos L Javon [employer] Work Phone: [facility] Comment on above: 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) Start: 04-28-2024 End: 04-28-2024 ambulatory [facility] Start: 11-25-2023 End: 11-25-2023 ambulatory [facility] Start: 11-25-2023 End: 11-25-2023 ambulatory [facility] Start: 09-13-2023 Refill Carlos L Javon [employer] Work Phone: [facility] Start: 06-18-2023 End: 06-18-2023 ambulatory [facility] Start: 06-18-2023 End: 06-18-2023 Office outpatient visit 15 minutes Carlos L Javon [employer]GER [employer] Work Phone: [facility] Comment on above: Non-intractable vomi ting with nausea (Primary Dx); High risk heterosexual behavior; Implantable subdermal contraceptive surveillance Start: 06-18-2023 End: 06-18-2023 ambulatory CARLOSNGUYỄN ALEJANDRO [facility] Start: 05-12-2023 End: 05-12-2023 Departed [employer]erred REHABILITATION SUPERVISORJoe Castelan Work Phone: [facility] [place] Work Phone: Start: 05-12-2023 End: 05-12-2023 ambulatory Brooke Castelan [facility] Work Phone: Start: 05-12-2023 Office outpatient ne w 20 minutes Brooke Castelan [facility] Start: 08-25-2022 End: 08-26-[address] JONATHAN GARCIA Facility:[facility] Start: 04-28-2022 End: 04-29-2022 [facility]ulatory [facility] Start: 03-06-[address] JONATHAN GARCIA Fac ility:[facility] Start: 12-10-2021 End: 12-10-2021 ambulatory MORGAN MAURICIO . Facility: Start: 10-08-2021 End: 10-09-2021 ambulatory CARLOS ALEJANDRO Facility: Procedures Date Procedure Procedure Detail Performing Clinician Start: 04-28-2024 Follow-up visit Follow-up CARLOS ALEJANDRO Start: 04-28-2024 Adult depression screening assessment Carlos Alejandro [employer]GER [employer] Work Phone: Start: 06-18-2023 Urine test visual color cmprsn meths Carlos Jasper Javon [employer]NAGER [employer] Work Phone: Start: 06-18-2023 Adult depression screening assessment Carlos Javon [employer]GER [employer] Work Phone: Start: 05-12-2023 Piperacillin/tazobactam Brooke Castelan Other Plan of Treatment Date Care Activity Detail Author Start: 02-04-2026 DTaP,Tdap and Td Vaccines (7 - Td or Tdap) DTaP,Tdap and Td Vaccines (7 - Td or Tdap) [facility] Start: 04-28-2025 Adult BMI Screening Adult BMI Screen ing [facility] Start: 04-28-2025 Depression Screening Depression Scre ening [facility] Start: 11-24-2024 Tobacco Screening Tobacco Screening [facility] Start: 06-18-2024 Adult BMI Screening Adult BMI Screen ing [facility] Start: 06-18-2024 Depression Screening Depression Scre ening [facility] Start: 06-18-2024 Screening for Chlamy wander trachomatis Chlamydia Screening [facility] Start: 06-18-2024 Tobacco Screening Tobacco Screening [facility] Start: 02-20-2024 Adult BMI Follow Up Plan Adult BMI Follow Up Plan [facility] Comment on above: Postponed from 08/07 (Not Indicated) Start: 02-20-2024 Influenza vaccination Influenza Vacc [facility] Start: 05-12-2023 Bacteria identified in Urine by Culture [facility] Start: 02-19-2023 Influenza vaccination Influenza Vacc [facility] Start: 2021 Adult BMI Follow Up Plan Adult BMI Follow Up Plan [facility] Start: 2003 Screening for Chlamy wander trachomatis Chlamydia Screening [facility] End: 06-17-2024 Chlamydia/GC by PCR urine Chlamydia/GC by PCR urine Microbiology Routine High risk heterosexual behavior 1 Occurrences starting 06/18/2023 until 06/17/2024 [facility] Work Phone: Comment on above: 1 Occurrences starti ng 06/18/2023 until 06/17/2024 End: 06-17-2024 Trichomonas by PCR Trichomonas by PCR Microbiology Routine High risk heterosexual behavior 1 Occurrences starting 06/18/2023 until 06/17/2024 [facility] Comment on above: 1 Occurrences starti ng 06/18/2023 until 06/17/2024 Immunizations Immunization Date Immunization Notes Care Provider Cliff cervantes 06-01-2021 meningococcal oligosaccharide (groups A, C, Y and W-135) diphtheria toxoid conjugate vaccine (MCV4O) Carlos LUKE Work Phone: [facility] 01-25-2018 Human Papillomavirus 9-valent vaccine [facility] Work Phone: [facility] 10-22-2016 hepatitis A vaccine, pediatric/adolescent dosage, 2 dose schedule Carlosnguyễn Alejandro [facility] Work Phone: [facility] 10-22-2016 Human Papillomavirus 9-valent vaccine [facility] Work Phone: [facility] 02-05-2016 meningococcal oligosaccharide (groups A, C, Y and W-135) diphtheria toxoid conjugate vaccine (MCV4O) [facility] Work Phone: [facility] 02-05-2016 tetanus toxoid, redu lydia diphtheria toxoid, and acellular pertussis vaccine, adsorbed [facility]formerly [facility] Work Phone: [facility] 01-13-2008 diphtheria, tetanus toxoids and acellular pertussis vaccine [facility] Work Phone: [facility] 01-13-2008 measles, mumps and rubella virus vaccine [facility] Work Phone: [facility] 01-13-2008 poliovirus vaccine, inactivated [facility] Work Phone: [facility] 01-13-2008 varicella virus vaccine Carlota friedman [facility] Work Phone: [facility] 03-18-2005 diphtheria, tetanus toxoids and acellular pertussis vaccine [facility] Work Phone: [facility] 03-18-2005 pneumococcal conjuga te vaccine, 7 valent [facility] Work Phone: [facility] 03-18-2005 varicella virus vaccine Carlota friedman [facility] Work Phone: [facility] 08-22-2004 haemophilus influenz ae type b vaccine, PRP-T conjugate [facility] Work Phone: [facility] 08-22-2004 measles, mumps and rubella virus vaccine Carlos Alejandro [employer]GER [employer] Work Phone: [facility] 02-27-2004 DTaP-hepatitis B and poliovirus vaccine Carlos [facility] Work Phone: [facility] 02-27-2004 haemophilus influenz ae type b vaccine, PRP-T conjugate Carlos [facility] Work Phone: [facility] 02-27-2004 pneumococcal conjuga te vaccine, 7 valent Carlos [facility] Work Phone: [facility] 2003 DTaP-hepatitis B and poliovirus vaccine Carlosnguyễn [facility] Work Phone: [facility] 2003 haemophilus influenz ae type b vaccine, PRP-T conjugate [facility] Work Phone: [facility] 2003 pneumococcal conjuga te vaccine, 7 valent Carlos [facility] Work Phone: [facility] 2003 DTaP-hepatitis B and poliovirus vaccine Carlosnguyễn Alejandro [facility] Work Phone: [facility] 2003 haemophilus influenz ae type b vaccine, PRP-T conjugate Carlos [facility] Work Phone: [facility] 2003 pneumococcal conjuga te vaccine, 7 valent Carlos [facility] Work Phone: [facility] 2003 hepatitis B vaccine, pediatric or pediatric/adolescent dosage Carlosnguyễn [facility] Work Phone: [facility] Payers Date Payer Category Payer [facility] Care Other (unspecified) [employer] [id number] 2022 Unknown [id number] 2003 Unknown [id number]. 593 2003 Unknown [id number]. 593 2003 Unknown [id number] [id number]. 1286 2003 Unknown [id number] [id number]. 1286 2003 Unknown [id number] [id number]. 1286 2003 Unknown [id number] [id number]. 1286 2003 Unknown [id number] [id number]. 1286 2003 Unknown [id number] [id number]. 196 1975 Unknown [id number] [id number]. 593 1975 Unknown [id number] [id number]. 593 1959 Self-pay 1959 Unknown [id number] 1959 Unknown [id number] Unknown [id number]. 531 Social History Date Type Detail Facility Unknown if ever smoked [facility] Work Phone: Start: 06-18-2023 End: 04-28-2024 Sex Assigned At [facility] [employer] Other Start: 2005 Sex Assigned At Female [facility] Start: 05-28-2022 End: 07-28-2024 Tobacco smoking status NHIS Never smoked tobacco [facility] Start: 05-28-2022 Tobacco use and exposure Smokeless tobacco non-user [facility] Start: 06-18-2023 End: 11-25-2023 Alcohol intake Lifetime non-drinker (finding) [facility] Start: 06-18-2023 End: 04-28-2024 History of Social function [facility] Adolescent depressio n screening assessment 22 [facility] Start: 10-22-2022 Gender identity Identifies as female gender (finding) [facility] Start: 10-22-2022 Sexual orientation Heterosexual (finding) [facility] How hard is it for y ou to pay for the very basics like food, housing, medical care, and heating Hard [facility] Start: 01-24-2015 End: 07-28-2024 Sex Female (finding) [facility] tem Clinical Notes 10-08-2021 to 04-28-2024 TI Gong - 04/28/2024 11:40 AM TI Montes De Oca - 06/18/2023 12:10 PM EST Note Date & Type Note Facility 04-28-2024 History of Present illness Narrative [address] [place] [id number] Patient: Mouna Castillo Date of : 2005 Encounter Date: 04/28/2024 History of Present Illness: The patient is a 18 y.o. female, an established patient, and is here for Chief Complaint Patient presents with Follow-up . HPI Patient is here for an ER follow-up. [facility] for lower back pain as she woke up that morning with right-sided low back pain that radiated to her right buttocks and right lateral leg. A CT of her lumbar was done in the ER that showed L5/S1 disc herniation and patient was given muscle relaxants, NSAIDs, RI CE, steroids and a referral to a spine clinical research specialist in [place]. Today patient states the pain is much improved and she has not finished her steroid pack at in the muscle relaxant does help improve her pain. Currently she is working multiple jobs at [employer] a [employer] and she has to dog walking jobs. [...] at least until she sees the orthopedic pest control specialist. She was offered physical therapy and pain management to help control the pain as well but she defer these. Surgeon may want MRI but as patient has not undergone physical therapy would be best ordered by specialist. Patient should return for wellness when due. TI GONG APRN-CNP 05/01/24 1500 documented in this encounter [facility] [employer] 06-18-2023 History of Present illness Narrative [address] [place] [address] Patient: Mouna Castillo Date of : 2005 [...] APRN-CNP 06/18/23 1317 documented in this encounter [facility] 05-12-2023 Evaluation note Encounter Date Diagnosis Assessment [...] and vomiting in adult (ICD-10 - R11.2) [employer] Other 04-20-2022 NotePROCEDURE: XR KNEE RT 3V HISTORY: Pain in right knee , chronic anterior knee pain COMPARISON: None. FINDINGS: BONES:No fracture, acute abnormality, or significant arthropathy. SOFT TISSUES:No visible soft tissue swelling. EFFUSION:None visible. OTHER: Negative. IMPRESSION: 1. Normal examination. Electronically authenticated by: RILEY SCHUSTER Date: 2021-10-08 16:51[facility] noteNo assessment information availableWadsworth[facility] Work Phone: Evaluation note* Diagnosis Non-intractable vomiting with nausea- Primary High risk heterosexual behavior Implantable subdermal contraceptive surveillance Surveillance of previously prescribed implantable subdermal contraceptive documented in this [facility] Diagnosis Herniation of intervertebral disc between L5 and S1- Primary documented in this encounter [facility]* Diagnosis Herniation of intervertebral disc between L5 and S1- Primary documented in this [facility] SystemHistory general Narrative - Reported* Type Description Date Medical History Uncomplicated asthma, unspecifie d asthma severity Medical History ADHD Medical History Depression Medical History Anxiety [employer] Other Instructions* Attachments The following attachments cannot be sent through Care Everywhere. * Nausea and Vomiting, Adult ED (Latvian) documented in this encounterPro[facility] HospitalRevTrax SystemInstructionsNot on file documented in this encounterProMercy Health [facility] HospitalRevTrax SystemInstructionsNot on file documented in this encounterProMercy Health [facility] HospitalRevTrax SystemInstructionsNot on file documented in this encounterProMercy Health [facility] HospitalRevTrax SystemInstructionsNot on file documented in this encounterProcycleWood Solutions System Summary Purpose Family History Relationship Condition Age at Onset Recorded Date/T anabel father Hypertension Unknown mother Hypertension Unknown Advance Directives Advance Directive Response Recorded Date/ Time Advance Directives No July 28, 2018 3:28pm Chief Complaint and Reason for Visit Chief Complaint Dysuria Chief Complaint Admit Date ear pain, sore throat July 28, 2024 9:58am Additional Source Comments INFORMATION SOURCE (unrecogn ized section and content) DATE CREATED AUTHOR 02/14/2022 [facility] DATE CREATED AUTHOR AUTHOR'S ORGANIZ ATION 04/29/2022 [facility] DATE CREATED AUTHOR AUTHOR'S ORGANIZ ATION 08/29/2022 [facility] DATE CREATED AUTHOR AUTHOR'S ORGANIZ ATION 05/17/2023 [facility] DATE CREATED AUTHOR AUTHOR'S ORGANIZ ATION 11/27/2023 [facility] DATE CREATED AUTHOR AUTHOR'S ORGANIZ ATION 04/30/[address] [facility] DATE CREATED AUTHOR AUTHOR'S ORGANIZ ATION 05/26/2024 [facility] REASON FOR VISIT (unrecogniz ed section and content) Reason Comments Nausea In waves x3 weeks Reason Comments Med Refill Reason Comments Follow-up Care Teams (unrecognized sec tion and content) Team Status: Inactive Member Role Status Dates Brooke Castelan NP-C Attending Provider Active Plumbing Mechanic Relationship Specialty Start Date End Date Carlos Alejandro APRN-CNP [address] [place] [address] PCP - General Internal Medicine 02/18/23 Plumbing Mechanic Relationship Specialty Start Date End Date Carlos Alejandro APRN-CNP [address] [place] [address] PCP - General Internal Medicine 02/18/23 Plumbing Mechanic Relationship Specialty Start Date End Date Carlos Alejandro APRN-CNP [address] [place] [address] PCP - General Internal Medicine 02/18/23 Plumbing Mechanic Relationship Specialty Start Date End Date Carlos Alejandro APRN-FUR STRETCHER [address] [place] [address] PCP - General Internal Medicine 02/18/23 Plumbing Mechanic Relationship Specialty Start Date End Date Carlos Alejandro APRN-FUR STRETCHER [address] [place] [address] PCP - General Internal Medicine 02/18/23 Team Status: Active Member Role Status Dates Jonathan Garcia DO Primary Care Provider Active Team Status: Inactive Member Role Status Dates Jonathan Garcia DO Primary Care Provider Active Start: July 28, 2024 End: July 28, 2024 Elvira Cochran APRN Attending Provider Active S tart: July 28, 2024 End: July 28, 2024 Goals (unrecognized section and content) Goals may [...] BE BASED ON THE PRIMARY CLINICAL RECORDS. [facility] [employer] provides no warranty or guarantee of the accuracy or completeness of information in this document.
--- NOTE | 2024-07-30 01:36 | ED.EAR1 ---
HPI - Ear Problem General Chief complaint: Ear Stated complaint: Earache Time Seen by Provider: 07/30/24 01:21 Source: patient Mode of arrival: walk-in Limitations: no limitations History of Present Illness HPI Narrative: 18-year-old female presents for left ear pain. This started 3 days ago and 2 days ago she went to an urgent care and yesterday she started Cortisporin but she is not getting any better. She has had ear drainage and the pain is moderate to severe and continuous. No right-sided pain. Related Data Home Medications ?Medication ?Instructions ?Recorded ?Confirmed buspirone 30 mg tablet 45 mg PO DAILY 05/10/24 07/30/24 lithium carbonate 300 mg capsule 300 mg PO DAILY 05/10/24 07/30/24 methocarbamol 750 mg tablet 750 mg PO BID PRN pain 05/10/24 07/30/24 methylphenidate HCl 20 mg tablet 30 mg PO DAILY 05/10/24 07/30/24 naloxone 4 mg/actuation nasal 4 mg intranasal Q2M 05/10/24 07/30/24 spray (Narcan) sertraline 25 mg tablet (Zoloft) 25 mg PO DAILY 05/10/24 07/30/24 amoxicillin 875 mg-potassium tab 07/30/24 clavulanate 125 mg tablet lurasidone 20 mg tablet mg 07/30/24 montelukast 10 mg tablet 10 mg PO DAILY 07/30/24 07/30/24 (Singulair) Previous Rx's ?Medication ?Instructions ?Recorded qvstpeyi-sxxjvevut-zsaishcly 3.5 4 drp otic (ear) Q6H 7 days #10 mL 07/30/24 mg-10,000 unit/mL-1 % ear drops,susp Allergies Allergy/AdvReac Type Severity Reaction Status Date / Time No Known Drug Allergies Allergy Verified 07/30/24 01:35 Review of Systems ROS Narrative A ten point review of systems is negative except as noted above. [facility] Medical History (Updated 07/30/24 @ 01:34 by Ricardo Petty MD) Low back pain ?M54.50 - Low back pain, unspecified (ICD-10) Bipolar 1 disorder ?F31.9 - Bipolar disorder, unspecified (ICD-10) Heartburn ?R12 - Heartburn (ICD-10) Obesity ?E66.9 - Obesity, unspecified (ICD-10) ADHD ?F90.9 - Attention-deficit hyperactivity disorder, unspecified type (ICD-10) Anxiety ?F41.9 - Anxiety disorder, unspecified (ICD-10) Acid reflux ?K21.9 - Gastro-esophageal reflux disease without esophagitis (ICD-10) Asthma ?J45.909 - Unspecified asthma, uncomplicated (ICD-10) Social History Little interest or pleasure in doing things: not at all Feeling down, depressed, or hopeless: not at all Exam Narrative Exam Narrative: Nurses note and vital signs reviewed and patient is not hypoxic. General: The patient appears well and in no apparent distress. Patient is resting comfortably on cart. Skin: Warm, dry, no pallor noted. There is no rash noted. Head: Normocephalic, atraumatic Eye: Normal conjunctiva, no drainage Ears, Nose, Mouth, and Throat: oral mucosa is moist. Nares patent. Right TM and external canal are normal. The right TM is obscured because of swelling and some drainage in the external canal. Cardiovascular: Regular Rate and Rhythm Respiratory: Patient is in no distress, no accessory muscle use, lungs are clear to auscultation, no wheezing, rales or rhonchi Back: non-tender GI: Soft and nontender Musculoskeletal: The patient has no evidence of calf tenderness, no pitting edema, symmetrical pulses noted bilaterally Neurological: A&O, normal speech Psychiatric: Cooperative Constitutional Vital Signs, click to edit/add: Last Vital Signs Temp 98.0 F 07/30/24 01:25 Pulse 97 H 07/30/24 01:25 Resp 18 07/30/24 01:25 BP 132/98 H 07/30/24 01:25 Pulse Ox 99 07/30/24 01:25 O2 Del Method Room Air 07/30/24 01:25 Course Vital Signs Vital signs: Vital Signs Temperature 98.0 F 07/30/24 01:25 Pulse Rate 97 H 07/30/24 01:25 Respiratory Rate 18 07/30/24 01:25 Blood Pressure 132/98 H 07/30/24 01:25 Pulse Oximetry 99 07/30/24 01:25 Oxygen Delivery Method Room Air 07/30/24 01:25 Temperature 98.0 F 07/30/24 01:25 Pulse Rate 97 H 07/30/24 01:25 Respiratory Rate 18 07/30/24 01:25 Blood Pressure 132/98 H 07/30/24 01:25 Pulse Oximetry 99 07/30/24 01:25 Oxygen Delivery Method Room Air 07/30/24 01:25 Medical Decision Making MDM Narrative Medical decision making narrative: She has been taking Cipro drops and we will switch her to Cortisporin. Treatment diagnosis and follow-up were discussed with the patient. Differential Diagnosis Differential Diagnosis: Otitis media, otitis externa. Otitis media, otitis externa. Discharge Plan Discharge Chief Complaint: Ear Clinical Impression: Left otitis externa Patient Disposition: Home, Self-Care Time of Disposition Decision: 01:34 Condition: Good Mode of Transportation: Private Vehicle Prescriptions / Home Meds: New vezsffhn-qbgncyvvh-YW 3.5-10,000-1 mg/mL-unit/mL-% drops,suspension 4 drp otic (ear) Q6H 7 Days Qty: 10 0RF No Action buspirone 30 mg tablet 45 mg PO DAILY lithium carbonate 300 mg capsule 300 mg PO DAILY methylphenidate HCl 20 mg tablet 30 mg PO DAILY sertraline [Zoloft] 25 mg tablet 25 mg PO DAILY naloxone [Narcan] 4 mg/actuation spray,non-aerosol 4 mg intranasal Q2M Rx Instructions: spray 1 dose into ONE nostril; alternate nostrils w each dose until help arrives methocarbamol 750 mg tablet 750 mg PO BID PRN (Reason: pain) montelukast [Singulair] 10 mg tablet 10 mg PO DAILY amoxicillin-pot clavulanate 875-125 mg tablet lurasidone 20 mg tablet Print Language: Malaysian Instructions: [facility] (ED) Referrals: Physician,Non-Staff, MD [Primary Care Provider] - 1 week
[2024-07-30] MEDS: IBUPROFEN 400 MG TABLET 800 MG PO (01:42)
[2024-07-30 01:55] VITALS: O2SAT 99
== END 2024-07-30 01:45 | disposition home or self-care (01) ==
PROVIDERS: Emergency Provider Emergency Medicine
DX: H60.92 Unspecified otitis externa, left ear (principal)
CPT/HCPCS: 99283

== ENCOUNTER 2024-08-12 13:45 | Emergency (ER) | payer OTHER, SELFPAY ==
[2024-08-12 13:50] VITALS: BP 151/93; PULSE 96; TEMP 36.6; O2SAT 100; BMI 30.8
--- OUTSIDE RECORDS SUMMARY | 2024-08-12 13:53 | XMS_ITS | CCD ---
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 [address] Oneal Capps VLDL CALC 17.6 mg/dL Normal [facility] Comment on above: Performed By: #### L IPID, TSH, FT3, CMP #### [facility] [address] [address] [address] Oneal Capps PROF 14(COMP METB)on 023 Albumin [Mass/Vol] 3.9 g/dL Normal 3.4-5.0 [facility] Comment on above: Performed By: #### L IPID, TSH, FT3, CMP #### [facility] [address] [place] [address] Dr. Oneal Capps Albumin/Globulin [Mass ratio] 1.0 {ratio} Normal [facility] Comment on above: Performed By: #### L IPID, TSH, FT3, CMP #### [facility] [address] [place] [address] Dr. Oneal Capps ALP [Catalytic activity/Vol] 96 U/L Normal 46-116 [facility] Comment on above: Performed By: #### L IPID, TSH, FT3, CMP #### [facility] [address] [place] [address] Dr. Oneal Capps ALT [Catalytic activity/Vol] 30 U/L Normal 14-59 [facility] Comment on above: Performed By: #### L IPID, TSH, FT3, CMP #### [facility] [address] [place] [address] Dr. Oneal Capps Anion gap [Moles/Vol] 11.2 mmol/L Normal [facility] Comment on above: Performed By: #### L IPID, TSH, FT3, CMP #### [facility] [address] [place] [address] Dr. Oneal Capps AST [Catalytic activity/Vol] 26 U/L Normal 15-37 [facility] Comment on above: Performed By: #### L IPID, TSH, FT3, CMP #### [facility] [address] [address] [address] Oneal Capps Bilirubin [Mass/Vol] 0.6 mg/dL Normal 0.2-1.0 [facility] Comment on above: Performed By: #### L IPID, TSH, FT3, CMP #### [facility] [address] [place] [address] Dr. Oneal Capps Calcium [Mass/Vol] 9.0 mg/dL Normal 8.5-10.1 [facility] Comment on above: Performed By: #### L IPID, TSH, FT3, CMP #### [facility] [address] [place] [address] Dr. Oneal Capps Chloride [Moles/Vol] 103 mmol/L Normal 98-107 [facility] Comment on above: Performed By: #### L IPID, TSH, FT3, CMP #### [facility] [address] [place] [address] Dr. Oneal Capps CO2 [Moles/Vol] 29.0 mmol/L Normal 21.0-32.0 [facility] Comment on above: Performed By: #### L IPID, TSH, FT3, CMP #### [facility] [address] [place] [address] Dr. Oneal Capps Creatinine [Mass/Vol] 0.56 mg/dL Normal 0.55-1.02 [facility] Comment on above: Performed By: #### L IPID, TSH, FT3, CMP #### [facility] [address] [place] [address] Dr. Oneal Capps EGFR-AF RUSSIAN >60 Normal >=60 [facility] Comment on above: Performed By: #### L IPID, TSH, FT3, CMP #### [facility] [address] [place] [address] Dr. Oneal Capps EGFR-NON AF RUSSIAN >60 Normal >=60 [facility] Comment on above: Performed By: #### L IPID, TSH, FT3, CMP #### [facility] [address] [place] [address] Dr. Oneal Capps Globulin (S) [Mass/Vol] 4.0 g/dL Normal [facility] Comment on above: Performed By: #### L IPID, TSH, FT3, CMP #### [facility] [address] [place] [address] Dr. Oneal Capps Glucose [Mass/Vol] 93 mg/dL Normal 74-106 [facility] Comment on above: Performed By: #### L IPID, TSH, FT3, CMP #### [facility] [address] [place] [address] Dr. Oneal Capps Potassium [Moles/Vol] 4.2 mmol/L Normal 3.5-5.1 [facility] Comment on above: Performed By: #### L IPID, TSH, FT3, CMP #### [facility] [address] [place] [address] Dr. Oneal Capps Protein [Mass/Vol] 7.9 g/dL Normal 6.4-8.2 [facility] Comment on above: Performed By: #### L IPID, TSH, FT3, CMP #### [facility] [address] [place] [address] Dr. Oneal Capps Sodium [Moles/Vol] 139 mmol/L Normal 136-145 [facility] Comment on above: Performed By: #### L IPID, TSH, FT3, CMP #### [facility] [address] [place] [address] Dr. Oneal Capps Urea nitrogen [Mass/Vol] 7.0 mg/dL Normal 6.4-19.3 [facility] Comment on above: Performed By: #### L IPID, TSH, FT3, CMP #### [facility] [address] [place] [address] Dr. Oneal Capps Urea nitrogen/Creatinine [Mass ratio] 12.5 mg/mg Normal [facility] Comment on above: Performed By: #### L IPID, TSH, FT3, CMP #### [facility] [address] [place] [address] Dr. Oneal Capps TSHon 08-25-2022 TSH 2.032 uIU/mL Normal 0.516-4.130 [facility] Comment on above: Performed By: #### V ITAD, FT4, FETIBC, FERR, VITB12 #### [facility] [address] [address] [address] Oneal Capps VITAMIN B12on 08-25-2022 Cobalamin (Vitamin B12) [Mass/Vol] 620.0 pg/mL Normal 193.0-986.0 [facility] Comment on above: Performed By: #### V ITAD, FT4, FETIBC, FERR, VITB12 #### [facility] [address] [address] [address] Oneal Capps VITAMIN D 25 OHon 08-25-2022 VIT D 25-OH 47.8 ng/mL Normal [facility] Comment on above: Performed By: #### V ITAD, FT4, FETIBC, FERR, VITB12 #### [facility] [address] [address] [address] Oneal Capps VIT D RANGES SEE BELOW Normal [facility] Comment on above: Result Comment: <20 ng/mL Vit D deficient 20 - <30 ng/mL Vit D insufficient 30 - 100 ng/mL Vit D sufficient >100 ng/mL Potential Toxicity Performed By: #### V ITAD, FT4, FETIBC, FERR, VITB12 #### [facility] [address] [address] [address] Oneal Capps Consenton 04-28-2022 Consent [id number]:127 Normal [facility] Registrationon 04-28-2022 Registration [id number].. [id number]:127 Normal [facility] IRON, TIBC AND FERRITIN PANE Red 02-11-2022 % SATURATION 32 % (calc) Normal 15-45 [facility] Comment on above: Order Comment: FASTI NG:NO FASTING: NO Performed By: #### 5 [id number], [id number] #### [facility] [address], [address] [place] [address] Animal Care Specialist: Alberto Davis MD Ferritin [Mass/Vol] 39 ng/mL Normal 6-67 [facility] Comment on above: Order Comment: FASTI NG:NO FASTING: NO Performed By: #### 5 616, [id number] #### [facility] [address], [address] [place] [address] Animal Care Specialist: Alberto Davis MD IRON BINDING CAPACITY 346 mcg/dL (calc) Normal 271-448 [facility] Comment on above: Order Comment: FASTI NG:NO FASTING: NO Performed By: #### 5 616, [id number] #### [facility] [address], [address] [place] [address] Animal Care Specialist: Alberto Davis MD IRON, TOTAL 112 mcg/dL Normal 27-164 [facility] Comment on above: Order Comment: FASTI NG:NO FASTING: NO Performed By: #### 5 616, [id number] #### [facility] [address], [address] [place] [address] Animal Care Specialist: Alberto Davis MD VITAMIN D,25-OH,TOTAL,IAon 0 8- [...] D, (D2,D3), LC/MS/MS is recommended: order code [id number] (patients >2yrs). See Note 1 Note 1 For additional information, please refer to http://[email or web address].[email or web address]/[email or web address] (This link is being provided for informational/ educational purposes only.) Performed By: #### 5 616, [id number] #### [facility] [address], [address] [place] [address] Animal Care Specialist: Alberto Davis MD IRON, TIBC AND FERRITIN PANE Red 05-23-2021 % SATURATION 7 % (calc) Low 15-45 [facility] Comment on above: Performed By: #### 5 616 #### [facility] [address] [address] [address] , [address] [place] [address] Animal Care Specialist: Alberto Davis MD Ferritin [Mass/Vol] 5 ng/mL Low 6-67 [facility] Comment on above: Performed By: #### 5 616 #### [facility] [address] [address] [address] [address] Animal Care Specialist: Alberto Davis MD IRON BINDING CAPACITY 501 mcg/dL (calc) High 271-448 [facility] Comment on above: Performed By: #### 5 616 #### [facility] [address] [address] Animal Care Specialist: Alberto Davis MD IRON, TOTAL 36 mcg/dL Normal 27-164 [facility] Comment on above: Performed By: #### 5 616 #### [facility] [address] [address] Animal Care Specialist: Alberto Davis MD Vital Signs Date Time Vital Sign Value Performing Clinician Facility 07-28-2024 11:54-0500 Body height 165.1 cm [facility] 07-28-2024 11:54-0500 Body mass index (BMI) [Ratio] 31.6 kg/m2 [facility] 07-28-2024 11:54-0500 Body temperature 98 [degF] [facility] 07-28-2024 11:54-0500 Body weight 86.18 kg [facility] 07-28-2024 11:54-0500 Diastolic blood pressure 78 mm[Hg] [facility] 07-28-2024 11:54-0500 Heart rate 68 /min [facility] 07-28-2024 11:54-0500 Respiratory rate 18 /min [facility] 07-28-2024 11:54-0500 SaO2% (BldA) [Mass fraction] 98 % [facility] 07-28-2024 11:54-0500 Systolic blood pressure 124 mm[Hg] [facility] 04-28-2024 12:02-0500 Body mass index (BMI) [Ratio] 31.42 kg/m2 Carlos Alejandro APRN-CLINICAL SECRETARY Work Phone: [facility] 04-28-2024 12:02-0500 Body temperature 98.1 [degF] Carlos Alejandro DETENTION SERGEANT-CLINICAL SECRETARY Work Phone: [facility] 04-28-2024 12:02-0500 Body weight 85.64 kg Carlos Alejandro DETENTION SERGEANT-CLINICAL SECRETARY Work Phone: [facility] 04-28-2024 12:02-0500 Diastolic blood pressure 72 mm[Hg] Carlos Alejandro DETENTION SERGEANT-CLINICAL SECRETARY Work Phone: [facility] 04-28-2024 12:02-0500 Heart rate 86 /min Carlos Alejandro APRN-CLINICAL SECRETARY Work Phone: [facility] 04-28-2024 12:02-0500 SaO2% (BldA) [Mass fraction] 97 % Carlos Alejandro APRN-CLINICAL SECRETARY Work Phone: [facility] 04-28-2024 12:02-0500 Systolic blood pressure 112 mm[Hg] Carlos Alejandro APRN-CLINICAL SECRETARY Work Phone: [facility] 11-25-2023 09:54-0400 Body height 165.1 cm Andreea Valadez DETENTION SERGEANT-PLASTICS AND COMPOSITES INSPECTOR Work Phone: [facility] 11-25-2023 09:54-0400 Body mass index (BMI) [Ratio] 29.95 kg/m2 Andreea Valadez DETENTION SERGEANT-PLASTICS AND COMPOSITES INSPECTOR Work Phone: [facility] 11-25-2023 09:54-0400 Body temperature 97.3 [degF] Andreea Valadez DETENTION SERGEANT-PLASTICS AND COMPOSITES INSPECTOR Work Phone: [facility] 11-25-2023 09:54-0400 Body weight 81.65 kg Andreea Valadez APRN-PLASTICS AND COMPOSITES INSPECTOR Work Phone: [facility] 11-25-2023 09:54-0400 Diastolic blood pressure 80 mm[Hg] Andreea Valadez APRN-PLASTICS AND COMPOSITES INSPECTOR Work Phone: [facility] 11-25-2023 09:54-0400 Heart rate 77 /min Andreea Valdaez APRN-PLASTICS AND COMPOSITES INSPECTOR Work Phone: [facility] 11-25-2023 09:54-0400 Respiratory rate 12 /min Andreea Valadez APRN-PLASTICS AND COMPOSITES INSPECTOR Work Phone: [facility] 11-25-2023 09:54-0400 SaO2% (BldA) [Mass fraction] 98 % Andreea Valadez APRN-PLASTICS AND COMPOSITES INSPECTOR Work Phone: [facility] 11-25-2023 09:54-0400 Systolic blood pressure 110 mm[Hg] Andreea Valadez APRN-PLASTICS AND COMPOSITES INSPECTOR Work Phone: [facility] 06-18-2023 12:03-0500 Body height 165.1 cm Carlos Alejandro DETENTION SERGEANT-CLINICAL SECRETARY Work Phone: [facility] 06-18-2023 12:03-0500 Body mass index (BMI) [Ratio] 29.95 kg/m2 Carlos Alejandro DETENTION SERGEANT-CLINICAL SECRETARY Work Phone: [facility] 06-18-2023 12:03-0500 Body temperature 98.29 [degF] Carlos Alejandro DETENTION SERGEANT-CLINICAL SECRETARY Work Phone: [facility] 06-18-2023 12:03-0500 Body weight 81.65 kg Carlos Alejandro DETENTION SERGEANT-CLINICAL SECRETARY Work Phone: [facility] 06-18-2023 12:03-0500 Diastolic blood pressure 85 mm[Hg] Carlosghulam Alejandro DETENTION SERGEANT-CLINICAL SECRETARY Work Phone: [facility] 06-18-2023 12:03-0500 Heart rate 72 /min Carlos Alejandro APRN-CLINICAL SECRETARY Work Phone: [facility] 06-18-2023 12:03-0500 SaO2% (BldA) [Mass fraction] 98 % Carlos Alejandro DETENTION SERGEANT-CLINICAL SECRETARY Work Phone: [facility] 06-18-2023 12:03-0500 Systolic blood pressure 121 mm[Hg] Carlos Alejandro DETENTION SERGEANT-CLINICAL SECRETARY Work Phone: [facility] 05-12-2023 15:30-0500 Body height 165.1 cm Brooke Annelise Other [place] Other 05-12-2023 15:30-0500 Body mass index (BMI) [Ratio] 30.95 kg/m2 Brooke Castelan Other [place] Other 05-12-2023 15:30-0500 Body temperature 98.3 [degF] Brooke Annelise Other [place] Other 05-12-2023 15:30-0500 Body weight 84.37 kg Brooke Annelise Other [place] Other 05-12-2023 15:30-0500 Respiratory rate 19 /min Brooke Annelise Other [place] Other 05-12-2023 15:30-0500 SaO2% (BldA) [Mass fraction] 98 % Brooke Annelise Other [place] Other Encounters Encounter Date Encounter Type Care Provider Facility Start: 07-28-2024 End: 07-28-2024 [facility] Work Phone: Start: 07-28-2024 End: 07-28-2024 Patient encounter procedure [facility] Work Phone: Start: 06-27-2024 End: 06-27-2024 Refill Carlos L Javon DETENTION SERGEANT-CLINICAL SECRETARY Work Phone: [facility] Start: 05-22-2024 End: 05-22-2024 ambulatory Ava Dinero MD Facility:[facility] Start: 05-12-2024 End: 05-12-2024 Orders Only Carlos L Javon DETENTION SERGEANT-CLINICAL SECRETARY Work Phone: [facility] Start: 05-01-2024 End: 05-01-2024 Orders Only Carlos L Javon DETENTION SERGEANT-CLINICAL SECRETARY Work Phone: [facility] Comment on above: 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) Start: 04-28-2024 End: 04-28-2024 Office outpatient visit 15 minutes Carlos L Javon DETENTION SERGEANT-CLINICAL SECRETARY Work Phone: [facility] Comment on above: 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) Start: 04-28-2024 End: 04-28-2024 ambulatory [facility] Start: 02-05-2024 End: 02-07-2024 Refill Carlos L Javon DETENTION SERGEANT-CLINICAL SECRETARY Work Phone: [facility] Comment on above: Unspecified asthma, uncomplicated Start: 11-25-2023 End: 11-25-2023 ambulatory [facility] Start: 11-25-2023 End: 11-25-2023 Office outpatient visit 15 minutes Andreea Schreiber [facility] DETENTION SERGEANT-PLASTICS AND COMPOSITES INSPECTOR Work Phone: [facility] Comment on above: Bipolar 2 disorder, major depressive episode ([facility]) (Primary Dx); Poison eleazar dermatitis; Galactorrhea on both sides Start: 11-25-2023 End: 11-25-2023 ambulatory ANDREEA VALADEZ [facility] Start: 09-13-2023 Refill Carlos Alejandro DETENTION SERGEANT-CLINICAL SECRETARY [facility] Start: 06-18-2023 End: 06-18-2023 ambulatory CARLOS [facility] Start: 06-18-2023 End: 06-18-2023 Office outpatient visit 15 minutes Carlos Alejandro DETENTION SERGEANT-CLINICAL SECRETARY [facility] Comment on above: Non-intractable vomi ting with nausea (Primary Dx); High risk heterosexual behavior; Implantable subdermal contraceptive surveillance Start: 06-18-2023 End: 06-18-2023 ambulatory [facility] Start: 05-12-2023 End: 05-12-2023 Departed Referred WELLNESS COACH-Anastacio Castelan Work Phone: [facility] [place] Work Phone: Start: 05-12-2023 End: 05-12-2023 ambulatory Brooke Castelan [facility] Work Phone: Start: 05-12-2023 Office outpatient ne w 20 minutes Brooke Castelan [facility] Start: 08-25-2022 End: 08-26-[address] JONATHAN GARCIA Facility:[facility] Start: 04-28-2022 End: 04-29-2022 ambulatory Luis Carlos CHIKIS Facility:[facility] Start: 03-06-[address] JONATHAN GARCIA Fac ility:[facility] Start: 12-10-2021 End: 12-10-2021 ambulatory MORGAN MAURICIO . Facility:[facility] Start: 10-08-2021 End: 10-09-2021 ambulatory CARLOS ALEJANDRO Facility:[facility] Procedures Date Procedure Procedure Detail Performing Clinician Start: 04-28-2024 Follow-up visit Follow-up CARLOS ALEJANDRO Start: 04-28-2024 Adult depression screening assessment Carlos Alejandro DETENTION SERGEANT-CLINICAL SECRETARY Work Phone: Start: 11-25-2023 Urine test visual color cmprsn meths Andreea Valadez DETENTION SERGEANT-PLASTICS AND COMPOSITES INSPECTOR Work Phone: Start: 11-25-2023 Adult depression screening assessment Andreea Valadez DETENTION SERGEANT-PLASTICS AND COMPOSITES INSPECTOR Work Phone: Start: 06-18-2023 Urine test visual color cmprsn altagracias Carlos Alejandro DETENTION SERGEANT-CLINICAL SECRETARY Work Phone: Start: 06-18-2023 Adult depression screening assessment Carlos Alejandro DETENTION SERGEANT-CLINICAL SECRETARY Work Phone: Start: 05-12-2023 Piperacillin/tazobactam Brooke Annelise Other Plan of Treatment Date Care Activity Detail Author Start: 02-04-2026 DTaP,Tdap and Td Vaccines (7 - Td or Tdap) DTaP,Tdap and Td Vaccines (7 - Td or Tdap) [facility] Start: 04-28-2025 Adult BMI Screening Adult BMI Screen ing [facility] Start: 04-28-2025 Depression Screening Depression Scre ening [facility] Start: 11-24-2024 Adult BMI Screening Adult BMI Screen ing [facility] Start: 11-24-2024 Depression Screening Depression Scre ening [facility] Start: 11-24-2024 Tobacco Screening Tobacco Screening [facility] Start: 06-18-2024 Adult BMI Screening Adult BMI Screen ing [facility] Start: 06-18-2024 Depression Screening Depression Scre ening [facility] Start: 06-18-2024 Screening for Chlamy wander trachomatis Chlamydia Screening [facility] Start: 06-18-2024 Tobacco Screening Tobacco Screening [facility] Start: 02-20-2024 Adult BMI Follow Up Plan Adult BMI Follow Up Plan [facility] Comment on above: Postponed from 08/07 (Not Indicated) Start: 02-20-2024 Influenza vaccination Influenza Vacc [facility] Start: 05-12-2023 Bacteria identified in Urine by Culture [facility] Start: 02-19-2023 Influenza vaccination Influenza Vacc [facility] Start: 2021 Adult BMI Follow Up Plan Adult BMI Follow Up Plan [facility] Start: 2003 Screening for Chlamy wander trachomatis Chlamydia Screening [facility] End: 06-17-2024 Chlamydia/GC by PCR urine Chlamydia/GC by PCR urine Microbiology Routine High risk heterosexual behavior 1 Occurrences starting 06/18/2023 until 06/17/2024 [facility] Work Phone: Comment on above: 1 Occurrences starti ng 06/18/2023 until 06/17/2024 End: 06-17-2024 Trichomonas by PCR Trichomonas by PCR Microbiology Routine High risk heterosexual behavior 1 Occurrences starting 06/18/2023 until 06/17/2024 [facility] Comment on above: 1 Occurrences starti ng 06/18/2023 until 06/17/2024 Immunizations Immunization Date Immunization Notes Care Provider Cliff cervantes 06-01-2021 meningococcal oligosaccharide (groups A, C, Y and W-135) diphtheria toxoid conjugate vaccine (MCV4O) [facility] Work Phone: [facility] 01-25-2018 Human Papillomavirus 9-valent vaccine [facility] Work Phone: [facility] 10-22-2016 hepatitis A vaccine, pediatric/adolescent dosage, 2 dose schedule [facility] Work Phone: [facility] 10-22-2016 Human Papillomavirus 9-valent vaccine [facility] Work Phone: [facility] 02-05-2016 meningococcal oligosaccharide (groups A, C, Y and W-135) diphtheria toxoid conjugate vaccine (MCV4O) [facility] Work Phone: [facility] 02-05-2016 tetanus toxoid, redu lydia diphtheria toxoid, and acellular pertussis vaccine, adsorbed [facility] 01-13-2008 diphtheria, tetanus toxoids and acellular pertussis vaccine [facility] Work Phone: [facility] 01-13-2008 measles, mumps and rubella virus vaccine Carlos Alejandro [facility] Work Phone: [facility] 01-13-2008 poliovirus vaccine, inactivated Carlos Alejandro [facility] Work Phone: [facility] 01-13-2008 varicella virus vaccine Carlota Alejandro [facility] Work Phone: [facility] 03-18-2005 diphtheria, tetanus toxoids and acellular pertussis vaccine Carlos Alejandro [facility] Work Phone: [facility] 03-18-2005 pneumococcal conjuga te vaccine, 7 valent Carlos Alejandro [facility] Work Phone: [facility] 03-18-2005 varicella virus vaccine Carlota Alejandro [facility] Work Phone: [facility] 08-22-2004 haemophilus influenz ae type b vaccine, PRP-T conjugate Carlos Alejandro [facility] Work Phone: [facility] 08-22-2004 measles, mumps and rubella virus vaccine Carlos Alejandro [facility] Work Phone: [facility] 02-27-2004 DTaP-hepatitis B and poliovirus vaccine Carlos Alejandro [facility] Work Phone: [facility] 02-27-2004 haemophilus influenz ae type b vaccine, PRP-T conjugate Carlos Alejandro [facility] Work Phone: [facility] 02-27-2004 pneumococcal conjuga te vaccine, 7 valent Carlos Alejandro [facility] Work Phone: [facility] 2003 DTaP-hepatitis B and poliovirus vaccine Carlos Alejandro [facility] Work Phone: [facility] 2003 haemophilus influenz ae type b vaccine, PRP-T conjugate Carlos Alejandro [facility] Work Phone: [facility] 2003 pneumococcal conjuga te vaccine, 7 valent Carlos Alejandro [facility] Work Phone: [facility] 2003 DTaP-hepatitis B and poliovirus vaccine Carlos Alejandro [facility] Work Phone: [facility] 2003 haemophilus influenz ae type b vaccine, PRP-T conjugate Carlos Alejandro [facility] Work Phone: [facility] 2003 pneumococcal conjuga te vaccine, 7 valent Carlos Alejandro [facility] Work Phone: [facility] 2003 hepatitis B vaccine, pediatric or pediatric/adolescent dosage Carlos Alejandro [facility] Work Phone: [facility] Payers Date Payer Category Payer Managed Care Other (unspecified) [employer] [id number] 2022 Unknown 2003 Unknown [id number] 593 2003 Unknown [id number] 593 2003 Unknown [id number]. 1286 2003 Unknown [id number]. 1286 2003 Unknown [id number]. 1286 2003 Unknown [id number] [id number]. 1286 2003 Unknown [id number]. 1286 2003 Unknown [id number]. 196 1975 Unknown [id number] [id number]. 593 1975 Unknown [id number] [id number]. 593 1959 Self-pay 1959 Unknown [id number] 1959 Unknown [id number] Unknown [id number] 531 Social History Date Type Detail Facility Unknown if ever smoked [facility] Work Phone: Start: 11-25-2023 End: 04-28-2024 Sex Assigned At [facility] Start: 2005 Sex Assigned At Female [facility] Start: 05-28-2022 End: 07-28-2024 Tobacco smoking status NHIS Never smoked tobacco [facility] Start: 05-28-2022 Tobacco use and exposure Smokeless tobacco non-user [facility] Start: 06-18-2023 End: 11-25-2023 Alcoholic beverage intake Lifetime non-drinker (finding) [facility] Start: 11-25-2023 End: 04-28-2024 History of Social function [facility] How hard is it for y ou to pay for the very basics like food, housing, medical care, and heating Hard [facility] Adolescent depressio n screening assessment 0 [facility] Start: 01-24-2015 End: 07-28-2024 Sex Female (finding) [facility] Start: 10-22-2022 Gender identity Identifies as female gender (finding) [facility] Start: 10-22-2022 Sexual orientation Heterosexual (sanaz lezama) [facility] Clinical Notes 10-08-2021 to 04-28-2024 Carlos Alejandro, NAYA-CLINICAL SECRETARY - 04/28/2024 11:40 AM Cielo Valadez, NAYA-PLASTICS AND COMPOSITES INSPECTOR - 11/25/2023 10:00 AM Radha Alejandro, DETENTION SERGEANT-CLINICAL SECRETARY - 06/18/2023 12:10 PM EST Note Date & Type Note Facility 04-28-2024 History of Present illness Narrative [address] [place] [address] Patient: Mouna Castillo Date of : 2005 Encounter Date: 04/28/2024 History of Present Illness: The patient is a 18 y.o. female, an established patient, and is here for Chief Complaint Patient presents with Follow-up . HPI Patient is here for an ER follow-up. She was in the ER at the [facility] on April 26, 2024 for lower back pain as she woke up that morning with right-sided low back pain that radiated to her right buttocks and right lateral leg. A CT of her lumbar was done in the ER that showed L5/S1 disc herniation and patient was given muscle relaxants, NSAIDs, RI CE, steroids and a referral to a spine media center specialist in [place]. Today patient states the pain is much improved and she has not finished her steroid pack at in the muscle relaxant does help improve her pain. 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 She was offered physical therapy and pain management to help control the pain as well but she defer these. Surgeon may want MRI but as patient has not undergone physical therapy would be best ordered by specialist. Patient should return for wellness when due. TI GONG APRN-CNP 05/01/24 1500 documented in this encounter [facility] 11-25-2023 History of Present illness Narrative Subjective Patient ID: Mouna Castillo is a 18 y.o. female. She has been breaking out with a rash on her hands, arms, abdomen and right upper leg for one week It continues to spread She has tried benadryl and eleazar dry She had been helping a friend clear out shrubs Yesterday she noticed some left nipple discharge - it was white to yellow - today it is bilateral She uses nexplanon for control and it is up to date She is on multiple antidepressants/antipsychotics for her depression/bipolar illness- she sees Tabatha flores Trilla for this and has an apt for f/u in the next two weeks The following portions of the patient's history were reviewed and updated as appropriate: allergies, current medications, past family history, past medical history, past social history, past surgical history, problem list, and medication reconciliation was completed including current medication and post discharge medication. Review of Systems Constitutional: Negative. HENT: Negative. Eyes: Negative. Respiratory: Negative. Cardiovascular: Negative. Gastrointestinal: Negative. Endocrine: Negative. Genitourinary: Negative. Nipple discharge Musculoskeletal: Negative. Skin: Positive for rash. Allergic/Immunologic: Negative. Neurological: Negative. Hematological: Negative. Psychiatric/Behavioral: Positive for dysphoric mood. Objective Physical Exam Vitals and nursing note reviewed. Constitutional: Appearance: She is obese. HENT: Head: Normocephalic. Pulmonary: Effort: Pulmonary effort is normal. Skin: General: Skin is warm and dry. Findings: Rash (scattered patches, streaks of vesicles on an erythematous base on hands, fingers, forearms, right side of abdomen and right upper thigh) present. Neurological: Mental Status: She is alert and oriented to person, place, and time. Psychiatric: Thought Content: Thought content normal. Judgment: Judgment normal. Assessment/Plan Mouna was seen today for galactorrhea. Diagnoses and all orders for this visit: Bipolar 2 disorder, major depressive episode ([facility]) - Cancel: Prolactin level; Future - Thyroid profile includes TSH FT4; Future - Basic Metabolic Panel; Future - Prolactin level; Future Poison eleazar dermatitis - predniSONE (DELTASONE) 20 mg tablet; Take 1 tablet (20 mg total) by mouth in the morning for 7 days. Galactorrhea on both sides - POCT , urine Will treat the poison eleazar with prednisone, she may continue with the topical benadryl she is using and oral antihistamine Her U-preg was negative Will get a BMP panel and a prolactin level and a thyroid level to ensure there is no metabolic reason for her galactorrea but considering the number of antidepressants and the dose of her antipyschotics (4.5 mg of vryalar) strongly suspect that these are the cause of her galactorrea An article for education was provided If above testing is negative she is to speak with her psychiatric provider at her next apt about this issue Reassured her there is no immediate health risk [facility]ISCO Pal 11/25/23 1310 documented in this encounter [facility] 06-18-2023 History of Present illness [place] [address] Patient: Mouna Castillo Date of : 2005 [...] APRN-CNP 06/18/23 1317 documented in this encounter [facility] 05-12-2023 Evaluation note Encounter Date Diagnosis Assessment [...] and vomiting in adult (ICD-10 - R11.2) [place] Other 04-20-2022 NotePROCEDURE: XR KNEE RT 3V HISTORY: Pain in right knee , chronic anterior knee pain COMPARISON: None. FINDINGS: BONES:No fracture, acute abnormality, or significant arthropathy. SOFT TISSUES:No visible soft tissue swelling. EFFUSION:None visible. OTHER: Negative. IMPRESSION: 1. Normal examination. Electronically authenticated by: RILEY SCHUSTER Date: 2021-10-08 16:51[facility] noteNo assessment information availableMagruder Hospital Work Phone: Evaluation note* Diagnosis Herniation of intervertebral disc between L5 and S1- Primary [facility] encounter [facility] Diagnosis Herniation of intervertebral disc between L5 and S1- Primary [facility]* Diagnosis Non-intractable vomiting with nausea- Primary High risk heterosexual behavior Implantable subdermal contraceptive surveillance Surveillance of previously prescribed implantable subdermal contraceptive documented in this encounter [facility]* Diagnosis Bipolar 2 disorder, major depressive episode ([facility])- Primary Poison eleazar dermatitis Galactorrhea on both sides Galactorrhea not associated with childbirth documented in this encounter [facility]* Diagnosis Unspecified asthma, uncomplicated [facility] - Reported* Type Description Date Medical History Uncomplicated asthma, unspecifie d asthma severity Medical History ADHD Medical History Depression Medical History Anxiety [place] Other InstructionsNot on filedocumented in this encounter [facility] filedocumented in this encounter [facility]ructionsNot on filedocumented in this encounter [facility]* Attachments The following attachments cannot be sent through Care Everywhere. * Nausea and Vomiting, Adult ED ([place]) documented in this encounterPro[facility] SystemInstructionsNot on file documented in this encounterProMedica Health SystemInstructionsNot on file documented in this encounterPro[facility]ica [facility] SystemInstructionsNot on file [facility] Summary Purpose Family History Relationship Condition [...] DATE CREATED AUTHOR AUTHOR'S ORGANIZ ATION 05/17/2023 [facility] DATE CREATED AUTHOR AUTHOR'S ORGANIZ ATION 11/27/2023 [facility] DATE CREATED AUTHOR AUTHOR'S ORGANIZ ATION 04/30/2024 [facility] DATE CREATED AUTHOR AUTHOR'S ORGANIZ ATION 05/26/2024 [facility] REASON FOR VISIT (unrecogniz ed section and content) Reason Comments Follow-up Reason Comments Med Refill Reason Comments Nausea In waves x3 weeks Reason Comments Galactorrhea Poisoin eleazar Care Teams (unrecognized sec tion and content) Team Status: Inactive Member Role Status Dates Brooke Castelan NP-C Attending Provider Active [employer] Relationship Specialty Start Date End Date Carlos Alejandro APRN-CNP [address] [place] [address] PCP - General Internal Medicine 02/18/23 [employer] Relationship Specialty Start Date End Date Carlos Alejandro APRN-CNP [address] [place] [address] PCP - General Internal Medicine 02/18/23 [employer] Relationship Specialty Start Date End Date Carlos Alejandro APRN-CNP [address] [place] [address] PCP - General Internal Medicine 02/18/23 Team Status: Active Member Role Status Dates Jonathan Garcia DO Primary Care Provider Active Team Status: Inactive Member Role Status Dates Jonathan Garcia DO Primary Care Provider Active Start: July 28, 2024 End: July 28, 2024 Elvira Cochran APRN Attending Provider Active S tart: July 28, 2024 End: July 28, 2024 [employer] Relationship Specialty Start Date End Date Carlos Alejandro DETENTION SERGEANT-CLINICAL SECRETARY [address] [place] [address] PCP - General Internal Medicine 02/18/23 [employer] Relationship Specialty Start Date End Date JavonElsyCarlos Jasper DETENTION SERGEANT-CLINICAL SECRETARY [address] [place] [address] PCP - General Internal Medicine 02/18/23 [employer] Relationship Specialty Start Date End Date Carlos Alejandro DETENTION SERGEANT-CLINICAL SECRETARY [address] [place] [address] PCP - General Internal Medicine 02/18/23 [employer] Relationship Specialty Start Date End Date Elsy Alejandroiana Jasper DETENTION SERGEANT-CLINICAL SECRETARY [address] [place] [address] PCP - General Internal Medicine 02/18/23 Goals [...] BE BASED ON THE PRIMARY CLINICAL RECORDS. [facility]. provides no warranty or guarantee of the accuracy or completeness of information in this document.
--- NOTE | 2024-08-12 14:14 | ED.GENADUL1 ---
HPI HPI - General Adult General Chief complaint: Upper Respiratory Infection Stated complaint: VOMITING, COUGH, FEVER Time Seen by Provider: 08/12/24 13:47 Source: patient Mode of arrival: walk-in Limitations: no limitations History of Present Illness HPI narrative: cc = flu-like illness Patient presents with 6 days of generalized complaints which include nasal congestion, runny nose, cough, nausea, vomiting, muscle aches and fatigue, subjective low-grade fever. She has not been able to eat as she normally does and therefore has been experiencing some dizziness. She is able to take electrolyte solution by mouth without vomiting. She is also been drinking water. Her cough produces yellowish sputum. She has several family members who were ill with varying degrees of similar illness. She denied any urinary symptoms, blood in stool or urine, flank pain or focal abdominal pain. Related Data Home Medications ?Medication ?Instructions ?Recorded ?Confirmed buspirone 30 mg tablet 45 mg PO DAILY 05/10/24 07/30/24 lithium carbonate 300 mg capsule 300 mg PO DAILY 05/10/24 07/30/24 methocarbamol 750 mg tablet 750 mg PO BID PRN pain 05/10/24 07/30/24 methylphenidate HCl 20 mg tablet 30 mg PO DAILY 05/10/24 07/30/24 naloxone 4 mg/actuation nasal 4 mg intranasal Q2M 05/10/24 07/30/24 spray (Narcan) sertraline 25 mg tablet (Zoloft) 25 mg PO DAILY 05/10/24 07/30/24 amoxicillin 875 mg-potassium tab 07/30/24 clavulanate 125 mg tablet lurasidone 20 mg tablet mg 07/30/24 montelukast 10 mg tablet 10 mg PO DAILY 07/30/24 07/30/24 (Singulair) Previous Rx's ?Medication ?Instructions ?Recorded [id number]-lgatmrbzs-vbwoegvye 3.5 4 drp otic (ear) Q6H 7 days #10 mL 07/30/24 mg-10,000 unit/mL-1 % ear drops,susp ondansetron 4 mg disintegrating 4 mg PO Q6H PRN nausea and 08/12/24 tablet vomiting #20 tabs Allergies Allergy/AdvReac Type Severity Reaction Status Date / Time No Known Drug Allergies Allergy Verified 08/12/24 13:50 Opioid HPI Opioid Management Most Recent Opioid Data: Last Pain Scale 3 05/22/24 08:08 05/22/24 [facility] Medical History (Updated 08/12/24 @ 14:17 by Ty Win) Low back pain ?M54.50 - Low back pain, unspecified (ICD-10) Bipolar 1 disorder ?F31.9 - Bipolar disorder, unspecified (ICD-10) Heartburn ?R12 - Heartburn (ICD-10) Obesity ?E66.9 - Obesity, unspecified (ICD-10) ADHD ?F90.9 - Attention-deficit hyperactivity disorder, unspecified type (ICD-10) Anxiety ?F41.9 - Anxiety disorder, unspecified (ICD-10) Acid reflux ?K21.9 - Gastro-esophageal reflux disease without esophagitis (ICD-10) Asthma ?J45.909 - Unspecified asthma, uncomplicated (ICD-10) Social History Little interest or pleasure in doing things: not at all Feeling down, depressed, or hopeless: not at all Exam Narrative Exam Narrative: Nurses notes and vital signs reviewed and patient is not hypoxic. afebrile General: Well-appearing and in no apparent distress. Skin: Warm, dry, no pallor noted. No rash. Head: Normocephalic, atraumatic. Neck: Supple, non-tender. No cervical lymphadenopathy or meningismus Eye: Pupils are equal, round and EOMI. No scleral icterus. Ears, Nose, Mouth, and Throat: TM are clear, mild posterior oropharynx erythema without exudate. Mild nasal mucosal hypertrophy Oral mucosa is moist, uvula is mid-line Cardiovascular: Borderline tachycardia. Respiratory: No accessory muscle use or respiratory distress. Lungs are clear to auscultation, no wheezing, rales or rhonchi Musculoskeletal: normal ROM, no calf or popliteal tenderness, no lower extremity edema/swelling GI: Abdomen is soft, non-distended. Normal bowel sounds. No tenderness to palpation. No rebound, guarding, or rigidity noted. Neurological: A&O x4. No cranial nerve dysfunction observed. No truncal ataxia. Moves all extremities. Sensation intact. Psychiatric: Cooperative and interactive. Normal mood and affect. Constitutional Vital Signs, click to edit/add: Last Vital Signs Temp 98 F 08/12/24 13:50 Pulse 96 H 08/12/24 13:50 Resp 20 08/12/24 13:50 BP 151/93 H 08/12/24 13:50 Pulse Ox 100 08/12/24 13:50 O2 Del Method Room Air 08/12/24 13:50 Course Vital Signs Vital signs: Vital Signs Temperature 98 F 08/12/24 13:50 Pulse Rate 96 H 08/12/24 13:50 Respiratory Rate 20 08/12/24 13:50 Blood Pressure 151/93 H 08/12/24 13:50 Pulse Oximetry 100 08/12/24 13:50 Oxygen Delivery Method Room Air 08/12/24 13:50 Temperature 98 F 08/12/24 13:50 Pulse Rate 96 H 08/12/24 13:50 Respiratory Rate 20 08/12/24 13:50 Blood Pressure 151/93 H 08/12/24 13:50 Pulse Oximetry 100 08/12/24 13:50 Oxygen Delivery Method Room Air 08/12/24 13:50 Medical Decision Making MDM Narrative Medical decision making narrative: The patient presents with flulike symptoms, typical for a large number of patients we have been seeing in this emergency department since June. She presents with a constellation of symptoms such as fatigue, muscle aches, nausea and vomiting, nasal congestion and productive cough with subjective low-grade fever. She denies any chance of . She does not have sign of respiratory distress, neurological abnormality or acute cardiopulmonary collapse. She was given oral dissolvable Zofran in the emergency department and prescribed oral dissolvable Zofran to take at home. She was encouraged to increase her oral fluid intake, take Motrin and Tylenol for pain -she has not done that so far. ED return if she worsens rather than improves Discharge Plan Discharge Chief Complaint: Upper Respiratory Infection Clinical Impression: Viral infection Patient Disposition: Home, Self-Care Time of Disposition Decision: 14:17 Prescriptions / Home Meds: New ondansetron 4 mg tablet,disintegrating 4 mg PO Q6H PRN (Reason: nausea and vomiting) Qty: 20 0RF No Action buspirone 30 mg tablet 45 mg PO DAILY lithium carbonate 300 mg capsule 300 mg PO DAILY methylphenidate HCl 20 mg tablet 30 mg PO DAILY sertraline [Zoloft] 25 mg tablet 25 mg PO DAILY naloxone [Narcan] 4 mg/actuation spray,non-aerosol 4 mg intranasal Q2M Rx Instructions: spray 1 dose into ONE nostril; alternate nostrils w each dose until help arrives methocarbamol 750 mg tablet 750 mg PO BID PRN (Reason: pain) montelukast [Singulair] 10 mg tablet 10 mg PO DAILY amoxicillin-pot clavulanate 875-125 mg tablet snxqpgxg-bndehxxsb-WS 3.5-10,000-1 mg/mL-unit/mL-% drops,suspension 4 drp otic (ear) Q6H 7 Days Qty: 10 0RF lurasidone 20 mg tablet Print Language: Palestinian Instructions: Viral Syndrome (ED) Referrals: Physician,Non-Staff, MD [Primary Care Provider] - 1 week Discharge Date/Time: 08/12/24 14:27
[2024-08-12] MEDS: ONDANSETRON 4 MG RAPDIS TABLET SL (14:22)
== END 2024-08-12 14:27 | disposition home or self-care (01) ==
PROVIDERS: Emergency Provider Emergency Medicine
DX: B33.8 Other specified viral diseases (principal); R09.81 Nasal congestion; R05.9 Cough, unspecified; R11.2 Nausea with vomiting, unspecified; R53.83 Other fatigue
CPT/HCPCS: 99283; Q0162

== ENCOUNTER 2024-08-30 08:49 | Outpatient (OUT) | payer OTHER, SELFPAY ==
--- OUTSIDE RECORDS SUMMARY | 2024-08-30 09:04 | XMS_ITS | CCD ---
Author Organization [facility] Care Team Providers Care Communications Professional Name Role Phone Luis Carlos DIOP Attending [...] Brooke Castelan Unavailable MOISE Castelan Attending Provider [phone] Brooke Castelan Attending Unavailable Brooke Castelan Admitting [...] Drug Class(es) Dates Sig (Normalized) Sig (Original) [id number] 200 actuat albuterol 0.09 mg/actuat metered dose inhaler (10 sources) beta2-Adrenergic Agonist Start: 07-18-2022 take 2 puff(s) by inhalation every six hours as needed for wheezing albuterol (PROVENTIL HFA;VENTOLIN HFA) 90 mcg/actuation inhaler Indications: Mild intermittent asthma without complication INHALE 2 PUFFS EVERY 6 HOURS NEEDED FOR WHEEZING 8.5 g 1 07/18/2022 Active ProAir HFA Activ e amoxicillin 875 mg / clavulanate 125 mg oral tablet (1 source) Penicillin-class Antibacterial Start: 07-29-2024 take 1 tablet by mouth twice daily Amoxicillin-Pot Clavulanate 875-125 mg tablet Active 1 TAB PO Twice daily 10 July 29, 2024 12:00am amphetamine aspartate 1.25 mg / amphetamine sulfate [...] Active busPIRone hydrochloride 15 mg oral tablet (13 sources) Start: 07-28-2024 take 1 tablet by mouth [...] morning. Active Ciprofloxacin-Dexametha sone 0.3-0.1 % drops,suspension (2 sources) Start: Ciprofloxacin-Dexametha sone 0.3-0.1 % drops,suspension Active 4 DROPS OTIC Twice daily 7.5 7 July 28, 2024 12:00am cranberry preparation 500 mg oral capsule (6 sources) Non-Standardized Food Allergenic Extract, Non-Standardized Plant Allergenic Extract take 1 capsule by mouth in the morning cranberry 500 mg capsule Take 500 mg by mouth in the morning. Active cyclobenzaprine hydrochloride 10 mg oral tablet (7 sources) Muscle Relaxant Start: take 1 tablet [...] carbonate 300 mg extended release oral tablet (6 sources) Start: 07-28-2024 Anegam Carbon ate 300 mg tablet extended release Active MG PO July 28, 2024 12:00am take 1 capsule by mouth in the m orning lithium carbonate 300 mg capsule Take 1 capsule (300 mg total) by mouth in the morning. Active lurasidone hydrochloride 20 mg oral tablet (2 sources) Atypical Antipsychotic Start: 07-28-2024 take 1 tablet by mouth once daily Lurasidone 20 mg tablet Active 20 MG PO Daily July 28, 2024 12:00am methocarbamol 750 mg oral tablet (2 sources) Muscle Relaxant Start: 07-28-2024 take 1 tablet by mouth twice daily as needed Methocarbamol 750 mg tablet Active 750 MG PO Twice daily as needed July 28, 2024 12:00am Methylphenidate Hcl 30 mg capsule,ER biphasic 50-50 (2 sources) Start: 07-28-2024 Methylphenidate Hcl 30 mg capsule,ER biphasic 50-50 Active MG PO July 28, 2024 12:00am montelukast 10 mg oral tablet (15 sources) Leukotriene Receptor Antagonist Start: 07-28-2024 take [...] Active Singulair Active Naloxone 4 mg/actuation spray,non-aerosol (2 sources) Start: 07-28-2024 Naloxone 4 mg/actuation spray,non-aerosol Active [...] (Dose adjustment) zonisamide 50 mg oral capsule (2 sources) Anti-epileptic Agent Start: 07-28-2024 Zonisamid e 50 [...] Discontinued (Therapy completed) take 1 capsule by [facility] every twenty-four hours Vraylar 1.5 MG 1 [...] Discontinued (Therapy completed) take 1 capsule by [facility] once daily in the morning methylphenidate LA [...] completed) Start: 05-12-2023 take 1 tablet by [facility] three times daily as needed for nausea [...] Problem Date Documented Date Episodic/Chronic Anxiety disorders (10 sources) Anxiety; Translations: [Anxiety disorder, unspecified] Onset: 05-28-2022 05-28-2022 Chronic Asthma (11 sources) Mild intermittent asthma; Translations: [Mild intermittent asthma, uncomplicated] Onset: 05-28-2022 05-28-2022 Chronic Attention-deficit, conduct, and disruptive behavior disorders (10 sources) Attention deficit hyperactivity disorder; Translations: [Attention-deficit [...] Chronic Other ear and sense organ disorders (2 sources) Acute actinic otitis externa; Translations: [Acute actinic otitis externa, left ear] 07-28-2024 Episodic Other ear and sense organ disorders (2 sources) Acute otitis externa; Translations: [Unspecified acute noninfective otitis externa, unspecified ear] 07-28-2024 Episodic Other ear and sense organ disorders (1 source) Unspecified acute noninfective otitis externa, unspecified ear; Translations: [Infective otitis externa, unspecified] 07-28-2024 Episodic Personality disorders (8 sources) Borderline [...] Anion gap [Moles/Vol] 8 mmol/L Normal 5-15 [facility] Comment on above: Performed By: #### B EARL, THYR, 284-3 #### [facility] ([id number]) [address], [address] [place] [address] Calcium [Mass/Vol] 9.9 mg/dL Normal 8.5-10.5 [facility] Comment on above: Performed By: #### B EARL, THYR, 284-3 #### [facility] ([id number]) [address], [address] [place] [address] Chloride [Moles/Vol] 104 mmol/L Normal 98-109 [facility] Comment on above: Performed By: #### B EARL, THYR, 284-3 #### [facility] ([id number]) [address], [address] [place] [address] CO2 [Moles/Vol] 27 mmol/L Normal 22-32 [facility] Comment on above: Performed By: #### B EARL, THYR, 284-3 #### [facility] ([id number]) [address], [address] [place] [address] Creatinine [Mass/Vol] 0.75 mg/dL Normal 0.40-1.00 [facility] Comment on above: Result Comment: METH OD TRACEABLE TO IDMS STANDARD Performed By: #### B EARL THYR, 284-3 #### [facility] ([id number]) [address], [address] [place] [address] eGFR (CKD-EPI) NON-RACE DEPENDENT >90 Normal >59 [facility] Comment on above: Result Comment: Reported eGFR is based on the CKD-EPI 2020 equation that does not use a race coefficient. Performed By: #### B EARL, THYR, 284-3 #### [facility] ([id number]) [address], [address] [place] [address] Glucose [Mass/Vol] 95 mg/dL Normal 65-99 [facility] Comment on above: Performed By: #### B EARL, THYR, 2842-3 #### [facility] ([id number]) [address], [address] [place] [address] Potassium [Moles/Vol] 4.1 mmol/L Normal 3.5-5.0 [facility] Comment on above: Performed By: #### B MP, THYR, 2842-3 #### [facility] ([id number]) [address], [address] [place] [address] Sodium [Moles/Vol] 139 mmol/L Normal 134-146 [facility] Comment on above: Performed By: #### B EARL, THYR, 2842-3 #### [facility] ([id number]) [address], [address] [place] [address] Urea nitrogen [Mass/Vol] 6 mg/dL Normal 5-23 [facility] Comment on above: Performed By: #### B EARL, THYR, 2842-3 #### [facility] ([id number]) [address], [address] [place] [address] Basic Metabolic Panelon 06-0 Anion gap [Moles/Vol] 8 mmol/L 5 - 15 mmol/L [facility] Calcium [Mass/Vol] 9.9 mg/dL 8.5 - 10. 5 mg/dL [facility] Chloride [Moles/Vol] 104 mmol/L 98 - 10 9 mmol/L [facility] CO2 [Moles/Vol] 27 mmol/L 22 - 32 mmol/L [facility] Creatinine [Mass/Vol] 0.75 mg/dL 0.40 - 1.00 mg/dL [facility] Comment on above: METHOD TRACEABLE TO IDMS STANDARD eGFR (CKD-EPI)non-race dependent - PINF [facility] Comment on above: Reported eGFR is based on the CKD-EPI 2020 equation that does not use a race coefficient. Glucose [Mass/Vol] 95 mg/dL 65 - 99 mg/dL [facility] Potassium [Moles/Vol] 4.1 mmol/L 3.5 - 5.0 mmol/L [facility] Sodium [Moles/Vol] 139 mmol/L 134 - 146 mmol/L [facility] Urea nitrogen [Mass/Vol] 6 mg/dL 5 - 23 mg/dL [facility] No Panel Informationon 11-24 [facility] POCT , urineon Beta HCG ( test) Ql (U) Negative [facility] Internal Embroidery Cutter Check Completed and Passed Yes [facility] Prolactinon 11-25-2023 Prolactin [Mass/Vol] 25.4 ng/mL 3.3 - 2 6.7 ng/mL [facility] Prolactin [Mass/Vol]on 11-24 [facility] PROLACTIN 25.4 ng/mL Normal 3.3-26.7 [facility] Comment on above: Performed By: #### B MP, THYR, 2842-3 #### [facility] ([id number]) [address], [address] [place] [address] THYROID PROFILEon 11-25-2023 Free T4 [Mass/Vol] 0.72 ng/dL Normal 0.61-1.60 [facility] Comment on above: Performed By: #### B MP, THYR, 2842-3 #### [facility] ([id number]) [address], [address] [place] [address] TSH 1.37 uIU/mL Normal 0.49-4.67 [facility] Comment on above: Performed By: #### B MP, THYR, 2842-3 #### [facility] ([id number]) [address], [address] [place] [address] Thyroid profile includes TSH FT4on 11-25-2023 Free T4 [Mass/Vol] 0.72 ng/dL 0.61 - 1. 60 ng/dL [facility] TSH Qn 1.37 m[IU]/L [facility] CHLAMYDIA/GC PCR, Uon 2022 CHLAMYDIA/GC [...] are dependent on adequate specimen collection. Normal [facility] Comment on above: Performed By: #### C #### [facility] ([id number]) [address] [place] [address] POCT , urineon 05-22 Beta HCG ( test) Ql (U) Negative [facility] Internal Embroidery Cutter Check Completed and Passed Yes [facility] Interpretation and review of laboratory results Normal [facility] TRICHOMONAS PCRon 06-18-2023 TRICHOMONAS PCR SPECIMEN SOURCE CLEAN CATCH MIDSTREAM URINE TRICHOMONAS PCR Not detected (qualifier value) Trichomonas vaginalis not detected NOTE Assay methodology is nucleic acid amplification by real-time PCR for detection of Trichomonas vaginalis DNA performed on [employer] GeneXpert Instrument System. Normal [facility] Comment on above: Performed By: #### T RKPCR #### [facility] ([id number]) [address] [place] [address] COVID + FLU Quick Testingon 05-12-2023 SARS-CoV-2 (COVID-19) RNA CRISTAL+probe Ql (Unsp spec) Negative [employer] Other COVID + FLU Quick Testing Negative [employer] Other Urinalysis - AUTOMATEDon Appearance (U) cloudy [employer] Other Bilirubin Ql (U) Negative [employer] Other Color (U) dark yellow [employer] Other Glucose Ql (U) Negative [employer] Other Hemoglobin Ql (U) small [employer] Other Ketones Ql (U) Negative [employer] Other Leukocyte esterase Test strip Ql (U) trace [employer] Other Nitrite Ql (U) Negative [employer] Other pH (U) 6.5 [pH] [employer] Other Protein Ql (U) 100 [employer] Other Specific gravity (U) [Rel density] 1.030 [employer] Other Urobilinogen (U) [Mass/Vol] 1.0 mg/dL [employer] Other Urinalysis - AUTOMATED [employer] Other Urine Cultureon 05-12-2023 Bacteria identified Cx Nom (U) Reason for Exam Dysuria Urine ORGANISM: Escherichia coli (O:ESCCOL) [place] Count >100,000 Aerobic JACIEL Charge (NMIC56) ------ [...] RESISTANT TO ALL B-LACTAM DRUGS. PERFORMED BY: [place] [address] PATHOLOGIST [employer]ER MATTHEW CHAIDEZ M.D. [facility] Comment on above: Performed By: #### C UU #### [address] Urine Culture >100,000 [employer] Other Urine Culture <16 Susceptible [employer] Other Urine Culture <8/4 Susceptible [employer] Other Urine Culture >16 Resistant [employer] Other Urine Culture <4 Susceptible [employer] Other Urine Culture <2 Susceptible [employer] Other Urine Culture <1 Susceptible [employer] Other Urine Culture <0.25 Susceptible [employer] Other Urine Culture <0.5 Susceptible [employer] Other Urine Culture <32 Susceptible [employer] Other Urine Culture <0.5/9.5 Susceptible [employer] Other CBC AUTO DIFFon 08-25-2022 BASO # 0.0 103/ul Normal 0.0-0.1 [facility] Comment on above: Performed By: #### C BC #### [facility] [address] [place] [address] Dr. Oneal Capps Basophils/100 WBC (Bld) 0.4 % Normal 0.2-2.0 [facility] Comment on above: Performed By: #### C BC #### [facility] [address] [place] [address] Dr. Oneal Capps EO # 0.2 103/ul Normal 0.0-0.7 [facility] Comment on above: Performed By: #### C BC #### [facility] [address] [place] [address] Dr. Oneal Capps Eosinophils/100 WBC (Bld) 2.2 % Normal 0.9-7.0 [facility] Comment on above: Performed By: #### C BC #### [facility] [address] [place] [address] Dr. Oneal Capps Erythrocyte distribution width (RBC) [Ratio] 12.5 % Normal 11.0-15.0 [facility] Comment on above: Performed By: #### C BC #### [facility] [address] [place] [address] Dr. Oneal Capps Hematocrit (Bld) [Volume fraction] 37.1 % Normal 36.0-48.0 [facility] Comment on above: Performed By: #### C BC #### [facility] [address] [place] [address] Dr. Oneal Capps Hemoglobin (Bld) [Mass/Vol] 12.5 g/dL Normal 12.0-16.0 [facility] Comment on above: Performed By: #### C BC #### [facility] [address] [place] [address] Dr. Oneal Capps IG # 0.05 10e3/ul Critically high 0.00-0.03 [facility] Comment on above: Performed By: #### C BC #### [facility] [address] [place] [address] Dr. Oneal Capps IG % 0.5 % Normal 0.0-0.5 [facility] Comment on above: Performed By: #### C BC #### [facility] [address] [place] [address] Dr. Oneal Capps LYMPH # 1.6 103/ul Normal 1.2-3.8 [facility] Comment on above: Performed By: #### C BC #### [facility] [address] [place] [address] Dr. Oneal Capps Lymphocytes/100 WBC (Bld) 16.9 % Critically low 20.5-60.0 [facility] Comment on above: Performed By: #### C BC #### [facility] [address] [place] [address] Dr. Oneal Capps MANUAL DIFF REQ NO Normal [facility] Comment on above: Performed By: #### C BC #### [facility] [address] [place] [address] Dr. Oneal Capps MCH (RBC) [Entitic mass] 29.8 pg Normal 26.7-34.0 [facility] Comment on above: Performed By: #### C BC #### [facility] [address] [place] [address] Dr. Oneal Capps MCHC (RBC) [Mass/Vol] 33.7 g/dL Normal 29.9-35.2 [facility] Comment on above: Performed By: #### C BC #### [facility] [address] [place] [address] Dr. Oneal Capps MCV (RBC) [Entitic vol] 88.5 fL Normal 81.0-99.0 [facility] Comment on above: Performed By: #### C BC #### [facility] [address] [place] [address] Dr. Oneal Capps MONO # 0.7 103/ul Normal 0.3-0.8 [facility] Comment on above: Performed By: #### C BC #### [facility] [address] [place] [address] Dr. Oneal Capps Monocytes/100 WBC (Bld) 6.9 % Normal 1.7-12.0 [facility] Comment on above: Performed By: #### C BC #### [facility] [address] [place] [address] Dr. Oneal Capps NEUT # 6.9 103/ul Critically high 1.4-6.5 [facility] Comment on above: Performed By: #### C BC #### [facility] [address] [place] [address] Dr. Oneal Capps Neutrophils/100 WBC (Bld) 73.1 % Normal 43.0-75.0 [facility] Comment on above: Performed By: #### C BC #### [facility] [address] [place] [address] Dr. Oneal Capps Platelet mean volume (Bld) [Entitic vol] 10.8 fL Normal 9.5-13.5 [facility] Comment on above: Performed By: #### C BC #### [facility] [address] [place] [address] Dr. Oneal Capps PLT 234 103/ul Normal 150-450 [facility] Comment on above: Performed By: #### C BC #### [facility] [address] [place] [address] Dr. Oneal Capps RBC 4.19 106/ul Critically low 4.20-5.40 [facility] Comment on above: Performed By: #### C BC #### [facility] [address] [place] [address] Dr. Oneal Capps WBC 9.4 103/ul Normal 4.0-11.0 [facility] Comment on above: Performed By: #### C BC #### [facility] [address] [place] [address] Dr. Oneal Capps FERRITINon 08-25-2022 Ferritin [Mass/Vol] 62.0 ng/mL Normal 6.2-137.0 [facility] Comment on above: Performed By: #### V ITAD, FT4, FETIBC, FERR, VITB12 #### [facility] [address] [place] [address] Dr. Oneal Capps FREE T3on 08-25-2022 FREE T3 2.98 pg/mlL Normal 2.91-4.70 [facility] Comment on above: Performed By: #### V ITAD, FT4, FETIBC, FERR, VITB12 #### [facility] [address] [place] [address] Dr. Oneal Capps FREE T4on 08-25-2022 Free T4 [Mass/Vol] 0.63 ng/dL Critically low 0.78-1.34 [facility] Comment on above: Performed By: #### V ITAD, FT4, FETIBC, FERR, VITB12 #### [facility] [address] [place] [address] Dr. Oneal Capps GLYCOHEMOGLOBIN A1Con 2022 ADA RECOMMENDATION SEE BELOW Normal [facility] Comment on above: Result Comment: ADA RECOMMENDED LIMIT 4.0 - 6.0 ADA THERAPEUTIC TARGET < 7.0 ACTION SUGGESTED > 7.0 Performed By: #### A 1C #### [facility] [address] [place] [address] Dr. Oneal Capps Glucose [Mass/Vol] 111 mg/dL Normal [facility] Comment on above: Performed By: #### A 1C #### [facility] [address] [place] [address] Dr. Oneal Capps HbA1c (Bld) [Mass fraction] 5.5 % Normal 4.5-6.2 [facility] Comment on above: Performed By: #### A 1C #### [facility] [address] [place] [address] Dr. Oneal Capps IRON AND TIBCon 08-25-2022 % SATURATION 31.6 % Normal [facility] Comment on above: Performed By: #### V ITAD, FT4, FETIBC, FERR, VITB12 #### [facility] [address] [place] [address] Dr. Oneal Capps Iron [Mass/Vol] 109.0 ug/dL Normal 50.0-170.0 [facility] Comment on above: Performed By: #### V ITAD, FT4, FETIBC, FERR, VITB12 #### [facility] [address] [place] [address] Dr. Oneal Capps TIBC DIRECT 345.0 ug/dL Normal 250.0-450.0 [facility] Comment on above: Performed By: #### V ITAD, FT4, FETIBC, FERR, VITB12 #### [facility] [address] [address] [address] Oneal Capps LIPID PROFILEon 08-25-2022 CHOL-HDL RATIO NORM SEE BELOW Normal [facility] Comment on above: Result Comment: 3.3 - 4.4 LOW RISK 4.4 - 7.1 AVERAGE RISK 7.1 - 11.0 MODERATE RISK >11.0 HIGH RISK Performed By: #### L IPID, TSH, FT3, CMP #### [facility] [address] [place] [address] Dr. Oneal Capps Cholesterol [Mass/Vol] 251 mg/dL Critically high 104-227 [facility] Comment on above: Performed By: #### L IPID, TSH, FT3, CMP #### [facility] [address] [place] [address] Dr. Oneal Capps Cholesterol in HDL [Mass/Vol] 64 mg/dL Normal 29-69 [facility] Comment on above: Performed By: #### L IPID, TSH, FT3, CMP #### [facility] [address] [address] [address] Oneal Capps Cholesterol in LDL [Mass/Vol] 169.4 mg/dL Critically high 46.0-140.0 [facility] Comment on above: Performed By: #### L IPID, TSH, FT3, CMP #### [facility] [address] [place] [address] Dr. Oneal Capps Cholesterol.total/Ch olesterol in HDL [Mass ratio] 3.9 {ratio} Normal [facility] Comment on above: Performed By: #### L IPID, TSH, FT3, CMP #### [facility] [address] [place] [address] Dr. Oneal Capps HDL NORMAL > or = 60 mg/dl - LOW CARDIOVASCULAR RISK <40 mg/dl - HIGH CARDIOVASCULAR RISK Normal [facility] Comment on above: Performed By: #### L IPID, TSH, FT3, CMP #### [facility] [address] [address] [address] Oneal Capps LDL CALC NORMAL SEE BELOW Normal [facility] Comment on above: Result Comment: <100 mg/dl OPTIMAL 100 - 129 mg/dl NEAR OR ABOVE OPTIMAL 130 - 159 mg/dl BORDERLINE HIGH 160 - 189 mg/dl HIGH >190 mg/dl VERY HIGH Performed By: #### L IPID, TSH, FT3, CMP #### [facility] [address] [address] [address] Oneal Capps Triglyceride [Mass/Vol] 88 mg/dL Normal 53-208 [facility] Comment on above: Performed By: #### L IPID, TSH, FT3, CMP #### [facility] [address] [address] [address] Oneal Capps VLDL CALC 17.6 mg/dL Normal [facility] Comment on above: Performed By: #### L IPID, TSH, FT3, CMP #### [facility] [address] [place] [address] Dr. Oneal Capps PROF 14(COMP METB)on 023 Albumin [Mass/Vol] 3.9 g/dL Normal 3.4-5.0 [facility] Comment on above: Performed By: #### L IPID, TSH, FT3, CMP #### [facility] [address] [place] [address] Dr. Oneal Capps Albumin/Globulin [Mass ratio] 1.0 {ratio} Normal [facility] Comment on above: Performed By: #### L IPID, TSH, FT3, CMP #### [facility] [address] [place] [address] Dr. Oneal Capps ALP [Catalytic activity/Vol] 96 U/L Normal 46-116 [facility] Comment on above: Performed By: #### L IPID, TSH, FT3, CMP #### [facility] [address] [place] [address] Dr. Oneal Capps ALT [Catalytic activity/Vol] 30 U/L Normal 14-59 [facility] Comment on above: Performed By: #### L IPID, TSH, FT3, CMP #### [facility] [address] [place] [address] Dr. Oneal Capps Anion gap [Moles/Vol] 11.2 mmol/L Normal [facility] Comment on above: Performed By: #### L IPID, TSH, FT3, CMP #### [facility] [address] [place] [address] Dr. Oneal Capps AST [Catalytic activity/Vol] 26 U/L Normal 15-37 [facility] Comment on above: Performed By: #### L IPID, TSH, FT3, CMP #### [facility] [address] [place] [address] Dr. Oneal Capps Bilirubin [Mass/Vol] 0.6 mg/dL Normal 0.2-1.0 [facility] Comment on above: Performed By: #### L IPID, TSH, FT3, CMP #### [facility] [address] [place] [address] Dr. Oneal Capps Calcium [Mass/Vol] 9.0 mg/dL Normal 8.5-10.1 [facility] Comment on above: Performed By: #### L IPID, TSH, FT3, CMP #### [facility] [address] [place] [address] Dr. Oneal Capps Chloride [Moles/Vol] 103 mmol/L Normal 98-107 [facility] Comment on above: Performed By: #### L IPID, TSH, FT3, CMP #### [facility] [address] [place] [address] Dr. Oneal Capps CO2 [Moles/Vol] 29.0 mmol/L Normal 21.0-32.0 [facility] Comment on above: Performed By: #### L IPID, TSH, FT3, CMP #### [facility] [address] [place] [address] Dr. Oneal Capps Creatinine [Mass/Vol] 0.56 mg/dL Normal 0.55-1.02 [facility] Comment on above: Performed By: #### L IPID, TSH, FT3, CMP #### [facility] [address] [place] [address] Dr. Oneal Capps EGFR-AF CITIZ[place] >60 Normal >=60 [facility] Comment on above: Performed By: #### L IPID, TSH, FT3, CMP #### [facility] [address] [address] [address] Oneal Capps EGFR-NON AF CITIZEN OF [place] >60 Normal >=60 [facility] Comment on above: Performed By: #### L IPID, TSH, FT3, CMP #### [facility] [address] [address] [address] Oneal Capps Globulin (S) [Mass/Vol] 4.0 g/dL Normal [facility] Comment on above: Performed By: #### L IPID, TSH, FT3, CMP #### [facility] [address] [place] [address] Dr. Oneal Capps Glucose [Mass/Vol] 93 mg/dL Normal 74-106 [facility] Comment on above: Performed By: #### L IPID, TSH, FT3, CMP #### [facility] [address] [place] [address] Dr. Oneal Capps Potassium [Moles/Vol] 4.2 mmol/L Normal 3.5-5.1 [facility] Comment on above: Performed By: #### L IPID, TSH, FT3, CMP #### [facility] [address] [place] [address] Dr. Oneal Capps Protein [Mass/Vol] 7.9 g/dL Normal 6.4-8.2 [facility] Comment on above: Performed By: #### L IPID, TSH, FT3, CMP #### [facility] [address] [place] [address] Dr. Oneal Capps Sodium [Moles/Vol] 139 mmol/L Normal 136-145 [facility] Comment on above: Performed By: #### L IPID, TSH, FT3, CMP #### [facility] [address] [place] [address] Dr. Oneal Capps Urea nitrogen [Mass/Vol] 7.0 mg/dL Normal 6.4-19.3 [facility] Comment on above: Performed By: #### L IPID, TSH, FT3, CMP #### [facility] [address] [place] [address] Dr. Oneal Capps Urea nitrogen/Creatinine [Mass ratio] 12.5 mg/mg Normal [facility] Comment on above: Performed By: #### L IPID, TSH, FT3, CMP #### [facility] [address] [place] [address] Dr. Oneal Capps TSHon 08-25-2022 TSH 2.032 uIU/mL Normal 0.516-4.130 [facility] Comment on above: Performed By: #### V ITAD, FT4, FETIBC, FERR, VITB12 #### [facility] [address] [place] [address] Dr. Oneal Capps VITAMIN B12on 08-25-2022 Cobalamin (Vitamin B12) [Mass/Vol] 620.0 pg/mL Normal 193.0-986.0 [facility] Comment on above: Performed By: #### V ITAD, FT4, FETIBC, FERR, VITB12 #### [facility] [address] [place] [address] Dr. Oneal Capps VITAMIN D 25 OHon 08-25-2022 VIT D 25-OH 47.8 ng/mL Normal [facility] Comment on above: Performed By: #### V ITAD, FT4, FETIBC, FERR, VITB12 #### [facility] [address] [place] [address] Dr. Oneal Capps VIT D RANGES SEE BELOW Normal [facility] Comment on above: Result Comment: <20 ng/mL Vit D deficient 20 - <30 ng/mL Vit D insufficient 30 - 100 ng/mL Vit D sufficient >100 ng/mL Potential Toxicity Performed By: #### V ITAD, FT4, FETIBC, FERR, VITB12 #### [facility] [address] [place] [address] Dr. Oneal Capps Consenton 04-28-2022 Consent [id number]:127 Normal [facility] Registrationon 04-28-2022 Registration [id number]:127 Normal [facility] IRON, TIBC AND FERRITIN MADIHA Moon 02-11-2022 % SATURATION 32 % (calc) Normal 15-45 [facility] Comment on above: Order Comment: FASTI NG:NO FASTING: NO Performed By: #### 5 616, [id number] #### [facility] [address], [address] [place] [address] Slab Polisher: Alberto Davis MD Ferritin [Mass/Vol] 39 ng/mL Normal 6-67 [facility] Comment on above: Order Comment: FASTI NG:NO FASTING: NO Performed By: #### 5 616, [id number] #### [facility] [address] [address] Slab Polisher: Alberto Davis MD IRON BINDING CAPACITY 346 mcg/dL (calc) Normal 271-448 [facility] Comment on above: Order Comment: FASTI NG:NO FASTING: NO Performed By: #### 5 616, [id number] #### [facility] [address] [address] Slab Polisher: Alberto Davis MD IRON, TOTAL 112 mcg/dL Normal 27-164 [facility] Comment on above: Order Comment: FASTI NG:NO FASTING: NO Performed By: #### 5 616, [id number] #### [facility] [address] [place] [address] Slab Polisher: Alberto Davis MD VITAMIN D,25-OH,TOTAL,IAon 0 02-11-2022 [...] D, (D2,D3), LC/MS/MS is recommended: order code [id number] (patients >2yrs). See Note 1 Note 1 For additional information, please refer to http://education.[email or web address]/faq/[email or web address] (This link is being provided for informational/ educational purposes only.) Performed By: #### 5 616, [id number] #### [facility] [address], [address] [place] [address] Slab Polisher: Alberto Davis MD IRON, TIBC AND FERRITIN PANE [facility] 05-23-2021 % SATURATION 7 % (calc) Low 15-45 [facility] Comment on above: Performed By: #### 5 616 #### [facility] [address] [place] [address] Slab Polisher: Alberto Davis MD Ferritin [Mass/Vol] 5 ng/mL Low 6-67 [facility] Comment on above: Performed By: #### 5 616 #### [facility] [address] [place] [address] Slab Polisher: Alberto Davis MD IRON BINDING CAPACITY 501 mcg/dL (calc) High 271-448 [facility] Comment on above: Performed By: #### 5 616 #### [facility] [address] [place] [address] Slab Polisher: Alberto Davis MD IRON, TOTAL 36 mcg/dL Normal 27-164 [facility] Comment on above: Performed By: #### 5 616 #### [facility] [address] [place] [address] Slab Polisher: Alberto Davis MD Vital Signs Date Time Vital Sign Value Performing Clinician Facility 08-12-2024 13:20-0500 Body height 165.1 cm [facility] 08-12-2024 13:20-0500 Body mass index (BMI) [Ratio] 30.8 kg/m2 [facility] 08-12-2024 13:20-0500 Body temperature 96.5 [degF] [facility] 08-12-2024 13:20-0500 Body weight 83.97 kg [facility] 08-12-2024 13:20-0500 Diastolic blood pressure 110 mm[Hg] [facility] 08-12-2024 13:20-0500 Heart rate 86 /min [facility] 08-12-2024 13:20-0500 SaO2% (BldA) [Mass fraction] 99 % [facility] 08-12-2024 13:20-0500 Systolic blood pressure 128 mm[Hg] [facility] 07-28-2024 11:54-0500 Body height 165.1 cm [facility] 07-28-2024 11:54-0500 Body mass index (BMI) [Ratio] 31.6 kg/m2 [facility] 07-28-2024 11:54-0500 Body temperature 98 [degF] [facility] 07-28-2024 11:54-0500 Body weight 86.18 kg [facility] 07-28-2024 11:54-0500 Diastolic blood pressure 78 mm[Hg] [facility] 07-28-2024 11:54-0500 Heart rate 68 /min [facility] 07-28-2024 11:54-0500 Respiratory rate 18 /min [facility] 07-28-2024 11:54-0500 SaO2% (BldA) [Mass fraction] 98 % [facility] 07-28-2024 11:54-0500 Systolic blood pressure 124 mm[Hg] [facility] 04-28-2024 12:02-0500 Body mass index (BMI) [Ratio] 31.42 kg/m2 Carlos Alejandro [employer] Work Phone: [facility] 04-28-2024 12:02-0500 Body temperature 98.1 [degF] Carlos Alejandro [employer] Work Phone: [facility] [employer] [facility] 04-28-2024 12:02-0500 Body weight 85.64 kg Carlos Alejandro [employer] Work Phone: [facility] 04-28-2024 12:02-0500 Diastolic blood pressure 72 mm[Hg] Carlos Alejandro [employer] Work Phone: [facility] 04-28-2024 12:02-0500 Heart rate 86 /min Carlos Alejandro [employer] Work Phone: [facility] 04-28-2024 12:02-0500 SaO2% (BldA) [Mass fraction] 97 % Carlos Alejandro [employer] Work Phone: [facility] 04-28-2024 12:02-0500 Systolic blood pressure 112 mm[Hg] Carlos Alejandro [employer] Work Phone: [facility] 11-25-2023 09:54-0400 Body height 165.1 cm Andreea Valadez [employer] Work Phone: [facility] 11-25-2023 09:54-0400 Body mass index (BMI) [Ratio] 29.95 kg/m2 Andreea Valadez [employer] Work Phone: [facility] 11-25-2023 09:54-0400 Body temperature 97.3 [degF] Andreea Valadez [employer] Work Phone: [facility] 11-25-2023 09:54-0400 Body weight 81.65 kg Andreea Valadez [employer] Work Phone: [facility] 11-25-2023 09:54-0400 Diastolic blood pressure 80 mm[Hg] Andreea Valadez [employer] Work Phone: [facility] 11-25-2023 09:54-0400 Heart rate 77 /min Andreea Valadez [employer] Work Phone: [facility] 11-25-2023 09:54-0400 Respiratory rate 12 /min Andreea Valadez [employer] Work Phone: [facility] 11-25-2023 09:54-0400 SaO2% (BldA) [Mass fraction] 98 % Andreea Valadez [employer] Work Phone: [facility] [employer] [facility] 11-25-2023 09:54-0400 Systolic blood pressure 110 mm[Hg] Andreea Valadez [employer] Work Phone: [facility] [employer] [facility] 06-18-2023 12:03-0500 Body height 165.1 cm Carlos Alejandro [employer] Work Phone: [facility] [employer] [facility] 06-18-2023 12:03-0500 Body mass index (BMI) [Ratio] 29.95 kg/m2 Carlosnguyễn Alejandro [employer] Work Phone: [facility] [employer] [facility] 06-18-2023 12:03-0500 Body temperature 98.29 [degF] Carlos Alejandro [employer] Work Phone: [facility] [employer] [facility] 06-18-2023 12:03-0500 Body weight 81.65 kg Carlosnguyễn Alejandro [employer] Work Phone: [facility] [employer] [facility] 06-18-2023 12:03-0500 Diastolic blood pressure 85 mm[Hg] Carlos Alejandro [employer] Work Phone: [facility] [employer] [facility] 06-18-2023 12:03-0500 Heart rate 72 /min Carlosnguyễn Alejandro [employer] Work Phone: [facility] [employer] [facility] 06-18-2023 12:03-0500 SaO2% (BldA) [Mass fraction] 98 % Carlosnguyễn Alejandro [employer] [facility] 06-18-2023 12:03-0500 Systolic blood pressure 121 mm[Hg] Carlos Alejandro [employer] Work Phone: [facility] [employer] [facility] 05-12-2023 15:30-0500 Body height 165.1 cm Brooke Castelan Other [employer] Other 05-12-2023 15:30-0500 Body mass index (BMI) [Ratio] 30.95 kg/m2 Brooke Castelan Other [employer] Other 05-12-2023 15:30-0500 Body temperature 98.3 [degF] Brooke Castelan Other [employer] Other 05-12-2023 15:30-0500 Body weight 84.37 kg Brooke Castelan Other [employer] Other 05-12-2023 15:30-0500 Respiratory rate 19 /min Brooke Castelan Other [employer] Other 05-12-2023 15:30-0500 SaO2% (BldA) [Mass fraction] 98 % Brooke Castelan Other [employer] Other Encounters Encounter Date Encounter Type Care Provider Facility Start: 08-12-2024 End: 08-12-2024 ambulatory [facility] Work Phone: Start: 08-12-2024 End: 08-12-2024 Patient encounter procedure [facility]ly [facility] Work Phone: Start: 07-28-2024 End: 07-28-2024 ambulatory [facility] Work Phone: Start: 07-28-2024 End: 07-28-2024 Patient encounter procedure Formerly [facility] Work Phone: Start: 06-27-2024 End: 06-27-2024 Refill Carlos Alejandro [employer] Work Phone: [facility] Start: 05-22-2024 End: 05-22-2024 ambulatory Ava Dinero MD Facility: [facility] Start: 05-12-2024 End: 05-12-2024 Orders Only Carlos L Ajvon [employer] Work Phone: [facility] Start: 05-01-2024 End: 05-01-2024 Orders Only Carlos L Javon [employer] Work Phone: [facility] Comment on above: 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) Start: 04-28-2024 End: 04-28-2024 Office outpatient visit 15 minutes Carlos L Javon [employer] Work Phone: [facility] Comment on above: 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) Start: 04-28-2024 End: 04-28-[address] [facility] Start: 02-05-2024 End: 02-07-2024 Refill Carlos L Javon [employer] Work Phone: [facility] Comment on above: Unspecified asthma, uncomplicated Start: 11-25-2023 End: 11-25-2023 ambulatory [facility] Start: 11-25-2023 End: 11-25-2023 Office outpatient visit 15 minutes Andreea Valadez [employer] Work Phone: [facility] Comment on above: Bipolar 2 disorder, major depressive episode ([facility]) (Primary Dx); Poison eleazar dermatitis; Galactorrhea on both sides Start: 11-25-2023 End: 11-25-2023 ambulatory [facility] Start: 09-13-2023 Refill Carlos L Javon [employer] Work Phone: [facility] Start: 06-18-2023 End: 06-18-2023 ambulatory [facility] Start: 06-18-2023 End: 06-18-2023 Office outpatient visit 15 minutes Carlos Alejandro [employer] Work Phone: [facility] Comment on above: Non-intractable vomi ting with nausea (Primary Dx); High risk heterosexual behavior; Implantable subdermal contraceptive surveillance Start: 06-18-2023 End: 06-18-2023 ambulatory CARLOS ALEJANDRO [facility] Start: 05-12-2023 End: 05-12-2023 Departed [facility] [employer]ACHIN[employer] Brooke Castelan Work Phone: [facility] Work Phone: Start: 05-12-2023 End: 05-12-2023 ambulatory Brooke Castelan [facility] Work Phone: Start: 05-12-2023 Office outpatient ne w 20 minutes Brooke Castelan [facility] Start: 08-25-2022 End: 08-26-[address] JONATHAN GARCIA Facility:[facility] Start: 04-28-2022 End: 04-29-2022 ambulatory Luis Carlos ALMOND Facility:[facility] Start: 03-06-[address] JONATHAN GARCIA Fac ility:[facility] Start: 12-10-2021 End: 12-10-2021 ambulatory MORGAN MAURICIO . Facility:[facility] Start: 10-08-2021 End: 10-09-2021 ambulatory CARLOSNGUYỄN ALEJANDRO Facility: Procedures Date Procedure Procedure Detail Performing Clinician Start: 04-28-2024 Follow-up visit Follow-up CARLOS Jasper ALEJANDRO Start: 04-28-2024 Adult depression screening assessment Carlos Alejandro [employer] Work Phone: Start: 11-25-2023 Urine test visual color cmprsn meths Andreea Valadez [employer] Work Phone: Start: 11-25-2023 Adult depression screening assessment Andreea Valadez [employer] Work Phone: Start: 06-18-2023 Urine test visual color cmprsn meths Carlos Alejandro [employer] Work Phone: Start: 06-18-2023 Adult depression screening assessment Carlos Alejandro [employer] Work Phone: Start: 05-12-2023 Piperacillin/tazobactam Brooke Castelan Other Plan of Treatment Date Care Activity Detail Author Start: 02-04-2026 DTaP,Tdap and Td Vaccines (7 - Td or Tdap) DTaP,Tdap and Td Vaccines (7 - Td or Tdap) [facility] Start: 04-28-2025 Adult BMI Screening Adult BMI Screen ing [facility] Start: 04-28-2025 Depression Screening Depression Scre ening [facility] Start: 11-24-2024 Adult BMI Screening Adult BMI Screen ing [facility] Start: 11-24-2024 Depression Screening Depression Scre ening [facility] Start: 11-24-2024 Tobacco Screening Tobacco Screening [facility] Start: 06-18-2024 Adult BMI Screening Adult BMI Screen ing [facility] Start: 06-18-2024 Depression Screening Depression Scre ening [facility] Start: 06-18-2024 Screening for Chlamy wander trachomatis Chlamydia Screening [facility] Start: 06-18-2024 Tobacco Screening Tobacco Screening [facility] Start: 02-20-2024 Adult BMI Follow Up Plan Adult BMI Follow Up Plan [facility] Comment on above: Postponed from 08/07 (Not Indicated) Start: 02-20-2024 Influenza vaccination Influenza Vacc [facility] Start: 05-12-2023 Bacteria identified in Urine by Culture [facility] Start: 02-19-2023 Influenza vaccination Influenza Vacc [facility] Start: 2021 Adult BMI Follow Up Plan Adult BMI Follow Up Plan [facility] Start: 2003 Screening for Chlamy wander trachomatis Chlamydia Screening [facility] End: 06-17-2024 Chlamydia/GC by PCR urine Chlamydia/GC by PCR urine Microbiology Routine High risk heterosexual behavior 1 Occurrences starting 06/18/2023 until 06/17/2024 [facility] Work Phone: Comment on above: 1 Occurrences starti ng 06/18/2023 until 06/17/2024 End: 06-17-2024 Trichomonas by PCR Trichomonas by PCR Microbiology Routine High risk heterosexual behavior 1 Occurrences starting 06/18/2023 until 06/17/2024 [facility] Comment on above: 1 Occurrences starti ng 06/18/2023 until 06/17/2024 Immunizations Immunization Date Immunization Notes Care Provider Fa helen 06-01-2021 meningococcal oligosaccharide (groups A, C, Y and W-135) diphtheria toxoid conjugate vaccine (MCV4O) Carlos Alejandro [facility] Work Phone: [facility] 01-25-2018 Human Papillomavirus 9-valent vaccine [facility] Work Phone: [facility] 10-22-2016 hepatitis A vaccine, pediatric/adolescent dosage, 2 dose schedule Carlos Javon [facility] Work Phone: [facility] 10-22-2016 Human Papillomavirus 9-valent vaccine [facility] Work Phone: [facility] 02-05-2016 meningococcal oligosaccharide (groups A, C, Y and W-135) diphtheria toxoid conjugate vaccine (MCV4O) Carlos Javon [employer] Work Phone: [facility] 02-05-2016 tetanus toxoid, redu lydia diphtheria toxoid, and acellular pertussis vaccine, adsorbed Carlos [facility] Work Phone: [facility] 01-13-2008 diphtheria, tetanus toxoids and acellular pertussis vaccine Carlos [facility] Work Phone: [facility] 01-13-2008 measles, mumps and rubella virus vaccine Carlos [facility] Work Phone: [facility] 01-13-2008 poliovirus vaccine, inactivated Carlos [facility] Work Phone: [facility] 01-13-2008 varicella virus vaccine Carlotaalexia Alejandro [facility] Work Phone: [facility] 03-18-2005 diphtheria, tetanus toxoids and acellular pertussis vaccine Carlos Alejandro [facility] Work Phone: [facility] 03-18-2005 pneumococcal conjuga te vaccine, 7 valent Carlos Alejandro [facility] Work Phone: [facility] 03-18-2005 varicella virus vaccine Carlota Alejandro [facility] Work Phone: [facility] 08-22-2004 haemophilus influenz ae type b vaccine, PRP-T conjugate Carlos Alejandro [facility] Work Phone: [facility] 08-22-2004 measles, mumps and rubella virus vaccine Carlos Alejandro [facility] Work Phone: [facility] 02-27-2004 DTaP-hepatitis B and poliovirus vaccine Carlos Alejandro [facility] Work Phone: [facility] 02-27-2004 haemophilus influenz ae type b vaccine, PRP-T conjugate Carlos Alejandro [facility] Work Phone: [facility] 02-27-2004 pneumococcal conjuga te vaccine, 7 valent Carlos Alejandro [facility] Work Phone: [facility] 2003 DTaP-hepatitis B and poliovirus vaccine Carlos Alejandro [facility] Work Phone: [facility] 2003 haemophilus influenz ae type b vaccine, PRP-T conjugate Carlos Alejandro [facility] Work Phone: [facility] 2003 pneumococcal conjuga te vaccine, 7 valent Carlos Alejandro [facility] Work Phone: [facility] 2003 DTaP-hepatitis B and poliovirus vaccine Carlos Alejandro [facility] Work Phone: [facility] 2003 haemophilus influenz ae type b vaccine, PRP-T conjugate Carlos Alejandro [employer] Work Phone: [facility] 2003 pneumococcal conjuga te vaccine, 7 valent Carlos Alejandro [employer] Work Phone: [facility] 2003 hepatitis B vaccine, pediatric or pediatric/adolescent dosage Carlos [facility] Work Phone: [facility] Payers Date Payer Category Payer Managed Care Other (unspecified) [employer] [id number] 2022 Unknown 2003 Unknown [id number] 2003 Unknown [id number] 2003 Unknown [id number]. 1286 2003 Unknown [id number]. 128 2003 Unknown [id number]. 1286 2003 Unknown [id number]. 128 2003 Unknown [id number]. 1286 2003 Unknown [id number]. 196 1975 Unknown [id number]. 593 1975 Unknown [id number]. 593 1959 Self-pay 1959 Unknown [id number] 1959 Unknown [id number] Unknown [id number] 531 Social History Date Type Detail Facility Unknown if ever smoked [facility] Work Phone: Start: 11-25-2023 End: 04-28-2024 Sex Assigned At [facility] Start: 2005 Sex Assigned At Female F [facility] Start: 05-28-2022 End: 07-28-2024 Tobacco smoking status NHIS Never smoked tobacco [facility] Start: 05-28-2022 Tobacco use and exposure Smokeless tobacco non-user [facility] Start: 06-18-2023 End: 11-25-2023 Alcoholic beverage intake Lifetime non-drinker (finding) [facility] Start: 11-25-2023 End: 04-28-2024 History of Social function [facility] How hard is it for y ou to pay for the very basics like food, housing, medical care, and heating Hard [facility] Adolescent depressio n screening assessment 0 [facility] Start: 01-24-2015 End: 08-12-2024 Sex Female (finding) [facility] Start: 10-22-2022 Gender identity Identifies as female gender (finding) [facility] Start: 10-22-2022 Sexual orientation Heterosexual (fin ding) [facility] Clinical Notes 10-08-2021 to 07-28-2024 Note Date & Type Note Facility 07-28-2024 Evaluation note Diagnosis Onset Date Resolution Acute otitis externa acute Febr uary 2024 9:58am [facility] Work Phone: 1(292) 494-833911-08-2024 History of Present illness Narrative* Carlos Alejandro, NAYA-TOMASZ - 04/28/2024 11:40 AM EST [address] [place] [address] Patient: Mouna Castillo Date of : 2005 Encounter Date: 04/28/2024 History of Present Illness: The patient is a 18 y.o. female, an established patient, and is here for Chief Complaint Patient presents with Follow-up . HPI Patient is here for an ER follow-up. She was in the ER at the [facility] on April 26, 2024for lower back pain as she woke up that morning with right- sided low back pain that radiated to herright buttocks and right lateral leg. A CT of her lumbar was done in the ER that showed L5/S1 disc herniation and patient was given muscle relaxants, NSAIDs, RI CE, steroids and a referral to a spineorthopedic specialist in [place]. Today patient states the pain is much improved and she has not finished her steroid pack at in the muscle relaxant does help improve her pain. 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 She denies any trauma at these jobs that would have caused this pain and she can not identify a single episode or lifting or fall that would have led to this pain in her back. She has had back painin the past but this is a more [...] past medical history, past social history, past surgicalhistory and problem list. Past Medical History: Diagnosis [...] gait problem and myalgias. Negative for arthralgias, jointswelling, neck pain and neck stiffness. Psychiatric/Behavioral: Positive [...] at least until she sees the orthopedic retail product demo specialist. She was offered physical therapy and pain management to help control the pain as well but she defer these. Surgeon may want MRI butas patient has not undergone physical therapy would be best ordered by specialist. Patient should return for wellness when due. TI GONG APRN-CNP 05/01/24 1500 [facility] History of Present illness Narrative* Andreea Valadez, NAYA-[employer] - 11/25/2023 10:00 AM EDT Subjective Patient ID: Mouna Castillo is a [...] her depression/bipolar illness- she sees Tabatha flores [place] for this and has an apt for f/u in the next two weeks The following portions of the patient's history were reviewed and updated as appropriate: allergies, current medications, past family history, past medical history, past social history, past surgicalhistory, problem list, and medication reconciliation was completed including current medication andpost discharge medication. Review of Systems Constitutional: Negative. [...] visit: Bipolar 2 disorder, major depressive episode ([facility]) - Cancel: Prolactin level; Future - Thyroid [...] CISCO Pal 11/25/23 1310 documented in [facility]12-[facility]-2023 History of Present illness Narrative* TI Gong - 06/18/2023 12:10 PM EST [address] [place] [address] Patient: Mouna Castillo Date of : 2005 [...] yesterday and the day before and most daysthis week and last week. She took a [...] past medical history, past social history, past surgicalhistory and problem list. Past Medical History: Diagnosis [...] Dissolve 1 tablet (4 mg total) on tongueevery 8 (eight) hours as needed for nausea or vomiting. Follow-up: Nausea and vomiting are likely side effect of new medication she started Concerta. This is helping with her focus and concentration so she will speak to her psychiatric provider at next appointment next week to see if she can lower this dose or possibly change administration to help with the nauseasymptoms. She is unlikely as she had her last menstrual period June 07 but she is having unprotected sex and despite implant will check urine hCG. She has not been screened for STIs since new sexual partner 1 year ago so will do this as well today. Unfortunately we are out of Trichomonas tubesin the office but we will get gonorrhea chlamydia. Her implant for contraception was palpated today in office. She should follow-up as stated with her psychiatric provider and with us for her wellness when it is due. CHELA attempted to to send the trich sample in urine cup. TI GONG APRN-CNP 06/18/23 1317 documented in this encounterV[facility]11-22-2023 Evaluation note* Encounter Date Diagnosis Assessment Notes Treatment Notes Treatment Clinical Notes Apr, Contact with and (suspected) exposure [...] and vomiting in adult (ICD-10 - R11.2) [employer] Other 04-20-2022 NotePROCEDURE: XR KNEE RT 3V HISTORY: Pain in right knee , chronic anterior knee pain COMPARISON: None. FINDINGS: BONES:No fracture, acute abnormality, or significant arthropathy. SOFT TISSUES:No visible soft tissue swelling. EFFUSION:None visible. OTHER: Negative. IMPRESSION: 1. Normal examination. Electronically authenticated by: RILEY SCHUSTER Date: 2021-10-08 16:51[facility] noteNo assessment information availableC[facility] Work Phone: Evaluation note* Diagnosis Herniation of intervertebral disc between L5 and S1- Primary documented in this encounter [facility]* Diagnosis Herniation of intervertebral disc between L5 and S1- Primary [facility] in [facility]* Diagnosis Non-intractable vomiting with nausea- Primary High risk heterosexual behavior Implantable subdermal contraceptive surveillance Surveillance of previously prescribed implantable subdermal contraceptive documented in this encounter [facility]* Diagnosis Bipolar 2 disorder, major depressive episode ([facility])- Primary Poison eleazar dermatitis Galactorrhea on both sides Galactorrhea not associated with childbirth documented in this encounter [facility]* Diagnosis Unspecified asthma, uncomplicated documented in this encounter [facility] N[facility]ative - Reported* Type Description Date Medical History Uncomplicated asthma, unspecifie d asthma severity Medical History ADHD Medical History Depression Medical History Anxiety [employer] Other InstructionsNot on filedocumented in this encounter [facility] System[facility]ructionsNot on filedocumented in this encounter [facility] SystemInstructionsNot on filedocumented in this encounter [facility] SystemInstructions* Attachments The following attachments cannot be sent through Care Everywhere. * Nausea and Vomiting, Adult ED (Bruneian) documented in this encounterProMedide Health SystemInstructionsNot on file documented in this encounterProMedide [employer] SystemInstructionsNot on file documented in this encounterPro[facility] [employer] SystemInstructionsNot on file documented in this encounterProRiverview Health InstituteLinki System Summary Purpose Family History Relationship Condition Age at Onset Recorded Date/T anabel father Hypertension Unknown mother Hypertension Unknown Advance Directives Advance Directive Response Recorded Date/ Time Advance Directives No July 28, 2018 3:28pm Chief Complaint and Reason for Visit Chief Complaint Dysuria Chief Complaint Admit Date ear pain, sore throat July 28, 2024 9:58am Chief Complaint Admit Date ear pain, sore throat July 28, 2024 9:58am Cough, Congestion, headache July 1:19pm Reason for Visit Admit Date Acute otitis externa July 28, 2024 9:58am Additional Source Comments INFORMATION SOURCE (unrecogn ized section and content) DATE CREATED AUTHOR 02/14/2022 [facility] DATE CREATED AUTHOR AUTHOR'S ORGANIZ ATION 04/29/2022 [facility] DATE CREATED AUTHOR AUTHOR'S ORGANIZ ATION 08/29/2022 [facility] DATE CREATED AUTHOR AUTHOR'S ORGANIZ ATION 05/17/2023 [facility] DATE CREATED AUTHOR AUTHOR'S ORGANIZ ATION 11/27/2023 [facility] DATE CREATED AUTHOR AUTHOR'S ORGANIZ ATION 04/30/2024 [facility] DATE CREATED AUTHOR AUTHOR'S ORGANIZ ATION 05/26/2024 [facility] REASON FOR VISIT (unrecogniz ed section and content) Reason Comments Follow-up Reason Comments Med Refill Reason Comments Nausea In waves x3 weeks Reason Comments Galactorrhea Poisoin eleazar Care Teams (unrecognized sec tion and content) Team Status: Inactive Member Role Status Dates Brooke Castelan NP-C Attending Provider Active Communications Professional Relationship Specialty Start Date End Date Carlos Alejandro APRN-CNP [address] [place] [address] PCP - General Internal Medicine 02/18/23 Communications Professional Relationship Specialty Start Date End Date Carlos Alejandro APRN-CNP [address] [place] [address] PCP - General Internal Medicine 02/18/23 Communications Professional Relationship Specialty Start Date End Date Carlos Alejandro APRN-CNP [address] [place] [address] PCP - General Internal Medicine 02/18/23 Team Status: Active Member Role Status Dates Jonathan Garica DO Primary Care Provider Active Team Status: Inactive Member Role Status Dates Jonathan Garcia DO Primary Care Provider Active Start: July 28, 2024 End: July 28, 2024 Elvira Cochran APRN Attending Provider Active S tart: July 28, 2024 End: July 28, 2024 Communications Professional Relationship Specialty Start Date End Date [facility] [address] [place] [address] PCP - General Internal Medicine 02/18/23 Communications Professional Relationship Specialty Start Date End Date [facility] [address] [place] [address] PCP - General Internal Medicine 02/18/23 Communications Professional Relationship Specialty Start Date End Date Carlos Alejandro [facility] [address] [place] [address] PCP - General Internal Medicine 02/18/23 Communications Professional Relationship Specialty Start Date End Date Carlos Alejandro APRNK[facility] [address] [place] [address] PCP - General Internal Medicine 02/18/23 Team Status: Inactive Member Role Status Dates Jonathan Garcia DO Primary Care Provider Active Start: August 12, 2024 End: August 12, 2024 Elvira Cochran APRN Attending Provider Active S tart: August 12, 2024 End: August 12, 2024 Goals (unrecognized section and content) Goals [...] BE BASED ON THE PRIMARY CLINICAL RECORDS. [facility] [employer] [facility]. provides no warranty or guarantee of the accuracy or completeness of information in this document.
--- NOTE | 2024-08-30 09:27 | PM.CN ---
Consult Note: HPI Data of Consult Patient: known to practice within the last 3 years Requesting Physician: Alona Win NP Primary Care Provider: Non-Staff Physician, MD Consult Narrative Reason for consult: lumbar DDD Narrative: Yolanda Castillo a pleasant 18 year old female presents for evaluation and management of back pain secondary to disc displacement and DDD. Pain today 1/10 increasing to 5/10 with lying, activity, sleep and weather changes. Pain improved with standing and walking as well as heat and ADLs. patient underwent bilateral L5-S1 TFESI with significant reduction in radicular pain, continues to have intermittent moderate low back pain. Pt finds benefit to current medication regimen without side effects. 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 cc:: CC: Alona Win NP Review of Systems ROS Status of ROS 10 or more systems reviewed and unremarkable except as noted in history and below Musculoskeletal Reports: back pain PFSH PFSH Medical History (Updated 08/12/24 @ 14:17 by Ty Win) Low back pain ?M54.50 - Low back pain, unspecified (ICD-10) Bipolar 1 disorder ?F31.9 - Bipolar disorder, unspecified (ICD-10) Heartburn ?R12 - Heartburn (ICD-10) Obesity ?E66.9 - Obesity, unspecified (ICD-10) ADHD ?F90.9 - Attention-deficit hyperactivity disorder, unspecified type (ICD-10) Anxiety ?F41.9 - Anxiety disorder, unspecified (ICD-10) Acid reflux ?K21.9 - Gastro-esophageal reflux disease without esophagitis (ICD-10) Asthma ?J45.909 - Unspecified asthma, uncomplicated (ICD-10) Social History Little interest or pleasure in doing things: not at all Feeling down, depressed, or hopeless: not at all Meds Home Medications and Allergies Home Medications ?Medication ?Instructions ?Recorded ?Confirmed ?Type buspirone 30 mg tablet 45 mg PO DAILY 05/10/24 07/30/24 History lithium carbonate 300 mg capsule 300 mg PO DAILY 05/10/24 07/30/24 History methocarbamol 750 mg tablet 750 mg PO BID PRN pain 05/10/24 07/30/24 History methylphenidate HCl 20 mg tablet 30 mg PO DAILY 05/10/24 07/30/24 History naloxone 4 mg/actuation nasal 4 mg intranasal Q2M 05/10/24 07/30/24 History spray (Narcan) sertraline 25 mg tablet (Zoloft) 25 mg PO DAILY 05/10/24 07/30/24 History amoxicillin 875 mg-potassium tab 07/30/24 History clavulanate 125 mg tablet lurasidone 20 mg tablet mg 07/30/24 History montelukast 10 mg tablet 10 mg PO DAILY 07/30/24 07/30/24 History (Singulair) vrdyfuhd-fzsebddqm-xuiagqemv 3.5 4 drp otic (ear) Q6H 7 days #10 mL 07/30/24 Rx mg-10,000 unit/mL-1 % ear drops,susp ondansetron 4 mg disintegrating 4 mg PO Q6H PRN nausea and 08/12/24 Rx tablet vomiting #20 tabs Allergies Allergy/AdvReac Type Severity Reaction Status Date / Time No Known Drug Allergies Allergy Verified 08/12/24 13:50 Exam Constitutional Documenting provider has reviewed patient's vital signs: yes Common normals: no apparent distress, oriented x3, healthy appearing, alert and well nourished General appearance: cooperative HENMT Common normals: normocephalic, hearing grossly normal bilaterally and moist oral mucous membranes Head and scalp: normocephalic Eye Common normals: PERRL Pupil: PERRL Neck & C-Spine Common normals: full ROM General: normal visual inspection Chest Common normals: inspection of chest normal Respiratory Common normals: normal respiratory effort, no retractions and no use of accessory muscles Back & Pelvis Lumbar spine/lower back: normal to inspection, lumbar ROM normal, pain with ROM and straight leg raise positive left; no lumbar spinal tenderness and no paraspinal muscle tenderness Sacroiliac joints: SI joint(s) abnormal Other: mildly positive facet loading Neuro Common normals: oriented x3, CN's II-XII intact bilaterally, moves all extremities, no focal motor deficits, no sensory deficits noted and deep tendon reflexes 2+ bilaterally Sensorium/orientation: alert Motor exam: strength 5/5 throughout and no movement abnormalities noted Psych Common normals: mental status grossly normal, thought process normal, cooperative, affect normal, speech normal and activity/motor behavior normal Speech: normal speech Thought process: normal thought process Assessment and Plan Assessment and Plan (1) Lumbar disc displacement without myelopathy: (2) Lumbar radiculopathy: (3) Sacroiliitis: (4) Myalgia, other site: Plan pain well controlled continue HEP, aquatherapy as tolerated continue current medications, finding benefit without side effects f/u PRN
== END 2024-08-30 08:50 | disposition home or self-care (01) ==
PROVIDERS: Visit Provider Nurse Practitioner
DX: M51.369 Other intervertebral disc degeneration, lumbar region without mention of lumbar back pain or lower extremity pain (principal); M54.16 Radiculopathy, lumbar region; M46.1 Sacroiliitis, not elsewhere classified; M79.18 Myalgia, other site
CPT/HCPCS: G0463

== ENCOUNTER 2024-10-30 09:25 | Emergency (ER) | payer OTHER, SELFPAY ==
[2024-10-30 09:32] VITALS: BP 121/78; PULSE 93; TEMP 36.8; O2SAT 96; BMI 29.1
--- NOTE | 2024-10-30 09:38 | XR_ITS ---
The [address] [address] Patient Name: ZEKE MANUEL MRN: [id number] date: 2005 Sex: F Assigned Patient Location: ER Current Patient Location: ER Accession/Order Number: [id number] Exam Date: 10/30/2024 10:29 Report Date: 10/30/2024 10:30 At the request of: PHILOMENA BRUCE MD Procedure: XR foot LT min 3V LEFT FOOT - 3 views COMPARISON: None CLINICAL DATA: Puncture wound. Patient stepped on a nail last night. AP, lateral and oblique views were obtained. The puncture site was marked with a BB. There is no evidence of fracture or dislocation. There is a tiny plantar calcaneal spur. No significant soft tissue swelling is noted. No radiopaque foreign bodies are seen. XR/XR foot LT min 3V IMPRESSION: NO ACUTE BONY INJURY OR RADIOPAQUE FOREIGN BODIES. Impression dictated by: Sunshine Liz M.D. 10/30/2024 10:30 AM Dictation Location: [place] [address] Electronically authenticated by: [id number] Y Date: 10/30/2024 10:30
--- NOTE | 2024-10-30 09:41 | ED.GENADUL1 ---
HPI HPI - General Adult General Chief complaint: Wound/Laceration Stated complaint: STEPPED ON A NAIL 10/29/2024; PAIN AND UNABLE TO P Time Seen by Provider: 10/30/24 09:29 Mode of arrival: walk-in History of Present Illness HPI narrative: 19-year-old female presents to the emergency department for a chief complaint of puncture wound to the plantar aspect of her left foot that was sustained yesterday. She was wearing tennis shoes and a nail went through the shoe and into her foot. She had a tetanus shot 8 years ago. No other injury was sustained. She was worried about an infection. Related Data Home Medications ?Medication ?Instructions ?Recorded ?Confirmed buspirone 30 mg tablet 45 mg PO DAILY 05/10/24 07/30/24 lithium carbonate 300 mg capsule 300 mg PO DAILY 05/10/24 07/30/24 methocarbamol 750 mg tablet 750 mg PO BID PRN pain 05/10/24 07/30/24 methylphenidate HCl 20 mg tablet 30 mg PO DAILY 05/10/24 07/30/24 naloxone 4 mg/actuation nasal 4 mg intranasal Q2M 05/10/24 07/30/24 spray (Narcan) sertraline 25 mg tablet (Zoloft) 25 mg PO DAILY 05/10/24 07/30/24 amoxicillin 875 mg-potassium tab 07/30/24 clavulanate 125 mg tablet lurasidone 20 mg tablet mg 07/30/24 montelukast 10 mg tablet 10 mg PO DAILY 07/30/24 07/30/24 (Singulair) Previous Rx's ?Medication ?Instructions ?Recorded idlhqvdx-rlzbqvnyb-xxfjgjbla 3.5 4 drp otic (ear) Q6H 7 days #10 mL 07/30/24 mg-10,000 unit/mL-1 % ear drops,susp ondansetron 4 mg disintegrating 4 mg PO Q6H PRN nausea and 08/12/24 tablet vomiting #20 tabs cephalexin 500 mg capsule 500 mg PO TID 7 days #21 caps 10/30/24 ciprofloxacin HCl 250 mg tablet 250 mg PO BID #14 tabs 10/30/24 (Cipro) Allergies Allergy/AdvReac Type Severity Reaction Status Date / Time No Known Drug Allergies Allergy Verified 08/12/24 13:50 Opioid HPI Opioid Management Most Recent Opioid Data: Last Pain Scale 6 Today, 09:32 Review of Systems ROS Narrative A ten point review of systems is negative except as noted above. [facility] Medical History (Updated 10/30/24 @ 10:49 by Ricardo Petty MD) Low back pain ?M54.50 - Low back pain, unspecified (ICD-10) Bipolar 1 disorder ?F31.9 - Bipolar disorder, unspecified (ICD-10) Heartburn ?R12 - Heartburn (ICD-10) Obesity ?E66.9 - Obesity, unspecified (ICD-10) ADHD ?F90.9 - Attention-deficit hyperactivity disorder, unspecified type (ICD-10) Anxiety ?F41.9 - Anxiety disorder, unspecified (ICD-10) Acid reflux ?K21.9 - Gastro-esophageal reflux disease without esophagitis (ICD-10) Asthma ?J45.909 - Unspecified asthma, uncomplicated (ICD-10) Social History Little interest or pleasure in doing things: not at all Feeling down, depressed, or hopeless: not at all Exam Narrative Exam Narrative: Nurses note and vital signs reviewed and patient is not hypoxic. General: The patient appears well and in no apparent distress. Patient is resting comfortably on cart. Skin: Warm, dry, no pallor noted. There is no rash noted. Head: Normocephalic, atraumatic Eye: Normal conjunctiva, no drainage Ears, Nose, Mouth, and Throat: oral mucosa is moist. Nares patent. Cardiovascular: Regular Rate and Rhythm Respiratory: Patient is in no distress, no accessory muscle use, lungs are clear to auscultation, no wheezing, rales or rhonchi Back: non-tender GI: Soft and nontender Musculoskeletal: Plantar aspect of the left foot at the central portion shows a puncture wound. There is minimal surrounding erythema. No bleeding or pus. No lymphangitis. Neurological: A&O, normal speech Psychiatric: Cooperative Constitutional Vital Signs, click to edit/add: Last Vital Signs Temp 98.2 F 10/30/24 09:32 Pulse 93 H 10/30/24 09:32 Resp 18 10/30/24 09:32 BP 121/78 10/30/24 09:32 Pulse Ox 96 10/30/24 09:32 Course Vital Signs Vital signs: Vital Signs Temperature 98.2 F 10/30/24 09:32 Pulse Rate 93 H 10/30/24 09:32 Respiratory Rate 18 10/30/24 09:32 Blood Pressure 121/78 10/30/24 09:32 Pulse Oximetry 96 10/30/24 09:32 Temperature 98.2 F 10/30/24 09:32 Pulse Rate 93 H 10/30/24 09:32 Respiratory Rate 18 10/30/24 09:32 Blood Pressure 121/78 10/30/24 09:32 Pulse Oximetry 96 10/30/24 09:32 Medical Decision Making MDM Narrative Medical decision making narrative: X-rays negative. Concern is for piece of the rubber sole of her tennis shoe being in her foot. She is placed on Keflex and Cipro to cover Pseudomonas. She will follow-up with podiatry and tetanus was updated. Treatment diagnosis and follow-up were discussed with the patient. Differential Diagnosis Differential Diagnosis: Puncture wound, foreign body, need for tetanus immunization Lab Data Lab results reviewed: Yes I reviewed the patient's lab results Labs: Lab Results 10/30/24 Range/Units 09:43 Urine HCG, Qual Negative (NEGATIVE) Imaging Data Left foot x-ray: Radiologist's impression: ITS Impressions Foot X-Ray 10/30/24 09:38 IMPRESSION: NO ACUTE BONY INJURY OR RADIOPAQUE FOREIGN BODIES. Impression dictated by: Sunshine Liz M.D. 10/30/2024 10:30 AM Dictation Location: [place] [address] Electronically authenticated by: [id number] Y Date: 10/30/2024 10:30 Discharge Plan Discharge Chief Complaint: Wound/Laceration Clinical Impression: Puncture wound of foot, left Patient Disposition: Home, Self-Care Time of Disposition Decision: 10:49 Condition: Good Mode of Transportation: Private Vehicle Prescriptions / Home Meds: New cephalexin 500 mg capsule 500 mg PO TID 7 Days Qty: 21 0RF ciprofloxacin HCl [Cipro] 250 mg tablet 250 mg PO BID Qty: 14 0RF No Action buspirone 30 mg tablet 45 mg PO DAILY lithium carbonate 300 mg capsule 300 mg PO DAILY methylphenidate HCl 20 mg tablet 30 mg PO DAILY sertraline [Zoloft] 25 mg tablet 25 mg PO DAILY naloxone [Narcan] 4 mg/actuation spray,non-aerosol 4 mg intranasal Q2M Rx Instructions: spray 1 dose into ONE nostril; alternate nostrils w each dose until help arrives methocarbamol 750 mg tablet 750 mg PO BID PRN (Reason: pain) montelukast [Singulair] 10 mg tablet 10 mg PO DAILY amoxicillin-pot clavulanate 875-125 mg tablet hadjzlzs-mcemchdjr-RH 3.5-10,000-1 mg/mL-unit/mL-% drops,suspension 4 drp otic (ear) Q6H 7 Days Qty: 10 0RF lurasidone 20 mg tablet ondansetron 4 mg tablet,disintegrating 4 mg PO Q6H PRN (Reason: nausea and vomiting) Qty: 20 0RF Print Language: Belarusian Instructions: Puncture Wound in the Foot (ED) Referrals: CARLOS ALEJANDRO [Primary Care Provider, Unknown] - 1 week Terry Aj DPM [Physician, Podiatry] - 1 week
[2024-10-30] MEDS: ADACEL DIPH,PERTUSS(ACELL),TET VAC/PF 0.5 ML ADULT SYRINGE IM (09:50)
--- OUTSIDE RECORDS SUMMARY | 2024-10-30 09:52 | XMS_ITS | CCD ---
Author Organization [facility] Care Team Providers Care Lead Assembler Name Role Phone Luis Carlos DIOP Attending [...] Admitting Unavailable MORGAN ZHANG Attending Unavailable HANG ., MORGAN Admitting Unavailable FURLONG, DR JONATHAN Sanchez Primary Care Unavailable MORGAN ZHANG Consulting Unavailable Brooke Castelan Unavailable MOISE Castelan Attending Provider Brooke Castelan Attending Unavailable Brooke Castelan Admitting Unavailable Furlong, Jonathan Primary Care Unavailable JAVON, CARLOS L Referring Unavailable JAVON, CARLOS L Primary Care Unavailable ANDREEA VALADEZ Referring Unavailable JAVON, CARLOS L Primary Care Unavailable Javon COLLABORATING SUPERVISING PHYSICIAN-MATHEMATICAL SCIENTIST, Carlos L Primary Care Provider Ava Dinero MD Attending Unavailable Javon COLLABORATING SUPERVISING PHYSICIAN-MATHEMATICAL SCIENTIST, Carlos L Primary Care Provider TONIE LYONS Attending Unavailable JAVON, CARLOS L Referring Unavailable JAVON, CARLOS L Primary Care Unavailable JAVON, CARLOS L Referring Unavailable JAVON, CARLOS L Primary Care Unavailable JAVON, CARLOS L Referring Unavailable JAVON, CARLOS L Primary Care Unavailable ANDREEA VALADEZ Attending Unavailable JAVON, CARLOS L Referring Unavailable JAVON, CARLOS L Primary Care Unavailable JAVON, CARLOS L Attending Unavailable CARLOS ALEJANDRO Referring Unavailable CARLOS ALEJANDRO Primary Care Unavailable TONIE LYONS Referring Unavailable CARLOS ALEJANDRO Primary Care Unavailable LAURA VALE Attending Unavailable TONIE LYONS Referring Unavailable CARLOS ALEJANDRO Primary Care Unavailable LAURA VALE Referring Unavailable CARLOS ALEJANDRO Primary Care Unavailable Medications Current Medications Medication Drug Class(es) Dates Sig (Normalized) Sig (Original) [id number] 200 actuat albuterol 0.09 mg/actuat metered dose inhaler (11 sources) beta2-Adrenergic Agonist Start: 07-18-2022 take 2 puff(s) by inhalation every six hours as needed for wheezing albuterol (PROVENTIL HFA;VENTOLIN HFA) 90 mcg/actuation inhaler Indications: Mild intermittent asthma without complication INHALE 2 PUFFS EVERY 6 HOURS NEEDED FOR WHEEZING 8.5 g 1 07/18/2022 Active ProAir HFA Activ e amoxicillin 500 mg oral capsule (1 source) Penicillin-class Antibacterial Start: 10-05-2024 amoxicillin (AMOXIL) 500 mg capsule Take 1 capsule (500 mg total) by mouth. 10/05/2024 Active amoxicillin 875 mg / clavulanate 125 mg [...] Twice a day Active Apple Cider Vinegar (7 sources) take 450 mg by mouth in the morning APPLE CIDER VINEGAR ORAL Take 450 mg by mouth in the morning. Active Budesonide / formoterol (2 sources) Corticosteroid, beta2-Adrenergic Agonist Symbicort Active busPIRone hydrochloride 15 mg oral tablet (14 sources) Start: 05-24-2023 take 1 tablet by mouth twice daily [...] day Active cholecalciferol 0.05 mg oral tablet (9 sources) Vitamin D take 1 tablet by mouth in the morning cholecalciferol, vitamin D3, 2,000 units tablet Take 1 tablet (2,000 Units total) by mouth in the morning. Active Ciprofloxacin-Dexametha sone 0.3-0.1 % drops,suspension (2 sources) Start: Ciprofloxacin-Dexametha sone 0.3-0.1 % drops,suspension Active 4 DROPS OTIC Twice daily 7.5 7 July 28, 2024 12:00am cranberry preparation 500 mg oral capsule (7 sources) Non-Standardized Food Allergenic Extract, Non-Standardized Plant Allergenic Extract take 1 capsule by mouth in the morning cranberry 500 mg capsule Take 500 mg by mouth in the morning. Active cyclobenzaprine hydrochloride 10 mg oral tablet (9 sources) Muscle Relaxant Start: take 1 tablet by mouth once daily as needed for muscle spasms and muscle spasms, then take 1 tablet by mouth once daily as needed for muscle spasms and muscle spasms cyclobenzaprine (FLEXERIL) 10 mg tablet Indications: Muscle spasm Take 1 tablet (10 mg total) by mouth nightly as needed for muscle spasms. TAKE 1 TABLET BY MOUTH EVERY DAY NIGHTLY NEEDED FOR MUSCLE SPASMS 30 tablet 2 10/18/2024 Active Start: 06-27-2024 End: 10-18-2024 take 1 tablet by mouth once daily Cyclobenzaprine 10 mg tablet Active 10 MG PO Daily July 28, 2024 12:00am Start: 04-28-2024 End: 06-27-2024 take 1 tablet by mouth once daily as needed for muscle spasms cyclobenzaprine (FLEXERIL) 10 mg tablet Take 1 tablet (10 mg total) by mouth nightly as needed for muscle spasms. 30 tablet 1 04/28/2024 06/27/2024 Discontinued hydrOXYzine hydrochloride 25 mg oral tablet (9 sources) Antihistamine Start: 09-09-2022 hydrOXYzine (ATARAX) 25 mg tablet Take 4 tablets (100 mg total) by mouth as needed for anxiety. 09/09/2022 Active ibuprofen 800 mg oral tablet (8 sources) Nonsteroidal Anti-inflammatory Drug Start: 04-28-2024 take [...] carbonate 300 mg extended release oral tablet (7 sources) Start: 07-28-2024 [place] ate 300 mg tablet extended release Active MG PO July 28, 2024 12:00am End: 10-18-2024 take 1 capsule by mouth in the morning lithium carbonate 300 mg capsule Take 1 capsule (300 mg total) by mouth in the morning. 10/18/2024 Discontinued (Therapy completed) lurasidone hydrochloride 80 mg oral tablet (3 sources) Atypical Antipsychotic Start: 10-16-2024 lurasid one (LATUDA) 80 mg tablet 10/16/2024 Active Start: 07-28-2024 take 1 tablet by toney once daily Lurasidone 20 mg tablet Active [...] Active MG PO July 28, 2024 12:00am methylPREDNISolone 4 mg oral tablet (1 source) Corticosteroid Start: 10-18-2024 take 1 tablet by mouth in the morning methylPREDNISolone (MEDROL, JUANCHO,) 4 mg tablet Indications: Herniation of intervertebral disc between L5 and S1 , Chronic midline thoracic back pain Take 1 tablet (4 mg total) by mouth in the morning. follow package directions. 21 tablet 10/18/2024 Active montelukast 10 mg oral tablet (16 sources) Leukotriene Receptor Antagonist Start: 02-17-2023 End: 02-07-2024 take 1 tablet by mouth once daily Montelukast 10 mg tablet Active 10 MG PO Daily July 28, 2024 12:00am Singulair Active Naloxone 4 mg/actuation spray,non-aerosol (2 sources) Start: 07-28-2024 Naloxone 4 mg/ actuation spray,non-aerosol Active INTRANASAL July 28, 2024 12:00am ondansetron 4 mg disintegrating oral tablet (6 sources) Serotonin-3 Receptor Antagonist Start: 08-12-2024 ondansetron ODT (ZOF RAN ODT) 4 mg disintegrating tablet DISSOLVE 1 TABLET ON THE TONGUE EVERY 6 HOURS NEEDED FOR NAUSEA/VOMITING 08/12/2024 Active Start: 06-18-2023 End: 11-25-2023 take 1 tablet [...] tid prn ODT, prn nausea Apr, Active polyethylene glycol 3350 82283 mg powder for oral solution (1 source) Osmotic Laxative Start: 10-18-2024 polyethylene glycol (MIRALAX) 17 gram/dose powder Indications: Chronic constipation Take 17 g by mouth in the morning. Mix in 8 ounces of fluid. 510 g 2 10/18/2024 Active prazosin 1 mg oral capsule (9 sources) alpha-Adrenergi c Joanna take 2 capsules by mouth once [...] 7 days. 7 tablet 11/25/2023 12/02/2023 Active sulfamethoxazole 800 mg / trimethoprim 160 mg oral tablet (2 sources) Dihydrofolate Reductase Inhibitor Antibacterial, Sulfonamide Antimicrobial Start: 05-12-2023 take 1 tablet by mouth every twelve hours Bactrim DS 800-160 MG 1 tablet Orally Twice a day for 5 days Apr, Active traZODone hydrochloride 50 mg oral tablet (12 sources) Serotonin Reuptake Inhibitor Start: 05-21-2023 traZODone (DESYREL) 50 mg tablet Take 1 tablet (50 mg total) by mouth in the morning and 1 tablet (50 mg total) at noon and 1 tablet (50 mg total) before bedtime. 05/21/2023 Active End: 11-25-2023 take 1 tablet [...] Discontinued (Therapy completed) take [address] [facility] every twenty-four hours Vraylar 1.5 MG 1 capsule Orally Once a day Active bx rating 24 hr methylphenidate hydrochloride 27 mg extended release oral tablet (10 sources) Central Nervous System Stimulant Start: 05-24-2023 End: 11-25-2023 take 1 tablet by mouth once daily in the morning methylphenidate HCl (CONCERTA) 27 mg CR tablet take 1 tablet by mouth every morning 05/24/2023 11/25/2023 Discontinued (Therapy completed) take [address] [facility] once daily in the morning methylphenidate LA (RITALIN LA) 30 MG 24 hr capsule Take 1 capsule (30 mg total) by mouth every morning. Active propranolol hydrochloride 20 mg oral tablet [...] day Active sertraline 25 mg oral tablet (12 sources) Serotonin Reuptake Inhibitor Start: 03-22-2023 End: 10-18-2024 take 1 tablet by mouth in the morning sertraline (ZOLOFT) 25 mg tablet TAKE 1 TABLET (25 MG TOTAL) BY MOUTH IN THE MORNING 90 tablet 1 09/13/2023 10/18/2024 Discontinued (Therapy completed) Problems Active Problems Problem Classification Problem Date Documented Da te Episodic/Chronic Anxiety disorders (11 sources) Anxiety; Translations: [Anxiety disorder, unspecified] Onset: 05-28-2022 05-28-2022 Chronic Asthma (12 sources) Mild intermittent asthma; Translations: [Mild intermittent asthma, uncomplicated] Onset: 05-28-2022 05-28-2022 Chronic Attention-deficit, conduct, and disruptive behavior disorders (11 sources) Attention deficit hyperactivity disorder; Translations: [Attention-deficit hyperactivity disorder, unspecified type] Onset: 02-18-2023 02-18-2023 Chronic Deficiency and other anemia (9 sources) Iron deficiency anemia due to blood [...] episodes] Onset: 05-28-2022 05-28-2022 Chronic Nutritional deficiencies (9 sources) Vitamin D deficiency; Translations: [Vitamin D deficiency, unspecified] Onset: 05-28-2022 05-28-2022 Chronic Other connective tissue disease (2 sources) Spasm; Translations: [Other muscle spasm] 10-18-2024 Episodic Other connective tissue disease (2 sources) Other muscle spasm; Translations: [Other muscle spasm] Onset: 10-18-2024 Episodic Other ear and sense organ disorders [...] Translations: [Infective otitis externa, unspecified] 07-28-2024 Episodic Other gastrointestinal disorders (1 source) Chronic constipation; Translations: [Other constipation] 10-18-2024 Episodic Other gastrointestinal disorders (1 source) Other constipation; Translations: [Other constipation] Onset: 10-18-2024 Episodic Other nervous system disorders (2 sources) Other chronic pain; Translations: [Other chronic pain] Onset: 10-18-2024 Chronic Personality disorders (9 sources) Borderline personality disorder; Translations: [Borderline personality disorder] Onset: 02-18-2023 02-18-2023 Chronic Residual codes; unclassified (1 source) Pain, unspecified; Translations: [Pain, unspecified] Onset: 10-20-2024 Episodic Spondylosis; intervertebral disc disorders; other back problems (5 sources) Other intervertebral disc displacement, lumbosacral region; Translations: [Displacement of lumbar intervertebral disc without myelopathy] Onset: 10-18-2024 05-01-2024 Chronic Spondylosis; intervertebral disc disorders; other back problems (6 sources) Chronic thoracic back pain; Translations: [Pain in thoracic spine] Onset: 10-18-2024 10-18-2024 Episodic Unclassified (1 source) Groin Pain Onset: 10-18-2024 Unclassified (1 source) Galactorrhea Onset: 11-25-2023 Urinary tract infections (2 sources) Acute cystitis with hematuria Episodic Past or Other Problems Problem Classification Problem Date Documented Date Episodic/Chronic Allergic reactions (2 sources) Contact dermatitis due to poison eleazar; Translations: [Allergic contact dermatitis due to plants, except food] Onset: 11-25-2023 11-25-2023 Episodic Contraceptive and procreative management (10 sources) Subcutaneous contraceptive implant present; Translations: [Presence of (intrauterine) contraceptive device] Onset: 05-28-2022 05-28-2022 Episodic E Codes: Cut/pierceb (1 source) Contact with knife, initial encounter; Translations: [CONTACT WITH KNIFE INITIAL ENC] Onset: 12-11-2021 Episodic Mood disorders (9 sources) Mood disorders Onset: 04-28-2024 Resolved: 10-18-2024 04-28-2024 Nausea and vomiting (3 sources) Nausea with vomiting, unspecified; Translations: [Nausea and vomiting] Episodic Nonmalignant breast conditions (2 sources) Disorder of ; Translations: [Galactorrhea not associated with childbirth] Onset: 11-25-2023 11-25-2023 Episodic Open wounds of extremities (4 sources) Laceration without foreign body of left thumb without damage to nail, initial encounter; Translations: [LAC NO FB LT THUMB NO DMG NAIL INIT] Onset: 12-10-2021 Episodic Other non-traumatic joint disorders (13 sources) Pain in right knee; Translations: [Pain in joint, lower leg] Onset: 10-08-2021 Episodic Other skin disorders (9 sources) Acne vulgaris; Translations: [Acne vulgaris] Onset: 05-28-2022 05-28-2022 Episodic Residual codes; unclassified (1 source) High risk heterosexual behavior; Translations: [High risk heterosexual behavior] Onset: 06-18-2023 Episodic Residual codes; unclassified (1 source) High risk heterosexual behavior; Translations: [High risk heterosexual behavior] 06-18-2023 Episodic Unclassified (2 sources) Contact with and (suspected) exposure to covid-19 Z20.822 Unclassified (3 sources) Herniation of intervertebral disc between L5 and S1 05-01-2024 Unclassified (1 source) Onset: 10-18-2024 10-18-2024 Results Test Name Value Interpretation Reference Range Facility XR SPINE THORACIC 3 VWSon XR SPINE THORACIC 3 VWS XR SPINE THORACIC 3 VWS XR SPINE THORACIC 3 VWS History: Chronic midline thoracic back pain Impression: * No acute findings. * No fracture or destructive lesion. * Diffuse disc disease and facet arthritis. . Consider MRI thoracic spine if you suspect occult process 0 Finalized by Joel Solis MD on 10/28/2024 9:45 AM Normal [facility] BASIC METABOLIC PANLon 11-24 Anion gap [Moles/Vol] 8 mmol/L Normal 5-15 [facility] Comment on above: Performed By: #### B EARL, THYR, 2842-3 #### [facility] ([id number]) [address], [address] [place] [address] Calcium [Mass/Vol] 9.9 mg/dL Normal 8.5-10.5 [facility] Comment on above: Performed By: #### B MP, THYR, 2842-3 #### [facility] ([id number]) [address], [address] [place] [address] Chloride [Moles/Vol] 104 mmol/L Normal 98-109 [facility] Comment on above: Performed By: #### B MP, THYR, 2842-3 #### [facility] ([id number]) [address], [address] [place] [address] CO2 [Moles/Vol] 27 mmol/L Normal 22-32 [facility] Comment on above: Performed By: #### B MP, THYR, 2842-3 #### [facility] ([id number]) [address], [address] [place] [address] Creatinine [Mass/Vol] 0.75 mg/dL Normal 0.40-1.00 [facility] Comment on above: Result Comment: METH OD TRACEABLE TO IDMS STANDARD Performed By: #### B EARL THYR, 284-3 #### [facility] ([id number]) [address] [place] [address] eGFR (CKD-EPI) NON-RACE DEPENDENT >90 Normal >59 [facility] Comment on above: Result Comment: Reported eGFR is based on the CKD-EPI 2020 equation that does not use a race coefficient. Performed By: #### Demetri ELLIOTT THYConchis, 284-3 #### [facility] ([id number]) [address], [address] [place] [address] Glucose [Mass/Vol] 95 mg/dL Normal 65-99 [facility] Comment on above: Performed By: #### Demetri ELLIOTT THYR, 284-3 #### [facility] ([id number]) [address] [place] [address] Potassium [Moles/Vol] 4.1 mmol/L Normal 3.5-5.0 [facility] Comment on above: Performed By: #### Demetri ELLIOTT THYR, 284-3 #### [facility] ([id number]) [address] [place] [address] Sodium [Moles/Vol] 139 mmol/L Normal 134-146 [facility] Comment on above: Performed By: #### Demetri ELLIOTT THYR, 284-3 #### [facility] ([id number]) [address] [place] [address] Urea nitrogen [Mass/Vol] 6 mg/dL Normal 5-23 [facility] Comment on above: Performed By: #### Demetri ELLIOTT THYR, 284-3 #### [facility] ([id number]) [address] [facility], [address] [place] [address] Basic Metabolic Panelon Anion gap [Moles/Vol] 8 mmol/L 5 - 15 mmol/L [facility] Calcium [Mass/Vol] 9.9 mg/dL 8.5 - 10. 5 mg/dL [facility] Chloride [Moles/Vol] 104 mmol/L 98 - 10 9 mmol/L [facility] CO2 [Moles/Vol] 27 mmol/L 22 - 32 mmol/L [facility] Creatinine [Mass/Vol] 0.75 mg/dL 0.40 - 1.00 mg/dL [facility] Comment on above: METHOD TRACEABLE TO IDOK STANDARD eGFR (CKD-EPI)non-race dependent - PINF [facility] Comment on above: Reported eGFR is based on the CKD-EPI 2020 equation that does not use a race coefficient. Glucose [Mass/Vol] 95 mg/dL 65 - 99 mg/dL [facility] Potassium [Moles/Vol] 4.1 mmol/L 3.5 - 5.0 mmol/L [facility] Sodium [Moles/Vol] 139 mmol/L 134 - 146 mmol/L [facility] Urea nitrogen [Mass/Vol] 6 mg/dL 5 - 23 mg/dL [facility] No Panel Informationon 11-24 [facility] POCT , urineon Beta HCG ( test) Ql (U) Negative [facility] Internal Merchandise Flow Team Leader Check Completed and Passed Yes [facility] Prolactinon 11-25-2023 Prolactin [Mass/Vol] 25.4 ng/mL 3.3 - 2 6.7 ng/mL [facility] Prolactin [Mass/Vol]on 11-24 [facility] PROLACTIN 25.4 ng/mL Normal 3.3-26.7 [facility] Comment on above: Performed By: #### B MP, THYR, 2842-3 #### [facility] ([id number]) [address] [facility], [address] [place] [address] THYROID PROFILEon 11-25-2023 Free T4 [Mass/Vol] 0.72 ng/dL Normal 0.61-1.60 [facility] Comment on above: Performed By: #### B MP, THYR, 2842-3 #### [facility] ([id number]) [address], [address] [place] [address] TSH 1.37 uIU/mL Normal 0.49-4.67 [facility] Comment on above: Performed By: #### B MP, THYR, 2842-3 #### [facility] ([id number]) [address] [facility], [address] [place] [address] Thyroid profile includes TSH FT4on 11-25-2023 Free T4 [Mass/Vol] 0.72 ng/dL 0.61 - 1. 60 ng/dL [facility] TSH Qn 1.37 m[IU]/L [facility] CHLAMYDIA/GC PCR, Uon 2022 CHLAMYDIA/GC [...] are dependent on adequate specimen collection. Normal [facility] Comment on above: Performed By: #### C #### [facility] ([id number]) [address], [address] [place] [address] POCT , urineon - Beta HCG ( test) Ql (U) Negative [facility] Internal Merchandise Flow Team Leader Check Completed and Passed Yes [facility] Interpretation and review of laboratory results Normal [facility] TRICHOMONAS PCRon 06-18-2023 TRICHOMONAS PCR SPECIMEN SOURCE CLEAN CATCH MIDSTREAM URINE TRICHOMONAS PCR Not detected (qualifier value) Trichomonas vaginalis not detected NOTE Assay methodology is nucleic acid amplification by real-time PCR for detection of Trichomonas vaginalis DNA performed on [employer] Instrument System. Normal [facility] Comment on above: Performed By: #### T RKPCR #### [facility] ([id number]) [address] [place] [address], [address] [place] [address] COVID + FLU Quick Testingon 05-12-2023 SARS-CoV-2 (COVID-19) RNA CRISTAL+probe Ql (Unsp spec) Negative [facility] Other COVID + FLU Quick Testing Negative [facility] Other Urinalysis - AUTOMATEDon Appearance (U) cloudy [facility] Other Bilirubin Ql (U) Negative [facility] Other Color (U) dark yellow [facility] Other Glucose Ql (U) Negative [facility] Other Hemoglobin Ql (U) small [facility] Other Ketones Ql (U) Negative [facility] Other Leukocyte esterase Test strip Ql (U) trace [facility] Other Nitrite Ql (U) Negative [facility] Other pH (U) 6.5 [pH] [facility] Other Protein Ql (U) 100 [facility] Other Specific gravity (U) [Rel density] 1.030 [facility] Other Urobilinogen (U) [Mass/Vol] 1.0 mg/dL [facility] Other Urinalysis - AUTOMATED [facility] Other Urine Cultureon 05-12-2023 Bacteria identified Cx Nom (U) Reason for Exam Dysuria Urine ORGANISM: Escherichia coli (O:ESCCOL) [place] Count >100,000 Aerobic JACIEL Charge ([id number]) ------ [...] RESISTANT TO ALL B-LACTAM DRUGS. PERFORMED BY: [place] [address] PATHOLOGIST [employer]AT BUILDER MATTHEW CHAIDEZ M.D. Normal [facility] Comment on above: Performed By: #### C UU #### [address] Urine Culture >100,000 [facility] Other Urine Culture <16 Susceptible [facility] Other Urine Culture <8/4 Susceptible [employer] Other Urine Culture >16 Resistant [facility] Other Urine Culture <4 Susceptible [facility] [employer] Other Urine Culture <2 Susceptible [employer] Other Urine Culture <1 Susceptible [employer] Other Urine Culture <0.25 Susceptible [facility] [place] Other Urine Culture <0.5 Susceptible [facility] Other Urine Culture <32 Susceptible [facility] Other Urine Culture <0.5/9.5 Susceptible [facility] [place] Other CBC AUTO DIFFon 08-25-2022 BASO # 0.0 103/ul Normal 0.0-0.1 [facility] Comment on above: Performed By: #### C BC #### [facility] [address] [place] [address] Dr. Oneal Capps Basophils/100 WBC (Bld) 0.4 % Normal 0.2-2.0 [facility] Comment on above: Performed By: #### C BC #### [facility] [address] [place] [address] Dr. Oneal Capps EO # 0.2 103/ul Normal 0.0-0.7 [facility] Comment on above: Performed By: #### C BC #### [facility] [address] [place] [address] Dr. Oneal Capps Eosinophils/100 WBC (Bld) 2.2 % Normal 0.9-7.0 [facility] Comment on above: Performed By: #### C BC #### [facility] [address] [place] [address] Dr. Oneal Capps Erythrocyte distribution width (RBC) [Ratio] 12.5 % Normal 11.0-15.0 [facility] Comment on above: Performed By: #### C BC #### [facility] [address] [place] [address] Dr. Oneal Capps Hematocrit (Bld) [Volume fraction] 37.1 % Normal 36.0-48.0 [facility] Comment on above: Performed By: #### C BC #### [facility] [address] [place] [address] Dr. Oneal Capps Hemoglobin (Bld) [Mass/Vol] 12.5 g/dL Normal 12.0-16.0 [facility] Comment on above: Performed By: #### C BC #### [facility] [address] [place] [address] Dr. Oneal Capps IG # 0.05 10e3/ul Critically high 0.00-0.03 [facility] Comment on above: Performed By: #### C BC #### [facility] [address] [place] [address] Dr. Oneal Capps IG % 0.5 % Normal 0.0-0.5 [facility] Comment on above: Performed By: #### C BC #### [facility] [address] [place] [address] Dr. Oneal Capps LYMPH # 1.6 103/ul Normal 1.2-3.8 [facility] Comment on above: Performed By: #### C BC #### [facility] [address] [place] [address] Dr. Oneal Capps Lymphocytes/100 WBC (Bld) 16.9 % Critically low 20.5-60.0 [facility] Comment on above: Performed By: #### C BC #### [facility] [address] [place] [address] Dr. Oneal Capps MANUAL DIFF REQ NO Normal [facility] Comment on above: Performed By: #### C BC #### [facility] [address] [place] [address] Dr. Oneal Capps MCH (RBC) [Entitic mass] 29.8 pg Normal 26.7-34.0 [facility] Comment on above: Performed By: #### C BC #### [facility] [address] [place] [address] Dr. Oneal Capps MCHC (RBC) [Mass/Vol] 33.7 g/dL Normal 29.9-35.2 [facility] Comment on above: Performed By: #### C BC #### [facility] [address] [place] [address] Dr. Oneal Capps MCV (RBC) [Entitic vol] 88.5 fL Normal 81.0-99.0 [facility] Comment on above: Performed By: #### C BC #### [facility] [address] [place] [address] Dr. Oneal Capps MONO # 0.7 103/ul Normal 0.3-0.8 [facility] Comment on above: Performed By: #### C BC #### [facility] [address] [place] [address] Dr. Oneal Capps Monocytes/100 WBC (Bld) 6.9 % Normal 1.7-12.0 [facility] Comment on above: Performed By: #### C BC #### [facility] [address] [place] [address] Dr. Oneal Capps NEUT # 6.9 103/ul Critically high 1.4-6.5 [facility] Comment on above: Performed By: #### C BC #### [facility] [address] [place] [address] Dr. Oneal Capps Neutrophils/100 WBC (Bld) 73.1 % Normal 43.0-75.0 [facility] Comment on above: Performed By: #### C BC #### [facility] [address] [place] [address] Dr. Oneal Capps Platelet mean volume (Bld) [Entitic vol] 10.8 fL Normal 9.5-13.5 [facility] Comment on above: Performed By: #### C BC #### [facility] [address] [place] [address] Dr. Oneal Capps PLT 234 103/ul Normal 150-450 [facility] Comment on above: Performed By: #### C BC #### [facility] [address] [place] [address] Dr. Oneal Capps RBC 4.19 106/ul Critically low 4.20-5.40 [facility] Comment on above: Performed By: #### C BC #### [facility] [address] [place] [address] Dr. Oneal Capps WBC 9.4 103/ul Normal 4.0-11.0 [facility] Comment on above: Performed By: #### C BC #### [facility] [address] [place] [address] Dr. Oneal Capps FERRITINon 08-25-2022 Ferritin [Mass/Vol] 62.0 ng/mL Normal 6.2-137.0 [facility] Comment on above: Performed By: #### V ITAD, FT4, FETIBC, FERR, VITB12 #### [facility] [address] [place] [address] Dr. Oneal Capps FREE T3on 08-25-2022 FREE T3 2.98 pg/mlL Normal 2.91-4.70 [facility] Comment on above: Performed By: #### V ITAD, FT4, FETIBC, FERR, VITB12 #### [facility] [address] [place] [address] Dr. Oneal Capps FREE T4on 08-25-2022 Free T4 [Mass/Vol] 0.63 ng/dL Critically low 0.78-1.34 [facility] Comment on above: Performed By: #### V ITAD, FT4, FETIBC, FERR, VITB12 #### [facility] [address] [place] [address] Dr. Oneal Capps GLYCOHEMOGLOBIN A1Con 2022 ADA RECOMMENDATION SEE BELOW Normal [facility] Comment on above: Result Comment: ADA RECOMMENDED LIMIT 4.0 - 6.0 ADA THERAPEUTIC TARGET < 7.0 ACTION SUGGESTED > 7.0 Performed By: #### A 1C #### [facility] [address] [place] [address] Dr. Oneal Capps Glucose [Mass/Vol] 111 mg/dL Normal [facility] Comment on above: Performed By: #### A 1C #### [facility] [address] [place] [address] Dr. Oneal Capps HbA1c (Bld) [Mass fraction] 5.5 % Normal 4.5-6.2 [facility] Comment on above: Performed By: #### A 1C #### [facility] [address] [place] [address] Dr. Oneal Capps IRON AND TIBCon 08-25-2022 % SATURATION 31.6 % Normal [facility] Comment on above: Performed By: #### V ITAD, FT4, FETIBC, FERR, VITB12 #### [facility] [address] [address] [address] Oneal Capps Iron [Mass/Vol] 109.0 ug/dL Normal 50.0-170.0 [facility] Comment on above: Performed By: #### V ITAD, FT4, FETIBC, FERR, VITB12 #### [facility] [address] [place] [address] Dr. Oneal Capps TIBC DIRECT 345.0 ug/dL Normal 250.0-450.0 [facility] Comment on above: Performed By: #### V ITAD, FT4, FETIBC, FERR, VITB12 #### [facility] [address] [place] [address] Dr. Oneal Capps LIPID PROFILEon 08-25-2022 CHOL-HDL RATIO NORM SEE BELOW Normal [facility] Comment on above: Result Comment: 3.3 - 4.4 LOW RISK 4.4 - 7.1 AVERAGE RISK 7.1 - 11.0 MODERATE RISK >11.0 HIGH RISK Performed By: #### L IPID, TSH, FT3, CMP #### [facility] [address] [place] [address] Dr. Oneal Capps Cholesterol [Mass/Vol] 251 mg/dL Critically high 104-227 [facility] Comment on above: Performed By: #### L IPID, TSH, FT3, CMP #### [facility] [address] [place] [address] Dr. Oneal Capps Cholesterol in HDL [Mass/Vol] 64 mg/dL Normal 29-69 [facility] Comment on above: Performed By: #### L IPID, TSH, FT3, CMP #### [facility] [address] [address] [address] Oneal Capps Cholesterol in LDL [Mass/Vol] 169.4 mg/dL Critically high 46.0-140.0 [facility] Comment on above: Performed By: #### L IPID, TSH, FT3, CMP #### [facility] [address] [address] [address] Oneal Capps Cholesterol.total/Ch olesterol in HDL [Mass ratio] 3.9 {ratio} Normal [facility] Comment on above: Performed By: #### L IPID, TSH, FT3, CMP #### [facility] [address] [address] [address] Oneal Capps HDL NORMAL > or = 60 mg/dl - LOW CARDIOVASCULAR RISK <40 mg/dl - HIGH CARDIOVASCULAR RISK Normal [facility] Comment on above: Performed By: #### L IPID, TSH, FT3, CMP #### [facility] [address] [address] [address] Oneal Capps LDL CALC NORMAL SEE BELOW Normal [facility] Comment on above: Result Comment: <100 mg/dl OPTIMAL 100 - 129 mg/dl NEAR OR ABOVE OPTIMAL 130 - 159 mg/dl BORDERLINE HIGH 160 - 189 mg/dl HIGH >190 mg/dl VERY HIGH Performed By: #### L IPID, TSH, FT3, CMP #### [facility] [address] [address] [address] Oneal Capps Triglyceride [Mass/Vol] 88 mg/dL Normal 53-208 [facility] Comment on above: Performed By: #### L IPID, TSH, FT3, CMP #### [facility] [address] [address] [address] Oneal Capps VLDL CALC 17.6 mg/dL Normal [facility] Comment on above: Performed By: #### L IPID, TSH, FT3, CMP #### [facility] [address] [address] [address] Oneal Capps PROF 14(COMP METB)on 023 Albumin [Mass/Vol] 3.9 g/dL Normal 3.4-5.0 [facility] Comment on above: Performed By: #### L IPID, TSH, FT3, CMP #### [facility] [address] [place] [address] Dr. Oneal Capps Albumin/Globulin [Mass ratio] 1.0 {ratio} Normal [facility] Comment on above: Performed By: #### L IPID, TSH, FT3, CMP #### [facility] [address] [place] [address] Dr. Oneal Capps ALP [Catalytic activity/Vol] 96 U/L Normal 46-116 [facility] Comment on above: Performed By: #### L IPID, TSH, FT3, CMP #### [facility] [address] [place] [address] Dr. Oneal Capps ALT [Catalytic activity/Vol] 30 U/L Normal 14-59 [facility] Comment on above: Performed By: #### L IPID, TSH, FT3, CMP #### [facility] [address] [place] [address] Dr. Oneal Capps Anion gap [Moles/Vol] 11.2 mmol/L Normal [facility] Comment on above: Performed By: #### L IPID, TSH, FT3, CMP #### [facility] [address] [place] [address] Dr. Oneal Capps AST [Catalytic activity/Vol] 26 U/L Normal 15-37 [facility] Comment on above: Performed By: #### L IPID, TSH, FT3, CMP #### [facility] [address] [place] [address] Dr. Oneal Capps Bilirubin [Mass/Vol] 0.6 mg/dL Normal 0.2-1.0 [facility] Comment on above: Performed By: #### L IPID, TSH, FT3, CMP #### [facility] [address] [place] [address] Dr. Oneal Capps Calcium [Mass/Vol] 9.0 mg/dL Normal 8.5-10.1 [facility] Comment on above: Performed By: #### L IPID, TSH, FT3, CMP #### [facility] [address] [address] [address] Oneal Capps Chloride [Moles/Vol] 103 mmol/L Normal 98-107 [facility] Comment on above: Performed By: #### L IPID, TSH, FT3, CMP #### [facility] [address] [address] [address] Oneal Capps CO2 [Moles/Vol] 29.0 mmol/L Normal 21.0-32.0 [facility] Comment on above: Performed By: #### L IPID, TSH, FT3, CMP #### [facility] [address] [address] [address] Oneal Capps Creatinine [Mass/Vol] 0.56 mg/dL Normal 0.55-1.02 [facility] Comment on above: Performed By: #### L IPID, TSH, FT3, CMP #### [facility] [address] [place] [address] Dr. Oneal Capps EGFR-AF BANGLADESHI >60 Normal >=60 [facility] Comment on above: Performed By: #### L IPID, TSH, FT3, CMP #### [facility] [address] [place] [address] Dr. Oneal Capps EGFR-NON AF BANGLADESHI >60 Normal >=60 [facility] Comment on above: Performed By: #### L IPID, TSH, FT3, CMP #### [facility] [address] [address] [address] Oneal Capps Globulin (S) [Mass/Vol] 4.0 g/dL Normal [facility] Comment on above: Performed By: #### L IPID, TSH, FT3, CMP #### [facility] [address] [address] [address] Oneal Capps Glucose [Mass/Vol] 93 mg/dL Normal 74-106 [facility] Comment on above: Performed By: #### L IPID, TSH, FT3, CMP #### [facility] [address] [address] [address] Oneal Capps Potassium [Moles/Vol] 4.2 mmol/L Normal 3.5-5.1 [facility] Comment on above: Performed By: #### L IPID, TSH, FT3, CMP #### [facility] [address] [place] [address] Dr. Oneal Capps Protein [Mass/Vol] 7.9 g/dL Normal 6.4-8.2 [facility] Comment on above: Performed By: #### L IPID, TSH, FT3, CMP #### [facility] [address] [place] [address] Dr. Oneal Capps Sodium [Moles/Vol] 139 mmol/L Normal 136-145 [facility] Comment on above: Performed By: #### L IPID, TSH, FT3, CMP #### [facility] [address] [place] [address] Dr. Oneal Capps Urea nitrogen [Mass/Vol] 7.0 mg/dL Normal 6.4-19.3 [facility] Comment on above: Performed By: #### L IPID, TSH, FT3, CMP #### [facility] [address] [place] [address] Dr. Oneal Capps Urea nitrogen/Creatinine [Mass ratio] 12.5 mg/mg Normal [facility] Comment on above: Performed By: #### L IPID, TSH, FT3, CMP #### [facility] [address] [place] [address] Dr. Oneal Capps TSHon 08-25-2022 TSH 2.032 uIU/mL Normal 0.516-4.130 [facility] Comment on above: Performed By: #### V ITAD, FT4, FETIBC, FERR, VITB12 #### [facility] [address] [place] [address] Dr. Oneal Capps VITAMIN B12on 08-25-2022 Cobalamin (Vitamin B12) [Mass/Vol] 620.0 pg/mL Normal 193.0-986.0 [facility] Comment on above: Performed By: #### V ITAD, FT4, FETIBC, FERR, VITB12 #### [facility] [address] [place], [place] [address] Dr. Oneal Capps VITAMIN D 25 OHon 08-25-2022 VIT D 25-OH 47.8 ng/mL Normal [facility] Comment on above: Performed By: #### V ITAD, FT4, FETIBC, FERR, VITB12 #### [facility] [address] [place], [place] [address] Dr. Oneal Capps VIT D RANGES SEE BELOW Normal [facility] Comment on above: Result Comment: <20 ng/mL Vit D deficient 20 - <30 ng/mL Vit D insufficient 30 - 100 ng/mL Vit D sufficient >100 ng/mL Potential Toxicity Performed By: #### V ITAD, FT4, FETIBC, FERR, VITB12 #### [facility] [address] [place] [address] Dr. Oneal Capps Consenton 04-28-2022 Consent [id number]#[id number]:127 Normal [facility] Registrationon 04-28-2022 Registration [id number]:127 Normal [facility] IRON, TIBC AND FERRITIN SUZIEE [facility] 02-11-2022 % SATURATION 32 % (calc) Normal 15-45 [facility] Comment on above: Order Comment: FASTI NG:NO FASTING: NO Performed By: #### 5 [id number], [id number] #### [facility] [address], [address] [place] [address] [employer] Printer: Alberto Davis MD Ferritin [Mass/Vol] 39 ng/mL Normal 6-67 [facility] Comment on above: Order Comment: FASTI NG:NO FASTING: NO Performed By: #### 5 [id number], [id number] #### [facility] [address], [address] [place], [place] [id number] [employer]inter: Alberto Davis MD IRON BINDING CAPACITY 346 mcg/dL (calc) Normal 271-448 [facility] Comment on above: Order Comment: FASTI NG:NO FASTING: NO Performed By: #### 5 446, [id number] #### [facility] [address], [address] [place] [address] [employer] Printer: Alberto Davis MD IRON, TOTAL 112 mcg/dL Normal 27-164 [facility] Comment on above: Order Comment: FASTI NG:NO FASTING: NO Performed By: #### 5 616, [id number] #### [facility] [address], [address] [place] [address] [employer] Printer: Alberto Davis MD VITAMIN D,25-OH,TOTAL,IAon 0 02-11-2022 [...] D, (D2,D3), LC/MS/MS is recommended: order code 01487 (patients >2yrs). See Note 1 Note 1 For additional information, please refer to http://education.[employer]/faq/HWQ152 (This link is being provided for informational/ educational purposes only.) Performed By: #### 5 616, [id number] #### [facility] [address], [address] [place] [address] [employer] Printer: Alberto Davis MD IRON, TIBC AND FERRITIN MADIHA [facility] 05-23-2021 % SATURATION 7 % (calc) Low 15-45 [facility] Comment on above: Performed By: #### 5 616 #### [facility] [address], [address] [place] [address] [employer] Printer: Alberto Davis MD Ferritin [Mass/Vol] 5 ng/mL Low 6-67 [facility] Comment on above: Performed By: #### 5 616 #### [facility] [address], [address] [place] [address] [employer] Printer: Alberto Davis MD IRON BINDING CAPACITY 501 mcg/dL (calc) High 271-448 [facility] Comment on above: Performed By: #### 5 616 #### [facility] [address], [address] [place] [address] [employer] Printer: Alberto Davis MD IRON, TOTAL 36 mcg/dL Normal 27-164 [facility] Comment on above: Performed By: #### 5 616 #### [facility] [address], [address] [place], [place] [id number] [employer] Printer: Alberto Davis MD Vital Signs Date Time Vital Sign Value Performing Clinician Facility 10-18-2024 14:43-0400 Body height 165.1 cm Tonie Lyons APRN-MATHEMATICAL SCIENTIST Work Phone: [facility] 10-18-2024 14:43-0400 Body mass index (BMI) [Ratio] 29.85 kg/m2 Tonie Lyons APRN-MATHEMATICAL SCIENTIST Work Phone: [facility] 10-18-2024 14:43-0400 Body temperature 98.1 [degF] Toniebarb Lyons APRN-MATHEMATICAL SCIENTIST Work Phone: [facility] 10-18-2024 14:43-0400 Body weight 81.38 kg Tonie Lyons APRN-MATHEMATICAL SCIENTIST Work Phone: [facility] 10-18-2024 14:43-0400 Diastolic blood pressure 74 mm[Hg] Tonie Lyons APRN-MATHEMATICAL SCIENTIST Work Phone: [facility] 10-18-2024 14:43-0400 Heart rate 100 /min Tonie Lyons APRN-MATHEMATICAL SCIENTIST Work Phone: [facility] 10-18-2024 14:43-0400 Respiratory rate 18 /min Tonie Lyons APRN-MATHEMATICAL SCIENTIST Work Phone: [facility] 10-18-2024 14:43-0400 SaO2% (BldA) [Mass fraction] 100 % Tonie Lyons APRN-MATHEMATICAL SCIENTIST Work Phone: [facility] 10-18-2024 14:43-0400 Systolic blood pressure 124 mm[Hg] Tonie Lyons COLLABORATING SUPERVISING PHYSICIAN-MATHEMATICAL SCIENTIST Work Phone: [facility] 08-12-2024 13:20-0500 Body height 165.1 cm [facility] 08-12-2024 13:20-0500 Body mass index (BMI) [Ratio] 30.8 kg/m2 [facility] 08-12-2024 13:20-0500 Body temperature 96.5 [degF] [facility] 08-12-2024 13:20-0500 Body weight 83.97 kg [facility] 08-12-2024 13:20-0500 Diastolic blood pressure 110 mm[Hg] [facility] 08-12-2024 13:20-0500 Heart rate 86 /min [facility] 08-12-2024 13:20-0500 SaO2% (BldA) [Mass fraction] 99 % [facility] 08-12-2024 13:20-0500 Systolic blood pressure 128 mm[Hg] [facility] 07-28-2024 11:54-0500 Body height 165.1 cm [facility] 07-28-2024 11:54-0500 Body mass index (BMI) [Ratio] 31.6 kg/m2 [facility] 07-28-2024 11:54-0500 Body temperature 98 [degF] [facility] 07-28-2024 11:54-0500 Body weight 86.18 kg [facility] 07-28-2024 11:54-0500 Diastolic blood pressure 78 mm[Hg] [facility] 07-28-2024 11:54-0500 Heart rate 68 /min [facility] 07-28-2024 11:54-0500 Respiratory rate 18 /min [facility] 07-28-2024 11:54-0500 SaO2% (BldA) [Mass fraction] 98 % [facility] 07-28-2024 11:54-0500 Systolic blood pressure 124 mm[Hg] [facility] 04-28-2024 12:02-0500 Body mass index (BMI) [Ratio] 31.42 kg/m2 Carlos Alejandro APRN-MATHEMATICAL SCIENTIST Work Phone: [facility] [facility] 04-28-2024 12:02-0500 Body temperature 98.1 [degF] Carlos Alejandro COLLABORATING SUPERVISING PHYSICIAN-MATHEMATICAL SCIENTIST Work Phone: [facility] [facility] 04-28-2024 12:02-0500 Body weight 85.64 kg Carlos Alejandro COLLABORATING SUPERVISING PHYSICIAN-MATHEMATICAL SCIENTIST Work Phone: [facility] [facility] 04-28-2024 12:02-0500 Diastolic blood pressure 72 mm[Hg] Carlos Alejandro COLLABORATING SUPERVISING PHYSICIAN-MATHEMATICAL SCIENTIST Work Phone: [facility] [facility] 04-28-2024 12:02-0500 Heart rate 86 /min Carlos Alejandro APRN-MATHEMATICAL SCIENTIST Work Phone: [facility] 04-28-2024 12:02-0500 SaO2% (BldA) [Mass fraction] 97 % Carlos Alejandro COLLABORATING SUPERVISING PHYSICIAN-MATHEMATICAL SCIENTIST Work Phone: [facility] [facility] 04-28-2024 12:02-0500 Systolic blood pressure 112 mm[Hg] Carlos Alejandro COLLABORATING SUPERVISING PHYSICIAN-MATHEMATICAL SCIENTIST Work Phone: [facility] [facility] 11-25-2023 09:54-0400 Body height 165.1 cm Andreea Valadez COLLABORATING SUPERVISING PHYSICIAN-AGILE PROJECT MANAGER Work Phone: [facility] [facility] 11-25-2023 09:54-0400 Body mass index (BMI) [Ratio] 29.95 kg/m2 Andreea Valadez COLLABORATING SUPERVISING PHYSICIAN-AGILE PROJECT MANAGER Work Phone: [facility] [facility] 11-25-2023 09:54-0400 Body temperature 97.3 [degF] nAdreea Valadez COLLABORATING SUPERVISING PHYSICIAN-AGILE PROJECT MANAGER Work Phone: [facility] [facility] 11-25-2023 09:54-0400 Body weight 81.65 kg Andreea Valadez COLLABORATING SUPERVISING PHYSICIAN-AGILE PROJECT MANAGER Work Phone: [facility] [facility] 11-25-2023 09:54-0400 Diastolic blood pressure 80 mm[Hg] Andreea Valadez APRN-AGILE PROJECT MANAGER Work Phone: [facility] [facility] 11-25-2023 09:54-0400 Heart rate 77 /min Andreea Valadez APRN-AGILE PROJECT MANAGER Work Phone: [facility] [facility] 11-25-2023 09:54-0400 Respiratory rate 12 /min Andreea Valadez APRN-AGILE PROJECT MANAGER Work Phone: [facility] 11-25-2023 09:54-0400 SaO2% (BldA) [Mass fraction] 98 % Andreea Valadez APRN-AGILE PROJECT MANAGER Work Phone: [facility] 11-25-2023 09:54-0400 Systolic blood pressure 110 mm[Hg] Andreea Valadez APRN-AGILE PROJECT MANAGER Work Phone: [facility] [facility] 06-18-2023 12:03-0500 Body height 165.1 cm Carlos Javon COLLABORATING SUPERVISING PHYSICIAN-MATHEMATICAL SCIENTIST Work Phone: [facility] [facility] 06-18-2023 12:03-0500 Body mass index (BMI) [Ratio] 29.95 kg/m2 Carlos Javon COLLABORATING SUPERVISING PHYSICIAN-MATHEMATICAL SCIENTIST Work Phone: [facility] 06-18-2023 12:03-0500 Body temperature 98.29 [degF] Carlos Javon COLLABORATING SUPERVISING PHYSICIAN-MATHEMATICAL SCIENTIST Work Phone: [facility] [facility] 06-18-2023 12:03-0500 Body weight 81.65 kg Carlos Javon COLLABORATING SUPERVISING PHYSICIAN-MATHEMATICAL SCIENTIST Work Phone: [facility] 06-18-2023 12:03-0500 Diastolic blood pressure 85 mm[Hg] Carlos Javon COLLABORATING SUPERVISING PHYSICIAN-MATHEMATICAL SCIENTIST Work Phone: [facility] 06-18-2023 12:03-0500 Heart rate 72 /min Carlos Javon COLLABORATING SUPERVISING PHYSICIAN-MATHEMATICAL SCIENTIST Work Phone: [employer] 06-18-2023 12:03-0500 SaO2% (BldA) [Mass fraction] 98 % Carlos Alejandro COLLABORATING SUPERVISING PHYSICIAN-MATHEMATICAL SCIENTIST Work Phone: [employer] 06-18-2023 12:03-0500 Systolic blood pressure 121 mm[Hg] Carlos Alejandro COLLABORATING SUPERVISING PHYSICIAN-MATHEMATICAL SCIENTIST Work Phone: [facility] [employer] 05-12-2023 15:30-0500 Body height 165.1 cm Brooke Annelise Other [facility] Other 05-12-2023 15:30-0500 Body mass index (BMI) [Ratio] 30.95 kg/m2 Brooke Annelise Other [facility] Other 05-12-2023 15:30-0500 Body temperature 98.3 [degF] Brooke Annelise Other [facility] Other 05-12-2023 15:30-0500 Body weight 84.37 kg Brooke Goelmond Other [facility] Other 05-12-2023 15:30-0500 Respiratory rate 19 /min Brooke Goelmond Other [facility] Other 05-12-2023 15:30-0500 SaO2% (BldA) [Mass fraction] 98 % Brooke Goelmond Other [facility] Other Encounters Encounter Date Encounter Type Care Provider Facility Start: [facility]26[facility]24 [facility] Start: 10-25-2024 End: 10-25-2024 ambulatory TONIE LYONS [facility] Start: 10-20-2024 ambulatory CARLOS Jasper ADAIRJAVON [facility] Start: 10-18-2024 End: 10-18-2024 Office outpatient visit 25 minutes Tonie J Eloy COLLABORATING SUPERVISING PHYSICIAN-MATHEMATICAL SCIENTIST Work Phone: [facility] Comment on above: 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); Chronic midline thoracic back pain; Muscle spasm; Chronic constipation Start: 10-18-2024 End: 10-18-2024 ambulatory [facility] Start: 08-12-2024 End: 08-12-2024 ambulatory [facility] Work Phone: Start: 08-12-2024 End: 08-12-2024 Patient encounter procedure [facility] Physician [facility] [place] Work Phone: Start: 07-28-2024 End: 07-28-2024 ambulatory [facility] Work Phone: Start: 07-28-2024 End: 07-28-2024 Patient encounter procedure [facility] Physician [facility] [place] Work Phone: Start: 06-27-2024 End: 06-27-2024 Refill Carlos Alejandro COLLABORATING SUPERVISING PHYSICIAN-MATHEMATICAL SCIENTIST Work Phone: [facility] Internal Medicine - Family Medicine Start: 05-22-2024 End: 05-22-2024 ambulatory Ava Dinero MD Facility:[facility] Start: 05-12-2024 End: 05-12-2024 Orders Only Carlos Alejandro COLLABORATING SUPERVISING PHYSICIAN-MATHEMATICAL SCIENTIST Work Phone: [facility] Start: 05-01-2024 End: 05-01-2024 Orders Only Carlos Jasper Javon COLLABORATING SUPERVISING PHYSICIAN-MATHEMATICAL SCIENTIST Work Phone: [facility] Comment on above: 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) Start: 04-28-2024 End: 04-28-2024 Office outpatient visit 15 minutes Carlosghulam Alejandro COLLABORATING SUPERVISING PHYSICIAN-MATHEMATICAL SCIENTIST Work Phone: [facility] Internal Medicine - Family Medicine Comment on above: 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) Start: 04-28-2024 End: 04-28-2024 ambulatory [facility] Start: 02-05-2024 End: 02-07-2024 Refill Carlos L Javon COLLABORATING SUPERVISING PHYSICIAN-MATHEMATICAL SCIENTIST Work Phone: [facility] Internal Medicine - Family Medicine Comment on above: Unspecified asthma, uncomplicated Start: 11-25-2023 End: 11-25-2023 ambulatory [facility] Start: 11-25-2023 End: 11-25-2023 Office outpatient visit 15 minutes [facility] COLLABORATING SUPERVISING PHYSICIAN-AGILE PROJECT MANAGER Work Phone: [facility] Internal Medicine - Family Medicine Comment on above: Bipolar 2 disorder, major depressive episode ([facility]) (Primary Dx); Poison eleazar dermatitis; Galactorrhea on both sides Start: 11-25-2023 End: 11-25-2023 ambulatory [facility] Start: 09-13-2023 Refill Carlos L Javon COLLABORATING SUPERVISING PHYSICIAN-MATHEMATICAL SCIENTIST Work Phone: [facility] Internal Medicine - Family Medicine Start: 06-18-2023 End: 06-18-2023 ambulatory [facility] Start: 06-18-2023 End: 06-18-2023 Office outpatient visit 15 minutes Carlos L Javon COLLABORATING SUPERVISING PHYSICIAN-MATHEMATICAL SCIENTIST Work Phone: [facility] Internal Medicine - Family Medicine Comment on above: Non-intractable vomi ting with nausea (Primary Dx); High risk heterosexual behavior; Implantable subdermal contraceptive surveillance Start: 05-12-2023 End: 05-12-2023 Departed Referred MOISE Castelan Work Phone: [facility] [place] Work Phone: Start: 05-12-2023 End: 05-12-2023 ambulatory Brooke Castelan [facility] Work Phone: Start: 05-12-2023 Office outpatient ne w 20 minutes Brooke Castelan [facility] [place] Start: 08-25-2022 End: 08-26-[address] JONATHAN GARCIA Facility:[facility] Start: 04-28-2022 End: 04-29-2022 ambulatory Luis Carlos DIOP Facility:[facility] Start: 03-06-[address] JONATHAN GARCIA Fac ility:[facility] Start: 12-10-2021 End: 12-10-2021 ambulatory MORGAN MAURICIO . Facility:[facility] Start: 10-08-2021 End: 10-09-2021 ambulatory CARLOS ADAIRUCH Facility: Procedures Date Procedure Procedure Detail Performing Clinician Start: 10-18-2024 Adult depression screening assessment Tonie Lyons COLLABORATING SUPERVISING PHYSICIAN-MATHEMATICAL SCIENTIST Work Phone: Start: 04-28-2024 Follow-up visit Follow-up CARLOS ALEJANDRO Start: 04-28-2024 Adult depression screening assessment Carlos Adairuch COLLABORATING SUPERVISING PHYSICIAN-MATHEMATICAL SCIENTIST Work Phone: Start: 11-25-2023 Urine test visual color cmprsn meths Andreea Valadez COLLABORATING SUPERVISING PHYSICIAN-AGILE PROJECT MANAGER Work Phone: Start: 11-25-2023 Adult depression screening assessment Andreea Valadez COLLABORATING SUPERVISING PHYSICIAN-AGILE PROJECT MANAGER Work Phone: Start: 06-18-2023 Urine test visual color cmprsn meths Carlos Alejandro COLLABORATING SUPERVISING PHYSICIAN-MATHEMATICAL SCIENTIST Work Phone: Start: 06-18-2023 Adult depression screening assessment Carlos Alejandro COLLABORATING SUPERVISING PHYSICIAN-MATHEMATICAL SCIENTIST Work Phone: Start: 05-12-2023 Piperacillin/tazobactam Brooke Castelan Other Plan of Treatment Date Care Activity Detail Author Start: 02-04-2026 DTaP,Tdap and Td Vaccines (7 - Td or Tdap) DTaP,Tdap and Td Vaccines (7 - Td or Tdap) [facility] Start: 10-18-2025 Adult BMI Screening Adult BMI Screen ing [facility] Start: 10-18-2025 Depression Screening Depression Scre ening [facility] Start: 10-18-2025 Tobacco Screening Tobacco Screening [facility] Start: 04-28-2025 Adult BMI Screening Adult BMI Screen ing [facility] Start: 04-28-2025 Depression Screening Depression Scre [facility] Start: 02-19-2025 Influenza vaccination Influenza Vacc [facility] Start: 11-24-2024 Adult BMI Screening Adult BMI Screen ing [facility] Start: 11-24-2024 Depression Screening Depression Scre [facility] Start: 11-24-2024 Tobacco Screening Tobacco Screening [facility] Start: 10-18-2024 End: 10-18-2025 XR Thoracic spine 3 Views X-ray spine thoracic 3 views Imaging Routine Chronic midline thoracic back pain Expected: 10/18/2024, Expires: 10/18/2025 [facility] [employer] Phone: Comment on above: Expected: 10/18/2024 , Expires: 10/18/2025 Start: 2024 Screening for malign ant neoplasm of cervix Pap Smear [facility] Start: 06-18-2024 Adult BMI Screening Adult BMI Screen ing [facility] Start: 06-18-2024 Depression Screening Depression Scre [facility] Start: 06-18-2024 Screening for Chlamy wander trachomatis Chlamydia Screening [facility] Start: 06-18-2024 Tobacco Screening Tobacco Screening [facility] Start: 02-20-2024 Adult BMI Follow Up Plan Adult BMI Follow Up Plan [facility] Comment on above: Postponed from 08/07 (Not Indicated) Start: 02-20-2024 Influenza vaccination Influenza Vacc [facility] Start: 05-12-2023 Bacteria identified in Urine by Culture [facility] Start: 02-19-2023 Influenza vaccination Influenza Vacc [facility] Start: 2021 Adult BMI Follow Up Plan Adult BMI Follow Up Plan [facility] Start: 2003 Screening for Chlamy wander trachomatis Chlamydia Screening [facility] End: 06-17-2024 Chlamydia/GC by PCR urine Chlamydia/GC by PCR urine Microbiology Routine High risk heterosexual behavior 1 Occurrences starting 06/18/2023 until 06/17/2024 [facility] Work Phone: Comment on above: 1 Occurrences starti ng 06/18/2023 until 06/17/2024 End: 06-17-2024 Trichomonas by PCR Trichomonas by PCR Microbiology Routine High risk heterosexual behavior 1 Occurrences starting 06/18/2023 until 06/17/2024 [facility] Comment on above: 1 Occurrences starti ng 06/18/2023 until 06/17/2024 Immunizations Immunization Date Immunization Notes Care Provider Cliff cervantes 06-01-2021 meningococcal oligosaccharide (groups A, C, Y and W-135) diphtheria toxoid conjugate vaccine (MCV4O) [facility] Work Phone: [facility] 01-25-2018 Human Papillomavirus 9-valent vaccine [facility] Work Phone: [facility] 10-22-2016 hepatitis A vaccine, pediatric/adolescent dosage, 2 dose schedule [facility] Work Phone: [facility] 10-22-2016 Human Papillomavirus 9-valent vaccine [facility] Work Phone: [facility] 02-05-2016 meningococcal oligosaccharide (groups A, C, Y and W-135) diphtheria toxoid conjugate vaccine (MCV4O) [facility] Work Phone: [facility] 02-05-2016 tetanus toxoid, redu lydia diphtheria toxoid, and acellular pertussis vaccine, adsorbed [facility] Work Phone: [facility] 01-13-2008 diphtheria, tetanus toxoids and acellular pertussis vaccine [facility] Work Phone: [facility] 01-13-2008 measles, mumps and rubella virus vaccine [facility] Work Phone: [facility] 01-13-2008 poliovirus vaccine, inactivated [facility] Work Phone: [facility] 01-13-2008 varicella virus vaccine Carlota Alejandro [facility] Work Phone: [facility] 03-18-2005 diphtheria, tetanus toxoids and acellular pertussis vaccine Carlos Alejandro [facility] Work Phone: [facility] 03-18-2005 pneumococcal conjuga te vaccine, 7 valent Carlos Alejandro [facility] Work Phone: [facility] 03-18-2005 varicella virus vaccine Carlota Alejandro [facility] Work Phone: [facility] 08-22-2004 haemophilus influenz ae type b vaccine, PRP-T conjugate Carlos Alejandro [facility] Work Phone: [facility] 08-22-2004 measles, mumps and rubella virus vaccine Carlos Alejandro [facility] Work Phone: [facility] 02-27-2004 DTaP-hepatitis B and poliovirus vaccine Carlos Alejandro [facility] Work Phone: [facility] 02-27-2004 haemophilus influenz ae type b vaccine, PRP-T conjugate Carlos Alejandro [facility] Work Phone: [facility] 02-27-2004 pneumococcal conjuga te vaccine, 7 valent Carlos Alejandro [facility] Work Phone: [facility] 2003 DTaP-hepatitis B and poliovirus vaccine [facility]: [facility] 2003 haemophilus influenz ae type b vaccine, PRP-T conjugate [facility] Work Phone: [facility] 2003 pneumococcal conjuga te vaccine, 7 valent Carlos Alejandro [facility] Work Phone: [facility] 2003 DTaP-hepatitis B and poliovirus vaccine [facility] Work Phone: [facility] 2003 haemophilus influenz ae type b vaccine, PRP-T conjugate Carlos Alejandro [facility] Work Phone: [facility] 2003 pneumococcal conjuga te vaccine, 7 valent Carlos Alejandro [facility] Work Phone: [facility] 2003 hepatitis B vaccine, pediatric or pediatric/adolescent dosage Carlos Alejandro [facility] Work Phone: [facility] Payers Date Payer Category Payer Managed Care Other (unspecified) [employer] [id number] 2022 Unknown 2003 Unknown [id number]. 593 2003 Unknown [id number] [id number]. 593 2003 Unknown [id number] 2.16.840.1.636002.3.579.2. 1286 2003 Unknown [id number] 2.16.840.1.898152.3.579.2. 1286 2003 Unknown [id number] 2.16.840.1.095534.3.579.2. 196 2003 Unknown [id number] 2.16.840.1.720772.3.579.2. 1286 2003 Unknown [id number] 2.16.840.1.554448.3.579.2. 1286 2003 Unknown [id number] 2.16.840.1.090785.3.579.2. 1286 2003 Unknown [id number] 2.16.840.1.473624.3.579.2. 1286 2003 Unknown [id number] 2.16.840.1.610478.3.579.2. 1286 2003 Unknown [id number] 2.16.840.1.252756.3.579.2. 1286 2003 Unknown [id number] 2.16.840.1.204675.3.579.2. 1286 2003 Unknown [id number] 2.16.840.1.787573.3.579.2. 1286 2003 Unknown [id number] 2.16.840.1.577026.3.579.2. 1286 1975 Unknown [id number] 2.16.840.1.128687.3.579.2. 593 1975 Unknown [id number] 2.16.840.1.087079.3.579.2. 593 1959 Self-pay 1959 Unknown [id number] 1959 Unknown [id number] Unknown [id number] [id number]. 531 Social History Date Type Detail Facility Unknown if ever [facility]: Start: 11-25-2023 End: 10-18-2024 Sex Assigned At [facility] Start: 2005 Sex Assigned At Female F [facility] Start: 05-28-2022 End: 07-28-2024 Tobacco smoking status ALIS Never smoked tobacco [facility] Start: 05-28-2022 Tobacco use and exposure Smokeless tobacco non-user [facility] Start: 11-25-2023 End: 10-18-2024 Alcoholic beverage intake Lifetime non-drinker (finding) [facility] Start: 11-25-2023 End: 10-18-2024 History of Social function [facility] How hard is it for y ou to pay for the very basics like food, housing, medical care, and heating Hard [facility] Adolescent depressio n screening assessment 0 [facility] Start: 01-24-2015 End: 08-12-2024 Sex Female (finding) [facility] Start: 10-22-2022 Gender identity Identifies as female gender (finding) [facility] Start: 10-22-2022 Sexual orientation Heterosexual (fin ding) [facility] Clinical Notes 10-08-2021 to 10-18-2024 Tonie Lyons, COLLABORATING SUPERVISING PHYSICIAN-MATHEMATICAL SCIENTIST - 10/18/2024 2:40 PM EDT Note Date & Type Note Facility 10-18-2024 History of Present illness Narrative Images from the original note were not included. [address] [place] [id number] SUBJECTIVE: Patient ID: Mouna Manuel is a 19 y.o. female. Chief Complaint Patient presents with Constipation Back Pain Presents today for several concerns. She has history of herniated disc of L5-S1. She was seen by orthopedics and attended pain management at [facility]. There was a recommendation of surgery by orthopedic but she would like second opinion from neurosurgeon stand point. She would also like referral to another pain management. States [place] pain management could not work around her schedule for an appointment. States she is now experiencing upper / mid back pain, describing between her shoulder blades. This has been occurring since June. She is worried this may be another herniated disc. She is not experiencing new radicular symptoms, just RLE, which is chronic at this time. 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 She feels her pain is starting to affect the quality of her life, especially at work. It is also effecting her sleeping patterns. Is taking Flexeril at on a more regular basis now. Additional concern today includes constipation. States she has not had a BM for over one week now. Has not tried any stool softener or laxative. States sometimes her bowels are irregular. Back Pain This is a chronic problem. The current episode started more than 1 month ago. The problem occurs daily. The problem has been waxing and waning since onset. The pain is present in the lumbar spine and thoracic spine. The quality of the pain is described as aching, burning and cramping. The pain radiates to the right thigh. The pain is moderate. The pain is The same all the time. The symptoms are aggravated by bending, lying down, position, sitting, standing and twisting. Associated symptoms include leg pain, tingling and weakness. Pertinent negatives include no abdominal pain, bladder incontinence, bowel incontinence, chest pain, dysuria, fever, headaches, numbness, paresis, paresthesias, pelvic pain, perianal numbness or weight loss. She has tried NSAIDs, walking, muscle relaxant, home exercises, heat, analgesics and bed rest for the symptoms. The treatment provided mild relief. The following portions of the patient's history were reviewed and updated as appropriate: allergies, current medications, past family history, past medical history, past social history, past surgical history and problem list. Past Surgical History: Procedure Laterality Date INJECTION NERVE BLOCK 05/22/2024 WISDOM TOOTH EXTRACTION Past Medical History: Diagnosis Date ADHD (attention deficit hyperactivity disorder) Anxiety Asthma Back pain Depression Eating disorder Migraine Recurrent UTI Immunization History Administered Date(s) Administered DTaP 03/18/2005, 01/13/2008 DTaP / Hep B / IPV 2003, 2003, 02/27/2004 HPV9 10/22/2016, 01/25/2018 Hep A, 2 Dose 10/22/2016 Hep B, Adolescent or Pediatric 2003 Hib (PRP-T) 2003, 2003, 02/27/2004, 08/22/2004 IPV 01/13/2008 MMR 08/22/2004, 01/13/2008 Meningococcal Conjugate 02/05/2016, 06/01/2021 Pneumococcal Conjugate 2003, 2003, 02/27/2004, 03/18/2005 Tdap 02/05/2016 Varicella 03/18/2005, 01/13/2008 REVIEW OF SYSTEMS: Review of Systems Constitutional: Negative for chills, fever and weight loss. HENT: Negative. Eyes: Negative for visual disturbance. Respiratory: Negative for chest tightness and shortness of breath. Cardiovascular: Negative for chest pain and palpitations. Gastrointestinal: Negative. Negative for abdominal pain and bowel incontinence. Endocrine: Negative. Genitourinary: Negative for bladder incontinence, dysuria, menstrual problem and pelvic pain. Musculoskeletal: Positive for back pain. Skin: Negative. Neurological: Positive for tingling and weakness. Negative for syncope, facial asymmetry, numbness, headaches and paresthesias. Hematological: Does not bruise/bleed easily. Psychiatric/Behavioral: Negative. PHYSICAL EXAMINATION: Vitals: 10/18/24 1443 BP: 124/74 BP Site: Left Arm BP Postition: Sitting BP CUFF SIZE: M (9-13 inches) Pulse: 100 Resp: 18 Temp: 36.7 C (98.1 F) TempSrc: Oral SpO2: 100% Weight: 81.4 kg (179 lb 6.4 oz) Height: 165.1 cm (5' 5 ) Patient noted to have elevated BMI and the following intervention(s) were applied: encouragement to exercise. Physical Exam Vitals and nursing note reviewed. Constitutional: General: She is not in acute distress. Appearance: She is well-developed. She is not diaphoretic. HENT: Head: Normocephalic and atraumatic. Right Ear: Tympanic membrane and external ear normal. Left Ear: Tympanic membrane and external ear normal. Nose: Nose normal. Mouth/Throat: Mouth: Mucous membranes are moist. Pharynx: No oropharyngeal exudate. Eyes: General: Right eye: No discharge. Left eye: No discharge. Conjunctiva/sclera: Conjunctivae normal. Pupils: Pupils are equal, round, and reactive to light. Neck: Thyroid: No thyromegaly. Vascular: No JVD. Cardiovascular: Rate and Rhythm: Normal rate and regular rhythm. Heart sounds: Normal heart sounds. No murmur heard. No friction rub. No gallop. Pulmonary: Effort: Pulmonary effort is normal. Breath sounds: Normal breath sounds. Abdominal: General: Bowel sounds are normal. There is no distension. Palpations: Abdomen is soft. There is no mass. Tenderness: There is no abdominal tenderness. Musculoskeletal: Arms: Cervical back: Normal, normal range of motion and neck supple. Thoracic back: Spasms, tenderness and bony tenderness present. Lumbar back: Spasms, tenderness and bony tenderness present. Positive right straight leg raise test. Back: Lymphadenopathy: Cervical: No cervical adenopathy. Skin: General: Skin is warm and dry. Capillary Refill: Capillary refill takes less than 2 seconds. Neurological: Mental Status: She is alert and oriented to person, place, and time. Deep Tendon Reflexes: Reflexes are normal and symmetric. Psychiatric: Mood and Affect: Mood normal. Behavior: Behavior normal. Thought Content: Thought content normal. Judgment: Judgment normal. ASSESSMENT/PLAN: Mouna was seen today for constipation and back pain. Diagnoses and all orders for this visit: Herniation of intervertebral disc between L5 and S1 - Ambulatory referral to Neurosurgery; Future - methylPREDNISolone (MEDROL, JUANCHO,) 4 mg tablet; Take 1 tablet (4 mg total) by mouth in the morning. follow package directions. - [facility] [place], [place]; Future Chronic midline thoracic back pain - X-ray spine thoracic 3 views; Future - methylPREDNISolone (MEDROL, JUANCHO,) 4 mg tablet; Take 1 tablet (4 mg total) by mouth in the morning. follow package directions. - [facility] [place], [place]; Future Muscle spasm - cyclobenzaprine (FLEXERIL) 10 mg tablet; Take 1 tablet (10 mg total) by mouth nightly as needed for muscle spasms. TAKE 1 TABLET BY MOUTH EVERY DAY NIGHTLY NEEDED FOR MUSCLE SPASMS - [facility] [place], [place]; Future Chronic constipation - polyethylene glycol (MIRALAX) 17 gram/dose powder; Take 17 g by mouth in the morning. Mix in 8 ounces of fluid. Constipation. Start Miralax as directed. Thoracic back pain Onset started in June. Denies any type of injury. Noticing pain especially with lifting objects. Xray thoracic spine Chronic lumbar back pain Secondary to herniated disc of L5-S1 Was seen by orthopedic speciality. She would like second opinion from neurosurgery. Referral done. -Had MRI of lumbar spine in 2023. -Went to [place] pain management previously. Did have one injection which did provide relief for approximately 1.5 months. She is requesting referral to pain management in [place] today. -Start Medrol 4 mg oral dose pack as directed -Reorder Flexeril 10 mg oral nightly PRN ALL QUESTIONS ANSWERED Total time spent was 30 minutes: Preparing to see the patient (e.g., review of tests) Obtaining and/or reviewing separately obtained history Performing a medically appropriate examination and/or evaluation Counseling and educating the patient/family/caregiver Ordering medications, tests, or procedures Follow-up: Next scheduled TI Villalba 10/18/24 1616 documented in this encounter [employer] 07-28-2024 Evaluation note Diagnosis Onset Date Resolution Acute otitis externa acute [facility]br [facility] 2024 9:58am [facility] Work Phone: 1(803) 570-773511-08-2024 History of Present illness Narrative* TI Gong - 04/28/2024 11:40 AM EST [address] [place] [id number] Patient: Mouna Manuel Date of : 2005 Encounter Date: 04/28/2024 History of Present Illness: The patient is a 18 y.o. female, an established patient, and is here for Chief Complaint Patient presents with Follow-up . HPI Patient is here for an ER follow-up. She was in the ER at the [facility] on April 26, 2024for lower back pain as she woke up that morning with right- sided low back pain that radiated to herright buttocks and right lateral leg. A CT of her lumbar was done in the ER that showed L5/S1 disc herniation and patient was given muscle relaxants, NSAIDs, RI CE, steroids and a referral to a spineorthopedic specialist in [place]. Today patient states the pain is much improved and she has not finished her steroid pack at in the muscle relaxant does help improve her pain. 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 She was offered physical therapy and pain management to help control the pain as well but she defer these. Surgeon may want MRI butas patient has not undergone physical therapy would be best ordered by specialist. Patient should return for wellness when due. TI GONG APRN-CNP 05/01/24 1500 [facility] History of Present illness Narrative* Xiao Kuns, NAYA-AGILE PROJECT MANAGER - 11/25/2023 10:00 AM EDT Subjective Patient ID: Mouna Manuel is a 18 y.o. female. She has [...] her depression/bipolar illness- she sees Tabatha flores [place] for this and has an apt for [...] visit: Bipolar 2 disorder, major depressive episode ([facility]) - Cancel: Prolactin level; Future - Thyroid [...] CISCO Pal 11/25/23 1310 documented in this encounterSam[facility]12-29-[facility]23 History of Present illness Narrative* Carlos Alejandro, COLLABORATING SUPERVISING PHYSICIAN-MATHEMATICAL SCIENTIST - 06/18/2023 12:10 PM EST [address] [place] [address] Patient: Mouna Manuel Date of : 2005 [...] send the trich sample in urine cup. CARLOS ALEJANDRO APRN-TI [place] 06/18/23 7157 documented in this encounterSam[facility]11-22-2023 Evaluation note* Encounter Date Diagnosis Assessment Notes [...] and vomiting in adult (ICD-10 - R11.2) [facility] Other 04-20-2022 NotePROCEDURE: XR KNEE RT 3V HISTORY: Pain in right knee , chronic anterior knee pain COMPARISON: None. FINDINGS: BONES:No fracture, acute abnormality, or significant arthropathy. SOFT TISSUES:No visible soft tissue swelling. EFFUSION:None visible. OTHER: Negative. IMPRESSION: 1. Normal examination. Electronically authenticated by: RILEY SCHUSTER Date: 2021-10-08 16:51[facility] noteNo assessment information availableThe [facility] Work Phone: Evaluation note* Diagnosis Herniation of intervertebral disc between L5 and S1- Primary [facility]* Diagnosis Herniation of intervertebral disc between L5 and S1- Primary [facility]* Diagnosis Non-intractable vomiting with nausea- Primary High risk heterosexual behavior Implantable subdermal contraceptive surveillance Surveillance of previously prescribed implantable subdermal contraceptive documented [facility] this encounter [facility]* Diagnosis Bipolar 2 disorder, major depressive episode ([facility] Primary Poison eleazar dermatitis Galactorrhea on both sides Galactorrhea not associated with childbirth documented in this encounter [facility]* Diagnosis Unspecified asthma, uncomplicated documented in this encounter [facility]* Diagnosis Herniation of intervertebral disc between L5 and S1- Primary Chronic midline thoracic back pain Muscle spasm Spasm of muscle Chronic constipation Unspecified constipation [facility] - Reported* Type Description Date Medical History Uncomplicated asthma, unspecifie d asthma severity Medical History ADHD Medical History Depression Medical History Anxiety [facility] Other InstructionsNot on filedocumented in this encounter [facility]ructionsNot on filedocumented in this encounter [facility] SystemInstructionsNot on filedocumented in this encounter [facility]* Attachments The following attachments cannot be sent through Care Everywhere. * Nausea and Vomiting, Adult ED ([place]) documented [facility] SystemInstructionsNot on file documented in this encounterProH[facility] SystemInstructionsNot on file documented in this encounterProMedinm Health SystemInstructionsNot on file documented in this encounterProH[facility] SystemInstructions* Attachments The following attachments cannot be sent through Care Everywhere. * Constipation Discharge Instructions, Adult (Afghan) * Muscle Spasms Discharge Instructions (Af[place]) [facility] [place] [facility] Summary Purpose Family History No Family History Records Found Relationship Condition Age at Onset Recorded Date/T anabel father Hypertension Unknown mother Hypertension Unknown Advance Directives No Advanced Directives Records Found [...] DATE CREATED AUTHOR AUTHOR'S ORGANIZ ATION 04/29/2022 [facility] DATE CREATED AUTHOR AUTHOR'S ORGANIZ ATION 08/29/2022 [facility] DATE CREATED AUTHOR AUTHOR'S ORGANIZ ATION 05/17/2023 [facility] DATE CREATED AUTHOR AUTHOR'S ORGANIZ ATION 11/27/2023 [facility] DATE CREATED AUTHOR AUTHOR'S ORGANIZ ATION 05/26/2024 [facility] DATE CREATED AUTHOR AUTHOR'S ORGANIZ ATION 10/23/2024 [facility] DATE CREATED AUTHOR AUTHOR'S ORGANIZ ATION 10/29/2024 [facility] REASON FOR VISIT (unrecogniz ed section and content) Reason Comments Follow-up Reason Comments Med Refill Reason Comments Nausea In waves x3 weeks Reason Comments Galactorrhea Poisoin eleazar Reason Comments Constipation Back Pain Care Teams (unrecognized sec tion and content) Team Status: Inactive Member Role Status Dates Brooke Castelan NP-C Attending Provider Active Lead Assembler Relationship Specialty Start Date End Date Carlos Alejandro APRN-MATHEMATICAL SCIENTIST [address] [place] [address] PCP - General Internal Medicine 02/18/23 Lead Assembler Relationship Specialty Start Date End Date Carlos Alejandro APRN-MATHEMATICAL SCIENTIST [address] [place] [address] PCP - General Internal Medicine 02/18/23 Lead Assembler Relationship Specialty Start Date End Date Carlos Alejandro APRN-MATHEMATICAL SCIENTIST [address] [place] [address] PCP - General Internal Medicine 02/18/23 Team Status: Active Member Role Status Dates Jonathan Garcia DO Primary Care Provider Active Team Status: Inactive Member Role Status Dates Jonathan Garcia DO Primary Care Provider Active Start: July 28, 2024 End: July 28, 2024 Elvira Cochran APRN Attending Provider Active S tart: July 28, 2024 End: July 28, 2024 Lead Assembler Relationship Specialty Start Date End Date Carlos Alejandro APRN-MATHEMATICAL SCIENTIST [address] [place] [address] PCP - General Internal Medicine 02/18/23 Lead Assembler Relationship Specialty Start Date End Date Carlos Alejandro APRN-TOMASZ [address] [place] [address] PCP - General Internal Medicine 02/18/23 Lead Assembler Relationship Specialty Start Date End Date Carlos Alejandro APRN-TOMASZ [address] [place] [address] PCP - General Internal Medicine 02/18/23 Lead Assembler Relationship Specialty Start Date End Date Carlos Alejandro APRN-TOMASZ [address] [place] [address] PCP - General Internal Medicine 02/18/23 Team Status: Inactive Member Role Status Dates Jonathan Garcia DO Primary Care Provider Active Start: August 12, 2024 End: August 12, 2024 Elvira Cochran APRN Attending Provider Active S tart: August 12, 2024 End: August 12, 2024 Lead Assembler Relationship Specialty Start Date End Date Carols Alejandro APRN-TOMASZ [address] [place] [address] PCP - General Internal Medicine 02/18/23 Goals [...] BE BASED ON THE PRIMARY CLINICAL RECORDS. [facility]. provides no warranty or guarantee of the accuracy or completeness of information in this document.
[2024-10-30 10:03] LABS: HCG Qualitative Urine* NEGATIVE (NEGATIVE); Internal Control Within Normal Limits
[2024-10-30 10:57] VITALS: BP 128/88; PULSE 88; O2SAT 98
== END 2024-10-30 10:59 | disposition home or self-care (01) ==
PROVIDERS: Emergency Provider Emergency Medicine; PCP Nurse Practitioner Family
DX: S91.332A Puncture wound without foreign body, left foot, initial encounter (principal); W45.0XXA Nail entering through skin, initial encounter; Z23 Encounter for immunization
CPT/HCPCS: 73630; 84703; 90471; 90715; 99284

== ENCOUNTER 2024-12-19 11:50 | Outpatient (OUT) | payer OTHER, SELFPAY ==
--- OUTSIDE RECORDS SUMMARY | 2024-12-19 11:55 | XMS_ITS | Encounter Summary ---
Author Organization [facility] [employer] [facility] tem Address [id number] [address] [place] [address] Care Team Providers Care Performance Architect Name Role Phone Demetrice Myers Primary Care Provider + Reason for Visit * Reason Comments Med Refill Encounter Details Date Type Department Care Team (Late st Contact Info) Description 03/07/2022 [facility]ill [facility] [address] [place] [phone] Demetrice Myers APRN-CNP [address] [place] [address] Iron deficiency anemia, unspecified Social History Tobacco Use Types Packs/Day Years Used Date Smoking Tobacco: Never Assessed Childcare Answer Date Recorded Childcare Unknown 11/30/2018 Employment Answer Date Recorded Employment Unknown 11/30/2018 Comments Unknown Sex and Gender Information Value Date Recorded Sex Assigned at Female 10/22/2022 9:35 AM EDT Legal Sex Female 12:01 PM EDT Gender Identity Female 10/22/2022 9:35 AM EDT Sexual Orientation Straight 10/22/2022 9: 35 AM EDT documented as of this encounter Miscellaneous Notes * Telephone Encounter - TI Carreon - 03/07/2022 10:58 AM EDT She can stop this - in old system there was a message to call out but you were unable to leave VM. Her iron and stores are normal- she should eat well balanced, iron rich diet * Telephone Encounter - TI Carreon - 03/07/2022 10:58 AM EDT She has normal iron and stores, no need to continue the supplement * Telephone Encounter - Maria Luisa Harley MA - 03/07/2022 10:58 AM EDT Patient notified and understands. documented in this encounter Plan of Treatment Upcoming Encounters Date Type Department Care Team (Late st Contact Info) Description 02/26/2025 12:30 PM EDT Procedure visit [facility], A Department of [facility] [address] [address] Kiran Perla MD [address] [address] documented as of this encounter Visit Diagnoses Diagnosis Iron deficiency anemia, unspecified documented in this encounter Care Teams Performance Architect Relationship Specialty Start Date End Date Demetrice Myers APRN-CNP [address] [place] [address] PCP - General Internal Medicine 02/18/23 documented as of this encounter
--- OUTSIDE RECORDS SUMMARY | 2024-12-19 11:55 | XMS_ITS | Encounter Summary ---
Author Organization [email or web address] tem Address [id number] [address] [place] [address] Care Team Providers Care Linseed Oil Order Filler Name Role Phone Demetrice Myers SAND FILLER-SECURITIES UNDERWRITER Primary Care Provider + Reason for Visit * Reason Comments Med Refill Encounter Details Date Type Department Care Team (Late st Contact Info) Description 08/23/2024 Refill [facility] [address] [place] [phone] Demetrice Myers [facility] [address] [facility] [place] [address] Social History Tobacco Use Types Packs/Day Years Used Date Smoking Tobacco: Never Smokeless Tobacco: Never Alcohol Use Standard Drinks/Week Comments Never 0 (1 standard drink = 0.6 oz pur e alcohol) Overall Financial Resource Strain (CARDIA) Answe r Date Recorded How hard is it for you to pa y for the very basics like food, housing, medical care, and heating? Hard 04/28/2024 PHQ-2 Answer Date Recorded Total Score 0 04/28/2024 PRAPARE - Transportation Answer Date Re corded In the past 12 months, has l ack of transportation kept you from medical appointments or from getting medications? No 01/2024 In the past 12 months, has l ack of transportation kept you from meetings, work, or from getting things needed for daily living? No 04/28/2024 Housing Instability Answer Date Recorde d Are you worried or concerned that in the next two months you may not have stable housing that you own, rent or stay in as a part of a household? Patient Declined 04/28/2024 Childcare Answer Date Recorded Childcare Unknown 11/30/2018 Employment Answer Date Recorded Employment Unknown 11/30/2018 Hunger Screening Answer Date Recorded Within the past 12 months we worried whether our food would run out before we got money to buy more. Sometimes True 024 Within the past 12 months th e food we bought just didn't last and we didn't have money to get more. Sometimes True 04/28/2024 Comments No Sex and Gender Information Value Date Recorded Sex Assigned at Female 10/22/2022 9:35 AM EDT Legal Sex Female 12:01 PM EDT Gender Identity Female 10/22/2022 9:35 AM EDT Sexual Orientation Straight 10/22/2022 9: 35 AM EDT documented as of this encounter Miscellaneous Notes * Telephone Encounter - TI Carreon - 08/23/2024 12:26 AM EST I have not seen her since April for this problem and this is not something that we would necessarily continue long-term this was for an acute pain episode. * Telephone Encounter - William Cabrera CMA - 08/23/2024 12:26 AM EST I called and let her know if she still wanted this medication to make a appt documented in this encounter Plan of Treatment Upcoming Encounters Date Type Department Care Team (Late st Contact Info) Description 02/26/2025 12:30 PM EDT [facility] Department of [place] [address] [employer] [address] [address] Kiran Perla MD [address] [employer] [address] documented as of this encounter Visit Diagnoses Not on filedocumented in this encounter Additional Health Concerns Assessment Noted Time PHQ-9 Depression Total Score: 0 04/28/20 24 12:01 PM EST documented as of this encounter Care Teams Linseed Oil Order Filler Relationship Specialty Start Date End Date Demetrice Myers, SAND FILLER-SECURITIES UNDERWRITER [address] [place] [address] PCP - General Internal Medicine 02/18/23 documented as of this encounter
--- OUTSIDE RECORDS SUMMARY | 2024-12-19 11:55 | XMS_ITS | Encounter Summary ---
Author Organization [facility] tem Address [id number] [address] [place] [address] Care Team Providers Care Edger Hand Name Role Phone Demetrice Myers BOLT THREADER-COTTRELL OPERATOR Primary Care Provider + Encounter Details Date Type Department Care Team (Late st Contact Info) Description 05/02/2024 Orders Only [facility] - [facility] [address] [place] [phone] Demetrice Myers APRN-COTTRELL OPERATOR [address] [place] [address] Social History Tobacco Use Types Packs/Day Years [...] AM EDT documented as of this encounter Plan of Treatment Upcoming Encounters Date Type Department Care Team (Late st Contact Info) Description 02/26/2025 12:30 PM EDT Procedure visit [facility] Neurology, A Department of [facility] [address] [phone] Kiran Perla MD [address] [phone] documented as of this encounter Visit Diagnoses Not on filedocumented in this encounter Additional Health Concerns Assessment Noted Time PHQ-9 Depression Total Score: 0 04/28/20 24 12:01 PM EST documented as of this encounter Care Teams Edger Hand Relationship Specialty Start Date End Date Demetrice Myers APRN-TOMASZ [address] [place] [address] PCP - General Internal Medicine 02/18/23 documented as of this encounter
--- OUTSIDE RECORDS SUMMARY | 2024-12-19 11:55 | XMS_ITS | Encounter Summary ---
Author Organization [facility] tem Address [id number] [address] [place] [address] Care Team Providers Care Technical Support Technician Name Role Phone Demetrice Myers BIOPROCESS ENGINEER-VEHICLE ASSEMBLY INSPECTOR Primary Care Provider + Encounter Details Date Type Department Care Team (Late st Contact Info) Description 05/26/2024 Orders Only [facility] - Family Medicine [address] [place] [phone] Demetrice Myers APRN-VEHICLE ASSEMBLY INSPECTOR [address] [place] [address] Social History Tobacco Use Types Packs/Day Years [...] Description 02/26/2025 12:30 PM EDT Procedure visit [facility] Neurology, A Department of [facility] [address] [phone] Kiran Perla MD [address] [phone] documented as of this encounter Visit Diagnoses Not on filedocumented in this encounter Additional Health Concerns Assessment Noted Time PHQ-9 Depression Total Score: 0 04/28/20 24 12:01 PM EST documented as of this encounter Care Teams Technical Support Technician Relationship Specialty Start Date End Date Demetrice Myers APRN-TOMASZ [address] [place] [address] PCP - General Internal Medicine 02/18/23 documented as of this encounter
--- OUTSIDE RECORDS SUMMARY | 2024-12-19 11:55 | XMS_ITS | Clinical Summary ---
Author Organization [facility] Address [address] [place] [address] Care Team Providers Care Clerk Specialist Name Role Phone Jonathan Garcia MD Primary Care Provider + [phone] Demetrice Myers MD Unavailable Allergies No known active allergies Medications busPIRone (Buspar) 15 MG tablet Take 15 mg by mouth in the morning and 15 mg in the evening and 15 mg before bedtime. 10/27/19 25 Active montelukast (Singulair) 10 MG tablet Take 10 mg by mouth in the morning. 02/07/20 24 Active sertraline (Zoloft) 50 MG tablet Take 50 mg by mouth in the morning. Active methylphenidate LA (Ritalin LA) 30 MG 24 hr capsule Take 30 mg by mouth in the morning. Active cholecalciferol (Vitamin D-[address]) 25 MCG (1000 UT) tablet Take 1,000 Units by mouth in the morning. Active propranolol (Inderal) 20 MG tablet Take 20 mg by mouth in the morning and 20 mg at noon and 20 mg in the evening. Active prazosin (Minipress) 2 MG capsule Take 2 mg by mouth at bedtime Active naloxone (Narcan) 4 mg/0.1 mL nasal spray USE INTRANASALLY NEEDED 05/09/20 24 Active traZODone (Desyrel) 150 MG tablet Take 150 mg by mouth at bedtime Active hydrOXYzine pamoate (Vistaril) 100 MG capsule Take by mouth A ctive ondansetron ODT (Zofran-ODT) 4 MG disintegrating tablet DISSOLVE 1 TABLET ON THE TONGUE EVERY 6 HOURS NEEDED FOR NAUSEA/VOMITING 08/12/19 25 Active zonisamide (Zonegran) 50 MG capsule Take 50 mg by mouth in the morning. Active cyclobenzaprine (Flexeril) 10 MG tablet Take 10 mg by mouth as needed at bedtime 10/19/19 25 Active lurasidone (Latuda) 80 MG tablet Take 80 mg by mouth at bedtime 10/17/19 25 Active Encounters Date Type Department Care Team Description 11/23/2024 Travel 11/08/2024 2:00 PM EDT Office Visit [facility] [address] [place] [address] Quincy Gonzalez DPM Puncture wound of left foot, subsequent encounter (Primary Dx) 11/08/2024 Bamboo flowsheet [facility] [address] [place] [address] Quincy Gonzalez DPM 11/08/2024 Travel 11/07/2024 Travel 10/31/2024 2:00 PM EDT Office Visit [facility] [address] [place] [address] Quincy Gonzalez DPM Puncture wound of left foot, initial encounter (Primary Dx) 10/31/2024 Abstract [facility] [address] [place] [address] Quincy Gonzalez DPM 10/31/2024 Abstract [facility] [address] [place] [address] Quincy Gonzalez DPM 10/31/2024 Bamboo flowsheet [facility] [address] [place] [address] Quincy Gonzalez DPM 10/31/2024 Travel from Last 3 Months Family History Relation Name Status Comments Father Alive Mother Alive Social History Tobacco Use Types Packs/Day Years Used Date Smoking Tobacco: Never Tobacco Cessation:Counseling Given: Not Answered Alcohol Use Standard Drinks/Week Comments Yes 1 (1 standard drink = 0.6 oz pur e alcohol) 1x weekly Comments Unknown Sex and Gender Information Value Date Recorded Sex Assigned at Not on file Legal Sex Female 8:00 PM EDT Gender Identity Not on file Sexual Orientation Not on file Last Filed Vital Signs Vital Sign Reading Time Taken Comments Blood Pressure - - Pulse - - Temperature - - Respiratory Rate - - Oxygen Saturation - - Inhaled Oxygen Concentration - - Weight 79.4 kg (175 lb) 11/08/2024 2:16 PM EDT Height 165.1 cm (5' 5 ) 11/08/2024 2:16 PM EDT Body Mass Index 29.12 11/08/2024 2:16 PM EDT Plan of Treatment Not on file Insurance [employer] Member Subscriber Plan / Payer (Ef fective 2023-Present) Name:Mouna Castillo Relation to Subscriber:Child Name:Jarett Castillo Date of :1974 Address: [address] [place] [address] Payer ID:Not on file Group ID:[id number] Type:Not on file Address: [place] [id number] Care Teams Clerk Specialist Relationship Specialty Start Date End Date Jonathan Garcia MD [address] [facility] [place] [address] PCP - General Family Medicine 02/23/23 Demetrice Myers MD [address] [place] [address] Referring Physician Family Medicine 10/31/24
--- OUTSIDE RECORDS SUMMARY | 2024-12-19 11:55 | XMS_ITS | Encounter Summary ---
Author Organization [facility] [employer] tem Address [id number] [address] [place] [address] Care Team Providers Care Health Safety And Environment Manager Name Role Phone Demetrice Myers SEMICONDUCTOR WAFERS SAW OPERATOR-LOAN SERVICE OFFICER Primary Care Provider + Encounter Details Date Type Department Care Team (Late st Contact Info) Description 05/09/2024 Orders Only [facility] Internal Medicine - Family Medicine [address] [place] [phone] Ref Prov, [place] [address] Social History Tobacco Use Types Packs/Day Years [...] PM EDT [facility] [address] [address] Kiran Perla MD [address] [address] documented as of this encounter Procedures Procedure Name Priority Date/Time Associated Diagnosis Comments XR LUMBAR SPINE AP, LATERAL, FLEXION AND EXTENSION ONLY Routine 05/05/2024 3:57 PM EST documented in this encounter Results * X-ray spine lumbar ap, lateral, flexion and extension only (05/05/2024 3:57 PM EST) Anatomical Region Laterality Modality MSK, Neuro, Spine, L-spine N/A Compu cuca Radiography us Not In System Ref Prov IMG DIAGNOSTIC IMAGING OR DERABLES Final Result documented in this encounter Visit Diagnoses Not on filedocumented in this encounter Additional Health Concerns Assessment Noted Time PHQ-9 Depression Total Score: 0 04/28/20 24 12:01 PM EST documented as of this encounter Care Teams Health Safety And Environment Manager Relationship Specialty Start Date End Date Demetrice Myers, SEMICONDUCTOR WAFERS SAW OPERATOR-LOAN SERVICE OFFICER [address] [place] [address] PCP - General Internal Medicine 02/18/23 documented as of this encounter
--- OUTSIDE RECORDS SUMMARY | 2024-12-19 11:55 | XMS_ITS | Encounter Summary ---
Author Organization [facility] [employer] [facility] tem Address [id number] [address] [place] [address] Care Team Providers Care Care Process Manager Name Role Phone Demetrice Myers MATRIX REPAIRER-MAINTAINER CENTRAL OFFICE Primary Care Provider + Reason for Visit * Reason Comments Med Refill Encounter Details Date Type Department Care Team (Late st Contact Info) Description 07/17/2022 Refill [facility] - [facility] [address] [place] [address] [facility] [address] [facility] [place] [address] Mild intermittent asthma without complication Social History Tobacco Use Types Packs/Day Years Used Date Smoking Tobacco: Never Smokeless Tobacco: Never Alcohol Use Standard Drinks/Week Comments Never 0 (1 standard drink = 0.6 oz pur e alcohol) PHQ-2 Answer Date Recorded Total Score 24 07/02/2022 Childcare Answer Date Recorded Childcare Unknown 11/30/2018 Employment Answer Date Recorded Employment Unknown 11/30/2018 Comments Unknown Sex and Gender Information Value Date Recorded Sex Assigned at Female 10/22/2022 9:35 AM EDT Legal Sex Female 12:01 PM EDT Gender Identity Female 10/22/2022 9:35 AM EDT Sexual Orientation Straight 10/22/2022 9: 35 AM EDT COVID-19 Exposure Response Date Recorded In the last month, have you been in contact with someone who was confirmed or suspected to have Coronavirus / COVID-19? No / Unsure 07/02/2022 1:56 PM EST documented as of this encounter Plan of Treatment Upcoming Encounters Date Type Department Care Team (Late st Contact Info) Description 02/26/2025 12:30 PM EDT Procedure visit [facility] A Department of [facility] [address] [address] Kiran Perla MD [address] [address] documented as of this encounter Visit Diagnoses Diagnosis Mild intermittent asthma without complication documented in this encounter Additional Health Concerns Assessment Noted Time PHQ-9 Depression Total Score: 24 023 2:03 PM EST documented as of this encounter Care Teams Care Process Manager Relationship Specialty Start Date End Date Demetrice Myers APRN-MAINTAINER CENTRAL OFFICE [address] [place] [address] PCP - General Internal Medicine 02/18/23 documented as of this encounter
--- OUTSIDE RECORDS SUMMARY | 2024-12-19 11:55 | XMS_ITS | Encounter Summary ---
Author Organization [facility] Address [address] [place] [address] Care Team Providers Care Compliance Officer Name Role Phone Jonathan Garcia MD Primary Care Provider + [phone] Demetrice Myers MD Unavailable Encounter Details Date Type Department Care Team (Late st Contact Info) Description 10/31/2024 Abstract [facility] [address] [place] [phone] Quincy Gonzalez, DPM [address] [place], [place] [phone] Social History Tobacco Use Types Packs/Day Years Used Date Smoking Tobacco: Never Alcohol Use Standard Drinks/Week Comments Yes 1 (1 standard drink = 0.6 oz pur e alcohol) 1x weekly Comments Unknown Sex and Gender Information Value Date Recorded Sex Assigned at Not on file Legal Sex Female 8:00 PM EDT Gender Identity Not on file Sexual Orientation Not on file documented as of this encounter Plan of Treatment Not on file documented as of this encounter Visit Diagnoses Not on filedocumented in this encounter Care Teams Compliance Officer Relationship Specialty Start Date End Date oJnathan Garcia MD [address] [place], [place] [phone] PCP - General Family Medicine 02/23/23 Demetrice Myers MD [address] [place], [place] [phone] Referring Physician Family Medicine 10/31/24 documented as of this encounter
--- OUTSIDE RECORDS SUMMARY | 2024-12-19 11:55 | XMS_ITS | Encounter Summary ---
Author Organization [facility] Address [address] [place] [address] Care Team Providers Care Door Liner Name Role Phone Jonathan Garcia MD Primary Care Provider + [phone] Demetrice Myers MD Unavailable Encounter Details Date Type Department Care Team (Late st Contact Info) Description 10/31/2024 Abstract [facility] [address] [place] [phone] Quincy Gonzalez, DPM [address] [place], [place] [phone] Social History Tobacco Use Types Packs/Day Years [...] on filedocumented in this encounter Care Teams Door Liner Relationship Specialty Start Date End Date Jonathan Garcia MD [address] [place], [place] [phone] PCP - General Family Medicine 02/23/23 Demetrice Myers MD [address] [place], [place] [phone] Referring Physician Family Medicine 10/31/24 documented as of this encounter
--- OUTSIDE RECORDS SUMMARY | 2024-12-19 11:56 | XMS_ITS | Patient Health Record ---
Author Organization [facility] Address [address] [place] [address] Care Team Providers Care Regional Liaison Name Role Phone Cherie Morales Unavailable [phone] Jose RScooby mooreen Unavailable [phone] radhaAnna Jaeger Unavailable Allergies No Known Allergies Reason For Referral Reason APPROVED............ .....................NOT SCHEDULED............................[facility] MRI LUMBAR TO BE DONE AT [place] Diagnosis 1 Lumbar pain (M54.50) Referral Organization [facility] Referring Provider First Name Cherie Referring Provider Last Name [facility] Rodriguez Referring Provider Speciality Orthopedic Surgery Referred Organization [facility] Outpatient Referred Address [address] [place], [place],[address], Procedure 1 MRI Lumbar Spine w/o Dye ([id number]) General Notes Emi Weeks 2023 10:56:22 AM >Ciro Kayla 05/05/2024 11:29:45 AM > WAITING ON TODAY'S OFFICE NOTECiro Kayla 05/10/2024 07:38:55 AM > STILL WAITING ON 05/05 OFFICE NOTE, Evelia Tanner 05/15/2024 03:19:26 PM > MMO ACTIVE AND EFFECTIVE 06/21/22 PER ZULEIMA. AUTHORIZATION REQUEST SUBMITTED VIA [employer], CASE # [id number]/AUTHORIZATION # [id number] PENDING MEMBER OUTREACH FOR FACILITY CONFIRMATION.Ciro Kayla 05/16/2024 07:22:43 AM > FAXED TO [facility]. Marlyn Mosqueda 05/16/2024 09:41:15 AM > order faxed Referral Priority Routine Social History Tobacco Use: Social History Observation Description Date Details (start date - stop date) Never Smoker NA - NA AUDIT-C (Standard) Question Answer Notes Did you have a drink containing alcohol in the p ast year? 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) Active confirmed Vital Signs Height 5 ft 5 in in 05/05/2024 Encounters Encounter Location Date [facility] [place] [address] [place] [address] 05/05/2024 León Juana Other intervertebral disc displacement, lumbosacral region M51.27 ; Spinal stenosis, lumbosacral region M48.07 and Radiculopathy, lumbosacral region M54.17 [facility] [place] [address] [facility] [place] [address] 05/26/2024 Anna Moreno Other intervertebral disc displacement, lumbosacral region M51.27 and Other intervertebral disc degeneration, lumbosacral region with discogenic back pain and lower extremity pain M51.372 [facility] [place] [address] [place] [address] 05/16/2024 Cherie Morales Assessments Encounter Date Diagnosis (ICD Code) Assessment Notes Treatment Notes Treatment Clinical Notes Section Notes 05/05/2024 Spinal stenosis, lumbosacral region (ICD-10 - M48.07) 1. L5-S1 herniated nucleus pulposus with stenosis and radiculopathy 05/05/2024 Other intervertebral disc displacement, lumbosacral region (ICD-10 - M51.27) 1. L5-S1 herniated nucleus pulposus with stenosis and radiculopathy 05/26/2024 Other intervertebral disc displacement, lumbosacral region (ICD-10 - M51.27) 1. L5-S1 left HNP/DDD 05/26/2024 Other intervertebral disc degeneration, lumbosacral region with discogenic back pain and lower extremity pain (ICD-10 - M51.372) 1. L5-S1 left HNP/DDD 05/05/2024 Radiculopathy, lumbosacral region (ICD-10 - M54.17) 1. L5-S1 herniated nucleus pulposus with stenosis and radiculopathy 05/05/2024 Other Plan established by Dr. Garcia. At this time, we will set patient up for an MRI of the lumbar spine. Will see the patient back in the office after the testing. Patient seems satisfied the recommendation and encounter. Thanks once again. If we can be of further service to your patients with disorders of the spine, cervical, thoracic, or lumbar, please do not hesitate to contact Dr. Garcia. 1. L5-S1 herniated nucleus pulposus with stenosis and radiculopathy 05/26/2024 Other Plan established by Dr. Garcia. At this time, Dr. Garcia discussed MRI results with the patient. We will have patient continue with physical therapy. We will have the patient follow-up on an as-needed basis. The patient is very much in agreement with the treatment and/or diagnostic plan set forth and all questions were answered to the patient's satisfaction. Thanks once again. If we can be of further service to your patients with disorders of the spine, cervical, thoracic, or lumbar, please do not hesitate to contact Dr. Garcia. Best regards, 1. L5-S1 left HNP/DDD Plan Of Treatment Pending Test Test Name Order Date Lumbar spine, 4v flex ext - [id number] 2023 MRI : Lumbosacral Spine W/O Contrast - 7 214705/05/2024 Insurance Providers Payer Name Payer Address Payer Phone Subscriber Number Group Number Insured Name Patient Relationship to Insured Coverage Start Date Coverage End Date [facility] [address] [place] [phone] [id number] ELIZ MANUEL Spouse - patient is the spouse of the insured Medical (General) History Medical History History ICD Code Asthma Bronchitis Anxiety Depression Seen a Psychiatrist Hospitalization History Reason Date(Month/Year) 04/26/2024
--- OUTSIDE RECORDS SUMMARY | 2024-12-19 11:56 | XMS_ITS | Encounter Summary ---
Author Organization [facility] tem Address [id number] [address] [place] [address] Care Team Providers Care Science Instructor Name Role Phone Demetrice Myers PRODUCTION CONTROL ANALYST-SPECIAL EVENTS DRIVER Primary Care Provider + Encounter Details Date Type Department Care Team (Late Contact Info) Description 08/26/2022 Orders Only [facility] - Family Medicine [address] [place] [phone] External, Scanning Provider Social History Tobacco Use Types Packs/Day Years Used Date Smoking Tobacco: Never Smokeless Tobacco: Never Alcohol Use Standard Drinks/Week Comments Never 0 (1 standard drink = 0.6 oz pur e alcohol) PHQ-2 Answer Date Recorded Total Score 20 08/06/2022 Childcare Answer Date Recorded Childcare Unknown 11/30/2018 [...] have Coronavirus / COVID-19? No / Unsure 08/06/2022 8:28 AM EST documented as of this encounter Plan of Treatment Upcoming Encounters Date Type Department Care Team (Late st Contact Info) Description 02/26/2025 12:30 PM EDT Procedure visit [facility] Neurology, A Department of [place] [address] [place] [phone] Kiran Perla MD [address] [address] documented as of this encounter Procedures Procedure Name Priority Date/Time Associated Diagnosis Comments MULTIPLE LABS Routine 08/26/2022 documented in this encounter Results * Multiple labs (08/26/2022) us Scanning Provider External [facility] Final Result MANUALLY TRANSCRIBED RESULTS documented in this encounter Visit Diagnoses Not on filedocumented in this encounter Additional Health Concerns Assessment Noted Time PHQ-9 Depression Total Score: 20 023 8:39 AM EST documented as of this encounter Care Teams Science Instructor Relationship Specialty Start Date End Date Demetrice Myers, PRODUCTION CONTROL ANALYST-SPECIAL EVENTS DRIVER [address] [place] [address] PCP - General Internal Medicine 02/18/23 documented as of this encounter
--- OUTSIDE RECORDS SUMMARY | 2024-12-19 11:56 | XMS_ITS | Clinical Summary ---
Author Organization [employer] tem Address [id number] [address] [place] [address] Care Team Providers Care Fruit Raiser Name Role Phone Elsy Myersghulam Hutchinson APRN-NET WEB APPLICATION DEVELOPER Primary Care Provider + Allergies No known active allergies Medications cholecalciferol (VITAMIN D3) 1,000 units tablet Take 1 tablet (1,000 Units total) by mouth in the morning. Active hydrOXYzine (ATARAX) 25 mg tablet Take 4 tablets (100 mg total) by mouth as needed for anxiety. 023 Active prazosin (MINIPRESS) 2 mg capsule Take 1 capsule (2 mg total) by mouth nightly. Active busPIRone (BUSPAR) 15 mg tablet Take 1 tablet (15 mg total) by mouth 3 (three) times a day. 023 Active methylphenidate LA (RITALIN LA) 30 MG 24 hr capsule Take 40 mg by mouth every morning. Active montelukast (SINGULAIR) 10 mg tabletIndications :Unspecified asthma, uncomplicated take 1 tablet by mouth every day 90 tablet 3 024 Active ibuprofen (MOTRIN) 800 mg tablet Take 1 tablet (800 mg total) by mouth every 8 (eight) hours as needed for pain. 60 tablet 1 024 Active lurasidone (LATUDA) 80 mg tablet Take 1 tablet (80 mg total) by mouth nightly. 025 Active ondansetron ODT (ZOFRAN ODT) 4 mg disintegrating tablet DISSOLVE 1 TABLET ON THE TONGUE EVERY 6 HOURS NEEDED FOR NAUSEA/VOMITING 025 Active cyclobenzaprine (FLEXERIL) 10 mg tabletIndications :Muscle spasm Take 1 tablet (10 mg total) by mouth nightly as needed for muscle spasms. TAKE 1 TABLET BY MOUTH EVERY DAY NIGHTLY NEEDED FOR MUSCLE SPASMS 30 tablet 2 Active polyethylene glycol (MIRALAX) 17 gram/dose powderIndications :Chronic constipation Take 17 g by mouth in the morning. Mix in 8 ounces of fluid. 510 g 2 Active sertraline (ZOLOFT) 50 mg tablet Take 1 tablet (50 mg total) by mouth in the morning. Active propranoloL (INDERAL) 20 mg tablet Take 1 tablet (20 mg total) by mouth 3 (three) times a day. Active zonisamide (ZONEGRAN) 50 mg capsule Take 1 capsule (50 mg total) by mouth in the morning. Active methocarbamoL (ROBAXIN) 750 mg tablet Take 1 tablet (750 mg total) by mouth as needed for muscle spasms. Active HYDROcodone-aceta minophen (NORCO) 5-325 mg per tablet Take 1 tablet by mouth every 6 (six) hours as needed for pain. Active pregabalin (LYRICA) 50 mg capsuleIndication s:Lumbar radiculopathy,Tho racic spine pain Take 1 capsule (50 mg total) by mouth in the morning and 1 capsule (50 mg total) before bedtime. 60 capsule 1 025 Active naloxone (NARCAN) 4 mg/actuation spray,non-aerosol nasal spray USE INTRANASALLY NEEDED 024 Active methylphenidate LA (RITALIN LA) 40 MG 24 hr capsule Take 1 capsule (40 mg total) by mouth. 025 Active traZODone (DESYREL) 150 mg tablet Take 150 mg by mouth. Active methylPREDNISolon e (MEDROL, JUANCHO,) 4 mg tabletIndications :Upper respiratory tract infection, unspecified type Take 1 tablet (4 mg total) by mouth in the morning. follow package directions. 21 tablet 025 Active benzonatate (TESSALON PERLES) 100 mg capsuleIndication s:Upper respiratory tract infection, unspecified type Take 1 capsule (100 mg total) by mouth 3 (three) times a day as needed for cough. 30 capsule 025 Active albuterol (PROVENTIL HFA;VENTOLIN HFA) 90 mcg/actuation inhalerIndication s:Mild intermittent asthma without complication Inhale 2 puffs every 6 (six) hours as needed for wheezing. 8.5 g 1 025 Active albuterol (PROVENTIL HFA;VENTOLIN HFA) 90 mcg/actuation inhalerIndication s:Mild intermittent asthma without complication INHALE 2 PUFFS EVERY 6 HOURS NEEDED FOR WHEEZING 8.5 g 1 023 2024 Discontinued(R eorder) traZODone (DESYREL) 50 mg tablet Take 3 tablets (150 mg total) by mouth nightly. 023 2024 Discontinued(T herapy completed) amoxicillin (AMOXIL) 500 mg capsule Take 1 capsule (500 mg total) by mouth. 025 2024 Discontinued(T herapy completed) methylPREDNISolon e (MEDROL, JUANCHO,) 4 mg tabletIndications :Herniation of intervertebral disc between L5 and S1,Chronic midline thoracic back pain Take 1 tablet (4 mg total) by mouth in the morning. follow package directions. 21 tablet 025 2024 Discontinued(T herapy completed) meloxicam (MOBIC) 15 mg tablet Take 1 tablet (15 mg total) by mouth in the morning. 30 tablet 1 025 2024 Discontinued azithromycin (ZITHROMAX) 250 mg tabletIndications :Upper respiratory tract infection, unspecified type Take 2 tablets the first day, then 1 tablet daily for 4 days. 6 tablet 025 2024 Active Problems Problem Noted Date Diagnosed Date Lumbar radiculopathy 11/22/2024 Other intervertebral disc de generation, lumbosacral region with discogenic back pain and lower extremity pain 10/25/2024 Thoracic radiculopathy 10/25/2024 Thoracic spine pain 10/25/2024 Attention deficit hyperactivity disorder (ADHD) 02/18/2023 Chronic pain of both knees 02/18/2023 Borderline personality disorder 02/18/2023 Bipolar 2 disorder, major depressive episode Anxiety 05/28/2022 Episode of recurrent major depressive disorder 1 07/29/2021 Iron deficiency anemia due to chronic blood loss 05/28/2022 Vitamin D deficiency 05/28/2022 Acne vulgaris 05/28/2022 Mild intermittent asthma without complication Nexplanon in place 05/28/2022 Encounters Date Type Department Care Team Description 12/04/2024 1:00 PM EDT [facility] [address] [place] [address] Yanet Lyons, PRINCIPAL TECHNICAL WRITER-NET WEB APPLICATION DEVELOPER Upper respiratory tract infection, unspecified type (Primary Dx); Mild intermittent asthma without complication 12/04/2024 Travel 11/27/2024 Telephone [facility] [address] [place] [address] Jade Albert, pecan grower 11/22/2024 11:15 AM EDT Office Visit [facility] [address] [place] [address] Lou Mclain PA-C Lumbar radiculopathy (Primary Dx); Thoracic spine pain 11/20/2024 9:31 AM EDT - 11/20/2024 11:59 PM EDT Hospital Encounter [facility] MRI Imaging [address] [place] [address] Lou Mclain PA-C Thoracic radiculopathy; Thoracic spine pain Discharge Disposition: Home 11/20/2024 Travel 11/17/2024 Refill [facility] [address] [place] [address] Demetrice Myers APRN-NET WEB APPLICATION DEVELOPER 11/08/2024 Travel 10/30/[address] [facility] [address] [place] [address] Yisel Montiel CMA 10/29/2024 Travel 10/25/2024 1:30 PM EDT Office Visit [facility] [address] [place] [phone] Lou Mclain, MORGAN Thoracic radiculopathy (Primary Dx); Herniation of intervertebral disc between L5 and S1; Chronic midline thoracic back pain; Muscle spasm; Thoracic spine pain 10/25/2024 12:20 PM EDT - 10/25/2024 11:59 PM EDT Hospital Encounter [facility] Radiology [address] [place] [id number] Chronic midline thoracic back pain Discharge Disposition: Home 10/23/2024 Travel 10/18/2024 2:40 PM EDT Office Visit [facility] Internal [facility] - Family Medicine [address] [facility] [place] [phone] Yanet Lyons, PRINCIPAL TECHNICAL WRITER-TOMASZ Herniation of intervertebral disc between L5 and S1 (Primary Dx); Chronic midline thoracic back pain; Muscle spasm; Chronic constipation 10/18/2024 Travel from Last 3 Months Immunizations Immunization Administration Dates Next Due DTaP 01/13/2008,03/18/2005 DTaP / Hep B / IPV 02/27/2004,2003, 004 HPV9 01/25/2018,10/22/2016 Hep A, 2 Dose 10/22/2016 Hep B, Adolescent or Pediatric 2003 Hib (PRP-T) 08/22/2004,02/27/2004,2003 ,2003 IPV 01/13/2008 MMR 01/13/2008,08/22/2004 Meningococcal Conjugate 06/01/2021,02/05/2016 Pneumococcal Conjugate 03/18/2005,02/27/2004,,2003 Tdap 02/05/2016 Varicella 01/13/2008,03/18/2005 Family History Medical History Relation Name Comments ADD / ADHD Father Hypertension Father Anxiety disorder Mother Depression Mother Hypertension Mother Thyroid disease Mother Tuberculosis Mother Heart attack Paternal Grandmother Relation Name Status Comments Father Mother Paternal Grandmother Social History Tobacco Use Types Packs/Day Years Used Date Smoking Tobacco: Never Smokeless Tobacco: Never Tobacco Cessation:Counseling Given: Not Answered Alcohol Use Standard Drinks/Week Comments Yes 2 (1 standard drink = 0.6 oz pur e alcohol) Overall Financial Resource Strain (CARDIA) Answe r Date Recorded How hard is it for you to pa y for the very basics like food, housing, medical care, and heating? Hard 04/28/2024 PHQ-2 Answer Date Recorded Total Score 0 12/04/2024 PRAPARE - Transportation Answer Date Re corded [...] before we got money to buy more. Never True 12/04/2024 Within the past 12 months th e food we bought just didn't last and we didn't have money to get more. Never True 12/04/2024 Comments No Sex and Gender Information Value Date Recorded Sex Assigned at Female 10/22/2022 9:35 AM EDT Legal Sex Female 12:01 PM EDT Gender Identity Female 10/22/2022 9:35 AM EDT Sexual Orientation Straight 10/22/2022 9: 35 AM EDT Last Filed Vital Signs Vital Sign Reading Time Taken Comments Blood Pressure 104/60 12/04/2024 1:09 PM EDT Pulse 91 12/04/2024 1:09 PM EDT Temperature 36.9 C (98.4 F) 12/04/2024 1:09 PM EDT Respiratory Rate 18 12/04/2024 1:09 PM EDT Oxygen Saturation 96% 12/04/2024 1:09 PM EDT Inhaled Oxygen Concentration - - Weight 77.4 kg (170 lb 9.6 oz) 12/04/2024 1:09 P M EDT Height 165.1 cm (5' 5 ) 12/04/2024 1:09 PM EDT Body Mass Index 28.39 12/04/2024 1:09 PM EDT Plan of Treatment Upcoming Encounters Date Type Department Care Team (Late st Contact Info) Description 02/26/2025 12:30 PM EDT Procedure visit [facility], [facility] Department of [facility] [address] [address] Kiran Perla MD [address] [address] Health Maintenance Due Date Last Done Comments Chlamydia Screening 06/18/2024 06/18/2023 Pap Smear 2024 Influenza Vaccine 02/19/2025 Adult BMI Follow Up Plan 12/04/2025 12/04/2024 Adult BMI Screening 12/04/2025 12/04/2024 Depression Screening 12/04/2025 12/04/2024 Tobacco Screening 12/04/2025 12/04/2024 DTaP,Tdap and Td Vaccines (8 - Td or Tdap) 10/30/2034 10/30/2024, 02/05/2016, 01/13/2008, Additional history exists Medical Devices Not on file Procedures Procedure Name Priority Date/Time Associated Diagnosis Comments MR THORACIC SPINE WO CONT Routine 11/20/2024 10:09 AM EDT Thoracic radiculopathy Thoracic spine pain XR SPINE THORACIC 3 VWS Routine 10/25/2024 12:35 PM EDT Chronic midline thoracic back pain from Last 3 Months Results * MR thoracic spine without contrast (11/20/2024 10:09 AM EDT) Anatomical Region Laterality Modality MSK, Neuro, Spine, T-spine, Spine Covera N/A Magnetic Resonance 11/21/2024 9:35 AM EDT Narrative 11/21/2024 9:38 AM EDT HISTORY: A 19-year-old female with a history of the mid back pain with radiculopathy since June after shoveling snow. TECHNIQUE: Multiplanar and multisequence MRI examination of the thoracic spine is performed. COMPARISON: Comparison is made with plain film radiographs of the thoracic spine of 10/25/2024. FINDINGS: The vertebral heights are normal. There is no evidence of compression fracture or spondylolisthesis. No marrow signal abnormality is seen to suggest acute bony pathology. No significant paravertebral soft tissue abnormality seen. Sagittal and axial images revealed no evidence of disc herniation, spinal stenosis or narrowing of the neural foramina remain ample. Cervical spinal cord is normal in morphology and signal intensity. No evidence of cord contusion or cord edema. IMPRESSION: * Unremarkable MRI examination of the thoracic spine. Finalized by Mehul Simms MD on 11/21/2024 9:38 AM Procedure Note Mehul Simms MD - 11/21/2024 HISTORY: A 19-year-old female with a history of the mid back pain withradiculopathy since June after shoveling snow. TECHNIQUE: Multiplanar and multisequence MRI examination of the thoracicspine is performed. COMPARISON: Comparison is made with plain film radiographs of thethoracic spine of 10/25/2024. FINDINGS: The vertebral heights are normal. There is no evidence ofcompression fracture or spondylolisthesis. No marrow signal abnormality isseen to suggest acute bony pathology. No significant paravertebral softtissue abnormality seen. Sagittal and axial images revealed no evidence of disc herniation, spinalstenosis or narrowing of the neural foramina remain ample. Cervical spinal cord is normal in morphology and signal intensity. Noevidence of cord contusion or cord edema. IMPRESSION: * Unremarkable MRI examination of the thoracic spine. Finalized by Mehul Simms MD on 11/21/2024 9:38 AM us Lou Mclain PA-C IMLaura MRI ORDERABLES Final Re sult * X-ray spine thoracic 3 views (10/25/2024 12:35 PM EDT) Anatomical Region Laterality Modality MSK, Neuro, Spine, T-spine N/A Compu cuca Radiography 10/28/2024 9:45 AM EDT Addenda Addendum by Joel Solis MD on 11/22/2024 4:29 PM EDT *ADDENDUM*Note that the disc disease and facet arthritis is very mild. The findings are seen on MRI with some mild posterior disc bulging for example sagittal image 10 series 17 and mild areas of facet hypertrophy on the same image within the upper thoracic spine. Finalized by Joel Solis MD on 11/22/2024 4:29 PM Narrative 10/28/2024 9:45 AM EDT XR SPINE THORACIC 3 VWS History: Chronic midline thoracic back pain Impression: * No acute findings. * No fracture or destructive lesion. * Diffuse disc disease and facet arthritis. . Consider MRI thoracic spine if you suspect occult process Finalized by Joel Solis MD on 10/28/2024 9:45 AM Procedure Note Joel Solis MD - 10/28/2024 XR SPINE THORACIC 3 VWS History: Chronic midline thoracic back pain Impression: * No acute findings. * No fracture or destructive lesion. * Diffuse disc disease and facet arthritis. . Consider MRI thoracic spine if you suspect occult process Finalized by Joel Solis MD on 10/28/2024 9:45 AM Yanet [facility] IMG DIAGNOSTIC IMAGI NG ORDERABLES Edited Result - Final from Last 3 Months Insurance [employer] Care Teams Fruit Raiser Relationship Specialty Start Date End Date Demetrice Myers APRN-CNP [address] [place] [address] PCP - General Internal Medicine 02/18/23
--- OUTSIDE RECORDS SUMMARY | 2024-12-19 11:56 | XMS_ITS | Encounter Summary ---
Author Organization [facility] tem Address [id number] [address] [place] [address] Care Team Providers Care Assembler Show Motor Name Role Phone Demetrice Myers ENTRY LEVEL PARALEGAL-MANAGER SALES AND MARKETING Primary Care Provider + Reason for Visit * Reason Onset Date Comments Med Refill 11/17/2024 Encounter Details Date Type Department Care Team (Late st Contact Info) Description 11/17/2024 Refill [facility] - [facility] [address] [place] [address] Demetrice Myers APRN-MANAGER SALES AND MARKETING [address] [place] [address] Social History Tobacco Use Types Packs/Day Years Used Date Smoking Tobacco: Never Smokeless Tobacco: Never Alcohol Use Standard Drinks/Week Comments Yes 2 (1 standard drink = 0.6 oz pur e alcohol) Overall Financial Resource Strain (CARDIA) Answe r Date Recorded How hard is it for you to pa y for the very basics like food, housing, medical care, and heating? Hard 04/28/2024 PHQ-2 Answer Date Recorded Total Score 14 10/18/2024 PRAPARE - Transportation Answer Date Re corded [...] got money to buy more. Never True 10/25/2024 Within the past 12 months th e food we bought just didn't last and we didn't have money to get more. Never True 10/25/2024 Comments No Sex and Gender Information Value [...] Description 02/26/2025 12:30 PM EDT Procedure visit [facility], A Department of [facility] [address] [phone] Kiran Perla MD [address] [address] documented as of this encounter Visit Diagnoses Not on filedocumented in this encounter Additional Health Concerns Assessment Noted Time PHQ-9 Depression Total Score: 14 025 2:40 PM EDT A Body Mass Index follow-up plan has been documented for the patient 10/18/2024 4:16 PM EDT documented as of this encounter Care Teams Assembler Show Motor Relationship Specialty Start Date End Date Demetrice Myers APRN-TOMASZ [address] [place] [address] PCP - General Internal Medicine 02/18/23 documented as of this encounter
--- OUTSIDE RECORDS SUMMARY | 2024-12-19 11:56 | XMS_ITS | Encounter Summary ---
Author Organization [employer] [facility] tem Address [id number] [address] [place] [address] Care Team Providers Care Correctional Supervising Cook Name Role Phone Demetrice Myers Jasper FORENSIC AUDIT EXPERT-ENVIRONMENTAL EDUCATION SPECIALIST Primary Care Provider + Encounter Details Date Type Department Care Team (Late st Contact Info) Description 10/30/2024 Telephone [facility] - [facility] Medicine [address] [place] [phone] DineshYisel garrett, ZULEIMA Social History Tobacco Use Types Packs/Day Years [...] encounter Miscellaneous Notes * Telephone Encounter - Yisel Montiel CMA - 10/30/2024 11:06 AM EDT ----- Message from TI Cagle sent at 10/30/2024 9:31 AM EDT ----- Reviewed. Inform patient there is no herniation or fracture. Mild arthritis of discs and facet of spine. ----- Message ----- From: Interface - Rad Results/Orders In 1 Sent: 10/28/2024 9:47 AM EDT To: TI Villalba * Telephone Encounter - Yisel Montiel CMA - 10/30/2024 11:06 AM EDT Pt called back read note , she said ok documented in this encounter Plan of Treatment Upcoming Encounters Date Type Department Care Team (Late st Contact Info) Description 02/26/2025 12:30 PM EDT [facility] Department of [facility] [address] [address] Kiran Perla MD [address] [address] documented as of this encounter Visit Diagnoses Not on filedocumented in this encounter Additional Health Concerns Assessment Noted Time PHQ-9 Depression Total Score: 14 025 2:40 PM EDT A Body Mass Index follow-up plan has been documented for the patient 10/18/2024 4:16 PM EDT documented as of this encounter Care Teams Correctional Supervising Cook Relationship Specialty Start Date End Date Demetrice Myers, FORENSIC AUDIT EXPERT-ENVIRONMENTAL EDUCATION SPECIALIST [address] [place] [address] PCP - General Internal Medicine 02/18/23 documented as of this encounter
--- OUTSIDE RECORDS SUMMARY | 2024-12-19 11:56 | XMS_ITS | Encounter Summary ---
Author Organization [facility] tem Address [id number] [address] [place] [address] Care Team Providers Care Software Sales Name Role Phone Demetrice Myers Jasper VALLESN-GENERAL EDUCATION PROFESSOR Primary Care Provider + Reason for Visit * Reason Onset Date Comments Medication 11/27/2024 Encounter Details Date Type Department Care Team (Late st Contact Info) Description 11/27/2024 Telephone [facility] [address] [place] [address] Jade Albert, cartridge assembler Social History Tobacco Use Types Packs/Day Years [...] encounter Miscellaneous Notes * Telephone Encounter - Jade Albert RN - 11/27/2024 11:11 AM EDT Patient stopped taking the Mobic after her 11/22/24 office visit. She started the Lyrica 50 mg the same day, 11/22/2024. She started with liquid diarrhea late that same day into , that continues.She continues to take the Lyrica. She has noticed a little bit of improvement, but understands she has not been taking it long enoughfor a therapeutic effect. How should she proceed? * Telephone Encounter - Lou Mclain PA-C - 11/27/2024 11:11 AM EDT Have her d/c the lyrica and see if the GI symptoms resolve. * Telephone Encounter - Catrina Grubbs RN - 11/27/2024 11:11 AM EDT Call placed to patient to inform her of provider's response. Patient asks if anything has been ordered in it's place. Patient's current interventions include intermittent use of a heat wrap. She is not using OTC oral or topical medications. Patient states she can't take IBU or Tylenol. When asked why she can't take IBU or Tylenol she states because of my other meds . EMG is scheduled in February. * Telephone Encounter - Lou Mclain PA-C - 11/27/2024 11:11 AM EDT If the GI symptoms resolve after a couple days she can try again and see if the same thing happens.If not she can continue with it if it does we can address it at her follow up after emg. * Telephone Encounter - Lou Mclain PA-C - 11/27/2024 11:11 AM EDT She can let us know how things are going in the next couple weeks and we can go from there with medications changes documented in this encounter Plan of Treatment Upcoming Encounters Date Type Department Care Team (Late st Contact Info) Description 02/26/2025 12:30 PM EDT [facility] of [facility] [address] [address] Kiran Perla MD [address] [address] documented as of this encounter Visit Diagnoses Not on filedocumented in this encounter Additional Health Concerns Assessment Noted Time PHQ-9 Depression Total Score: 14 025 2:40 PM EDT A Body Mass Index follow-up plan has been documented for the patient 10/18/2024 4:16 PM EDT documented as of this encounter Care Teams Software Sales Relationship Specialty Start Date End Date Demetrice Myers APRN-GENERAL EDUCATION PROFESSOR [address] [place] [address] PCP - General Internal Medicine 8/31/23 documented as of this encounter
[2024-12-19 12:23] LABS: Hematocrit 36.4 % (36.0-48.0); Hemoglobin 12.4 g/dL (12.0-16.0); Immature Granulocytes Abs Auto 0.01 10^3/uL (0.00-0.03); Immature Granulocytes Pct Auto 0.2 % (0.0-0.5); Lymphocytes Absolute Auto 2.1 10^3/uL (1.2-3.8); Mean Corpuscular HGB Conc 34.1 g/dL (29.9-35.2); Mean Corpuscular Hemoglobin 30.8 pg (26.7-34.0); Mean Corpuscular Volume 90.3 fL (81.0-99.0); Platelet Count 203 10^3/uL (150-450); Red Blood Count 4.03 10^6/uL (4.20-5.40); White Blood Count 5.1 10^3/uL (4.0-11.0)
[2024-12-19 13:19] LABS: Iron 66.0 ug/dL (50.0-170.0); Percent Iron Saturation 24.5 %; Total Iron Binding Capacity 269.0 ug/dL (250.0-450.0)
[2024-12-19 13:28] LABS: Alanine Aminotransferase 23 U/L (14-59); Anion Gap 12.1; Aspartate Amino Transferase 17 U/L (15-37); Blood Urea Nitrogen 6.0 mg/dL (7.0-18.0); Calcium 9.0 mg/dL (8.5-10.1); Carbon Dioxide 26.9 mmol/L (21.0-32.0); Chloride 106 mmol/L (98-107); Cholesterol 247 mg/dL (<=200); Estimated GFR (African America >60 (>=60 mL/min/1.73m^2); Estimated GFR (Non-African Ame >60 (>=60 mL/min/1.73m^2); Glucose 95 mg/dL (74-106); HDL Cholesterol 50 mg/dL (40-60); Potassium 4.0 mmol/L (3.5-5.1); Sodium 141 mmol/L (136-145); Thyroid Stimulating Hormone 0.728 uIU/mL (0.358-3.740); Triglycerides 132 mg/dL (<=150); VLDL CHOLESTEROL 26.4 mg/dL
[2024-12-19 13:44] LABS: Ferritin 55.0 ng/mL (8.0-252.0); Folate 22.30 ng/mL (8.60-58.90)
[2024-12-20 04:07] LABS: Vitamin B12 391 pg/mL (232-1245)
[2024-12-20 06:07] LABS: Lithium (Eskalith(R)), Serum <0.1 mmol/L (0.5-1.2)
== END 2024-12-19 11:51 | disposition home or self-care (01) ==
PROVIDERS: PCP Nurse Practitioner Family; Visit Provider Nurse Practitioner Family
DX: R53.83 Other fatigue (principal); Z79.899 Other long term (current) drug therapy
CPT/HCPCS: 36415; 80048; 80061; 80178; 82306; 82607; 82728; 82746; 83036; 83540; 83550; 84443; 84450; 84460; 85025

== ENCOUNTER 2024-12-27 14:09 | Outpatient (OUT) | payer OTHER, SELFPAY ==
--- NOTE | 2024-12-27 | XR_ITS ---
[facility] [place] [id number] Patient Name: ZEKE MANUEL MRN: [id number] date: 2005 Sex: F Assigned Patient Location: [facility] Current Patient Location: [facility] Accession/Order Number: [id number] Exam Date: 12/27/2024 16:17 Report Date: 12/27/2024 16:19 At the request of: ELIZ POWERS Procedure: XR wrist ADDIE min 3V 3 views both wrist HISTORY: Acute bilateral wrist pain. Fell one week ago. No acute displaced fracture. Adequate bony alignment. Unremarkable soft tissues. XR/XR wrist ADDIE min 3V IMPRESSION: No acute findings. Impression dictated by: Luis Carlos Kc M.D. 12/27/2024 4:19 PM Dictation Location: [place] [address] Electronically authenticated by: [id number] Y Date: 12/27/2024 16:19
== END 2024-12-27 14:10 | disposition home or self-care (01) ==
LOC: RAD 14:11
PROVIDERS: PCP Nurse Practitioner Family; Visit Provider Internal Medicine
DX: M25.532 Pain in left wrist (principal); M25.531 Pain in right wrist
CPT/HCPCS: 73110

== ENCOUNTER 2025-06-07 09:31 | Outpatient (OUT) | payer OTHER, SELFPAY ==
--- OUTSIDE RECORDS SUMMARY | 2025-06-07 09:37 | XMS_ITS | Patient Health Record ---
Author Organization [facility] Address [address] [place] [address] Care Team Providers Care Submarine Advisory Team Watch Officer Name Role Phone Cherie Morales Unavailable [phone] Allergies No Known Allergies Reason For Referral No Information Social History Tobacco Use: Social History Observation Description Date Details (start date - stop date) Never Smoker NA - NA AUDIT-C (Standard) Question Answer Notes Did you have a drink containing alcohol in the p ast year? No Clshvl1QkcjfaftzzlpadWpkdbobqGpxwgnt Control (Standard) Question Answer Notes Tobacco use: Nonsmoker Problems Problem Type SNOMED Code ICD Code Onset Dates Problem Status W/U Status Risk Notes Problem Other intervertebral disc degeneration, lumbosacral region with discogenic back pain and lower extremity pain (M51.372)ActiveconfirmedProblemLumbosacral radiculopathy (2134285)Radiculopathy, lumbosacral region (M54.17)Activeconfirmed ProblemDisplacement of lumbar intervertebral disc without myelopathy (89088865) Other intervertebral disc displacement, lumbosacral region (M51.27)Active confirmedProblemSpinal stenosis of lumbar region (94246501)Spinal stenosis, lumbosacral region (M48.07)Activeconfirmed Plan Of Treatment Pending Test Test Name Order Date Lumbar spine, 4v flex ext - 69061 2023 MRI : Lumbosacral Spine W/O Contrast - 7 214705/05/2024 Insurance Providers Payer Name Payer Address Payer Phone Subscriber Number Group Number Insured Name Patient Relationship to Insured Coverage Start Date Coverage End Date Located Within [facility] [address] [address] [place] [id number] ELIZ MANUEL Spouse - patient is the spouse of the insured Medical (General) History Medical History History ICD Code Asthma BronchitisAnxietyDepressionSeen a PsychiatristHospitalization History Reason Date(Month/Year) ER 04/26/2024
--- OUTSIDE RECORDS SUMMARY | 2025-06-07 09:37 | XMS_ITS | Clinical Summary ---
Author Organization [facility] Address [id number] [address] [place] [address] Care Team Providers Care Program Attendant Name Role Phone Elsy Myersghulam Hutchinson APRN-GROUT MACHINE OPERATOR Primary Care Provider + Allergies No known active allergies Medications MedicationSigDispense QuantityRefillsLast FilledStart DateEnd DateStatus cholecalciferol (VITAMIN D3) 1,000 units tablet Take 5 tablets (5,000 Units total) by mouth in the morning.Active hydrOXYzine (ATARAX) 25 mg tablet Take 4 tablets (100 mg total) by mouth as needed for anxiety.3Active prazosin (MINIPRESS) 2 mg capsule Take 1 capsule (2 mg total) by mouth nightly.Active busPIRone (BUSPAR) 15 mg tablet Take 1 tablet (15 mg total) by mouth 3 (three) times a day.3Active montelukast (SINGULAIR) 10 mg tablet Indications:Unspecified asthma, uncomplicatedtake 1 tablet by mouth every day 90 tablet ctive ibuprofen (MOTRIN) 800 mg tablet Take 1 tablet (800 mg total) by mouth every 8 (eight) hours as needed for pain. 60 tablet 4Active lurasidone (LATUDA) 80 mg tablet Take 120 mg by mouth nightly.5Active ondansetron ODT (ZOFRAN ODT) 4 mg disintegrating tablet DISSOLVE 1 TABLET ON THE TONGUE EVERY 6 HOURS NEEDED FOR NAUSEA/VOMITING 5Active polyethylene glycol (MIRALAX) 17 gram/dose powder Indications:Chronic constipationTake 17 g by mouth in the morning. Mix in 8 ounces of fluid. 510 g 5Active sertraline (ZOLOFT) 50 mg tablet Take 1 tablet (50 mg total) by mouth in the morning.Active propranoloL (INDERAL) 20 mg tablet Take 1 tablet (20 mg total) by mouth 3 (three) times a day.Active zonisamide (ZONEGRAN) 50 mg capsule Take 1 capsule (50 mg total) by mouth in the morning.Active HYDROcodone-acetaminophen (NORCO) 5-325 mg per tablet Take 1 tablet by mouth every 6 (six) hours as needed for pain.Active pregabalin (LYRICA) 50 mg capsule Indications:Lumbar radiculopathy,Thoracic spine painTake 1 capsule (50 mg total) by mouth in the morning and 1 capsule (50 mg total) before bedtime. 60 capsule 5Active naloxone (NARCAN) 4 mg/actuation spray,non-aerosol nasal spray USE INTRANASALLY [id number] methylphenidate LA (RITALIN LA) 40 MG 24 hr capsule Take 1 capsule (40 mg total) by mouth.5Active traZODone (DESYREL) 150 mg tablet Take 150 mg by mouth.Active albuterol (PROVENTIL HFA;VENTOLIN HFA) 90 mcg/actuation inhaler Indications:Mild intermittent asthma without complicationInhale 2 puffs every 6 (six) hours as needed for wheezing. 8.5 g 5Active cyclobenzaprine (FLEXERIL) 10 mg tablet Indications:Muscle spasmTAKE 1 TABLET BY MOUTH NIGHTLY NEEDED FOR MUSCLE SPASMS. 30 tablet 5Active Active Problems ProblemNoted DateDiagnosed DateLumbar jsxgnyyndgcsx27/04/2025Other intervertebral disc degeneration, lumbosacral region with discogenic back pain and lower extremity pain10/25/2024Thoracic vwkjdmtaaxnpk94/07/2025Thoracic spine pain10/25/2024ttention deficit hyperactivity disorder (ADHD)02/18/2023hronic pain of both knees02/18/2023orderline personality xdwdffav68/31/2023ipolar 2 disorder, major depressive miyodhx2408/06/20226354Bfloffc77/08/2022Episode of recurrent major depressive yagnjswe09/08/2022Iron deficiency anemia due to chronic blood loss05/28/2022Vitamin D aixwxhdwoh05/08/2022cne vulgaris 05/28/2022Mild intermittent asthma without xmjwzlohrtwy10/08/2022Nexplanon in place05/28/2022 Encounters DateTypeDepartmentCare JbdxCdegpyinktf88/23/2025Refill [facility] [address] [place] [address] Demetrice Myers, ENDOCRINOLOGY TEACHER-GROUT MACHINE OPERATOR Muscle spasmfrom Last 3 Months Immunizations ImmunizationAdministration DatesNext LovWMmO9301/13/2008,03/18/2005DTaP / Hep B / IPV02/27/2004,2003,2003HPV908,10/22/2016Hep A, 2 Dose 10/22/2016Hep B, Adolescent or Wmxkaybsg67/17/2004Hib (PRP-T)08/22/2004, 02/27/2004,2003,2003IPV01/13/2008MMR01/13/2008,08/22/2004 Meningococcal Ucgfnhast55/12/2021,02/05/2016Pneumococcal Uuhxmafqs75/28/2005, 02/27/2004,2003,2003Tdap02/05/20169813Ljsmnkdud21/25/2008,03/18/2005 Family History Medical HistoryRelationNameCommentsADD / ADHDFatherHypertensionFatherAnxiety disorderMotherDepressionMotherHypertensionMotherThyroid diseaseMother TuberculosisMotherHeart attackPaternal GrandmotherRelationNameStatusComments FatherMotherPaternal Grandmother Social History Tobacco UseTypesPacks/DayYears UsedDateSmoking Tobacco: NeverSmokeless Tobacco: Never Tobacco Cessation:Counseling Given: Not Answered Alcohol UseStandard Drinks/WeekCommentsYes2 (1 standard drink = 0.6 oz pure alcohol)Overall Financial Resource Strain (CARDIA)AnswerDate RecordedHow hard is it for you to pay for the very basics like food, housing, medical care, and heating?Hard04/28/2024HQ-2AnswerDate RecordedTotal Olizv3109PRAPARE - TransportationAnswerDate RecordedIn the past 12 months, has lack of transportation kept you from medical appointments or from getting medications?No 04/28/2024In the past 12 months, has lack of transportation kept you from meetings, work, or from getting things needed for daily living?No04/28/2024 Housing InstabilityAnswerDate RecordedAre you worried or concerned that in the next two months you may not have stable housing that you own, rent or stay in as a part of a household?Patient Lhnxrkjf20/08/2024hildcareAnswerDate Recorded UervibeovLefbctd47/12/2019EmploymentAnswerDate RecordedEmploymentUnknown 11/30/2018Hunger ScreeningAnswerDate RecordedWithin the past 12 months we worried whether our food would run out before we got money to buy more.Never True01/08/2025Within the past 12 months the food we bought just didn't last and we didn't have money to get more.Never True01/08/2025CommentsNoSex and Gender InformationValueDate RecordedSex Assigned at CeoylRyvriq07/04/2023 9:35 AM EDTLegal MmeQtfanl61/06/2015 12:01 PM EDTGender SwpferutIxljbh81/04/2023 9:35 AM EDTSexual SekpydisdhqMkodqztl20/04/2023 9:35 AM EDT Last Filed Vital Signs Vital SignReadingTime TakenCommentsBlood Cionukyb651/7207 4:24 PM EDT Wcwjy830301/08/2025 4:24 PM MKMXnuopvjkclo04.1 ??C (98.7 ??F)01/08/2025 4:26 PM EDTRespiratory Ituh738401/08/2025 4:24 PM EDTOxygen Zlatvzjoel32%01/08/2025 4:24 PM EDTInhaled Oxygen Concentration--Jwpcwv09.8 kg (165 lb)01/08/2025 4:24 PM EDT Sahvrp355.1 cm (5' 5 )01/08/2025 4:24 PM EDTBody Mass Index27.46001/08/2025 4:24 PM EDT Plan of Treatment Health MaintenanceDue DateLast DoneCommentsChlamydia Acofuqjho49/29/2024 06/18/2023ap Smear2024Influenza Xgzwwos2802/19/2025dult BMI Follow Up Plan Depression Agfvensjt68/dult BMI Screening /Tobacco Xtpvbdohn71/DTaP,Tdap and Td Vaccines (8 - Td or Tdap)/05/2025, 02/05/2016, 01/13/2008, Additional history exists Medical Devices Not on file Insurance Care Teams Team MemberRelationshipSpecialtyStart DateEnd Date Demetrice Myers APRN-GROUT MACHINE OPERATOR [address] [place] [address] PCP - GeneralInternal Medicine02/18/23
--- OUTSIDE RECORDS SUMMARY | 2025-06-07 09:37 | XMS_ITS | Clinical Summary ---
Author Organization [facility] Address [address] [place] [address] Care Team Providers Care Cost Estimator Name Role Phone Jonathan Garcia MD Primary Care Provider + [phone] Demetrice Myers MD Unavailable Allergies No known active allergies Medications MedicationSigDispense QuantityRefillsLast FilledStart DateEnd DateStatus busPIRone (Buspar) 15 MG tablet Take 15 mg by mouth in the morning and 15 mg in the evening and 15 mg before bedtime.5Active montelukast (Singulair) 10 MG tablet Take 10 mg by mouth in the morning.4Active sertraline (Zoloft) 50 MG tablet Take 50 mg by mouth in the morning.Active methylphenidate LA (Ritalin LA) 30 MG 24 hr capsule Take 30 mg by mouth in the morning.Active cholecalciferol (Vitamin D-[address]) 25 MCG (1000 UT) tablet Take 1,000 Units by mouth in the morning.Active propranolol (Inderal) 20 MG tablet Take 20 mg by mouth in the morning and 20 mg at noon and 20 mg in the evening. Active prazosin (Minipress) 2 MG capsule Take 2 mg by mouth at bedtimeActive naloxone (Narcan) 4 mg/0.1 mL nasal spray USE INTRANASALLY APTQQA9105/09/2024ctive traZODone (Desyrel) 150 MG tablet Take 150 mg by mouth at bedtimeActive hydrOXYzine pamoate (Vistaril) 100 MG capsule Take by mouthActive ondansetron ODT (Zofran-ODT) 4 MG disintegrating tablet DISSOLVE 1 TABLET ON THE TONGUE EVERY 6 HOURS NEEDED FOR NAUSEA/VOMITING 5Active zonisamide (Zonegran) 50 MG capsule Take 50 mg by mouth in the morning.Active cyclobenzaprine (Flexeril) 10 MG tablet Take 10 mg by mouth as needed at sjjionc94/30/2025Active lurasidone (Latuda) 80 MG tablet Take 80 mg by mouth at xutrwsc82/28/2025Active Family History RelationNameStatusCommentsFatherAliveMotherAlive Social History Tobacco UseTypesPacks/DayYears UsedDateSmoking Tobacco: Never Tobacco Cessation:Counseling Given: Not Answered Alcohol UseStandard Drinks/WeekCommentsYes1 (1 standard drink = 0.6 oz pure alcohol)1x weeklyCommentsUnknownSex and Gender InformationValueDate RecordedSex Assigned at BirthNot on fileLegal CohGuvfms87/15/2023 8:00 PM EDT Gender IdentityNot on fileSexual OrientationNot on file Last Filed Vital Signs Vital SignReadingTime TakenCommentsBlood Pressure--Pulse--Temperature-- Respiratory Rate--Oxygen Saturation--Inhaled Oxygen Concentration--Xgjlqk23.4 kg (175 lb)11/08/2024 2:16 PM IUSVicsgk237.1 cm (5' 5 )11/08/2024 2:16 PM EDTBody Mass Index29.12011/08/2024 2:16 PM EDT Plan of Treatment Not on file Insurance Care Teams Team MemberRelationshipSpecialtyStart DateEnd Date Jonathan Garcia MD [address], [facility] [place] [address] [facility] - [facility] Demetrice Myers MD [address] [place] [address] Referring PhysicianAd[facility]health Gordon10/31/24
[2025-06-07 10:39] LABS: Hematocrit 37.1 % (36.0-48.0); Hemoglobin 12.9 g/dL (12.0-16.0); Immature Granulocytes Abs Auto 0.01 10^3/uL (0.00-0.03); Immature Granulocytes Pct Auto 0.1 % (0.0-0.5); Lymphocytes Absolute Auto 1.3 10^3/uL (1.2-3.8); Mean Corpuscular HGB Conc 34.8 g/dL (29.9-35.2); Mean Corpuscular Hemoglobin 29.9 pg (26.7-34.0); Mean Corpuscular Volume 86.1 fL (81.0-99.0); Platelet Count 234 10^3/uL (150-450); Red Blood Count 4.31 10^6/uL (4.20-5.40); White Blood Count 6.8 10^3/uL (4.0-11.0)
[2025-06-07 10:54] LABS: Alanine Aminotransferase 21 U/L (14-59); Albumin Globulin Ratio 1.1; Albumin Level 4.2 g/dL (3.4-5.0); Alkaline Phosphatase 73 U/L (46-116); Anion Gap 6.0; Aspartate Amino Transferase 20 U/L (15-37); Blood Urea Nitrogen 9.0 mg/dL (7.0-18.0); Calcium 9.1 mg/dL (8.5-10.1); Carbon Dioxide 26.2 mmol/L (21.0-32.0); Chloride 101 mmol/L (98-107); Cholesterol 249 mg/dL (<=200); Estimated GFR (African America >60 (>=60 mL/min/1.73m^2); Estimated GFR (Non-African Ame >60 (>=60 mL/min/1.73m^2); Globulin 3.7 g/dL; Glucose 101 mg/dL (74-106); HDL Cholesterol 50 mg/dL (40-60); Potassium 3.2 mmol/L (3.5-5.1); Sodium 130 mmol/L (136-145); Thyroid Stimulating Hormone 1.474 uIU/mL (0.358-3.740); Total Protein 7.9 g/dL (6.4-8.2); Triglycerides 83 mg/dL (<=150); VLDL CHOLESTEROL 16.6 mg/dL
[2025-06-08 04:10] LABS: Vitamin B12 481 pg/mL (232-1245)
== END 2025-06-07 09:32 | disposition home or self-care (01) ==
LOC: LAB 09:33
PROVIDERS: PCP Nurse Practitioner Family; Visit Provider Nurse Practitioner Family
DX: R53.83 Other fatigue (principal); Z79.899 Other long term (current) drug therapy; E66.3 Overweight; F90.2 Attention-deficit hyperactivity disorder, combined type; F34.1 Dysthymic disorder; F41.1 Generalized anxiety disorder; F41.0 Panic disorder [episodic paroxysmal anxiety]; F43.12 Post-traumatic stress disorder, chronic; G47.00 Insomnia, unspecified; F60.3 Borderline personality disorder; F50.00 Anorexia nervosa, unspecified
CPT/HCPCS: 36415; 80053; 80061; 82306; 82607; 83036; 84443; 85025